=== PATIENT | male | born 1945 | race Caucasian/White ===

== ENCOUNTER 2020-07-30 18:48 | Inpatient (IN) ==
[2020-07-30] MEDS ORDERED: SODIUM CHLORIDE 0.9% 1000ML 1,000 ML IV STA (19:28)
[2020-07-30] MEDS ORDERED: ACETAMINOPHEN 500 MG TAB PO STA (19:28)
[2020-07-30] MEDS ORDERED: SODIUM CHLORIDE 0.9% 500 ML IV SCH (19:30)
[2020-07-30] MEDS ORDERED: DEXAMETHASONE SOD INJ 10 MG/ML VIAL IV ONE (19:53)
--- NOTE | 2020-07-30 20:05 | Emergency Department Note ---
Impression & Plan Fever, COVID-19 virus infection ED Provider Note INFORMANT: [Patient] ED PROVIDER(S): Karlos Ortiz MD CHIEF COMPLAINT: Flulike symptoms PLAN: Disposition: Admitted Condition: Guarded MEDICAL DECISION MAKING: Patient presented with flulike symptoms. He has a fever. He was given Tylenol. Gentle fluid hydration was initiated. His was admitted yesterday with COVID-19. I suspected COVID-19 and the patient was isolated. Covid testing was performed and was positive. Patient was given IV Decadron. His CBC and chemistry panel are unremarkable. CRP is elevated. Troponin negative. ECG did not show any ischemia. He had an O2 saturation on room air of 90%. He did well with supplemental nasal cannula oxygen. He will need admitted to the hospital for further management. Consultation was placed with Reji Banuelos of the [facility] service. Patient was evaluated in the ER for further management. Triage Nursing notes reviewed and agree them. Vital Signs: reviewed and remarkable for [no significant abnormalities] Differential diagnosis: COVID-19 infection, viral syndrome, otitis, pharyngitis, pneumonia, influenza, meningitis, urinary tract infection, sepsis, bacteremia, as well as other pathologies. Diagnostics interpreted by me: ECG: Rate: 84 Rhythm:Normal sinus [place]:Normal QRS:Normal ST segements:No elevation or depression Other:No PACs or PVCs Cardiac Monitoring: Cardiac monitoring ordered by me: The patient was placed on continuous cardiac monitoring and observed. It revealed a normal sinus rhythm at 90 beats per minute without ectopy or evidence of dysrhythmia. Imaging studies: Chest x-ray. Findings: A chest x-ray was performed and revealed no pneumothorax, effusion, infiltrate, pulmonary edema, free air under the diaphragm, or wide mediastinum. Impression: No acute disease. Consultation(s): [facility] service HPI: The patient is a 75 year old male who presents to the Emergency Room with complaints of flulike symptom. This started earlier this week and is progressing. The patient also notes the following associated symptoms, insomnia, fever, chills, headache, cough, myalgias. The patient has found no relieving factors. Current pain is rated as 3/10. Patient's was seen in the hospital last night and diagnosed with Covid and admitted secondary to hypoxia. Pt denies LOC, diaphoresis, visual changes, neck pain, chest pain, breathing difficulties, nausea, vomiting, abdominal pain, back pain, melena, hematochezia, urinary symptoms, numbness, focal weakness, lymphadenopathy, rash, or other complaints. ROS: See above HPI for pertinent positives & negatives. A total of [10] systems reviewed and were otherwise negative. PAST MEDICAL HISTORY:[See Below] , high blood pressure PAST SURGICAL HISTORY:[See Below],[] FAMILY HISTORY:[See Below] SOCIAL HISTORY:[See Below], HOME MEDICATIONS:[See Below] ALLERGIES:[See Below] VITALS:[See Below] PHYSICAL EXAMINATION: GENERAL: Awake, ill-appearing, in no distress HENT: Normocephalic, atraumatic. Oropharynx unremarkable. EYES: Normal conjunctiva. Sclera non-icteric. NECK: Inspection normal. Non-tender. Supple. No nuchal rigidity. FROM. No masses. RESPIRATORY: Clear to auscultation. No wheezes. No rales. Moderate cough, increased respiratory effort. CARDIAC: Borderline tachycardic rate. Normal rhythm. No murmurs. No rubs. Extremities warm and well perfused. Pulses equal. No JVD. GI: Soft, non-distended. No tenderness to palpation. No rebound or guarding. No masses. RECTAL: Deferred. MUSCULOSKELETAL: Atraumatic. Chest examination reveals no tenderness. The back is symmetrical on inspection without obvious abnormality. There is no CVA tenderness to palpation. No joint edema. LOWER EXTREMITIES: Calves are equal size bilaterally and non-tender. No edema. No discoloration. NEURO: Normal sensorium. No sensory or motor deficits noted. SKIN: Flushed but no no rash or jaundice noted. Karlos Ortiz MD Past Med/Surg History Social History Smoking Status: Never smoker Feels Safe at Home: Yes Results & Data (ED) Vital Signs Vital Signs - 24 hr 07/30/20 18:58 07/30/20 20:28 07/30/20 20:30 Temperature 38.2 C H 37.8 C H Temperature Source Temporal Artery Scan Oral Pulse Rate 100 H 88 Pulse Rate [Apical] 86 Pulse Rate from SpO2 Sensor 87 Pulse Rhythm Regular Pulse Strength Normal Respiratory Rate 20 19 Respiratory Effort / Characteristics Non-Labored Respiratory Depth Normal Respiratory Pattern Regular Blood Pressure 128/81 149/87 H Blood Pressure [Right Arm] 149/87 H Blood Pressure Mean 96 104 Blood Pressure Mean [Right Arm] 107 Blood Pressure Position Sitting Pulse Oximetry 94 97 97 Oxygen Delivery Method Nasal Cannula Nasal Cannula Oxygen Flow Rate 2 Sepsis Recent Fever Within 48 Hours Yes Sepsis New/Unexplained Change in Mental Status No Sepsis Action Taken by Nursing No Action Required 07/30/20 21:00 Temperature Temperature Source Pulse Rate 85 Pulse Rate [Apical] Pulse Rate from SpO2 Sensor 86 Pulse Rhythm Pulse Strength Respiratory Rate 13 Respiratory Effort / Characteristics Respiratory Depth Respiratory Pattern Blood Pressure Blood Pressure [Right Arm] Blood Pressure Mean Blood Pressure Mean [Right Arm] Blood Pressure Position Pulse Oximetry 96 Oxygen Delivery Method Oxygen Flow Rate Sepsis Recent Fever Within 48 Hours Sepsis New/Unexplained Change in Mental Status Sepsis Action Taken by Nursing Laboratory Data Result diagrams: 07/30/20 20:32 07/30/20 20:32 Lab Results 07/30/20 07/30/20 07/30/20 Range/Units 20:32 20:32 20:32 WBC 6.13 (4.8-10.8) K/uL RBC 4.61 L (4.7-6.1) M/uL Hgb 13.9 L (14.0-18.0) g/dL Hct 41.9 L (42-52) % MCV 90.9 (80-100) fL MCH 30.2 (25-34) pg MCHC 33.2 (32-36) g/dL RDW Std Deviation 44.6 (36.4-46.3) fL RDW Coeff of Macrina 13.4 (11.5-14.5) % Plt Count 204 (130-400) K/uL MPV 10.0 (7.4-10.4) fL Immature Gran % (Auto) 0.0 % Neut % (Auto) 62.8 % Lymph % (Auto) 15.0 % [place] % (Auto) 21.0 % Eos % (Auto) 0.7 % Baso % (Auto) 0.5 % Neut # (Auto) 3.85 (1.4-6.5) K/uL Lymph # (Auto) 0.92 L (1.2-3.4) K/uL [place] # (Auto) 1.29 H (0.11-0.59) K/uL Eos # (Auto) 0.04 (0-0.5) K/uL Baso # (Auto) 0.03 (0-0.2) K/uL Immature Gran # (Auto) 0.00 (0.00-0.02) K/uL PT 11.4 (9.0-12.0) Seconds INR 1.1 (0.9-1.1) APTT 32.8 H (21.0-31.0) Seconds PTT Ratio 1.2 Sodium 137 (136-145) mmol/L Potassium 4.1 (3.5-5.1) mmol/L Chloride 103 (98-107) mmol/L Carbon Dioxide 26 (21-32) mmol/L Anion Gap 7.0 (3-11) BUN 15 (7-18) mg/dl Creatinine 1.29 (0.6-1.4) mg/dl Est Cr Clr Drug Dosing 57.0 ml/min Est GFR ( Amer) 63.3 Est GFR (Non-Af Amer) 54.6 BUN/Creatinine Ratio 11.6 (10-20) Glucose 149 H (70-99) mg/dl Lactate (0.4-2.0) mmol/L Calcium 9.1 (8.5-10.1) mg/dl Total Bilirubin 0.5 (0.2-1) mg/dl AST 21 (15-37) U/L ALT 28 (12-78) U/L Alkaline Phosphatase 82 (45-117) U/L Troponin I < 0.015 (0-0.045) ng/ml C-Reactive Protein 1.99 H (0-0.29) mg/dl NT-Pro-B Natriuret Pep 149 (0-900) pg/ml Total Protein 7.5 (6.4-8.2) gm/dl Albumin 3.9 (3.4-5.0) gm/dl Globulin 3.6 (2.5-4.0) gm/dl Albumin/Globulin Ratio 1.1 (0.9-2) COVID-19 Eval Order Influ A Molecular Assay (Negative) Influ B Molecular Assay (Negative) SARS-CoV-2, RNA, NAAT (NEGATIVE) 07/30/20 07/30/20 07/30/20 Range/Units 20:32 20:32 20:32 WBC (4.8-10.8) K/uL RBC (4.7-6.1) M/uL Hgb (14.0-18.0) g/dL Hct (42-52) % MCV (80-100) fL MCH (25-34) pg MCHC (32-36) g/dL RDW Std Deviation (36.4-46.3) fL RDW Coeff of [place]rina (11.5-14.5) % Plt Count (130-400) K/uL MPV (7.4-10.4) fL Immature Gran % (Auto) % Neut % (Auto) % Lymph % (Auto) % [place] % (Auto) % Eos % (Auto) % Baso % (Auto) % Neut # (Auto) (1.4-6.5) K/uL Lymph # (Auto) (1.2-3.4) K/uL [place] # (Auto) (0.11-0.59) K/uL Eos # (Auto) (0-0.5) K/uL Baso # (Auto) (0-0.2) K/uL Immature Gran # (Auto) (0.00-0.02) K/uL PT (9.0-12.0) Seconds INR (0.9-1.1) APTT (21.0-31.0) Seconds PTT Ratio Sodium (136-145) mmol/L Potassium (3.5-5.1) mmol/L Chloride (98-107) mmol/L Carbon Dioxide (21-32) mmol/L Anion Gap (3-11) BUN (7-18) mg/dl Creatinine (0.6-1.4) mg/dl Est Cr Clr Drug Dosing ml/min Est GFR ( Amer) Est GFR (Non-Af Amer) BUN/Creatinine Ratio (10-20) Glucose (70-99) mg/dl Lactate (0.4-2.0) mmol/L Calcium (8.5-10.1) mg/dl Total Bilirubin (0.2-1) mg/dl AST (15-37) U/L ALT (12-78) U/L Alkaline Phosphatase (45-117) U/L Troponin I (0-0.045) ng/ml C-Reactive Protein (0-0.29) mg/dl NT-Pro-B Natriuret Pep (0-900) pg/ml Total Protein (6.4-8.2) gm/dl Albumin (3.4-5.0) gm/dl Globulin (2.5-4.0) gm/dl Albumin/Globulin Ratio (0.9-2) COVID-19 Eval [facility] Influ A Molecular Assay Negative (Negative) Influ B Molecular Assay Negative (Negative) SARS-CoV-2, RNA, NAAT POSITIVE A* (NEGATIVE) 07/30/20 Range/Units 21:07 WBC (4.8-10.8) K/uL RBC (4.7-6.1) M/uL Hgb (14.0-18.0) g/dL Hct (42-52) % MCV (80-100) fL MCH (25-34) pg MCHC (32-36) g/dL RDW Std Deviation (36.4-46.3) fL RDW Coeff of [place]rina (11.5-14.5) % Plt Count (130-400) K/uL MPV (7.4-10.4) fL Immature Gran % (Auto) % Neut % (Auto) % Lymph % (Auto) % [place] % (Auto) % Eos % (Auto) % Baso % (Auto) % Neut # (Auto) (1.4-6.5) K/uL Lymph # (Auto) (1.2-3.4) K/uL [place] # (Auto) (0.11-0.59) K/uL Eos # (Auto) (0-0.5) K/uL Baso # (Auto) (0-0.2) K/uL Immature Gran # (Auto) (0.00-0.02) K/uL PT (9.0-12.0) Seconds INR (0.9-1.1) APTT (21.0-31.0) Seconds PTT Ratio Sodium (136-145) mmol/L Potassium (3.5-5.1) mmol/L Chloride (98-107) mmol/L Carbon Dioxide (21-32) mmol/L Anion Gap (3-11) BUN (7-18) mg/dl Creatinine (0.6-1.4) mg/dl Est Cr Clr Drug Dosing ml/min Est GFR ( Amer) Est GFR (Non-Af Amer) BUN/Creatinine Ratio (10-20) Glucose (70-99) mg/dl Lactate 0.7 (0.4-2.0) mmol/L Calcium (8.5-10.1) mg/dl Total Bilirubin (0.2-1) mg/dl AST (15-37) U/L ALT (12-78) U/L Alkaline Phosphatase (45-117) U/L Troponin I (0-0.045) ng/ml C-Reactive Protein (0-0.29) mg/dl NT-Pro-B Natriuret Pep (0-900) pg/ml Total Protein (6.4-8.2) gm/dl Albumin (3.4-5.0) gm/dl Globulin (2.5-4.0) gm/dl Albumin/Globulin Ratio (0.9-2) COVID-19 Eval Order Influ A Molecular Assay (Negative) Influ B Molecular Assay (Negative) SARS-CoV-2, RNA, NAAT (NEGATIVE) Administered Medications Sodium Chloride (Nss 1000ml) 1,000 mls @ 125 mls/hr IV .Q8H STA Stop: 07/31/20 03:27 Last Admin: 07/30/20 20:48 Dose: 125 mls/hr Documented by: [id number] Discontinued Medications Acetaminophen (Acetaminophen 500 Mg Tab) 1,000 mg PO NOW STA Stop: 07/30/20 19:29 Last Admin: 07/30/20 20:46 Dose: 1,000 mg Documented by: [id number] Dexamethasone (Dexamethasone Sod Inj 10 Mg/Ml Vial) 6 mg IV NOW ONE Stop: 07/30/20 19:54 Last Admin: 07/30/20 20:47 Dose: 6 mg Documented by: [id number] Sodium Chloride (Nss) 500 mls @ 999 mls/hr IV .Q31M NILAM Stop: 07/30/20 20:00 Last Infusion: 07/30/20 21:32 Dose: 0 mls/hr Documented by: [id number] Admin: 07/30/20 20:48 Dose: 999 mls/hr Documented by: [id number] Discharge Plan Visit Data Chief Complaint: Flu Like Symptoms Stated Complaint: WEAKNESS, COUGH, LOSS OF BALANCE, HEADACHE ED Provider: Karlos Ortiz Discharge Problem: Fever, COVID-19 virus infection Forms Stand Alone Forms: [facility]
[2020-07-30 20:57] LABS: Basophils # (auto) 0.03 K/uL (0-0.2); Basophils % (auto) 0.5 %; Eosinophils # (auto) 0.04 K/uL (0-0.5); Eosinophils % (auto) 0.7 %; Hematocrit (blood only) 41.9 % (42-52); Hemoglobin 13.9 g/dL (14.0-18.0); Lymphocytes # (auto) 0.92 K/uL (1.2-3.4); Mean Corpuscular Hemoglobin 30.2 pg (25-34); Mean Corpuscular Hgb Conc 33.2 g/dL (32-36); Mean Corpuscular Volume 90.9 fL (80-100); Monocytes # (auto) 1.29 K/uL (0.11-0.59); Neutrophils # (auto) 3.85 K/uL (1.4-6.5); Neutrophils % (auto) 62.8 %; Platelet Count 204 K/uL (130-400); RDW Coefficient of Variation 13.4 % (11.5-14.5); RDW Standard Deviation 44.6 fL (36.4-46.3); Red Blood Count 4.61 M/uL (4.7-6.1); White Blood Count 6.13 K/uL (4.8-10.8)
[2020-07-30 21:08] LABS: INR 1.1 (0.9-1.1); Partial Thromboplastin Ratio 1.2; Partial Thromboplastin Time 32.8 Seconds (21.0-31.0); Prothrombin Time 11.4 Seconds (9.0-12.0)
[2020-07-30 21:23] LABS: Alanine Aminotransferase 28 U/L (12-78); Albumin Level 3.9 gm/dl (3.4-5.0); Aspartate Aminotransferase 21 U/L (15-37); BUN Creatinine Ratio 11.6 (10-20); Blood Urea Nitrogen 15 mg/dl (7-18); C Reactive Protein 1.99 mg/dl (0-0.29); Calcium 9.1 mg/dl (8.5-10.1); Carbon Dioxide 26 mmol/L (21-32); Chloride 103 mmol/L (98-107); Est GFR (African American) 63.3; Est GFR (Non-African American) 54.6; Glucose 149 mg/dl (70-99); Potassium 4.1 mmol/L (3.5-5.1); Sodium 137 mmol/L (136-145)
[2020-07-30 21:28] LABS: Albumin Globulin Ratio 1.1 (0.9-2); Alkaline Phosphatase 82 U/L (45-117); Bilirubin,Total 0.5 mg/dl (0.2-1); Globulin 3.6 gm/dl (2.5-4.0); Influenza A virus by PCR Negative (Negative); Influenza B virus by PCR Negative (Negative); NT Pro B Type Natriuretic Pept 149 pg/ml (0-900); Total Protein 7.5 gm/dl (6.4-8.2); Troponin I < 0.015 ng/ml (0-0.045)
--- NOTE | 2020-07-30 21:37 | XRay Report ---
SINGLE VIEW CHEST CLINICAL HISTORY: Dyspnea. FINDINGS: An AP, portable, upright chest radiograph is obtained. No prior studies are available for c omparison at the time of dictation. The examination is degraded by portable technique and patient rot ation. The heart is enlarged. The pulmonary vasculature is noncongested. There is mild bibasilar ate lectasis. No airspace consolidation or large pleural effusion is identified. No pneumothorax is seen. The skeletal structures are osteopenic. The bony thorax is grossly intact. IMPRESSION: Cardiomegaly with no acute cardiopulmonary abnormality. ACT 112: Negative or not required by law. Electronically signed by: Joseph Hdez M.D. 07/30/2020 9:36 PM
--- NOTE | 2020-07-30 22:58 | History & Physical Report ---
Date of Service July 30, 2020 Assessment & Plan (1) COVID-19 virus infection: COVID-19 virus infection/fever/hypoxia/generalized myalgias and arthralgias- Decadron 6 mg IV daily Convalescent plasma Remdesivir IV per protocol Azithromycin 500 mg IV daily Ventolin HFA 2 puffs 4 times daily, and every 2 hours as needed NSS at high 25 mils per hour Present on Admission?: Yes (2) Fever: Tylenol as needed Present on Admission?: Yes (3) Hypoxia: Nasal cannula 2 L oxygen, titrate to keep pulse ox around 95% Present on Admission?: Yes (4) Hypertension: Continue lisinopril and amlodipine with hold parameters Present on Admission?: Yes History of Present Illness Chief Complaint: The patient presented to the emergency department with complaint of mild shortness of breath, generalized muscle aches and a fever. Primary Care Provider: Robin Reid MD The patient is a 75-year-old male with a past medical history including hypertension. He and his both developed similar symptoms about 3 days ago, with her being admitted to the hospital last evening. His symptoms have progressed, and underwent COVID-19 testing in the ED and was positive tonight. Vital signs included a pulse ox of 90% on room air, which improved with 2 L to 96-97%. The patient remained febrile while in emergency department with initial temperature of 100.8 F, which improved to 100.0 F after oral Tylenol. Allergies Allergy/AdvReac Type Severity Reaction Status Date / Time No Known Allergies Allergy Unverified 07/30/20 22:19 Home Medications Medication Instructions Recorded Confirmed Type amlodipine 5 mg PO DAILY 07/30/20 07/30/20 History cholecalciferol (vitamin D3) 0 mcg PO DAILY 07/30/20 07/30/20 History losartan 50 mg PO DAILY 07/30/20 07/30/20 History multivitamin [Multiple Vitamin] 1 tab PO DAILY 07/30/20 07/30/20 History Past Med/Surg History Medical History (Updated 07/31/20 @ 00:59 by Reji Banuelos MD) Hypertension Social History Smoking Status: Never smoker Feels Safe at Home: Yes Review of Systems Review of Systems: The patient denies chest pain, palpitations, lower extremity swelling, sore throat, fevers, chills, sweats, nausea, vomiting, diarrhea , constipation, abdominal pain, pelvic pain, blood in urine or stool, dysuria, urinary frequency or urgency, lightheadedness, dizziness, headache, memory loss, loss of consciousness, rash, abnormal bruising or bleeding, imbalance, focal weakness, numbness or tingling in arms or legs, back or neck pain, or night sweats. The review of systems is otherwise negative other than for that already noted above, and at least 10 systems have been reviewed. Physical Exam Physical Exam: The patient is awake, alert and oriented 3, well developed and well nourished, normocephalic and atraumatic, lying in bed and in no acute distress. HEENT--PERRL, EOMI, mucous membranes and oropharynx dry. Neck--supple. No JVD. No bruits. Thyroid normal, trachea midline, no adenopathy. Heart--normal S1 and S2. No murmurs, rubs or gallops. Lungs--clear bilaterally, no respiratory distress, no accessory muscle use. Abdomen--normal bowel sounds and soft. Nontender. Nondistended. Extremities--no cyanosis or clubbing. No edema. Dermatologic--normal skin turgor, normal color, no abnormal lymph nodes, no rash. Neurologic--cranial nerves II through XII grossly intact. Rheumatologic--normal range of motion. Psychiatric--normal affect. Results & Data Results & Data ([facility]) Vital Signs (Past 12 Hours) Vital Signs Temp Pulse Pulse Resp BP BP Pulse Ox 07/30/20 21:00 85 13 96 07/30/20 20:30 100.0 F H 88 86 19 149/87 H 149/87 H 97 07/30/20 20:28 97 07/30/20 18:58 100.8 F H 100 H 20 128/81 94 07/30/20 18:50 90 Laboratory Results Laboratory Results WBC 6.13 K/uL (4.8-10.8) 07/30/20 20:32 RBC 4.61 M/uL (4.7-6.1) L 07/30/20 20:32 Hgb 13.9 g/dL (14.0-18.0) L 07/30/20 20:32 Hct 41.9 % (42-52) L 07/30/20 20:32 MCV 90.9 fL (80-100) 07/30/20 20: MCH 30.2 pg (25-34) 07/30/20: MCHC 33.2 g/dL (32-36) 07/30/20 20: RDW Std Deviation 44.6 fL (36.4-46.3) 07/30/20 20: RDW Coeff of Macrina 13.4 % (11.5-14.5) 07/30/20: Plt Count 204 K/uL (130-400) 07/30/20 20: MPV 10.0 fL (7.4-10.4) 07/30/20 20: Immature Gran % (Auto) 0.0 % 07/30/20: Neut % (Auto) 62.8 % 07/30/20 20: Lymph % (Auto) 15.0 % 07/30/20: [place] % (Auto) 21.0 % 07/30/20: Eos % (Auto) 0.7 % 07/30/20: Baso % (Auto) 0.5 % 07/30/20: Neut # (Auto) 3.85 K/uL (1.4-6.5) 07/30/20 20: Lymph # (Auto) 0.92 K/uL (1.2-3.4) L 07/30/20 20: [place] # (Auto) 1.29 K/uL (0.11-0.59) H 07/30/20: Eos # (Auto) 0.04 K/uL (0-0.5) 07/30/20: Baso # (Auto) 0.03 K/uL (0-0.2) 07/30/20: Immature Gran # (Auto) 0.00 K/uL (0.00-0.02) 07/30/20 20: PT 11.4 Seconds (9.0-12.0) 07/30/20 20: INR 1.1 (0.9-1.1) 07/30/20: APTT 32.8 Seconds (21.0-31.0) H 07/30/20 20: PTT Ratio 1.2 07/30/20 20:32 D-Dimer 230 ug/L FEU (0-500) 07/30/20 21:09 Sodium 137 mmol/L (136-145) 07/30/20 20:32 Potassium 4.1 mmol/L (3.5-5.1) 07/30/20 20:32 Chloride 103 mmol/L (98-107) 07/30/20 20:32 Carbon Dioxide 26 mmol/L (21-32) 07/30/20 20:32 Anion Gap 7.0 (3-11) 07/30/20 20:32 BUN 15 mg/dl (7-18) 07/30/20 20:32 Creatinine 1.29 mg/dl (0.6-1.4) 07/30/20 20:32 Est Cr Clr Drug Dosing 57.0 ml/min 07/30/20 20:32 Est GFR ( Amer) 63.3 07/30/20 20:32 Est GFR (Non-Af Amer) 54.6 07/30/20 20:32 BUN/Creatinine Ratio 11.6 (10-20) 07/30/20 20:32 Glucose 149 mg/dl (70-99) H 07/30/20 20:32 Lactate 0.7 mmol/L (0.4-2.0) 07/30/20 21:07 Calcium 9.1 mg/dl (8.5-10.1) 07/30/20 20:32 Total Bilirubin 0.5 mg/dl (0.2-1) 07/30/20 20:32 AST 21 U/L (15-37) 07/30/20 20:32 ALT 28 U/L (12-78) 07/30/20 20:32 Alkaline Phosphatase 82 U/L (45-117) 07/30/20 20:32 Troponin I < 0.015 ng/ml (0-0.045) 07/30/20 20:32 C-Reactive Protein 1.99 mg/dl (0-0.29) H 07/30/20 20:32 NT-Pro-B Natriuret Pep 149 pg/ml (0-900) 07/30/20 20:32 Total Protein 7.5 gm/dl (6.4-8.2) 07/30/20 20:32 Albumin 3.9 gm/dl (3.4-5.0) 07/30/20 20:32 Globulin 3.6 gm/dl (2.5-4.0) 07/30/20 20:32 Albumin/Globulin Ratio 1.1 (0.9-2) 07/30/20 20:32 Procalcitonin < 0.05 ng/ml (0-0.5) 07/30/20 20:32 COVID-19 Eval Order Covid19 IDNow [facility] 07/30/20 20:32 Influ A Molecular Assay Negative (Negative) 07/30/20 20:32 Influ B Molecular Assay Negative (Negative) 07/30/20 20:32 SARS-CoV-2, RNA, NAAT POSITIVE (NEGATIVE) A* 07/30/20 20:32 Blood Type O Positive 07/30/20 21:07 Antibody Screen NEGATIVE 07/30/20 21:07 Diagnostic Findings [facility], [id number] XRay Report Patient: YELENA MUNOZ DAdmit Date: 07/30/20MR#: [id number]: [address] AVAcct ID:[id number]: Date: 1945[facility] Zip: [place], [place] [address]Zhl: 75Location: EDSex: MRoom/Bed:Att Phy:Diagnosis: WEAKN ESS, COUGH, LOSS OF BALANCE, HEADACHEPri Phy: PCP,NOService Date: 07/30/20Fam Phy:Interpreting Phy: Joseph Hdez MDAdmit Phy: Ordering Phy: Karlos Ortiz MD cc: ~ SINGLE VIEW CHEST CLINICAL HISTORY: Dyspnea. FINDINGS: An AP, portable, upright chest radiograph is obtained. No prior studies are available for comparison at the time of dictation. The examination is degraded by portable technique and patient rotation. The heart is enlarged. The pulmonary vasculature is noncongested. There is mild bibasilar atelectasis. No airspace consolidation or large pleural effusion is identified. No pneumothorax is seen. The skeletal structures are osteopenic. The bony thorax is grossly intact. IMPRESSION: Cardiomegaly with no acute cardiopulmonary abnormality. ACT 112: Negative or not required by law. Electronically signed by: Joseph Hdez M.D. 07/30/2020 9:36 PM Dictated: 07/30/202134Transcribed: 07/30/202134 Code Status & VTE Plan Code Status Full code VTE Prophylaxis Plan VTE Prophylaxis will be ordered: Yes PG Care Time/CCT Total # of Minutes Spent Total Time Spent with Patient: Total time spent is greater than 50% in coordination of care (as documented) at patient's floor/unit and/or counseling patient: Coding Level of Care Code 30591 Initial Inpt Care Lvl 2 Diagnoses COVID-19 virus infection U07.1 Fever R50.9 Hypoxia R09.02 Hypertension I10
[2020-07-30 23:13] LABS: D Dimer 230 ug/L FEU (0-500)
[2020-07-31] MEDS ORDERED: ACETAMINOPHEN 325 MG TAB PO PRN (04:55)
[2020-07-31] MEDS ORDERED: ONDANSETRON INJ 2 MG/ML 2 ML VIAL IV PRN (04:55)
[2020-07-31] MEDS ORDERED: REMDESIVIR 100 MG in SODIUM CHLORIDE 0.9% 230 ML IV SCH (05:30)
[2020-07-31] MEDS ORDERED: REMDESIVIR 200 MG in SODIUM CHLORIDE 0.9% 210 ML IV ONE (05:30)
[2020-07-31] MEDS ORDERED: ALBUTEROL HFA 8 GM INHALER INH SCH (07:00)
[2020-07-31] MEDS: ENOXAPARIN INJ 40 MG/0.4 ML SYR SQ SCH (07:43)
[2020-07-31] MEDS: LOSARTAN POTASSIUM 50 MG TAB PO SCH (07:44)
[2020-07-31] MEDS: dexAMETHasone 6 MG in SYRINGE 0 ML IV SCH (07:44)
[2020-07-31] MEDS: MULTIVITAMIN TAB PO SCH (07:44)
[2020-07-31] MEDS: amLODIPine BESYLATE 5 MG TAB PO SCH (07:44)
--- NOTE | 2020-07-31 07:58 | Electrocardiogram Report ---
Test Reason : Blood Pressure : / mmHG Vent. Rate : 084 BPM Atrial Rate : 084 BPM P-R Int : 164 ms QRS Dur : 100 ms QT Int : 368 ms P-R-T Axes : 053 011 054 degrees QTc Int : 434 ms Normal sinus rhythm Incomplete right bundle branch block Normal ECG No previous ECGs available Confirmed by Hermann Cartagena ([id number]) on 07/31/2020 7:58:39 AM Referred By: REFERRED SELF Confirmed By:Hermann Cartagena
[2020-07-31] MEDS: AZITHROMYCIN 500 MG in DEXTROSE 5% 250 ML IV SCH (08:14)
[2020-07-31] MEDS: SODIUM CHLORIDE 0.9% 10ML FLUSH IV SCH (08:14)
[2020-07-31] MEDS ORDERED: ALBUTEROL HFA 8 GM INHALER INH PRN (09:45)
[2020-07-31 11:15] LABS: Appearance Urine Clear (Clear); Bilirubin Urine Negative (Negative); Blood Urine Negative (Negative); Color Urine Yellow; Glucose Urine UA 3+ (Negative); Ketones Urine Trace (Negative); Leukocyte Esterase Urine Negative (Negative); Nitrite Urine Negative (Negative); Protein Urine Negative (Negative); Specific Gravity Urine 1.032 (1.000-1.030); Urobilinogen Urine Negative (Negative)
--- NOTE | 2020-07-31 22:00 | Hospitalist Progress Note ---
Date of Service July 31, 2020 Assessment & Plan (1) COVID-19 virus infection: COVID-19 virus infection/fever/hypoxia/generalized myalgias and arthralgias- Decadron 6 mg IV daily Convalescent plasma Remdesivir IV per protocol Azithromycin 500 mg IV daily Ventolin HFA 2 puffs 4 times daily, and every 2 hours as needed Patient is now on room air. Will continue to monitor. If tolerating for 24 hours will discharge. (2) Fever: Tylenol as needed (3) Hypoxia: Nasal cannula 2 L oxygen, titrate to keep pulse ox around 95% (4) Hypertension: Continue lisinopril and amlodipine with hold parameters Admission and Anticipated Discharge Date Admission Date: July 31, 2020 Subjective 75 yo male reports feeling well. He is breathing well without oxygen. Review of Systems Review of Systems: The patient denies chest pain, palpitations, lower extremity swelling, sore throat, fevers, chills, sweats, nausea, vomiting, diarrhea , constipation, abdominal pain, pelvic pain, blood in urine or stool, dysuria, urinary frequency or urgency, lightheadedness, dizziness, headache, memory loss, loss of consciousness, rash, abnormal bruising or bleeding, imbalance, focal weakness, numbness or tingling in arms or legs, back or neck pain, or night sweats. The review of systems is otherwise negative other than for that already noted above, and at least 10 systems have been reviewed. Physical Exam Physical Exam: The patient is awake, alert and oriented 3, well developed and well nourished, normocephalic and atraumatic, lying in bed and in no acute distress. HEENT--PERRL, EOMI, mucous membranes and oropharynx dry. Neck--supple. No JVD. No bruits. Thyroid normal, trachea midline, no adenopathy. Heart--normal S1 and S2. No murmurs, rubs or gallops. Lungs--clear bilaterally, no respiratory distress, no accessory muscle use. Abdomen--normal bowel sounds and soft. Nontender. Nondistended. Extremities--no cyanosis or clubbing. No edema. Dermatologic--normal skin turgor, normal color, no abnormal lymph nodes, no rash. Neurologic--cranial nerves II through XII grossly intact. Rheumatologic--normal range of motion. Psychiatric--normal affect. Results & Data Results & Data ([facility]) Vital Signs (Past 12 Hours) Vital Signs Temp Pulse Resp BP Pulse Ox 07/31/20 19:35 36.5 C 76 17 142/81 H 96 07/31/20 15:28 36.8 C 70 20 132/70 96 07/31/20 11:20 36.6 C 64 16 134/81 95 PG Care Time/CCT Total # of Minutes Spent Total Time Spent with Patient: Total time spent is greater than 50% in coordination of care (as documented) at patient's floor/unit and/or counseling patient: Coding Level of Care Code 89423 Subseq Hosp Care Lvl 3 Diagnoses COVID-19 virus infection U07.1 Fever R50.9 Hypoxia R09.02 Hypertension I10 Time Spent (min) 35
[2020-08-01] MEDS: SODIUM CHLORIDE 0.9% 10ML FLUSH IV SCH (04:50)
[2020-08-01] MEDS ORDERED: REMDESIVIR 100 MG in SODIUM CHLORIDE 0.9% 230 ML IV SCH (05:30)
[2020-08-01] MEDS: AZITHROMYCIN 500 MG in DEXTROSE 5% 250 ML IV SCH (07:45)
[2020-08-01] MEDS: ENOXAPARIN INJ 40 MG/0.4 ML SYR SQ SCH (07:46)
[2020-08-01] MEDS: dexAMETHasone 6 MG in SYRINGE 0 ML IV SCH (07:46)
[2020-08-01] MEDS: MULTIVITAMIN TAB PO SCH (07:46)
[2020-08-01] MEDS: LOSARTAN POTASSIUM 50 MG TAB PO SCH (07:46)
[2020-08-01] MEDS: amLODIPine BESYLATE 5 MG TAB PO SCH (07:47)
--- NOTE | 2020-08-02 22:15 | Discharge Summary ---
Date of Service August 01, 2020 Admission HPI Per Admitting Provider The patient is a 75-year-old male with a past medical history including hypertension. He and his both developed similar symptoms about 3 days ago, with her being admitted to the hospital last evening. His symptoms have progressed, and underwent COVID-19 testing in the ED and was positive tonight. Vital signs included a pulse ox of 90% on room air, which improved with 2 L to 96-97%. The patient remained febrile while in emergency department with initial temperature of 100.8 F, which improved to 100.0 F after oral Tylenol. Principal Diagnosis covid 19 Discharge Exam The patient is awake, alert and oriented 3, well developed and well nourished, normocephalic and atraumatic, lying in bed and in no acute distress. HEENT--PERRL, EOMI, mucous membranes and oropharynx dry. Neck--supple. No JVD. No bruits. Thyroid normal, trachea midline, no adenopathy. Heart--normal S1 and S2. No murmurs, rubs or gallops. Lungs--clear bilaterally, no respiratory distress, no accessory muscle use. Abdomen--normal bowel sounds and soft. Nontender. Nondistended. Extremities--no cyanosis or clubbing. No edema. Dermatologic--normal skin turgor, normal color, no abnormal lymph nodes, no rash. Neurologic--cranial nerves II through XII grossly intact. Rheumatologic--normal range of motion. Psychiatric--normal affect. Discharge Data Allergies Allergy/AdvReac Type Severity Reaction Status Date / Time No Known Allergies Allergy Unverified 07/30/20 22:19 Consultations 07/30/20 21:30 ED Decision to Admit Stat 07/31/20 04:55 Consult Case Management - Discharge Planning Routine Hospital Course (1) COVID-19 virus infection: COVID-19 virus infection/fever/hypoxia/generalized myalgias and a rthralgias- Decadron 6 mg IV daily Remdesivir IV per protocol Azithromycin 500 mg IV daily Ventolin HFA 2 puffs 4 times daily, and every 2 hours as needed Patient is now on room air for over 24 hours. ok to discharge on decadron. no need for abx. (2) Fever: Tylenol as needed (3) Hypoxia: Nasal cannula 2 L oxygen, titrate to keep pulse ox around 95% (4) Hypertension: Continue lisinopril and amlodipine with hold parameters Total Time Total Time Spent Total Time Spent (In Minutes): 32 Discharge Plan Discharge Items Patient Disposition: Home - Self-Care Reason For Visit: COVID-19 INFECTION WITH HYPOXIA Discharge Diagnosis: Covid-19 with hypoxia Activity: Resume your previous activity Non-emergency contact: Primary Care Provider Call non-emergency contact if: you have any medication questions Follow-up/Referrals: Robin Reid MD [Primary Care Provider] - 08/06/20 1:40 pm (TELEPHONE APPT) Diet: Regular Addtl Attending Provider Instructions: Please quarantine for 14 days since symptom onset. Please recommend that any person you have been in contact with recently, monitor their symptoms and get tested if the PCP recommends it. Coronavirus disease 2019 (COVID-19) is a virus that causes a respiratory illness. It is caused by a coronavirus called 2019 novel coronavirus (2019- nCoV). There are many types of coronavirus. Coronaviruses are a very common cause of bronchitis. They may sometimes cause lung infection(pneumonia). Symptoms can range from mild to severe respiratory illness. These viruses are also foundin some animals. COVID-19 was first found in people in [facility], in late 2019. In 2020, several cases of COVID-19 have been confirmed in the [place] Public health officials are working to find the source. How the virus spreads is not yet fully known. It may be spread through droplets of fluid that a person coughs or sneezes into the air. It may be spread if you touch a surface with virus on it, such as a handle or object, and then touch your mouth. What are the symptoms of COVID-19? Some people have no symptoms or mild symptoms. Symptoms may appear 2 to 14 days after contact with the virus. Symptoms can include: Fever Coughing Trouble breathing What are possible complications from COVID-19? In many cases, this virus can cause infection (pneumonia) in both lungs. In some cases, this can cause . How is COVID-19 diagnosed? Your healthcare provider will ask about your symptoms. He or she will also ask about your recent travel and contact with sick people. Testing for the virus is only done through the [facility]. If yourhealthcare provider thinks you may have COVID- 19, he or she will work with your local health department and the CDC on testing. Follow all instructions from your healthcare provider. COVID-19 is diagnosed by: Nasal and throat swab. A cotton-tipped swab is wiped inside your nose or throat. This is done to check for viruses in your nasal mucus. Sputum culture. A small sample of mucus coughed from your lungs (sputum) is collected if you have a cough. It is checked for the virus. How is COVID-19 treated? There is currently no medicine to treat the virus. Treatment is done to help your body while it fights the virus. This is known as supportive care. Supportive care may include: Pain medicine. These include acetaminophen and ibuprofen. They are used to help ease pain and reduce fever. Bed rest. This helps your body fight the illness. For severe illness, you may need to stay in the hospital. Care during severe illness may include: IV (intravenous) fluids.These are given through a vein to help keep your body hydrated. Oxygen. Supplemental oxygen or ventilation with a breathing machine (ventilator) may be given. This is done to keep enough oxygen in your body. How can COVID-19 be prevented? There is no vaccine yet. The best prevention is to not have contact with the virus. The CDC advises that people should not travel to areas where there are COVID-19 outbreaks right now for any reason that is not urgent. To help prevent spreading the infection, wash your hands often, or use an alcohol-basedhand maori liaison adviser. If you are in an area with COVID-19: Wash your hands often. Or use an alcohol-based hand maori liaison adviser often. Only touch your eyes, nose, or mouth with clean hands. Dont have contact with people who are sick. Follow local instructions about being in public. For example, you may be told to not use public transport for a period of time. Stay away from markets that have live or animals. Wash your hands after touching any animals. Don't touch animals that may be sick. Dont share eating or drinking tools with sick people. Dont kiss someone who is sick. Clean surfaces often with disinfectant. If you were in an area with COVID-19 in the last 14 days: Call your healthcare provider. He or she can talk with local health staff to see what action may be needed. Follow all instructions from your provider. Take your temperature every morning and evening for at least 14 days. This is to check for fever. Keep a record of the readings. Keep watch for symptoms of the virus. Tell your provider right away if you have symptoms. If you were in an area with COVID-19 and have a fever or other symptoms: Dont panic. Keep in mind that other illnesses can cause similar symptoms. Stay away from work, school, and public places. Limit physical contact with family members. Don't kiss anyone or share eating or drinking utensils. Clean surfaces you touch with disinfectant. This is to help prevent the virus from spreading. Call your healthcare provider. Explain that you have been exposed to COVID-19 and have symptoms. Do this before going to any hospital. Wait for instructions. Keep in mind that healthcare staff may wear protective equipment such as masks, gowns, gloves, and eye protection. You may be put in a separate room. This is to prevent the possible virus from spreading. Tell the healthcare staff about recent travel. This includes local travel on public transport. Staff may need to find other people you have been in contact with. Follow all instructions the healthcare staff give you. If you have been diagnosed with COVID-19 Follow all instructions from your healthcare provider. Dont leave your home, except to get medical care. Call your healthcare providers office before going. They can prepare and give you instructions. This will help prevent the virus from spreading. Dont go to work, school, or public areas. Dont use public transport or taxis. Stay away from other people in your home. Have them wear face masks around you. Dont share household items or food. Wear a face mask if you can. This includes at home or in a medical facility. Cover your face with a tissue when you cough or sneeze. Throw the tissue away. Wash your hands. Wash your hands often. Caregivers should: Follow all instructions from healthcare staff. Wear a face mask and protective clothing as advised. Wash hands often. Keep track of the sick persons symptoms. Clean surfaces, fabrics, and laundry thoroughly. Keep other people away from the sick person. When to call your healthcare provider Call your healthcare provider: If youve recently traveled and have symptoms If you have been diagnosed with COVID-19 and your symptoms are worse To learn more To find out more about COVID-19, visit the CDC website at www.cdc.gov/coronavirus/2019-ncov/index.html. [employer]. [address] [place] [address], [place] [address]. All rights reserved. This information is not intended as a substitute for professional medical care. Always follow your healthcare professional's instructions. This information has been adapted from [employer] Pending Studies at Discharge: No Stand-Alone Forms: [facility], Smoking Cessation Medications and DC Order Prescriptions: New dexamethasone [Decadron] 6 mg tablet 6 mg PO DAILY Qty: 7 RF: 0 Continued amlodipine 5 mg tablet 5 mg PO DAILY RF: 0 losartan 50 mg tablet 50 mg PO DAILY RF: 0 multivitamin Tablet 1 tab PO DAILY RF: 0 cholecalciferol (vitamin D3) 10 mcg (400 unit) Tablet 0 mcg PO DAILY RF: 0 Discharge Orders: Discharge Order (Routine); Ordered 08/01/20 Ordered By: Vinicio Vail Admission Data Admit Date/Time: 07/30/20 22:56 Attending Provider: Vinicio Vail Admit Provider: Reji Banuelos Primary Care Provider: Robin Reid Other Providers: Reji Banuelos Other Interventions: Discharge Summary Assessment (RN) Last Done: 08/01/20 14:58 Coding Level of Care Code D/C Day Management >30 mins Diagnoses COVID-19 virus infection U07.1 Fever R50.9 Hypoxia R09.02 Hypertension I10
== END 2020-08-01 15:30 | disposition home or self-care (01) | DRG 179 ==
LOC: ED 18:48 → 2S 07-31 → SUATTDRO 07-31 → 2S 07-31 04:22

== ENCOUNTER 2020-08-08 11:44 | Inpatient (IN) ==
[2020-08-08] MEDS ORDERED: cefTRIAXone SODIUM 1,000 MG/50 ML BAG IV STA (12:18)
[2020-08-08] MEDS ORDERED: AZITHROMYCIN 250 MG TAB PO ONE (12:18)
--- NOTE | 2020-08-08 12:20 | Emergency Department Note ---
Impression & Plan COVID-19 virus infection, Hyperglycemia, Pneumonia, Hypoxia ED Provider Note NAME: YELENA MUNOZ AGE: 75 SEX: M : 1945 ARRIVES VIA: Walk-In INFORMANT: Patient ED PROVIDER(S): Dae Brandt DO CHIEF COMPLAINT: Shortness of breath and elevated blood sugars HPI: Patient is a 75-year-old male diagnosed with Covid about 2 weeks ago. He has been on steroids. He initially started with a cough, loss of taste and smell and some congestion. Recently over the past several days the cough has gotten worse as well as the shortness of breath and he started with a fever in the past 24 hours. Sugars been high above 500. He has been on dexamethasone. He denies any headache or change in vision. No chest pain. No belly pain but admits to some diarrhea. No dysuria urgency or frequency. No other exacerbating or remitting factors. He does not wear oxygen at home. ROS: See above HPI for pertinent positives & negatives. A total of 10 systems reviewed and were otherwise negative. PAST MEDICAL HISTORY:See Below PAST SURGICAL HISTORY:See Below FAMILY HISTORY:See Below SOCIAL HISTORY:See Below HOME MEDICATIONS:See Below ALLERGIES:See Below VITALS:See Below PHYSICAL EXAMINATION: GENERAL: Sitting up in bed, alert, ill-appearing, disheveled, nasal cannula in place EYE EXAM: normal conjunctiva. OROPHARYNX: Dry mucous membranes NECK: supple, no nuchal rigidity, no adenopathy, non-tender LUNGS: Diminished bilaterally. Normal chest wall mechanics HEART: no murmurs, S1 normal and S2 normal ABDOMEN: abdomen soft, non-tender, normo-active bowel sounds, no masses, no rebound or guarding. BACK: Back is symmetrical on inspection and there is no deformity, no midline tenderness, no CVA tenderness. SKIN: no rashes and no bruising UPPER EXTREMITIES: upper extremities are grossly normal. LOWER EXTREMITIES: No pitting edema. NEURO EXAM: Normal sensorium, cranial nerves II-XII grossly intact, normal speech, no gross weakness of arms, no gross weakness of legs. MEDICAL DECISION MAKING: Patient is a 75-year-old male who is Covid positive on steroids that presents the ER for worsening cough and shortness of breath. IV was established blood work was obtained. He was found to be hypoxic. Labs show no significant leukocytosis or anemia. INR was unremarkable. D-dimer was elevated. BMP with mild hyponatremia at 127 and a hyperkalemia at 5.2. Creatinine was appropriate 1.6. Glucose was elevated at 420. Patient was given 6 units IV push and came down 321. Given IV fluids. Placed on a insulin drip. LFTs are unremarkable. Procalcitonin was 0.17. UA was unremarkable. Chest x-ray with multifocal infiltrate. CT Lorelei of the chest without PEs. Patient was updated bedside. Made on nasal cannula admitted for further work-up. Triage Nursing notes reviewed. Prior medical records reviewed Vital Signs: reviewed and remarkable for hypoxic and tachycardic Differential diagnosis: Differential diagnoses includes but is not limited to pneumonia, bronchitis, COPD/Asthma exacerbation, pneumothorax, pulmonary embolism, congestive heart failure, acute coronary syndrome ER treatment provided: See below Diagnostics interpreted by me: ECG: Sinus rhythm rate 81 Normal axis No PVCs Poor baseline in the high lateral leads QTC 425 Cardiac Monitoring: An order was placed for continuous cardiac monitoring. The monitor shows a rate of 95 with sinus rhythm. Laboratory studies: As stated above and show below. Imaging studies: Chest x-ray with multifocal pneumonia CT angio of the chest without PEs Consultation(s): Discussed with hospitalist for further evaluation ED COURSE: Procedures: none Critical Care: I have personally spent 32 minutes of critical care time in the direct management of this patient. This includes bedside care, interpretation of diagnostic studies, and testing, discussion with consultants, patient, and family members, and other required patient management activities. This 32 minutes is in excess of all separately billable procedures. Past Med/Surg History Medical History Hypertension Social History Smoking Status: Never smoker Tobacco Type: Cigarettes Hx Alcohol Use: No Hx Substance Use: No Preferred Language: Luxembourgish Communication Ability: Effective Regulatory Internship Required: No Beliefs That Will Affect Care: None Current Living Situation: Spouse Feels Safe at Home: Yes Assistive Devices: None Allergies Allergies Allergy/AdvReac Type Severity Reaction Status Date / Time No Known Allergies Allergy Unverified 08/08/20 14:50 Home Meds Home Medications Medication Instructions Recorded Confirmed amlodipine 5 mg PO DAILY 07/30/20 08/08/20 cholecalciferol (vitamin D3) 0 mcg PO DAILY 07/30/20 08/08/20 losartan 50 mg PO DAILY 07/30/20 08/08/20 multivitamin 1 tab PO DAILY 07/30/20 08/08/20 Previous Rx's Medication Instructions Recorded dexamethasone [Decadron] 6 mg PO DAILY #7 tab 08/01/20 benzonatate [Tessalon Perles] 100 mg PO TID PRN #15 cap 08/05/20 doxycycline hyclate 100 mg PO BID 7 Days #14 tab 08/05/20 ondansetron HCl [Zofran] 4 mg PO TID PRN 5 Days #15 tab 08/05/20 Results & Data (ED) Vital Signs Vital Signs - 24 hr 08/08/20 11:54 08/08/20 12:30 08/08/20 13:39 Temperature 37.5 C Temperature Source Oral Pulse Rate 98 H 87 Pulse Rate from SpO2 Sensor Respiratory Rate 20 24 28 H Respiratory Effort / Characteristics Non-Labored Spontaneous Non-Labored Spontaneous Respiratory Depth Normal Respiratory Pattern Regular Blood Pressure 131/98 126/71 Blood Pressure Mean 109 89 Pulse Oximetry 85 L 95 Oxygen Delivery Method Room Air Nasal Cannula Oxygen Flow Rate 2 Sepsis Recent Fever Within 48 Hours No Sepsis New/Unexplained Change in Mental Status N/A Sepsis Action Taken by Nursing No Action Required 08/08/20 13:59 08/08/20 14:56 08/08/20 15:00 Temperature Temperature Source Pulse Rate 88 Pulse Rate from SpO2 Sensor 88 87 81 Respiratory Rate 26 H Respiratory Effort / Characteristics Respiratory Depth Respiratory Pattern Blood Pressure 121/66 155/75 H 160/82 H Blood Pressure Mean 78 109 102 Pulse Oximetry 94 91 95 Oxygen Delivery Method Nasal Cannula Nasal Cannula Oxygen Flow Rate 3 3 Sepsis Recent Fever Within 48 Hours Sepsis New/Unexplained Change in Mental Status Sepsis Action Taken by Nursing 08/08/20 15:30 08/08/20 16:00 08/08/20 16:30 Temperature Temperature Source Pulse Rate Pulse Rate from SpO2 Sensor 80 75 76 Respiratory Rate Respiratory Effort / Characteristics Respiratory Depth Respiratory Pattern Blood Pressure 139/82 154/91 H 142/72 H Blood Pressure Mean 113 112 93 Pulse Oximetry 94 94 95 Oxygen Delivery Method Nasal Cannula Nasal Cannula Oxygen Flow Rate 3 3 Sepsis Recent Fever Within 48 Hours Sepsis New/Unexplained Change in Mental Status Sepsis Action Taken by Nursing 08/08/20 17:00 08/08/20 17:30 08/08/20 18:00 Temperature Temperature Source Pulse Rate Pulse Rate from SpO2 Sensor 80 82 79 Respiratory Rate Respiratory Effort / Characteristics Respiratory Depth Respiratory Pattern Blood Pressure 136/80 124/72 135/69 Blood Pressure Mean 106 83 90 Pulse Oximetry 92 93 94 Oxygen Delivery Method Nasal Cannula Oxygen Flow Rate 2 Sepsis Recent Fever Within 48 Hours Sepsis New/Unexplained Change in Mental Status Sepsis Action Taken by Nursing Laboratory Data Result diagrams: 08/08/20 12:35 08/08/20 12:35 Lab Results 08/08/20 08/08/20 08/08/20 Range/Units 12:35 12:35 12:35 WBC 9.84 (4.8-10.8) K/uL RBC 5.67 (4.7-6.1) M/uL Hgb 17.2 (14.0-18.0) g/dL POC Hgb (14.0-18.0) g/dl Hct 49.7 (42-52) % POC Hct (42-52) % MCV 87.7 (80-100) fL MCH 30.3 (25-34) pg MCHC 34.6 (32-36) g/dL RDW Std Deviation 42.0 (36.4-46.3) fL RDW Coeff of Macrina 13.1 (11.5-14.5) % Plt Count 209 (130-400) K/uL MPV 10.9 H (7.4-10.4) fL Immature Gran % (Auto) 0.4 % Neut % (Auto) 81.4 % Lymph % (Auto) 11.1 % Evangeline % (Auto) 7.0 % Eos % (Auto) 0.0 % Baso % (Auto) 0.1 % Neut # (Auto) 8.01 H (1.4-6.5) K/uL Lymph # (Auto) 1.09 L (1.2-3.4) K/uL Evangeline # (Auto) 0.69 H (0.11-0.59) K/uL Eos # (Auto) 0.00 (0-0.5) K/uL Baso # (Auto) 0.01 (0-0.2) K/uL Immature Gran # (Auto) 0.04 H (0.00-0.02) K/uL PT 11.3 (9.0-12.0) Seconds INR 1.1 (0.9-1.1) APTT 27.8 (21.0-31.0) Seconds PTT Ratio 1.0 D-Dimer 590 H* (0-500) ug/L FEU POC Sodium (135-144) mmol/L Sodium 127 L (136-145) mmol/L POC Potassium (3.3-5.0) mmol/L Potassium 5.2 H (3.5-5.1) mmol/L POC Chloride (101-112) mmol/L Chloride 94 L (98-107) mmol/L Carbon Dioxide 24 (21-32) mmol/L POC Total CO2 (24-31) mmol/L Anion Gap 9.0 (3-11) POC Anion Gap (16-25) mmol/L POC BUN (7-18) mg/dl BUN 40 H (7-18) mg/dl Creatinine 1.36 (0.6-1.4) mg/dl POC Creatinine (0.6-1.3) mg/dl Est Cr Clr Drug Dosing 53.1 ml/min Est GFR ( Amer) 59.4 Est GFR (Non-Af Amer) 51.3 BUN/Creatinine Ratio 29.6 H (10-20) Glucose 420 H* (70-99) mg/dl POC Glucose (70-99) mg/dl POC Glucose (other) (70-99) mg/dl Lactate (0.4-2.0) mmol/L Calcium 9.4 (8.5-10.1) mg/dl POC Ioniz Calcium Yamile (1.12-1.32) mmol/l Magnesium 2.4 (1.8-2.4) mg/dl Total Bilirubin 0.7 (0.2-1) mg/dl AST 22 (15-37) U/L ALT 25 (12-78) U/L Alkaline Phosphatase 80 (45-117) U/L Troponin I < 0.015 (0-0.045) ng/ml Total Protein 8.1 (6.4-8.2) gm/dl Albumin 3.3 L (3.4-5.0) gm/dl Globulin 4.8 H (2.5-4.0) gm/dl Albumin/Globulin Ratio 0.7 L (0.9-2) Beta-Hydroxybutyric Acd (0.2-2.81) mg/dl Procalcitonin (0-0.5) ng/ml Urine Color Urine Appearance (Clear) Urine pH (4.5-7.5) Ur Specific [place] (1.000-1.030) Urine Protein (Negative) Urine Glucose (UA) (Negative) Urine Ketones (Negative) Urine Blood (Negative) Urine Nitrite (Negative) Urine Bilirubin (Negative) Urine Urobilinogen (Negative) Ur Leukocyte Esterase (Negative) Urine WBC (Auto) (0-5) /hpf Urine RBC (Auto) (0-4) /hpf U Hyaline Cast (Auto) (0-5) /lpf U Epithel Cells (Auto) (0-5) /lpf Urine Bacteria (Auto) (Negative) 08/08/20 08/08/20 08/08/20 Range/Units 12:35 12:40 12:49 WBC (4.8-10.8) K/uL RBC (4.7-6.1) M/uL Hgb (14.0-18.0) g/dL POC Hgb 18.4 H (14.0-18.0) g/dl Hct (42-52) % POC Hct 54 H (42-52) % MCV (80-100) fL MCH (25-34) pg MCHC (32-36) g/dL RDW Std Deviation (36.4-46.3) fL RDW Coeff of Macrina (11.5-14.5) % Plt Count (130-400) K/uL MPV (7.4-10.4) fL Immature Gran % (Auto) % Neut % (Auto) % Lymph % (Auto) % Evangeline % (Auto) % Eos % (Auto) % Baso % (Auto) % Neut # (Auto) (1.4-6.5) K/uL Lymph # (Auto) (1.2-3.4) K/uL Evangeline # (Auto) (0.11-0.59) K/uL Eos # (Auto) (0-0.5) K/uL Baso # (Auto) (0-0.2) K/uL Immature Gran # (Auto) (0.00-0.02) K/uL PT (9.0-12.0) Seconds INR (0.9-1.1) APTT (21.0-31.0) Seconds PTT Ratio D-Dimer (0-500) ug/L FEU POC Sodium 129 L (135-144) mmol/L Sodium (136-145) mmol/L POC Potassium 5.2 H (3.3-5.0) mmol/L Potassium (3.5-5.1) mmol/L POC Chloride 96 L (101-112) mmol/L Chloride (98-107) mmol/L Carbon Dioxide (21-32) mmol/L POC Total CO2 23 L (24-31) mmol/L Anion Gap (3-11) POC Anion Gap 16.0 (16-25) mmol/L POC BUN 41 H (7-18) mg/dl BUN (7-18) mg/dl Creatinine (0.6-1.4) mg/dl POC Creatinine 1.1 (0.6-1.3) mg/dl Est Cr Clr Drug Dosing ml/min Est GFR ( Amer) Est GFR (Non-Af Amer) BUN/Creatinine Ratio (10-20) Glucose (70-99) mg/dl POC Glucose (70-99) mg/dl POC Glucose (other) 422 H* (70-99) mg/dl Lactate 2.0 (0.4-2.0) mmol/L Calcium (8.5-10.1) mg/dl POC Ioniz Calcium Yamile 1.16 (1.12-1.32) mmol/l Magnesium (1.8-2.4) mg/dl Total Bilirubin (0.2-1) mg/dl AST (15-37) U/L ALT (12-78) U/L Alkaline Phosphatase (45-117) U/L Troponin I (0-0.045) ng/ml Total Protein (6.4-8.2) gm/dl Albumin (3.4-5.0) gm/dl Globulin (2.5-4.0) gm/dl Albumin/Globulin Ratio (0.9-2) Beta-Hydroxybutyric Acd (0.2-2.81) mg/dl Procalcitonin 0.17 (0-0.5) ng/ml Urine Color Urine Appearance (Clear) Urine pH (4.5-7.5) Ur Specific [place] (1.000-1.030) Urine Protein (Negative) Urine Glucose (UA) (Negative) Urine Ketones (Negative) Urine Blood (Negative) Urine Nitrite (Negative) Urine Bilirubin (Negative) Urine Urobilinogen (Negative) Ur Leukocyte Esterase (Negative) Urine WBC (Auto) (0-5) /hpf Urine RBC (Auto) (0-4) /hpf U Hyaline Cast (Auto) (0-5) /lpf U Epithel Cells (Auto) (0-5) /lpf Urine Bacteria (Auto) (Negative) 08/08/20 08/08/20 08/08/20 Range/Units 13:47 14:57 17:03 WBC (4.8-10.8) K/uL RBC (4.7-6.1) M/uL Hgb (14.0-18.0) g/dL POC Hgb (14.0-18.0) g/dl Hct (42-52) % POC Hct (42-52) % MCV (80-100) fL MCH (25-34) pg MCHC (32-36) g/dL RDW Std Deviation (36.4-46.3) fL RDW Coeff of Macrina (11.5-14.5) % Plt Count (130-400) K/uL MPV (7.4-10.4) fL Immature Gran % (Auto) % Neut % (Auto) % Lymph % (Auto) % Evangeline % (Auto) % Eos % (Auto) % Baso % (Auto) % Neut # (Auto) (1.4-6.5) K/uL Lymph # (Auto) (1.2-3.4) K/uL Evangeline # (Auto) (0.11-0.59) K/uL Eos # (Auto) (0-0.5) K/uL Baso # (Auto) (0-0.2) K/uL Immature Gran # (Auto) (0.00-0.02) K/uL PT (9.0-12.0) Seconds INR (0.9-1.1) APTT (21.0-31.0) Seconds PTT Ratio D-Dimer (0-500) ug/L FEU POC Sodium (135-144) mmol/L Sodium (136-145) mmol/L POC Potassium (3.3-5.0) mmol/L Potassium (3.5-5.1) mmol/L POC Chloride (101-112) mmol/L Chloride (98-107) mmol/L Carbon Dioxide (21-32) mmol/L POC Total CO2 (24-31) mmol/L Anion Gap (3-11) POC Anion Gap (16-25) mmol/L POC BUN (7-18) mg/dl BUN (7-18) mg/dl Creatinine (0.6-1.4) mg/dl POC Creatinine (0.6-1.3) mg/dl Est Cr Clr Drug Dosing ml/min Est GFR ( Amer) Est GFR (Non-Af Amer) BUN/Creatinine Ratio (10-20) Glucose (70-99) mg/dl POC Glucose 367 H* 321 H* (70-99) mg/dl POC Glucose (other) (70-99) mg/dl Lactate (0.4-2.0) mmol/L Calcium (8.5-10.1) mg/dl POC Ioniz Calcium Yamile (1.12-1.32) mmol/l Magnesium (1.8-2.4) mg/dl Total Bilirubin (0.2-1) mg/dl AST (15-37) U/L ALT (12-78) U/L Alkaline Phosphatase (45-117) U/L Troponin I (0-0.045) ng/ml Total Protein (6.4-8.2) gm/dl Albumin (3.4-5.0) gm/dl Globulin (2.5-4.0) gm/dl Albumin/Globulin Ratio (0.9-2) Beta-Hydroxybutyric Acd (0.2-2.81) mg/dl Procalcitonin (0-0.5) ng/ml Urine Color Yellow Urine Appearance Clear (Clear) Urine pH 5.0 (4.5-7.5) Ur Specific [place] 1.040 H (1.000-1.030) Urine Protein Trace H (Negative) Urine Glucose (UA) 3+ H (Negative) Urine Ketones 2+ H (Negative) Urine Blood Trace H (Negative) Urine Nitrite Negative (Negative) Urine Bilirubin Negative (Negative) Urine Urobilinogen Negative (Negative) Ur Leukocyte Esterase Negative (Negative) Urine WBC (Auto) 1-5 (0-5) /hpf Urine RBC (Auto) 0-4 (0-4) /hpf U Hyaline Cast (Auto) 0 (0-5) /lpf U Epithel Cells (Auto) 5-10 H (0-5) /lpf Urine Bacteria (Auto) Negative (Negative) Administered Medications Discontinued Medications Azithromycin (Azithromycin 250 Mg Tab) 500 mg PO NOW ONE Stop: 08/08/20 12:19 Last Admin: 08/08/20 12:43 Dose: 500 mg Documented by: [id number] Sodium Chloride (Nss 1000ml) 1,000 mls @ 999 mls/hr IV .Q1H1M NILAM Stop: 08/08/20 13:30 Last Infusion: 08/08/20 15:33 Dose: 0 mls/hr Documented by: [id number] Admin: 08/08/20 12:43 Dose: 999 mls/hr Documented by: [id number] Ceftriaxone Sodium (Rocephin) 1,000 mg in 50 mls @ 100 mls/hr IV NOW STA Stop: 08/08/20 12:47 Last Infusion: 08/08/20 15:33 Dose: 0 mls/hr Documented by: [id number] Admin: 08/08/20 12:43 Dose: 100 mls/hr Documented by: [id number] Insulin Human Regular (Novolin-R Insulin Per Unit Charge) 6 units IV NOW STA Stop: 08/08/20 13:13 Last Admin: 08/08/20 13:37 Dose: 6 units Documented by: [id number] Cosigned by: [id number] Ioversol (Optiray 320 125ml) 119 ml IV ONCE ONE Stop: 08/08/20 14:43 Last Admin: 08/08/20 14:43 Dose: 119 ml Documented by: [id number] Discharge Plan Visit Data Chief Complaint: Shortness of Breath/Dyspnea Stated Complaint: +COVID, SOB, COUGH, WEAK ED Provider: Dae Brandt Discharge Problem: COVID-19 virus infection, Hyperglycemia, Pneumonia, Hypoxia Patient Disposition: Admitted As Inpatient Forms Stand Alone Forms: My [facility] Prescriptions Prescriptions: No Action amlodipine 5 mg tablet 5 mg PO DAILY RF: 0 losartan 50 mg tablet 50 mg PO DAILY RF: 0 multivitamin Tablet 1 tab PO DAILY RF: 0 cholecalciferol (vitamin D3) 10 mcg (400 unit) Tablet 0 mcg PO DAILY RF: 0 dexamethasone [Decadron] 6 mg tablet 6 mg PO DAILY Qty: 7 RF: 0 ondansetron HCl [Zofran] 4 mg tablet 4 mg PO TID PRN (Reason: nausea and vomiting) 5 Days Qty: 15 RF: 0 benzonatate [Tessalon Perles] 100 mg capsule 100 mg PO TID PRN (Reason: cough) Qty: 15 RF: 0 doxycycline hyclate 100 mg tablet 100 mg PO BID 7 Days Qty: 14 RF: 0 Referrals Referrals: Robin Reid MD [Primary Care Provider] - Discharge Problem: Pneumonia Qualifiers: Pneumonia type: due to unspecified organism Laterality: unspecified laterality Lung location: unspecified part of lung Qualified Code(s): J18.9 - Pneumonia, unspecified organism
[2020-08-08] MEDS ORDERED: SODIUM CHLORIDE 0.9% 1000ML 1,000 ML IV SCH (12:30)
[2020-08-08 13:01] LABS: iSTAT Creatinine 1.1 mg/dl (0.6-1.3); iSTAT Hemoglobin 18.4 g/dl (14.0-18.0); iSTAT Ionized Calcium 1.16 mmol/l (1.12-1.32); iSTAT Potassium 5.2 mmol/L (3.3-5.0)
[2020-08-08 13:11] LABS: Basophils # (auto) 0.01 K/uL (0-0.2); Basophils % (auto) 0.1 %; Hematocrit (blood only) 49.7 % (42-52); Hemoglobin 17.2 g/dL (14.0-18.0); Immature Granulocytes # (auto) 0.04 K/uL (0.00-0.02); Immature Granulocytes % (auto) 0.4 %; Lymphocytes # (auto) 1.09 K/uL (1.2-3.4); Lymphocytes % (auto) 11.1 %; Mean Corpuscular Hemoglobin 30.3 pg (25-34); Mean Corpuscular Hgb Conc 34.6 g/dL (32-36); Mean Corpuscular Volume 87.7 fL (80-100); Mean Platelet Volume 10.9 fL (7.4-10.4); Monocytes # (auto) 0.69 K/uL (0.11-0.59); Neutrophils # (auto) 8.01 K/uL (1.4-6.5); Neutrophils % (auto) 81.4 %; Platelet Count 209 K/uL (130-400); RDW Coefficient of Variation 13.1 % (11.5-14.5); Red Blood Count 5.67 M/uL (4.7-6.1); White Blood Count 9.84 K/uL (4.8-10.8)
[2020-08-08] MEDS ORDERED: NovoLIN-R INSULIN PER UNIT CHARGE IV STA (13:12)
[2020-08-08 13:22] LABS: INR 1.1 (0.9-1.1); Partial Thromboplastin Time 27.8 Seconds (21.0-31.0); Prothrombin Time 11.3 Seconds (9.0-12.0)
[2020-08-08 13:27] LABS: D Dimer 590 ug/L FEU (0-500)
[2020-08-08 13:44] LABS: Alanine Aminotransferase 25 U/L (12-78); Albumin Globulin Ratio 0.7 (0.9-2); Albumin Level 3.3 gm/dl (3.4-5.0); Alkaline Phosphatase 80 U/L (45-117); Aspartate Aminotransferase 22 U/L (15-37); BUN Creatinine Ratio 29.6 (10-20); Bilirubin,Total 0.7 mg/dl (0.2-1); Blood Urea Nitrogen 40 mg/dl (7-18); Calcium 9.4 mg/dl (8.5-10.1); Carbon Dioxide 24 mmol/L (21-32); Chloride 94 mmol/L (98-107); Creatinine Clr Calc Pharmacy 53.1 ml/min; Est GFR (African American) 59.4; Est GFR (Non-African American) 51.3; Globulin 4.8 gm/dl (2.5-4.0); Glucose 420 mg/dl (70-99); Magnesium 2.4 mg/dl (1.8-2.4); Potassium 5.2 mmol/L (3.5-5.1); Sodium 127 mmol/L (136-145); Total Protein 8.1 gm/dl (6.4-8.2); Troponin I < 0.015 ng/ml (0-0.045)
--- NOTE | 2020-08-08 13:47 | XRay Report ---
XR chest 1V portable CLINICAL HISTORY: SEPSIS COMPARISON STUDY: Chest radiograph August 05, 2020. FINDINGS: Lung volumes are normal. There is no pneumothorax or pleural effusion. Mild cardiomegaly is noted. There is no evidence for pulmonary edema. Bilateral airspace opacities are noted. These are p redominantly linear in configuration. IMPRESSION: Persistent bilateral airspace opacities. These favor an infectious process although atel ectasis could appear similar. ACT 112: Negative or not required by law. Electronically signed by: Noel Gunderson M.D. 08/08/2020 1:46 PM
[2020-08-08 14:23] LABS: Appearance Urine Clear (Clear); Bacteria Urine Automated Negative (Negative); Bilirubin Urine Negative (Negative); Blood Urine Trace (Negative); Cast Urine Automated 0 /lpf (0-5); Color Urine Yellow; Glucose Urine UA 3+ (Negative); Ketones Urine 2+ (Negative); Leukocyte Esterase Urine Negative (Negative); Nitrite Urine Negative (Negative); Protein Urine Trace (Negative); RBC Urine Automated 0-4 /hpf (0-4); Urobilinogen Urine Negative (Negative)
[2020-08-08] MEDS ORDERED: OPTIRAY 320 125ml IV ONE (14:42)
[2020-08-08] MEDS ORDERED: INSULIN PROTOCOL GOAL RANGE ONE (15:02)
[2020-08-08] MEDS ORDERED: SEVERE STRESS LEVEL ONE (15:02)
[2020-08-08] MEDS ORDERED: INSULIN REGULAR 250 UNITS in SODIUM CHLORIDE 0.9% 247.5 ML IV SCH ×2 (15:15→20:45)
--- NOTE | 2020-08-08 15:27 | CT Scan Report ---
CT ANGIOGRAPHY OF THE CHEST, PULMONARY EMBOLUS PROTOCOL CLINICAL HISTORY: Shortness of breath. COMPARISON STUDY: Chest radiograph August 05, 2020 and August 08, 2020. TECHNIQUE: Following IV administration of 119 mL of Optiray-320, helical axial images of the chest we re obtained utilizing the pulmonary embolus protocol. Maximal intensity projections and sagittal and coronal reformats were viewed on an independent 3D workstation. IV contrast was administered withou t complication. Automated exposure control was utilized for the study. A dose lowering technique wa s utilized adhering to the principles of ALARA. CT DOSE: 523.45 mGycm FINDINGS: No pulmonary emboli are identified. There is no thoracic aortic dissection. Mildly enlarge d mediastinal and right hilar lymph nodes are likely reactive. There is mild cardiomegaly. There is n o pericardial effusion. No pneumothorax or pleural effusion is noted. Extensive multifocal groundglas s opacities within the lungs are noted. Central airways are patent. Bony thorax is unremarkable. Uppe r abdomen is unremarkable. IMPRESSION: 1. No pulmonary emboli identified. 2. Extensive groundglass opacities within the lungs consistent with viral pneumonia. 3. Mild cardiomegaly. 4. Mildly enlarged mediastinal and right hilar lymph nodes which are likely reactive. ACT 112: Negative or not required by law. Electronically signed by: Noel Gunderson M.D. 08/08/2020 3:25 PM
[2020-08-08] MEDS ORDERED: INSULIN ASPART 100 UNITS/ML 3 ML PEN SC SCH (16:30)
--- NOTE | 2020-08-08 16:40 | History & Physical Report ---
Date of Service August 08, 2020 Assessment & Plan (1) COVID-19 virus infection: Patient is currently 9 days out from initial positive test and 12 days out from initial onset of symptomatology. During initial admission on 07/30, the patient did extremely well and did not require supplemental oxygen. The patient has completed entire course of dexamethasone at home. Unfortunately, the patient presents today with new hypoxia as well as CT findings concerning for COVID-19 pneumonia. * Continue to provide supplemental oxygen as needed. * Encourage incentive spirometry and flutter valves as tolerated. * Will cover for possible superimposed infections. Please see pneumonia. * Patient currently not candidate for remdesivir or convalescent plasma secondary to onset of symptomatology. * Consider addition of reduced dose of Decadron taper if patient is not improving with pulmonary toilet techniques alone. * Will add CRP, ferritin, and LDH levels. * Will add Lovenox for VTE coverage. (2) Hypoxia: * Continue with supplemental oxygen as needed. * Aggressive pulmonary toilet to include incentive spirometry and flutter valve. * Please see COVID-19 virus and pneumonia sections. (3) Pneumonia: * Unfortunately, we must consider secondary infections in the setting of COVID-19 pneumonia. Initially received Rocephin and azithromycin in the emergency department. Patient previously on doxycycline in the outpatient. * Orders placed for continuation of Rocephin and azithromycin. * Consider broadening antibiotic coverage with the recently hospitalized patient. (4) Hyperglycemia: Patient with blood glucose levels in excess of 400. Symptomatic with polyuria. * Initially received IV insulin bolus as well as insulin drip. * Will order serum and urine osms. * Will add A1C * Will monitor serial labs while on insulin gtt. * Replace electrolytes as needed. * Trend VBGs * Thankfully, the patient is not with anion gap or significant electrolyte derangement at this time. Hopefully a majority of s/s 2/2 Dexamethasone use. * Pseudohyponatremia 2/2 hyperglycemia. (5) Hypertension: Continue home Rx as tolerated. History of Present Illness Primary Care Provider: Patient is a 75-year-old male with a significant past medical history of hypertension and recent diagnosis of COVID-19 on 07/30. He and his both became symptomatic on Sunday, 27 July with generalized fatigue, weakness, and fevers. He was admitted to this facility for 2 days where he received remdesivir as well as Decadron. Thankfully, the patient had improved enough that he was off supplemental oxygen for greater than 24 hours. He was discharged home on oral Decadron and today would have been day 10. He returned to this facility on 08/05 with ongoing weakness and mild cough. During his emergency department visit, he was not hypoxic and generally had an unremarkable work-up. He was placed on doxycycline for possible superimposed infection. Despite the addition of doxycycline, the patient reports that he has had increasing fatigue, weakness, and now endorses symptoms of shortness of breath at rest as well as with exertion. Patient was noted to be hypoxic with an SaO2 of 85% on room air. The patient has required 3 L nasal cannula in the emergency department. Chest x-ray with bilateral airspace opacities. CTA demonstrates extensive groundglass opacities consistent with viral pneumonia. No pulmonary emboli noted. Patient is without leukocytosis. He remains lymphopenic. Of concern, the patient was noted to have blood glucose levels in excess of 500. Additionally, the patient complains of increasing thirst and need for urination. Patient received IV insulin in the emergency department and insulin drip was initiated. Patient was covered empirically with Rocephin and azithromycin. Upon evaluation in the emergency department, the patient is awake, alert, and oriented. Patient reports that he feels generally fatigued and weak. Again, he endorses shortness of breath with any exertion as well as while at rest. He is irritated by the amount that he has had to void over the last few days. He complains of ongoing cough as well as inability to taste or smell. He has not eaten anything today secondary to his fatigue. Patient reports no past medical history of diabetes. Patient currently denies any complaints of headaches, dizziness, lightheadedness, chest pain, palpitations, hemoptysis, nausea, vomiting, abdominal pain, hematochezia, melena, hematuria, or dysuria. Allergies Allergy/AdvReac Type Severity Reaction Status Date / Time No Known Allergies Allergy Unverified 08/08/20 14:50 Home Medications Medication Instructions Recorded Confirmed Type amlodipine 5 mg PO DAILY 07/30/20 08/08/20 History cholecalciferol (vitamin D3) 0 mcg PO DAILY 07/30/20 08/08/20 History losartan 50 mg PO DAILY 07/30/20 08/08/20 History multivitamin 1 tab PO DAILY 07/30/20 08/08/20 History dexamethasone [Decadron] 6 mg PO DAILY #7 tab 08/01/20 08/08/20 Rx benzonatate [Tessalon Perles] 100 mg PO TID PRN #15 cap 08/05/20 08/08/20 Rx doxycycline hyclate 100 mg PO BID 7 Days #14 tab 08/05/20 08/08/20 Rx ondansetron HCl [Zofran] 4 mg PO TID PRN 5 Days #15 tab 08/05/20 08/08/20 Rx Past Med/Surg History Medical History Hypertension Social History Smoking Status: Never smoker Tobacco Type: Cigarettes Hx Alcohol Use: No Hx Substance Use: No Preferred Language: Lao Communication Ability: Effective Ext Js Developer Required: No Beliefs That Will Affect Care: None Current Living Situation: Spouse Feels Safe at Home: Yes Assistive Devices: None Review of Systems Review of Systems: A complete 10 point review of systems was reviewed with the patient with pertinent positives and negatives as per history of present illness. All else were negative. Physical Exam Physical Exam: VITAL SIGNS - Vital signs and nursing notes were reviewed. GENERAL - 75-year-old male appearing his stated age who is in no acute distress. Communicates well with provider and answers questions appropriately. SKIN - Without rashes. HEAD - NC/AT. EYES - PERRL with EOMI bilaterally. Sclera anicteric. Palpebral conjunctiva pink and moist with no injection noted. EARS - No deformities of external structures noted on gross examination bilaterally. NOSE - Midline and without cyanosis. No epistaxis or purulent drainage noted. MOUTH/OROPHARYNX - Without perioral cyanosis. Buccal mucosa pink and dry. Tongue midline with equal elevation of palate bilaterally. NECK - Neck with FROM. Supple to palpation. No nuchal rigidity. LUNGS - Chest wall symmetric without accessory muscle use, intercostals retractions, or central cyanosis. Normal vesicular breath sounds CTA B/L. No wheezes, rales, or rhonchi appreciated. CARDIAC - RRR with S1/S2. No murmur, rubs, or gallops appreciated. ABDOMEN - Abdominal contour flat without pulsations or visible masses. BS normoactive all four quadrants. No tenderness, palpable masses, hepatosplenomegaly, or ascites noted. EXTREMITIES - No clubbing or peripheral cyanosis. No pretibial edema present. +3/5 radial, posterior tibial, and dorsalis pedis pulses palpated throughout. +5/5 strength noted in UE/LE bilaterally. NEUROLOGIC - Cranial nerves II through XII grossly intact. Sensory intact to light touch throughout. PSYCH - A&Ox3 and cooperates fully with examiner. Pt is very pleasant and interacts well with examiner. Results & Data Results & Data ([facility]) Vital Signs (Past 12 Hours) Vital Signs Temp Pulse Resp BP Pulse Ox 08/08/20 15:30 139/82 94 08/08/20 15:00 160/82 H 95 08/08/20 14:56 155/75 H 91 08/08/20 13:59 88 26 H 121/66 94 08/08/20 13:39 87 28 H 126/71 08/08/20 12:30 24 95 08/08/20 11:54 37.5 C 98 H 20 131/98 85 L Code Status & VTE Plan VTE Prophylaxis Plan VTE Prophylaxis will be ordered: Yes Supervising Physician Co-Signing Physician Notes Patient was seen and examined independently [facility] reviewed pertinent past medical social family history and also the plan of care and agree with the plan of care. Patient presented with complaints of extreme fatigue. Patient was diagnosed with Covid approximately 2 weeks prior. He has been on outpatient steroids. He is now here with severe hyperglycemia and hyperosmolar hyperglycemic state. He started on insulin drip in the ER. He is profoundly weak. He does CT imaging chest image of his lungs showing persistent Covid pneumonia. Because of concerns for possible secondary infection he was placed on ceftriaxone and azithromycin. His sodium is low but likely correction to a more normal range his potassium is slightly high at 5.2 but this will improve with correction of his hyperglycemia. I did visit with the patient he is profoundly fatigued he is on supplemental oxygen his lungs are consistent with Covid with basilar crackles the remainder of his exam is unremarkable He is admitted to airborne precautions telemetry room for insulin infusion for HHS we are discontinuing his dexamethasone at this time continue supportive oxygen therapy for his Covid pneumonia. Secondary antibiotics could be discontinued if the patient has good clinical response. Any exceptions will be noted below PG Care Time/CCT Total # of Minutes Spent Total Time Spent with Patient: Total time spent is greater than 50% in coordination of care (as documented) at patient's floor/unit and/or counseling patient: Coding Level of Care Code 38621 Initial Inpt Care Lvl 3 Diagnoses COVID-19 virus infection U07.1 Hypoxia R09.02 Pneumonia J18.9 Laterality: bilateral Lung location: unspecified part of lung Pneumonia type: due to unspecified organism Hyperglycemia R73.9 Hypertension I10 Time Spent (min) 55 (1) Pneumonia Laterality: bilateral Lung location: unspecified part of lung Pneumonia type: due to unspecified organism Qualified Code(s): J18.9 - Pneumonia, unspecified organism
[2020-08-08] MEDS ORDERED: NovoLIN-R BOLUS FROM BAG IV ONE (18:30)
[2020-08-08] MEDS ORDERED: GLUCOSE 40% GEL 15 GM TUBE PO PRN (18:30)
[2020-08-08] MEDS ORDERED: DEXTROSE 50% 50 ML SYRINGE IV PRN (18:30)
[2020-08-08] MEDS ORDERED: GLUCAGON FOR INJ 1 MG VIAL IM PRN (18:30)
[2020-08-08] MEDS ORDERED: CARBOHYDRATES FOR HYPOGLYCEMIA PO PRN (18:30)
[2020-08-08] MEDS ORDERED: GLUCOSE 10 TABS/TUBE PO PRN (18:30)
[2020-08-08] MEDS ORDERED: HHS GOAL RANGE 250-350 mg/dl ONE (20:09)
[2020-08-08] MEDS ORDERED: PENDING D5 1/2NS+20mEq KCL IVF SCH (20:09)
[2020-08-08] MEDS ORDERED: cefTRIAXone SODIUM 1,000 MG in DEXTROSE 5% 50 ML IV SCH (20:09)
[2020-08-08] MEDS ORDERED: ACETAMINOPHEN 325 MG TAB PO PRN (20:09)
[2020-08-08] MEDS ORDERED: ONDANSETRON INJ 2 MG/ML 2 ML VIAL IV PRN (20:09)
[2020-08-08] MEDS ORDERED: BENZONATATE 100 MG CAPSULE PO PRN (20:09)
[2020-08-08] MEDS ORDERED: INSULIN ASPART 100 UNITS/ML 3 ML PEN SQ SCH (20:09)
[2020-08-08] MEDS ORDERED: NORMOSOL-R 1,000 ML IV SCH (20:09)
[2020-08-08] MEDS ORDERED: PENDING 1/2NSS+20mEq KCL IVF SCH (20:09)
[2020-08-08] MEDS ORDERED: PENDING D5 1/2NS+40mEq KCL IVF SCH (20:09)
[2020-08-08] MEDS ORDERED: PENDING 1/2NSS+40mEq KCL IVF SCH (20:09)
[2020-08-08] MEDS ORDERED: PHARMACY GLYCEMIC MGMT CONSULT STA (20:09)
[2020-08-08] MEDS ORDERED: PHARMACY GLYCEMIC MGMT CONSULT PRN (20:22)
[2020-08-08 21:06] LABS: BUN Creatinine Ratio 29.8 (10-20); Beta-Hydroxybutyrate 15.63 mg/dl (0.2-2.81); Calcium 8.9 mg/dl (8.5-10.1); Creatinine Clr Calc Pharmacy 64.5 ml/min; Est GFR (African American) 75.1; Est GFR (Non-African American) 64.8; Magnesium 2.2 mg/dl (1.8-2.4); Phosphorus 2.5 mg/dl (2.5-4.9); Potassium 4.8 mmol/L (3.5-5.1)
[2020-08-08] MEDS: ENOXAPARIN INJ 40 MG/0.4 ML SYR SQ SCH (22:58)
[2020-08-09] MEDS: SODIUM CHLOR 0.45% + 20MEQ KCL 20 MEQ/1,000 ML BAG IV SCH ×3 (00:30→21:14)
[2020-08-09 00:57] LABS: BUN Creatinine Ratio 28.8 (10-20); Calcium 8.4 mg/dl (8.5-10.1); Creatinine Clr Calc Pharmacy 64.5 ml/min; Est GFR (African American) 75.1; Est GFR (Non-African American) 64.8; Magnesium 2.4 mg/dl (1.8-2.4); Phosphorus 2.8 mg/dl (2.5-4.9); Potassium 4.4 mmol/L (3.5-5.1)
[2020-08-09] MEDS ORDERED: PNEUMOCOCCAL Polysaccharide Vaccine 25mcg/0.5mL vial/Syr IM ONE (05:45)
[2020-08-09 06:56] LABS: Estimated Average Glucose 237 mg/dl; Hemoglobin A1C 9.9 % (4.5-5.6)
[2020-08-09 07:35] LABS: BUN Creatinine Ratio 25.9 (10-20); Calcium 8.7 mg/dl (8.5-10.1); Creatinine Clr Calc Pharmacy 65.6 ml/min; Est GFR (African American) 76.8; Est GFR (Non-African American) 66.2; Magnesium 2.4 mg/dl (1.8-2.4); Potassium 4.5 mmol/L (3.5-5.1)
[2020-08-09 07:36] LABS: Phosphorus 2.3 mg/dl (2.5-4.9)
[2020-08-09 07:38] LABS: C Reactive Protein 11.9 mg/dl (0-0.29); Ferritin 2747.5 ng/ml (8-388)
[2020-08-09] MEDS ORDERED: INSULIN GLARGINE SOLOSTAR 100 UNITS/ML 3 ML PEN SC ONE (08:00)
[2020-08-09] MEDS: AZITHROMYCIN 500 MG in DEXTROSE 5% 250 ML IV SCH (08:41)
[2020-08-09] MEDS: cefTRIAXone SODIUM 2,000 MG in DEXTROSE 5% 50 ML IV SCH (08:42)
[2020-08-09] MEDS: MULTIVITAMIN TAB PO SCH (08:42)
[2020-08-09] MEDS: ENOXAPARIN INJ 40 MG/0.4 ML SYR SQ SCH ×2 (08:42→21:14)
[2020-08-09] MEDS: LOSARTAN POTASSIUM 50 MG TAB PO SCH (08:43)
[2020-08-09] MEDS: INSULIN ASPART 100 UNITS/ML 3 ML PEN SC SCH ×5 (08:55→23:49)
[2020-08-09] MEDS ORDERED: amLODIPine BESYLATE 5 MG TAB PO SCH ×2 (09:00)
--- NOTE | 2020-08-09 09:05 | Electrocardiogram Report ---
Test Reason : Blood Pressure : / mmHG Vent. Rate : 081 BPM Atrial Rate : 081 BPM P-R Int : 148 ms QRS Dur : 090 ms QT Int : 366 ms P-R-T Axes : 052 004 048 degrees QTc Int : 425 ms Normal sinus rhythm Normal ECG When compared with ECG of 05-AUG-2020 13:54, No significant change was found Confirmed by Gage Leal ([id number]) on 08/09/2020 9:04:40 AM Referred By: REFERRED SELF Confirmed By:Gage Leal
[2020-08-09 11:48] LABS: Calcium 8.9 mg/dl (8.5-10.1); Creatinine Clr Calc Pharmacy 66.2 ml/min; Est GFR (African American) 77.6; Magnesium 2.1 mg/dl (1.8-2.4); Potassium 4.6 mmol/L (3.5-5.1)
[2020-08-09 11:51] LABS: Phosphorus 1.7 mg/dl (2.5-4.9)
[2020-08-09] MEDS ORDERED: dilTIAZem HCl 5 MG/ML 5 ML VIAL IV STA (12:42)
[2020-08-09] MEDS ORDERED: dilTIAZem HCl 5 MG/ML 5 ML VIAL IV ONE (12:43)
--- NOTE | 2020-08-09 13:46 | Pharmacy Report ---
Glycemic Control Consultation - Date of Service August 09, 2020 - Scope Scope: Glycemic Pharmacist consulted for glycemic control and to write orders per [facility] inpatient glycemic control protocol. - Objective Weight: 87.2 kg Accuchecks BSG (last 24hrs): 08/08/20 08/08/20 08/08/20 12:35 14:57 17:03 Glucose 420 H* POC Glucose 367 H* 321 H* 08/08/20 08/08/20 08/08/20 20:32 20:33 22:34 Glucose 294 H POC Glucose 290 H 300 H 08/08/20 08/09/20 08/09/20 23:41 00:28 00:35 Glucose 272 H POC Glucose 268 H 254 H 08/09/20 08/09/20 08/09/20 02:37 04:23 06:29 Glucose 154 H POC Glucose 203 H 166 H 08/09/20 08/09/20 08/09/20 06:37 10:29 11:04 Glucose 237 H POC Glucose 163 H 237 H 08/09/20 08/09/20 11:33 12:28 Glucose POC Glucose 201 H 216 H Laboratory Data (last 24hrs): 08/08/20 08/08/20 08/08/20 12:35 20:33 20:33 Potassium 5.2 H 4.8 Carbon Dioxide 24 22 Anion Gap 9.0 12.0 H Creatinine 1.36 1.12 Est Cr Clr Drug Dosing 53.1 64.5 Osmolality 294 Beta-Hydroxybutyric Acd 15.63 H 08/09/20 08/09/20 08/09/20 00:28 06:29 11:04 Potassium 4.4 4.5 4.6 Carbon Dioxide 26 28 25 Anion Gap 8.0 4.0 7.0 Creatinine 1.12 1.10 1.09 Est Cr Clr Drug Dosing 64.5 65.6 66.2 Osmolality Beta-Hydroxybutyric Acd HbA1c: Hemoglobin A1c 9.9 % (4.5-5.6) H 08/08/20 20:33 - Recent Pertinent Medications Outpatient Anti-diabetic Regimen: * N/A * A1c = 9.9 % 08/08/2020 Risk Factors for Insulin Resistance: * Steroids: N/A was on dexamethasone as an outpatient but last dose was yesterday * Diet: Heart Healthy diet with poor oral intake - Assessment & Plan Assessment & Plan: ASSESSMENT: * Mr Bell is a 75 y/o M without a PMH of T2DM who presents with COVID-19 and hyperglycemia. Patient was on steroids at home but these have been stopped. * Insulin drip was started late yesterday/ early this morning at 3.3 units/hr. BSGs trended upwards through mid-morning but then started trending downwards. Insulin drip did increase in rate to 4.8 units/hr. As per policy, transition 6 hours after bolus of Lantus given. Gave full weight-based stress of 2. Plan for additional dose of Lantus tonight to complete load. * Patient has poor appetite. * Novolog weight-based stress of 2-3 for now. PLAN FOR INPATIENT GLYCEMIC CONTROL: * Lantus 30 units SQ x 1 then 0-15 units SQ tonight. * STARTING correction factor of 20 mg/dl/unit * STARTING carb ratio of 1 unit per 7 grams CHO consumed * Continuing goal range of Low 110 mg/dL - High 140 mg/dL Thank you.
[2020-08-09 15:01] LABS: BUN Creatinine Ratio 22.4 (10-20); Calcium 8.2 mg/dl (8.5-10.1); Creatinine Clr Calc Pharmacy 65.1 ml/min; Est GFR (African American) 75.9; Est GFR (Non-African American) 65.5; Magnesium 2.2 mg/dl (1.8-2.4); Potassium 4.5 mmol/L (3.5-5.1)
[2020-08-09] MEDS ORDERED: SODIUM PHOSPHATE 3 MMOL/1 ML INFUSION IV STA (15:20)
[2020-08-09] MEDS ORDERED: SODIUM PHOSPHATE 24 MMOL in SODIUM CHLORIDE 0.9% 500 ML IV STA (15:26)
--- NOTE | 2020-08-09 16:01 | Hospitalist Progress Note ---
Date of Service August 09, 2020 Assessment & Plan (1) COVID-19 virus infection: Patient is currently 9 days out from initial positive test and 12 days out from initial onset of symptomatology. During initial admission on 07/30, the patient did extremely well and did not require supplemental oxygen. The patient has completed entire course of dexamethasone at home. Unfortunately, the patient presents today with new hypoxia as well as CT findings concerning for COVID-19 pneumonia. * Continue to provide supplemental oxygen as needed, stable on 4 liters today, no distress * Encourage incentive spirometry and flutter valves as tolerated. * Will cover for possible superimposed infections. Please see pneumonia. * no role for Remdesivir or plasma at this time * plan for Dexamethasone tomorrow, 6mg IV daily * Will add Lovenox for VTE coverage. (2) Hypoxia: * Continue with supplemental oxygen as needed. * Aggressive pulmonary toilet to include incentive spirometry and flutter valve. * Please see COVID-19 virus and pneumonia sections. * stable on 4L today, no distress (3) Pneumonia: * Unfortunately, we must consider secondary infections in the setting of COVID-19 pneumonia. Initially received Rocephin and azithromycin in the emergency department. Patient previously on doxycycline in the outpatient. * Orders placed for continuation of Rocephin and azithromycin. * resume Decadron 6mg IV daily as pneumonia likely residual viral etiology (4) Hyperglycemia: Patient with blood glucose levels in excess of 400. Symptomatic with polyuria. * Initially received IV insulin bolus as well as insulin drip. * transitioned to basal bolus insulin today * will add back NPH insulin at 32 units in AM with the decadron (5) Hypertension: Continue home Rx as tolerated. Admission and Anticipated Discharge Date Admission Date: August 08, 2020 Subjective patient is very weak and fatigued, this is his main complaint not necessarily short of breath, just has no energy at all appetite is very poor, says that he fears he won't recover we discussed his , he said she was doing well back at home reviewed chart, reviewed labs he went into afib with rates in 100-120 range, gave Diltiazem 10mg IV and improv ed will start on Diltiazem 30mg TID Review of Systems Review of Systems: All systems reviewed & are unremarkable except as noted in Subjective Constitutional: + fever, + fatigue and + weakness; no chills and no sweats Respiratory: + cough, + dyspnea and + dyspnea on exertion Cardiovascular: no chest pain Gastrointestinal: + early satiety; no abdominal pain, no nausea, no vomiting, no constipation and no diarrhea/loose stools Physical Exam Constitutional: well developed, well nourished, + ill appearing, + frail appearing and cooperative; no acute distress Neck: trachea midline, no thyromegaly Respiratory: normal respiratory effort, lungs clear to auscultation Cardiovascular: Rate/Rhythm: + tachycardic and + irregularly irregular Heart Sounds: normal S1 and normal S2; no murmur Extremities: normal capillary refill; no edema Gastrointestinal (Abdomen): normal bowel sounds, soft, nontender, no hepatosplenomegaly Musculoskeletal: Head/Neck/Chest: normocephalic, head atraumatic and neck supple Extremities: extremities normal to inspection and + abnormal strength (generalized weakness) Skin: no rashes, warm and dry Neurologic: patellar DTR's 2+ bilat, sensation intact and PERRL, EOMI, accommodation nl, no face palsy, no dysarthria Psychiatric: A+Ox3, euthymic affect Lymphatic: no cervical or axillary lymphadenopathy Results & Data Results & Data ([facility]) Vital Signs (Past 12 Hours) Vital Signs Temp Pulse Pulse Resp BP Pulse Ox 08/09/20 15:37 106 H 08/09/20 13:44 102 H 117/62 90 08/09/20 08:29 36.8 C 79 23 151/81 H 90 08/09/20 08:00 70 Laboratory Results Laboratory Results - last 24 hr 08/08/20 08/08/20 08/08/20 20:33 22:34 23:41 VBG pH Sodium Potassium Chloride Carbon Dioxide Anion Gap BUN Creatinine Est Cr Clr Drug Dosing Est GFR ( Amer) Est GFR (Non-Af Amer) BUN/Creatinine Ratio Glucose POC Glucose 300 H 268 H Estimat Average Glucose 237 Hemoglobin A1c 9.9 H Calcium Phosphorus Magnesium Ferritin Lactate Dehydrogenase C-Reactive Protein Urine Osmolality 08/09/20 08/09/20 08/09/20 00:28 00:28 00:35 VBG pH 7.44 H Sodium 131 L Potassium 4.4 Chloride 97 L Carbon Dioxide 26 Anion Gap 8.0 BUN 32 H Creatinine 1.12 Est Cr Clr Drug Dosing 64.5 Est GFR ( Amer) 75.1 Est GFR (Non-Af Amer) 64.8 BUN/Creatinine Ratio 28.8 H Glucose 272 H POC Glucose 254 H Estimat Average Glucose Hemoglobin A1c Calcium 8.4 L Phosphorus 2.8 Magnesium 2.4 Ferritin Lactate Dehydrogenase C-Reactive Protein Urine Osmolality 08/09/20 08/09/20 08/09/20 02:37 04:20 04:23 VBG pH Sodium Potassium Chloride Carbon Dioxide Anion Gap BUN Creatinine Est Cr Clr Drug Dosing Est GFR ( Amer) Est GFR (Non-Af Amer) BUN/Creatinine Ratio Glucose POC Glucose 203 H 166 H Estimat Average Glucose Hemoglobin A1c Calcium Phosphorus Magnesium Ferritin Lactate Dehydrogenase C-Reactive Protein Urine Osmolality 847 H 08/09/20 08/09/20 08/09/20 06:29 06:29 06:29 VBG pH 7.44 H Sodium 130 L Potassium 4.5 Chloride 98 Carbon Dioxide 28 Anion Gap 4.0 BUN 28 H Creatinine 1.10 Est Cr Clr Drug Dosing 65.6 Est GFR ( Amer) 76.8 Est GFR (Non-Af Amer) 66.2 BUN/Creatinine Ratio 25.9 H Glucose 154 H POC Glucose Estimat Average Glucose Hemoglobin A1c Calcium 8.7 Phosphorus 2.3 L Magnesium 2.4 Ferritin 2747.5 H Lactate Dehydrogenase C-Reactive Protein 11.90 H Urine Osmolality 08/09/20 08/09/20 08/09/20 06:29 06:37 10:29 VBG pH Sodium Potassium Chloride Carbon Dioxide Anion Gap BUN Creatinine Est Cr Clr Drug Dosing Est GFR ( Amer) Est GFR (Non-Af Amer) BUN/Creatinine Ratio Glucose POC Glucose 163 H 237 H Estimat Average Glucose Hemoglobin A1c Calcium Phosphorus Magnesium Ferritin Lactate Dehydrogenase 269 H C-Reactive Protein Urine Osmolality 08/09/20 08/09/20 08/09/20 11:04 11:04 11:33 VBG pH 7.46 H Sodium 129 L Potassium 4.6 Chloride 97 L Carbon Dioxide 25 Anion Gap 7.0 BUN 26 H Creatinine 1.09 Est Cr Clr Drug Dosing 66.2 Est GFR ( Amer) 77.6 Est GFR (Non-Af Amer) 67.0 BUN/Creatinine Ratio 24.0 H Glucose 237 H POC Glucose 201 H Estimat Average Glucose Hemoglobin A1c Calcium 8.9 Phosphorus 1.7 L Magnesium 2.1 Ferritin Lactate Dehydrogenase C-Reactive Protein Urine Osmolality 1208/09/20 08/09/20 12:28 13:26 14:25 VBG pH Sodium 128 L Potassium 4.5 Chloride 97 L Carbon Dioxide 26 Anion Gap 5.0 BUN 25 H Creatinine 1.11 Est Cr Clr Drug Dosing 65.1 Est GFR ( Amer) 75.9 Est GFR (Non-Af Amer) 65.5 BUN/Creatinine Ratio 22.4 H Glucose 209 H POC Glucose 216 H 191 H Estimat Average Glucose Hemoglobin A1c Calcium 8.2 L Phosphorus 2.0 L Magnesium 2.2 Ferritin Lactate Dehydrogenase C-Reactive Protein Urine Osmolality 08/09/20 08/09/20 08/09/20 14:25 16:24 19:05 VBG pH 7.47 H Sodium 128 L Potassium 4.6 Chloride 97 L Carbon Dioxide 25 Anion Gap 6.0 BUN 24 H Creatinine 1.12 Est Cr Clr Drug Dosing 64.5 Est GFR ( Amer) 75.1 Est GFR (Non-Af Amer) 64.8 BUN/Creatinine Ratio 21.6 H Glucose 267 H POC Glucose 225 H Estimat Average Glucose Hemoglobin A1c Calcium 8.0 L Phosphorus 2.2 L Magnesium 2.1 Ferritin Lactate Dehydrogenase C-Reactive Protein Urine Osmolality 08/09/20 08/09/20 19:05 21:01 VBG pH 7.47 H Sodium Potassium Chloride Carbon Dioxide Anion Gap BUN Creatinine Est Cr Clr Drug Dosing Est GFR ( Amer) Est GFR (Non-Af Amer) BUN/Creatinine Ratio Glucose POC Glucose 212 H Estimat Average Glucose Hemoglobin A1c Calcium Phosphorus Magnesium Ferritin Lactate Dehydrogenase C-Reactive Protein Urine Osmolality Medications Administered Current Inpatient Medications Acetaminophen (Acetaminophen 325 Mg Tab) 650 mg PO Q4H PRN PRN Reason: Pain or Fever Stop: 09/07/20 20:08 Last Admin: 08/09/20 21:14 Dose: 650 mg Documented by: Benzonatate (Benzonatate 100 Mg Capsule) 100 mg PO TID PRN PRN Reason: cough Stop: 09/07/20 20:08 Dextrose (Dextrose 50% 50 Ml Syringe) 25 - 50 ml IV UD PRN; Protocol PRN Reason: Hypoglycemia Protocol Stop: 09/07/20 18:29 Diltiazem HCl (Diltiazem Hcl 30 Mg Tab) 30 mg PO TID NILAM Stop: 09/08/20 20:59 Last Admin: 08/09/20 21:15 Dose: 30 mg Documented by: Enoxaparin Sodium (Enoxaparin Inj 40 Mg/0.4 Ml Syr) 40 mg SQ Q12H NILAM Stop: 09/07/20 20:08 Last Admin: 08/09/20 21:14 Dose: 40 mg Documented by: Glucagon (Glucagon For Inj 1 Mg Vial) 1 mg IM UD PRN; Protocol PRN Reason: Hypoglycemia Protocol Stop: 09/07/20 18:29 Glucose (Glucose 40% Gel 15 Gm Tube) 15 - 30 gm PO UD PRN; Protocol PRN Reason: Hypoglycemia Protocol Stop: 09/07/20 18:29 Glucose (Glucose 10 Tabs/Tube) 4 - 8 tabs PO UD PRN; Protocol PRN Reason: Hypoglycemia Protocol Stop: 09/07/20 18:29 Azithromycin 500 mg/ Dextrose 255 mls @ 127.5 mls/hr IV Q24H [facility] Stop: 08/16/20 07:59 Last Infusion: 08/09/20 10:50 Dose: Infused Documented by: Ceftriaxone Sodium 2,000 mg/ (Dextrose) 70 mls @ 140 mls/hr IV DAILY [facility] Stop: 08/16/20 08:59 Last Infusion: 08/09/20 09:53 Dose: Infused Documented by: Potassium Chloride/Sodium Chloride (1/2 Nss + 20meq Kcl 1000ml) 20 meq in 1,000 mls @ 100 mls/hr IV .Q10H [facility] Stop: 09/08/20 00:14 Last Admin: 08/09/20 21:14 Dose: 100 mls/hr Documented by: Insulin Aspart (Insulin Aspart 100 Units/Ml 3 Ml Pen) 0 units SC ACHS [facility] Stop: 09/08/20 16:29 Last Admin: 08/09/20 21:26 Dose: 4 units Documented by: Insulin Aspart (Insulin Aspart 100 Units/Ml 3 Ml Pen) 0 units SC 0000,[id number] [facility] Stop: 08/10/20 04:01 Insulin Glargine (Insulin Glargine Solostar 100 Units/Ml 3 Ml Pen) 0 units SC HS [facility]; Protocol Stop: 09/08/20 20:59 Last Admin: 08/09/20 21:26 Dose: 15 units Documented by: Losartan Potassium (Losartan Potassium 50 Mg Tab) 50 mg PO DAILY [facility] Stop: 09/08/20 08:59 Last Admin: 08/09/20 08:43 Dose: 50 mg Documented by: Miscellaneous (Carbohydrates For Hypoglycemia ) 15 - 30 gm PO PRN PRN PRN Reason: Hypoglycemia Treatment Stop: 09/07/20 18:29 Miscellaneous Information (Pharmacy Glycemic Mgmt Consult) 1 ea N/A UD PRN PRN Reason: Consult Stop: 09/07/20 20:21 Multivitamins (Multivitamin Tab) 1 tab PO DAILY NILAM Stop: 09/08/20 08:59 Last Admin: 08/09/20 08:42 Dose: 1 tab Documented by: Ondansetron HCl (Ondansetron Inj 2 Mg/Ml 2 Ml Vial) 4 mg IV Q6H PRN PRN Reason: Nausea Stop: 09/07/20 20:08 PG Care Time/CCT Total # of Minutes Spent Total Time Spent with Patient: Total time spent is greater than 50% in coordination of care (as documented) at patient's floor/unit and/or counseling patient: Coding Level of Care Code 82192 Subseq Hosp Care Lvl 3 Diagnoses COVID-19 virus infection U07.1 Hypoxia R09.02 Pneumonia J18.9 Laterality: unspecified laterality Lung location: unspecified part of lung Pneumonia type: due to unspecified organism Hyperglycemia R73.9 Hypertension I10 (1) Pneumonia Laterality: unspecified laterality Lung location: unspecified part of lung Pneumonia type: due to unspecified organism Qualified Code(s): J18.9 - Pneumonia, unspecified organism
[2020-08-09 19:53] LABS: BUN Creatinine Ratio 21.6 (10-20); Creatinine Clr Calc Pharmacy 64.5 ml/min; Est GFR (African American) 75.1; Est GFR (Non-African American) 64.8; Magnesium 2.1 mg/dl (1.8-2.4); Potassium 4.6 mmol/L (3.5-5.1)
[2020-08-09 19:54] LABS: Phosphorus 2.2 mg/dl (2.5-4.9)
[2020-08-09] MEDS ORDERED: INSULIN GLARGINE SOLOSTAR 100 UNITS/ML 3 ML PEN SC SCH (21:00)
[2020-08-09] MEDS: dilTIAZem HCL 30 MG TAB PO SCH (21:15)
[2020-08-09] MEDS ORDERED: ENOXAPARIN INJ 60 MG/0.6 ML SYR SQ ONE (22:30)
[2020-08-10] MEDS: INSULIN ASPART 100 UNITS/ML 3 ML PEN SC SCH ×5 (03:34→20:40)
[2020-08-10] MEDS ORDERED: INSULIN HUMAN NPH SC SCH ×2 (08:00→09:00)
[2020-08-10] MEDS ORDERED: INSULIN GLARGINE SOLOSTAR 100 UNITS/ML 3 ML PEN SC SCH ×2 (08:00→20:00)
[2020-08-10] MEDS: AZITHROMYCIN 500 MG in DEXTROSE 5% 250 ML IV SCH (08:22)
[2020-08-10] MEDS: ENOXAPARIN 100 MG/1ML SYR SQ SCH ×2 (08:22→20:20)
[2020-08-10] MEDS: DEXAMETHASONE SOD PHOSPHATE 6 MG in SYRINGE 0 ML IV SCH (08:23)
[2020-08-10] MEDS: LOSARTAN POTASSIUM 50 MG TAB PO SCH (08:23)
[2020-08-10] MEDS: MULTIVITAMIN TAB PO SCH (08:23)
[2020-08-10] MEDS: cefTRIAXone SODIUM 2,000 MG in DEXTROSE 5% 50 ML IV SCH (08:23)
[2020-08-10] MEDS: dilTIAZem HCL 30 MG TAB PO SCH ×3 (08:24→20:19)
[2020-08-10] MEDS: SODIUM CHLOR 0.45% + 20MEQ KCL 20 MEQ/1,000 ML BAG IV SCH (08:26)
[2020-08-10 10:16] LABS: Hematocrit (blood only) 44.7 % (42-52); Hemoglobin 15.5 g/dL (14.0-18.0); Mean Corpuscular Hemoglobin 30.2 pg (25-34); Mean Corpuscular Hgb Conc 34.7 g/dL (32-36); Mean Corpuscular Volume 87.1 fL (80-100); Mean Platelet Volume 10.9 fL (7.4-10.4); Platelet Count 155 K/uL (130-400); RDW Coefficient of Variation 13.1 % (11.5-14.5); RDW Standard Deviation 41.9 fL (36.4-46.3); Red Blood Count 5.13 M/uL (4.7-6.1); White Blood Count 13.03 K/uL (4.8-10.8)
[2020-08-10 10:32] LABS: BUN Creatinine Ratio 23.7 (10-20); Calcium 8.2 mg/dl (8.5-10.1); Creatinine Clr Calc Pharmacy 73.7 ml/min; Est GFR (African American) 88.3; Est GFR (Non-African American) 76.2; Phosphorus 2.2 mg/dl (2.5-4.9); Potassium 4.3 mmol/L (3.5-5.1)
[2020-08-10] MEDS ORDERED: VANCOMYCIN CONSULT ACTIVE PRN (10:35)
--- NOTE | 2020-08-10 10:57 | Pharmacy Report ---
Pharmacy Abx Dose Short Note - Date of Service August 10, 2020 - Assessment & Plan Assessment 75 year old M receiving vancomycin/Rocephin/Azithromycin for treatment of superimposed bacterial pneumonia Day # 1 of antimicrobial therapy. Plan Vancomycin Patient meets criteria for vancomycin AUC dosing nomogram AUC/PAULINA is the preferred PK/PD target for vancomycin * Target AUC/PAULINA = 400-600 * AUC guided dosing is effective and associated with decreased risk of nephrotoxicity Pharmacy will continue to follow and will adjust dose/frequency as necessary. Thank you.
[2020-08-10] MEDS ORDERED: SODIUM PHOSPHATE 3 MMOL/1 ML INFUSION IV STA (11:10)
[2020-08-10] MEDS ORDERED: VANCOMYCIN HCL 2,250 MG in SODIUM CHLORIDE 0.9% 500 ML IV ONE (11:30)
[2020-08-10] MEDS ORDERED: SODIUM PHOSPHATE 15 MMOL in SODIUM CHLORIDE 0.9% 250 ML IV ONE (11:45)
--- NOTE | 2020-08-10 11:49 | Hospitalist Progress Note ---
Date of Service August 10, 2020 Assessment & Plan (1) COVID-19 virus infection: During initial admission on 07/30, the patient did extremely well and did not require supplemental oxygen. The patient has completed entire course of dexamethasone at home. Unfortunately, the patient presented back with new hypoxia as well as CT findings concerning for COVID-19 pneumonia. * continues to be stable on 4L, no distress * Encourage incentive spirometry and flutter valves as tolerated. * no role for Remdesivir or plasma at this time * resume Dexamethasone 6mg IV daily since he is hypoxic and CT shows diffuse viral pneumonia * encourage PO intake, will order nutrition supplements (2) Hypoxia: * acute hypoxic respiratory failure due to viral pneumonia, possible bacterial infection? * Continue with supplemental oxygen as needed, stable on 4L * Aggressive pulmonary toilet to include incentive spirometry and flutter valve. * Please see COVID-19 virus and pneumonia sections. (3) Pneumonia: * must consider secondary infections in the setting of COVID-19 pneumonia. Initially received Rocephin and azithromycin in the emergency department. Patient previously on doxycycline in the outpatient. * continue Rocephin and azithromycin for 5-7 day course * resume Decadron 6mg IV daily as pneumonia likely residual viral etiology * mild fever and leukocytosis today, will give Vancomycin IV and check nasal MRSA swab (4) Hyperglycemia: Patient with blood glucose levels in excess of 400. Symptomatic with polyuria. * Initially received IV insulin bolus as well as insulin drip. * transitioned to basal bolus insulin on 08/09 * NPH insulin at 32 units in AM with the decadron, seems to be working well as of noon, if sugars go higher then increase NPH tomorrow (5) Hypertension: Continue home Rx as tolerated. (6) Hypophosphatemia: low at 2.2, will replace with NaPhos IV and repeat tomorrow K is stable Admission and Anticipated Discharge Date Admission Date: August 08, 2020 Subjective patient still has fatigue and weakness and poor appetite he believes his breathing is a little better, no cough he had a fever this morning and feels diaphoretic this morning he cannot eat anything, encouraged him to try to drink energy drink on ice, force it down for some calories to help fight infection was not tested for MRSA, will give Vanco and swab for MRSA due to fever labs show WBC 13k, Na 130, K 4.3, phos 2.2, glucose 199 at noon after Decadron and NPH this morning Review of Systems Review of Systems: All systems reviewed & are unremarkable except as noted in Subjective Constitutional: + fever, + sweats, + fatigue, + weakness and + anorexia; no chills Respiratory: + cough, + dyspnea and + dyspnea on exertion Cardiovascular: no chest pain, no palpitations and no edema Gastrointestinal: no abdominal pain, no nausea, no vomiting, no constipation and no diarrhea/loose stools Physical Exam Constitutional: well developed, well nourished, + ill appearing, + frail appearing and cooperative; no acute distress Neck: trachea midline, no thyromegaly Respiratory: normal respiratory effort, lungs clear to auscultation Cardiovascular: Rate/Rhythm: regular rate and + irregularly irregular Heart Sounds: normal S1 and normal S2; no murmur Extremities: normal capillary refill; no edema Gastrointestinal (Abdomen): normal bowel sounds, soft, nontender, no hepatosplenomegaly Musculoskeletal: Head/Neck/Chest: normocephalic, head atraumatic and neck supple Extremities: extremities normal to inspection and + abnormal strength (generalized weakness) Skin: no rashes, warm and dry Neurologic: patellar DTR's 2+ bilat, sensation intact and PERRL, EOMI, accommodation nl, no face palsy, no dysarthria Psychiatric: A+Ox3, euthymic affect Lymphatic: no cervical or axillary lymphadenopathy Results & Data Results & Data ([facility]) Vital Signs (Past 12 Hours) Vital Signs Temp Pulse Pulse Resp BP BP Pulse Ox 08/10/20 11:25 36.7 C 90 18 116/76 93 08/10/20 07:23 37.7 C H 92 H 19 109/73 92 08/10/20 03:36 37.1 C 81 20 103/66 92 08/10/20 02:18 37.2 C 79 20 101/64 92 08/10/20 01:33 87 Laboratory Results Laboratory Results - last 24 hr 08/09/20 08/09/20 08/09/20 11:04 11:33 12:28 WBC RBC Hgb Hct MCV MCH MCHC RDW Std Deviation RDW Coeff of Macrina Plt Count MPV VBG pH Sodium 129 L Potassium 4.6 Chloride 97 L Carbon Dioxide 25 Anion Gap 7.0 BUN 26 H Creatinine 1.09 Est Cr Clr Drug Dosing 66.2 Est GFR ( Amer) 77.6 Est GFR (Non-Af Amer) 67.0 BUN/Creatinine Ratio 24.0 H Glucose 237 H POC Glucose 201 H 216 H Calcium 8.9 Phosphorus 1.7 L Magnesium 2.1 08/09/20 08/09/20 08/09/20 13:26 14:25 14:25 WBC RBC Hgb Hct MCV MCH MCHC RDW Std Deviation RDW Coeff of Macrina Plt Count MPV VBG pH 7.47 H Sodium 128 L Potassium 4.5 Chloride 97 L Carbon Dioxide 26 Anion Gap 5.0 BUN 25 H Creatinine 1.11 Est Cr Clr Drug Dosing 65.1 Est GFR ( Amer) 75.9 Est GFR (Non-Af Amer) 65.5 BUN/Creatinine Ratio 22.4 H Glucose 209 H POC Glucose 191 H Calcium 8.2 L Phosphorus 2.0 L Magnesium 2.2 08/09/20 08/09/20 08/09/20 16:24 19:05 19:05 WBC RBC Hgb Hct MCV MCH MCHC RDW Std Deviation RDW Coeff of Macrina Plt Count MPV VBG pH 7.47 H Sodium 128 L Potassium 4.6 Chloride 97 L Carbon Dioxide 25 Anion Gap 6.0 BUN 24 H Creatinine 1.12 Est Cr Clr Drug Dosing 64.5 Est GFR ( Amer) 75.1 Est GFR (Non-Af Amer) 64.8 BUN/Creatinine Ratio 21.6 H Glucose 267 H POC Glucose 225 H Calcium 8.0 L Phosphorus 2.2 L Magnesium 2.1 08/09/20 08/09/20 08/10/20 21:01 23:23 03:27 WBC RBC Hgb Hct MCV MCH MCHC RDW Std Deviation RDW Coeff of Macrina Plt Count MPV VBG pH Sodium Potassium Chloride Carbon Dioxide Anion Gap BUN Creatinine Est Cr Clr Drug Dosing Est GFR ( Amer) Est GFR (Non-Af Amer) BUN/Creatinine Ratio Glucose POC Glucose 212 H 264 H 130 H Calcium Phosphorus Magnesium 08/10/20 08/10/20 08/10/20 07:20 09:46 09:46 WBC 13.03 H RBC 5.13 Hgb 15.5 Hct 44.7 MCV 87.1 MCH 30.2 MCHC 34.7 RDW Std Deviation 41.9 RDW Coeff of Macrina 13.1 Plt Count 155 MPV 10.9 H VBG pH Sodium 130 L Potassium 4.3 Chloride 100 Carbon Dioxide 22 Anion Gap 8.0 BUN 23 H Creatinine 0.98 Est Cr Clr Drug Dosing 73.7 Est GFR ( Amer) 88.3 Est GFR (Non-Af Amer) 76.2 BUN/Creatinine Ratio 23.7 H Glucose 214 H POC Glucose 175 H Calcium 8.2 L Phosphorus 2.2 L Magnesium 2.0 08/10/20 11:23 WBC RBC Hgb Hct MCV MCH MCHC RDW Std Deviation RDW Coeff of Macrina Plt Count MPV VBG pH Sodium Potassium Chloride Carbon Dioxide Anion Gap BUN Creatinine Est Cr Clr Drug Dosing Est GFR ( Amer) Est GFR (Non-Af Amer) BUN/Creatinine Ratio Glucose POC Glucose 199 H Calcium Phosphorus Magnesium Medications Administered Current Inpatient Medications Acetaminophen (Acetaminophen 325 Mg Tab) 650 mg PO Q4H PRN PRN Reason: Pain or Fever Stop: 09/07/20 20:08 Last Admin: 08/09/20 21:14 Dose: 650 mg Documented by: Benzonatate (Benzonatate 100 Mg Capsule) 100 mg PO TID PRN PRN Reason: cough Stop: 09/07/20 20:08 Dextrose (Dextrose 50% 50 Ml Syringe) 25 - 50 ml IV UD PRN; Protocol PRN Reason: Hypoglycemia Protocol Stop: 09/07/20 18:29 Diltiazem HCl (Diltiazem Hcl 30 Mg Tab) 30 mg PO TID [facility] Stop: 09/08/20 20:59 Last Admin: 08/10/20 08:24 Dose: 30 mg Documented by: Enoxaparin Sodium (Enoxaparin 100 Mg/1ml Syr) 90 mg SQ Q12H [facility] Stop: 09/09/20 08:59 Last Admin: 08/10/20 08:22 Dose: 90 mg Documented by: Glucagon (Glucagon For Inj 1 Mg Vial) 1 mg IM UD PRN; Protocol PRN Reason: Hypoglycemia Protocol Stop: 09/07/20 18:29 Glucose (Glucose 40% Gel 15 Gm Tube) 15 - 30 gm PO UD PRN; Protocol PRN Reason: Hypoglycemia Protocol Stop: 09/07/20 18:29 Glucose (Glucose 10 Tabs/Tube) 4 - 8 tabs PO UD PRN; Protocol PRN Reason: Hypoglycemia Protocol Stop: 09/07/20 18:29 Azithromycin 500 mg/ Dextrose 255 mls @ 127.5 mls/hr IV Q24H [facility] Stop: 08/16/20 07:59 Last Infusion: 08/10/20 10:32 Dose: Infused Documented by: Ceftriaxone Sodium 2,000 mg/ (Dextrose) 70 mls @ 140 mls/hr IV DAILY [facility] Stop: 08/16/20 08:59 Last Infusion: 08/10/20 09:06 Dose: Infused Documented by: Potassium Chloride/Sodium Chloride (1/2 Nss + 20meq Kcl 1000ml) 20 meq in 1,000 mls @ 100 mls/hr IV .Q10H [facility] Stop: 09/08/20 00:14 Last Admin: 08/10/20 08:26 Dose: 100 mls/hr Documented by: Dexamethasone Sodium Phosphate (6 mg/ Syringe) 1.5 mls @ 1 mls/min IV QAM [facility] Stop: 09/09/20 08:59 Last Admin: 08/10/20 08:23 Dose: 1 mls/min Documented by: Vancomycin HCl 2,250 mg/ (Sodium Chloride) 545 mls @ 200 mls/hr IV NOW ONE; Protocol Stop: 08/10/20 14:13 Vancomycin HCl 1,250 mg/ (Sodium Chloride) 275 mls @ 200 mls/hr IV Q12H [facility] Stop: 08/18/20 00:00 Sodium Phosphate 15 mmol/ (Sodium Chloride) 255 mls @ 102 mls/hr IV 1145 ONE Stop: 08/10/20 14:14 Insulin Aspart (Insulin Aspart 100 Units/Ml 3 Ml Pen) 0 units SC ACHS [facility] Stop: 09/08/20 16:29 Last Admin: 08/10/20 08:56 Dose: 2 units Documented by: Insulin Glargine (Insulin Glargine Solostar 100 Units/Ml 3 Ml Pen) 0 units SC [facility]; Protocol Stop: 09/08/20 20:59 Last Admin: 08/09/20 21:26 Dose: 15 units Documented by: Insulin Glargine (Insulin Glargine Solostar 100 Units/Ml 3 Ml Pen) 20 units SC DAILY@0800 [facility] Stop: 09/09/20 07:59 Last Admin: 08/10/20 08:57 Dose: 20 units Documented by: Insulin Human NPH (Insulin Human Nph) 35 units SC DAILY@0800 [facility] Stop: 09/09/20 07:59 Last Admin: 08/10/20 08:57 Dose: 35 units Documented by: Losartan Potassium (Losartan Potassium 50 Mg Tab) 50 mg PO DAILY NILAM Stop: 09/08/20 08:59 Last Admin: 08/10/20 08:23 Dose: 50 mg Documented by: Miscellaneous (Carbohydrates For Hypoglycemia ) 15 - 30 gm PO PRN PRN PRN Reason: Hypoglycemia Treatment Stop: 09/07/20 18:29 Miscellaneous Information (Pharmacy Glycemic Mgmt Consult) 1 ea N/A UD PRN PRN Reason: Consult Stop: 09/07/20 20:21 Miscellaneous Information (Vancomycin Consult Active) 1 ea N/A UD PRN PRN Reason: Consult Stop: 09/09/20 10:34 Multivitamins (Multivitamin Tab) 1 tab PO DAILY [facility] Stop: 09/08/20 08:59 Last Admin: 08/10/20 08:23 Dose: 1 tab Documented by: Ondansetron HCl (Ondansetron Inj 2 Mg/Ml 2 Ml Vial) 4 mg IV Q6H PRN PRN Reason: Nausea Stop: 09/07/20 20:08 PG Care Time/CCT Total # of Minutes Spent Total Time Spent with Patient: Total time spent is greater than 50% in coordination of care (as documented) at patient's floor/unit and/or counseling patient: Coding Level of Care Code 21627 Subseq Hosp Care Lvl 3 Diagnoses COVID-19 virus infection U07.1 Hypoxia R09.02 Pneumonia J18.9 Laterality: unspecified laterality Lung location: unspecified part of lung Pneumonia type: due to unspecified organism Hyperglycemia R73.9 Hypertension I10 Hypophosphatemia E83.39 (1) Pneumonia Laterality: unspecified laterality Lung location: unspecified part of lung Pneumonia type: due to unspecified organism Qualified Code(s): J18.9 - Pneumonia, unspecified organism
--- NOTE | 2020-08-10 11:53 | Pharmacy Report ---
Glycemic Control Progress Note - Date of Service August 10, 2020 - Scope Glycemic Pharmacist consulted for glycemic control to write orders per [facility] inpatient glycemic control protocol. - Objective Accuchecks BSG(last 24 hours):: 08/09/20 08/09/20 08/09/20 11:04 11:33 12:28 Glucose 237 H POC Glucose 201 H 216 H 08/09/20 08/09/20 08/09/20 13:26 14:25 16:24 Glucose 209 H POC Glucose 191 H 225 H 08/09/20 08/09/20 08/09/20 19:05 21:01 23:23 Glucose 267 H POC Glucose 212 H 264 H 08/10/20 08/10/20 08/10/20 03:27 07:20 09:46 Glucose 214 H POC Glucose 130 H 175 H 08/10/20 11:23 Glucose POC Glucose 199 H HbA1c:: Hemoglobin A1c 9.9 % (4.5-5.6) H 08/08/20 20:33 - Recent Pertinent Medications The patient is currently receiving: * Basal insulin: Lantus 30 units X 1 then 0-15 units HS * Correctional Insulin: Novolog Correction per scale ACHS Goal Range: Low 110 mg/dL - High 140 mg/dL Correction Factor: 20 mg/dL/unit * Prandial insulin: Per carb ratio of 1 unit per 7 grams CHO consumed - Outpatient Anti-Diabetic Meds N/A - Assessment & Plan ASSESSMENT: * See progress note from 08/09/20 for more background info, in short: * Pt receiving SQ basal bolus insulin regimen for hyperglycemia secondary to baseline DM (outpatient regimen on hold), superimposed bacterial pneumonia on vancomycin, Rocephin, and azithromycin, and steroids (dexamethasone 6 mg IV daily starting 08/10/20) * Patient is currently receiving an average of 61 units of insulin per day (this does not include IV insulin that ran from [id number] at 3.3 units/hr to 4.8 units/hr) * 45 units of basal insulin * 21 units of prandial/correctional insulin * BSGs ranging 154 - 264 mg/dl over the past 24hrs * Changes needed to insulin regimen: * AM Fasting BSG = 175 mg/dl. This is in goal range for patient based on inpatient targets and co-morbidities. Will start Lantus 20 units BID. Start NPH 35 units (0.4 units/kg) for steroid-induced hyperglycemia. * Post-prandial BSGs were reasonably controlled yesterday. Tighten CR slightly to weight-based stress of 3 since started on IV insulin. * Total daily dose = ? units. Expect to be elevated due to use of dexamethasone. PLAN FOR INPATIENT GLYCEMIC CONTROL: * STARTING Lantus 20 units SQ BID PLUS NPH 35 units daily * Continuing correction factor of 20 mg/dl/unit * TIGHTENING carb ratio to 1 unit per 6 grams CHO consumed * Continuing goal range of Low 110 mg/dL - High 140 mg/dL * Please note that the plan above was derived based on current level of insulin resistance and hospital stress. These recommendations are appropriate for inpatient admission only. Plan of care upon discharge will need to be reassessed to avoid potential outpatient hypo/hyperglycemia. Thank you.
[2020-08-11] MEDS ORDERED: VANCOMYCIN HCL 1,250 MG in SODIUM CHLORIDE 0.9% 250 ML IV SCH
[2020-08-11 07:08] LABS: Base Excess ABG -0.9 mEq/L (-9-1.8); HCO3 ABG 22 mmol/L (19-24); Oxygen Saturation ABG 98.1 % (90-95); PCO2 ABG 33 mmHg (35-46); PO2 ABG 103 mmHg (80-95); pH ABG 7.45 (7.35-7.45)
[2020-08-11 07:09] LABS: Allen Test Pos (Pos)
[2020-08-11 07:35] LABS: BUN Creatinine Ratio 31.2 (10-20); Calcium 8.3 mg/dl (8.5-10.1); Creatinine Clr Calc Pharmacy 77.6 ml/min; Est GFR (African American) 94.1; Est GFR (Non-African American) 81.2; Magnesium 2.5 mg/dl (1.8-2.4); Phosphorus 2.5 mg/dl (2.5-4.9); Potassium 4.2 mmol/L (3.5-5.1)
[2020-08-11] MEDS: cefTRIAXone SODIUM 2,000 MG in DEXTROSE 5% 50 ML IV SCH (08:35)
[2020-08-11] MEDS: AZITHROMYCIN 500 MG in DEXTROSE 5% 250 ML IV SCH (08:35)
[2020-08-11] MEDS: DEXAMETHASONE SOD PHOSPHATE 6 MG in SYRINGE 0 ML IV SCH (08:36)
[2020-08-11] MEDS: ENOXAPARIN 100 MG/1ML SYR SQ SCH ×2 (08:37→20:29)
[2020-08-11] MEDS: LOSARTAN POTASSIUM 50 MG TAB PO SCH (08:37)
[2020-08-11] MEDS: MULTIVITAMIN TAB PO SCH (08:37)
[2020-08-11] MEDS: INSULIN ASPART 100 UNITS/ML 3 ML PEN SC SCH ×4 (08:52→21:20)
[2020-08-11] MEDS: INSULIN GLARGINE SOLOSTAR 100 UNITS/ML 3 ML PEN SC SCH ×2 (08:53→21:20)
[2020-08-11] MEDS: INSULIN HUMAN NPH SC SCH (08:53)
--- NOTE | 2020-08-11 09:03 | XRay Report ---
XR chest 1V portable CLINICAL HISTORY: worsening hypoxia COMPARISON STUDY: 08/08/2020 FINDINGS: The cardiac and mediastinal contours remain stable. There are progressive bilateral pulmona ry airspace opacities, suspicious for a multifocal pneumonia. There are no pleural effusions. There i s no failure.[ IMPRESSION: Progressive multifocal bilateral pulmonary airspace opacities consistent with a worsening pneumonitis ACT 112: Negative or not required by law. Electronically signed by: Juancarlos Sterling M.D. 08/11/2020 9:02 AM
--- NOTE | 2020-08-11 11:27 | Pharmacy Report ---
Glycemic Control Progress Note - Date of Service August 11, 2020 - Scope Glycemic Pharmacist consulted for glycemic control to write orders per [facility] inpatient glycemic control protocol. - Objective Accuchecks BSG(last 24 hours):: 08/10/20 08/10/20 08/10/20 11:23 16:01 20:15 Glucose POC Glucose 199 H 238 H 300 H 08/11/20 08/11/20 08/11/20 06:27 07:54 11:06 Glucose 259 H POC Glucose 224 H 356 H* 08/11/20 11:07 Glucose POC Glucose 383 H* HbA1c:: Hemoglobin A1c 9.9 % (4.5-5.6) H 08/08/20 20:33 - Recent Pertinent Medications The patient is currently receiving: * Basal insulin: Lantus 20 units every 12 hours + NPH 35 units daily * Correctional Insulin: Novolog Correction per scale ACHS Goal Range: Low 110 mg/dL - High 140 mg/dL Correction Factor: 20 mg/dL/unit * Prandial insulin: Per carb ratio of 1 unit per 6 grams CHO consumed - Outpatient Anti-Diabetic Meds N/A - Assessment & Plan ASSESSMENT: * See progress note from 08/09/20 for more background info, in short: * Pt receiving SQ basal bolus insulin regimen for hyperglycemia secondary to baseline DM (outpatient regimen on hold),stress/infection (COVID positive with pneumonia on Rocephin and azithromycin), and receiving dexamethasone 8 mg IV daily * Patient is currently receiving an average of 110 units of insulin per day * 75 units of basal insulin * 35 units of prandial/correctional insulin * BSGs ranging 175 - 300 mg/dl over the past 24hrs * Changes needed to insulin regimen: * AM Fasting BSG = 224 mg/dl. This is above goal range for patient based on inpatient targets and co-morbidities. Therefore Basal insulin will be increased by 20% to 25 units BID. NPH increased by 10 units to 45 units. * Post-prandial BSGs were elevated yesterday. Tightened CF/CR at breakfast. Lunch BSG significantly elevated though -- only 2 hours between breakfast Novolog and lunch BSG check. Concern for overcorrection so will not change Novolog parameters at this time. Give small IV bolus. * Total daily dose = ~130 units. Increased insulin. PLAN FOR INPATIENT GLYCEMIC CONTROL: * INCREASING Lantus to 25 units SQ BID + INCREASING NPH to 45 units daily * TIGHTENING correction factor to 18 mg/dl/unit * TIGHTENING carb ratio to 1 unit per 5 grams CHO consumed * Continuing goal range of Low 110 mg/dL - High 140 mg/dL RECOMMENDATIONS FOR DISCHARGE: * Patient's HbA1C is reported at 9.9%. Unsure how much recent steroid use has influenced this HbA1C (as most recent weeks have a more significant impact on HbA1C). * Would recommend checking with outpatient provider to see if there are any previous HbA1Cs. If that is not possible, could consider starting metformin 500 mg BIDM as patient most likely has some degree of diabetes as an outpatient. * titrate metformin to 1000 mg BIDM by 500 mg/week increases * Please note that the plan above was derived based on current level of insulin resistance and hospital stress. These recommendations are appropriate for inpatient admission only. Plan of care upon discharge will need to be reassessed to avoid potential outpatient hypo/hyperglycemia. Thank you.
[2020-08-11] MEDS ORDERED: INSULIN HUMAN REGULAR PER UNIT 5 UNITS in SYRINGE 4.95 ML IV ONE (12:00)
--- NOTE | 2020-08-11 15:20 | Hospitalist Progress Note ---
Date of Service August 11, 2020 Assessment & Plan (1) COVID-19 virus infection: During initial admission on 07/30, the patient did extremely well and did not require supplemental oxygen. The patient has completed entire course of dexamethasone at home. Unfortunately, the patient presented back with new hypoxia as well as CT findings concerning for COVID-19 pneumonia. * placed on HFNC early this morning, tolerating well, titrated down to 30L and 70% FiO2 continue to titrate tomorrow * Encourage incentive spirometry and flutter valves as tolerated. * no role for Remdesivir or plasma at this time * resume Dexamethasone 6mg IV daily since he is hypoxic and CT shows diffuse viral pneumonia * encourage PO intake, will order nutrition supplements eating a lot better the past two days which is a good sign (2) Hypoxia: * acute hypoxic respiratory failure due to viral pneumonia, possible bacterial infection? * up to HFNC today, 70% and 30L, titrate as allowed * Aggressive pulmonary toilet to include incentive spirometry and flutter valve. * Please see COVID-19 virus and pneumonia sections. (3) Pneumonia: * must consider secondary infections in the setting of COVID-19 pneumonia. Initially received Rocephin and azithromycin in the emergency department. Patient previously on doxycycline in the outpatient. * continue Rocephin and azithromycin for 5-7 day course * resume Decadron 6mg IV daily as pneumonia likely residual viral etiology * MRSA swab negative * on HFNC now, titrate as allowed (4) Hyperglycemia: Patient with blood glucose levels in excess of 400. Symptomatic with polyuria. * Initially received IV insulin bolus as well as insulin drip. * transitioned to basal bolus insulin on 08/09 * NPH insulin at 32 units in AM with the decadron, seems to be working well (5) Hypertension: Continue home Rx as tolerated. (6) Hypophosphatemia: resolved at 2.5 today K is stable Admission and Anticipated Discharge Date Admission Date: August 08, 2020 Subjective patient placed on HFNC early this morning after oxygen was removed for short period of time he responded nicely, saturations have been in the mid 90's all day he actually has more energy and more of an appetite today than he has had in a few days able to titrate him down to 30L and 70% by end of the day no fever/chills, minimal cough, some dyspnea at rest reviewed CXR personally, worsening infiltrates bilaterally Review of Systems Review of Systems: All systems reviewed & are unremarkable except as noted in Subjective Physical Exam Constitutional: well developed, well nourished, + ill appearing, + frail appearing and cooperative; no acute distress Neck: trachea midline, no thyromegaly Respiratory: normal respiratory effort, lungs clear to auscultation Cardiovascular: Rate/Rhythm: regular rate and + irregularly irregular Heart Sounds: normal S1 and normal S2; no murmur Extremities: normal capillary refill; no edema Gastrointestinal (Abdomen): normal bowel sounds, soft, nontender, no hepatosplenomegaly Musculoskeletal: Head/Neck/Chest: normocephalic, head atraumatic and neck supple Extremities: extremities normal to inspection and + abnormal strength (generalized weakness) Skin: no rashes, warm and dry Neurologic: patellar DTR's 2+ bilat, sensation intact and PERRL, EOMI, accommodation nl, no face palsy, no dysarthria Psychiatric: A+Ox3, euthymic affect Lymphatic: no cervical or axillary lymphadenopathy Results & Data Results & Data ([facility]) Vital Signs (Past 12 Hours) Vital Signs Temp Pulse Pulse Resp BP Pulse Ox 08/11/20 11:24 59 L 18 93 08/11/20 10:37 36.6 C 63 22 127/77 93 08/11/20 10:27 36.6 C 68 22 121/67 93 08/11/20 08:00 53 L 08/11/20 07:55 36.4 C L 56 L 20 168/91 H 98 08/11/20 06:13 96 08/11/20 05:57 48 L 20 90 08/11/20 05:35 20 84 L 08/11/20 04:35 36.5 C 50 L 19 125/76 95 Laboratory Results Laboratory Results - last 24 hr 08/11/20 08/11/20 08/11/20 06:27 06:40 07:54 ABG pH 7.45 ABG pCO2 33 L ABG pO2 103 H ABG HCO3 22 ABG O2 Saturation 98.1 H ABG Base Excess -0.9 Chuckie Test Pos Barometric Pressure 729.5 Oxygen Given HIFLO 40 LPM 100% Sodium 131 L Potassium 4.2 Chloride 103 Carbon Dioxide 23 Anion Gap 5.0 BUN 29 H Creatinine 0.93 Est Cr Clr Drug Dosing 77.6 Est GFR ( Amer) 94.1 Est GFR (Non-Af Amer) 81.2 BUN/Creatinine Ratio 31.2 H Glucose 259 H POC Glucose 224 H Calcium 8.3 L Phosphorus 2.5 Magnesium 2.5 H 08/11/20 08/11/20 08/11/20 11:06 11:07 16:40 ABG pH ABG pCO2 ABG pO2 ABG HCO3 ABG O2 Saturation ABG Base Excess Chuckie Test Barometric Pressure Oxygen Given Sodium Potassium Chloride Carbon Dioxide Anion Gap BUN Creatinine Est Cr Clr Drug Dosing Est GFR ( Amer) Est GFR (Non-Af Amer) BUN/Creatinine Ratio Glucose POC Glucose 356 H* 383 H* 228 H Calcium Phosphorus Magnesium 08/11/20 20:17 ABG pH ABG pCO2 ABG pO2 ABG HCO3 ABG O2 Saturation ABG Base Excess Chuckie Test Barometric Pressure Oxygen Given Sodium Potassium Chloride Carbon Dioxide Anion Gap BUN Creatinine Est Cr Clr Drug Dosing Est GFR ( Amer) Est GFR (Non-Af Amer) BUN/Creatinine Ratio Glucose POC Glucose 218 H Calcium Phosphorus Magnesium Medications Administered Current Inpatient Medications Acetaminophen (Acetaminophen 325 Mg Tab) 650 mg PO Q4H PRN PRN Reason: Pain or Fever Stop: 09/07/20 20:08 Last Admin: 08/09/20 21:14 Dose: 650 mg Documented by: Benzonatate (Benzonatate 100 Mg Capsule) 100 mg PO TID PRN PRN Reason: cough Stop: 09/07/20 20:08 Dextrose (Dextrose 50% 50 Ml Syringe) 25 - 50 ml IV UD PRN; Protocol PRN Reason: Hypoglycemia Protocol Stop: 09/07/20 18:29 Enoxaparin Sodium (Enoxaparin 100 Mg/1ml Syr) 90 mg SQ Q12H [facility] Stop: 09/09/20 08:59 Last Admin: 08/11/20 20:29 Dose: 90 mg Documented by: Glucagon (Glucagon For Inj 1 Mg Vial) 1 mg IM UD PRN; Protocol PRN Reason: Hypoglycemia Protocol Stop: 09/07/20 18:29 Glucose (Glucose 40% Gel 15 Gm Tube) 15 - 30 gm PO UD PRN; Protocol PRN Reason: Hypoglycemia Protocol Stop: 09/07/20 18:29 Glucose (Glucose 10 Tabs/Tube) 4 - 8 tabs PO UD PRN; Protocol PRN Reason: Hypoglycemia Protocol Stop: 09/07/20 18:29 Azithromycin 500 mg/ Dextrose 255 mls @ 127.5 mls/hr IV Q24H [facility] Stop: 08/16/20 07:59 Last Infusion: 08/11/20 10:39 Dose: Infused Documented by: Ceftriaxone Sodium 2,000 mg/ (Dextrose) 70 mls @ 140 mls/hr IV DAILY [facility] Stop: 08/16/20 08:59 Last Infusion: 08/11/20 09:21 Dose: Infused Documented by: Dexamethasone Sodium Phosphate (6 mg/ Syringe) 1.5 mls @ 1 mls/min IV QAM [facility] Stop: 09/09/20 08:59 Last Admin: 08/11/20 08:36 Dose: 1 mls/min Documented by: Insulin Aspart (Insulin Aspart 100 Units/Ml 3 Ml Pen) 0 units SC ACHS [facility] Stop: 09/08/20 16:29 Last Admin: 08/11/20 21:20 Dose: 5 units Documented by: Insulin Glargine (Insulin Glargine Solostar 100 Units/Ml 3 Ml Pen) 25 units SC BID@0800,2000 [facility] Stop: 09/10/20 07:59 Last Admin: 08/11/20 21:20 Dose: 25 units Documented by: Insulin Human NPH (Insulin Human Nph) 45 units SC DAILY@0800 [facility] Stop: 09/10/20 07:59 Last Admin: 08/11/20 08:53 Dose: 45 units Documented by: Losartan Potassium (Losartan Potassium 50 Mg Tab) 50 mg PO DAILY [facility] Stop: 09/08/20 08:59 Last Admin: 08/11/20 08:37 Dose: 50 mg Documented by: Miscellaneous (Carbohydrates For Hypoglycemia ) 15 - 30 gm PO PRN PRN PRN Reason: Hypoglycemia Treatment Stop: 09/07/20 18:29 Miscellaneous Information (Pharmacy Glycemic Mgmt Consult) 1 ea N/A UD PRN PRN Reason: Consult Stop: 09/07/20 20:21 Multivitamins (Multivitamin Tab) 1 tab PO DAILY [facility] Stop: 09/08/20 08:59 Last Admin: 08/11/20 08:37 Dose: 1 tab Documented by: Ondansetron HCl (Ondansetron Inj 2 Mg/Ml 2 Ml Vial) 4 mg IV Q6H PRN PRN Reason: Nausea Stop: 09/07/20 20:08 PG Care Time/CCT Total # of Minutes Spent Total Time Spent with Patient: Total time spent is greater than 50% in coordination of care (as documented) at patient's floor/unit and/or counseling patient: Coding Level of Care Code 08084 Subseq Hosp Care Lvl 3 Diagnoses COVID-19 virus infection U07.1 Hypoxia R09.02 Pneumonia J18.9 Laterality: unspecified laterality Lung location: unspecified part of lung Pneumonia type: due to unspecified organism Hyperglycemia R73.9 Hypertension I10 Hypophosphatemia E83.39 (1) Pneumonia Laterality: unspecified laterality Lung location: unspecified part of lung Pneumonia type: due to unspecified organism Qualified Code(s): J18.9 - Pneumonia, unspecified organism
[2020-08-12] MEDS: MELATONIN 3 MG TAB PO PRN ×2 (02:00→21:40)
[2020-08-12 07:16] LABS: Hematocrit (blood only) 41.1 % (42-52); Hemoglobin 14.2 g/dL (14.0-18.0); Mean Corpuscular Hgb Conc 34.5 g/dL (32-36); Mean Corpuscular Volume 86.9 fL (80-100); Mean Platelet Volume 10.7 fL (7.4-10.4); Platelet Count 192 K/uL (130-400); RDW Coefficient of Variation 13.2 % (11.5-14.5); RDW Standard Deviation 42.1 fL (36.4-46.3); Red Blood Count 4.73 M/uL (4.7-6.1); White Blood Count 12.05 K/uL (4.8-10.8)
[2020-08-12 08:02] LABS: BUN Creatinine Ratio 29.4 (10-20); Calcium 9.2 mg/dl (8.5-10.1); Est GFR (African American) 99.2; Est GFR (Non-African American) 85.6; Magnesium 2.4 mg/dl (1.8-2.4); Phosphorus 2.9 mg/dl (2.5-4.9); Potassium 4.1 mmol/L (3.5-5.1)
[2020-08-12] MEDS: AZITHROMYCIN 500 MG in DEXTROSE 5% 250 ML IV SCH (08:15)
[2020-08-12] MEDS: MULTIVITAMIN TAB PO SCH (08:15)
[2020-08-12] MEDS: LOSARTAN POTASSIUM 50 MG TAB PO SCH (08:15)
[2020-08-12] MEDS: cefTRIAXone SODIUM 2,000 MG in DEXTROSE 5% 50 ML IV SCH (08:15)
[2020-08-12] MEDS: DEXAMETHASONE SOD PHOSPHATE 6 MG in SYRINGE 0 ML IV SCH (08:16)
[2020-08-12] MEDS: ENOXAPARIN 100 MG/1ML SYR SQ SCH ×2 (08:16→21:31)
[2020-08-12] MEDS: INSULIN ASPART 100 UNITS/ML 3 ML PEN SC SCH ×4 (08:27→21:21)
[2020-08-12] MEDS: INSULIN HUMAN NPH SC SCH (08:27)
[2020-08-12] MEDS ORDERED: INSULIN GLARGINE SOLOSTAR 100 UNITS/ML 3 ML PEN SC ONE (09:00)
--- NOTE | 2020-08-12 12:13 | Hospitalist Progress Note ---
Date of Service August 12, 2020 Assessment & Plan (1) COVID-19 virus infection: During initial admission on 07/30, the patient did extremely well and did not require supplemental oxygen. The patient has completed entire course of dexamethasone at home. Unfortunately, the patient presented back with new hypoxia as well as CT findings concerning for COVID-19 pneumonia. * placed on HFNC on 08/11, tolerating well, titrated down to 30L and 50% FiO2 continue to titrate today, might be able to get down to low flow nasal canula today * Encourage incentive spirometry and flutter valves as tolerated. * no role for Remdesivir or plasma at this time * resume Dexamethasone 6mg IV daily since he is hypoxic and CT shows diffuse viral pneumonia * will slowly taper dexamethasone * encourage PO intake, will order nutrition supplements eating a lot better the past three days, drinking his Boost, much more energy (2) Hypoxia: * acute hypoxic respiratory failure due to viral pneumonia, possible bacterial infection? * titrated down to 50% and 30L, try to get to low flow nasal canula today * Aggressive pulmonary toilet to include incentive spirometry and flutter valve. * Please see COVID-19 virus and pneumonia sections. (3) Pneumonia: * must consider secondary infections in the setting of COVID-19 pneumonia. Initially received Rocephin and azithromycin in the emergency department. Patient previously on doxycycline in the outpatient. * continue Rocephin and azithromycin for 5-7 day course, today is day 5 * resume Decadron 6mg IV daily as pneumonia likely residual viral etiology, will slowly taper * MRSA swab negative * on HFNC now, try to get off today (4) Hyperglycemia: Patient with blood glucose levels in excess of 400. Symptomatic with polyuria. * Initially received IV insulin bolus as well as insulin drip. * transitioned to basal bolus insulin on 08/09 * NPH insulin at 32 units in AM with the decadron, had some hyperglycemia yesterday but not today (5) Hypertension: Continue home Rx as tolerated. (6) Hypophosphatemia: resolved at 2.5 yesterday K is stable Admission and Anticipated Discharge Date Admission Date: August 08, 2020 Subjective patient feeling so much better, down to 30L and 50% FiO2 he is eating a lot better, drinking his Boost with every meal, has a lot more energy he is hoping to get off the HFNC today reviewed labs, CBC shows WBC 12k, Hb 14 and BMP shows Cr 0.87 and electrolytes stable no fever/chills, no diaphoresis, no nausea, no diarrhea Review of Systems Review of Systems: All systems reviewed & are unremarkable except as noted in Subjective Physical Exam Constitutional: well developed, well nourished, + ill appearing, + frail appearing and cooperative; no acute distress Neck: trachea midline, no thyromegaly Respiratory: + labored breathing, + cough and + tachypneic Auscultation: lungs clear to auscultation bilaterally Cardiovascular: Rate/Rhythm: regular rate and regular rhythm Heart Sounds: normal S1 and normal S2; no murmur Extremities: normal capillary refill; no edema Gastrointestinal (Abdomen): normal bowel sounds, soft, nontender, no hepatosplenomegaly Musculoskeletal: Head/Neck/Chest: normocephalic, head atraumatic and neck supple Extremities: extremities normal to inspection and strength 5/5 throughout Skin: no rashes, warm and dry Neurologic: patellar DTR's 2+ bilat, sensation intact and PERRL, EOMI, accommodation nl, no face palsy, no dysarthria Psychiatric: A+Ox3, euthymic affect Lymphatic: no cervical or axillary lymphadenopathy Results & Data Results & Data ([place]) Vital Signs (Past 12 Hours) Vital Signs Temp Pulse Pulse Resp BP Pulse Ox 08/12/20 11:07 142/73 H 92 08/12/20 10:55 36.7 C 65 20 147/112 H 60 L 08/12/20 08:00 51 L 08/12/20 07:57 60 26 H 90 08/12/20 07:33 36.7 C 58 L 113/64 92 08/12/20 03:20 36.5 C 50 L 30 H 121/65 94 08/12/20 02:13 60 18 95 08/12/20 00:44 61 Laboratory Results Laboratory Results - last 24 hr 08/11/20 08/11/20 08/12/20 16:40 20:17 07:05 WBC RBC Hgb Hct MCV MCH MCHC RDW Std Deviation RDW Coeff of Macrina Plt Count MPV VBG pH Sodium 139 D Potassium 4.1 Chloride 107 Carbon Dioxide 26 Anion Gap 6.0 BUN 26 H Creatinine 0.87 Est Cr Clr Drug Dosing 83.0 Est GFR ( Amer) 99.2 Est GFR (Non-Af Amer) 85.6 BUN/Creatinine Ratio 29.4 H Glucose 87 POC Glucose 228 H 218 H Calcium 9.2 Phosphorus 2.9 Magnesium 2.4 08/12/20 08/12/20 08/12/20 07:05 07:05 07:30 WBC 12.05 H RBC 4.73 Hgb 14.2 Hct 41.1 L MCV 86.9 MCH 30.0 MCHC 34.5 RDW Std Deviation 42.1 RDW Coeff of Macrina 13.2 Plt Count 192 MPV 10.7 H VBG pH 7.46 H Sodium Potassium Chloride Carbon Dioxide Anion Gap BUN Creatinine Est Cr Clr Drug Dosing Est GFR ( Amer) Est GFR (Non-Af Amer) BUN/Creatinine Ratio Glucose POC Glucose 88 Calcium Phosphorus Magnesium 08/12/20 11:42 WBC RBC Hgb Hct MCV MCH MCHC RDW Std Deviation RDW Coeff of Macrina Plt Count MPV VBG pH Sodium Potassium Chloride Carbon Dioxide Anion Gap BUN Creatinine Est Cr Clr Drug Dosing Est GFR ( Amer) Est GFR (Non-Af Amer) BUN/Creatinine Ratio Glucose POC Glucose 194 H Calcium Phosphorus Magnesium Medications Administered Current Inpatient Medications Acetaminophen (Acetaminophen 325 Mg Tab) 650 mg PO Q4H PRN PRN Reason: Pain or Fever Stop: 09/07/20 20:08 Last Admin: 08/09/20 21:14 Dose: 650 mg Documented by: Benzonatate (Benzonatate 100 Mg Capsule) 100 mg PO TID PRN PRN Reason: cough Stop: 09/07/20 20:08 Dextrose (Dextrose 50% 50 Ml Syringe) 25 - 50 ml IV UD PRN; Protocol PRN Reason: Hypoglycemia Protocol Stop: 09/07/20 18:29 Enoxaparin Sodium (Enoxaparin 100 Mg/1ml Syr) 90 mg SQ Q12H [facility] Stop: 09/09/20 08:59 Last Admin: 08/12/20 08:16 Dose: 90 mg Documented by: Glucagon (Glucagon For Inj 1 Mg Vial) 1 mg IM UD PRN; Protocol PRN Reason: Hypoglycemia Protocol Stop: 09/07/20 18:29 Glucose (Glucose 40% Gel 15 Gm Tube) 15 - 30 gm PO UD PRN; Protocol PRN Reason: Hypoglycemia Protocol Stop: 09/07/20 18:29 Glucose (Glucose 10 Tabs/Tube) 4 - 8 tabs PO UD PRN; Protocol PRN Reason: Hypoglycemia Protocol Stop: 09/07/20 18:29 Azithromycin 500 mg/ Dextrose 255 mls @ 127.5 mls/hr IV Q24H [facility] Stop: 08/16/20 07:59 Last Infusion: 08/12/20 10:16 Dose: Infused Documented by: Ceftriaxone Sodium 2,000 mg/ (Dextrose) 70 mls @ 140 mls/hr IV DAILY [facility] Stop: 08/16/20 08:59 Last Infusion: 08/12/20 08:55 Dose: Infused Documented by: Dexamethasone Sodium Phosphate (6 mg/ Syringe) 1.5 mls @ 1 mls/min IV QAM [facility] Stop: 09/09/20 08:59 Last Admin: 08/12/20 08:16 Dose: 1 mls/min Documented by: Insulin Aspart (Insulin Aspart 100 Units/Ml 3 Ml Pen) 0 units SC ACHS [facility] Stop: 09/08/20 16:29 Last Admin: 08/12/20 11:52 Dose: 13 units Documented by: Insulin Glargine (Insulin Glargine Solostar 100 Units/Ml 3 Ml Pen) 0 units SC HS [facility]; Protocol Stop: 09/11/20 20:59 Insulin Human NPH (Insulin Human Nph) 45 units SC DAILY@0800 [facility] Stop: 09/10/20 07:59 Last Admin: 08/12/20 08:27 Dose: 45 units Documented by: Losartan Potassium (Losartan Potassium 50 Mg Tab) 50 mg PO DAILY [facility] Stop: 09/08/20 08:59 Last Admin: 08/12/20 08:15 Dose: 50 mg Documented by: Melatonin (Melatonin 3 Mg Tab) 3 mg PO HS PRN PRN Reason: Sleep Stop: 09/11/20 00:10 Last Admin: 08/12/20 02:00 Dose: 3 mg Documented by: Miscellaneous (Carbohydrates For Hypoglycemia ) 15 - 30 gm PO PRN PRN PRN Reason: Hypoglycemia Treatment Stop: 09/07/20 18:29 Miscellaneous Information (Pharmacy Glycemic Mgmt Consult) 1 ea N/A UD PRN PRN Reason: Consult Stop: 09/07/20 20:21 Multivitamins (Multivitamin Tab) 1 tab PO DAILY [facility] Stop: 09/08/20 08:59 Last Admin: 08/12/20 08:15 Dose: 1 tab Documented by: Ondansetron HCl (Ondansetron Inj 2 Mg/Ml 2 Ml Vial) 4 mg IV Q6H PRN PRN Reason: Nausea Stop: 09/07/20 20:08 PG Care Time/CCT Total # of Minutes Spent Total Time Spent with Patient: Total time spent is greater than 50% in coordination of care (as documented) at patient's floor/unit and/or counseling patient: Coding Level of Care Code 87035 Subseq Hosp Care Lvl 3 Diagnoses COVID-19 virus infection U07.1 Hypoxia R09.02 Pneumonia J18.9 Laterality: unspecified laterality Lung location: unspecified part of lung Pneumonia type: due to unspecified organism Hyperglycemia R73.9 Hypertension I10 Hypophosphatemia E83.39 (1) Pneumonia Laterality: unspecified laterality Lung location: unspecified part of lung Pneumonia type: due to unspecified organism Qualified Code(s): J18.9 - Pneumonia, unspecified organism
[2020-08-12] MEDS ORDERED: INSULIN GLARGINE SOLOSTAR 100 UNITS/ML 3 ML PEN SC SCH (21:00)
[2020-08-13 07:13] LABS: Hematocrit (blood only) 40.1 % (42-52); Hemoglobin 13.8 g/dL (14.0-18.0); Mean Corpuscular Hgb Conc 34.4 g/dL (32-36); Mean Corpuscular Volume 87.2 fL (80-100); Platelet Count 222 K/uL (130-400); RDW Coefficient of Variation 13.4 % (11.5-14.5); RDW Standard Deviation 42.9 fL (36.4-46.3)
[2020-08-13 07:38] LABS: BUN Creatinine Ratio 35.7 (10-20); Calcium 8.7 mg/dl (8.5-10.1); Creatinine Clr Calc Pharmacy 92.6 ml/min; Est GFR (African American) 103.8; Est GFR (Non-African American) 89.6; Potassium 4.3 mmol/L (3.5-5.1)
[2020-08-13] MEDS: AZITHROMYCIN 500 MG in DEXTROSE 5% 250 ML IV SCH (08:03)
[2020-08-13] MEDS: LOSARTAN POTASSIUM 50 MG TAB PO SCH (08:04)
[2020-08-13] MEDS: DEXAMETHASONE SOD PHOSPHATE 6 MG in SYRINGE 0 ML IV SCH (08:04)
[2020-08-13] MEDS: ENOXAPARIN 100 MG/1ML SYR SQ SCH ×2 (08:04→19:49)
[2020-08-13] MEDS: cefTRIAXone SODIUM 2,000 MG in DEXTROSE 5% 50 ML IV SCH (08:05)
[2020-08-13] MEDS: MULTIVITAMIN TAB PO SCH (08:05)
[2020-08-13] MEDS ORDERED: INSULIN HUMAN NPH SC SCH (08:15)
[2020-08-13] MEDS: INSULIN ASPART 100 UNITS/ML 3 ML PEN SC SCH ×4 (09:06→19:50)
[2020-08-13] MEDS: INSULIN GLARGINE SOLOSTAR 100 UNITS/ML 3 ML PEN SC SCH ×2 (09:12→19:50)
--- NOTE | 2020-08-13 16:19 | Hospitalist Progress Note ---
Date of Service August 13, 2020 Assessment & Plan (1) COVID-19 virus infection: During initial admission on 07/30, the patient did extremely well and did not require supplemental oxygen. The patient has completed entire course of dexamethasone at home. Unfortunately, the patient presented back with new hypoxia as well as CT findings concerning for COVID-19 pneumonia. * placed on HFNC on 08/11, tolerating well, titrated down to 30L and 50% FiO2, remains the same today * Encourage incentive spirometry and flutter valves as tolerated. * no role for Remdesivir or plasma at this time * resume Dexamethasone 6mg IV daily since he is hypoxic and CT shows diffuse viral pneumonia finish 5 more days of dexamethasone, last day 08/18 * encourage PO intake, will order nutrition supplements eating a lot better the past four days, drinking his Boost, much more energy (2) Hypoxia: * acute hypoxic respiratory failure due to viral pneumonia, possible bacterial infection? * titrated down to 50% and 30L, stable today * Aggressive pulmonary toilet to include incentive spirometry and flutter valve. * Please see COVID-19 virus and pneumonia sections. (3) Pneumonia: * must consider secondary infections in the setting of COVID-19 pneumonia. Initially received Rocephin and azithromycin in the emergency department. Patient previously on doxycycline in the outpatient. * continue Rocephin and azithromycin for 5-7 day course, today is day 6 * resume Decadron 6mg IV daily as pneumonia likely residual viral etiology, will slowly taper * MRSA swab negative * on HFNC now, try to wean (4) Hyperglycemia: Patient with blood glucose levels in excess of 400. Symptomatic with polyuria. * Initially received IV insulin bolus as well as insulin drip. * transitioned to basal bolus insulin on 08/09 * NPH insulin at 32 units in AM with the decadron, sugars very stable today (5) Hypertension: Continue home Rx as tolerated. (6) Hypophosphatemia: resolved K is stable Admission and Anticipated Discharge Date Admission Date: August 08, 2020 Subjective patient is doing about the same as yesterday he says he feels a little more short of breath today but his saturations are stable on same amount of high flow continues to eat really well no fever/chills, no chest pain, no GI symptoms updated his on the phone CBC and BMP normal Review of Systems Review of Systems: All systems reviewed & are unremarkable except as noted in Subjective Constitutional: + weakness; no fever and no fatigue Respiratory: + cough and + dyspnea Cardiovascular: no chest pain and no edema Physical Exam Constitutional: well developed, well nourished, + frail appearing and cooperative; no acute distress Neck: trachea midline, no thyromegaly Respiratory: normal respiratory effort, lungs clear to auscultation + labored breathing, + cough and + tachypneic Auscultation: lungs clear to auscultation bilaterally Cardiovascular: Rate/Rhythm: regular rate and regular rhythm Heart Sounds: normal S1 and normal S2; no murmur Extremities: normal capillary refill; no edema Gastrointestinal (Abdomen): normal bowel sounds, soft, nontender, no hepatosplenomegaly Musculoskeletal: Head/Neck/Chest: normocephalic, head atraumatic and neck supple Extremities: extremities normal to inspection and strength 5/5 throughout Skin: no rashes, warm and dry Neurologic: patellar DTR's 2+ bilat, sensation intact and PERRL, EOMI, accommodation nl, no face palsy, no dysarthria Psychiatric: A+Ox3, euthymic affect Lymphatic: no cervical or axillary lymphadenopathy Results & Data Results & Data ([facility]) Vital Signs (Past 12 Hours) Vital Signs Temp Pulse Pulse Resp BP Pulse Ox 08/13/20 15:37 37.1 C 61 20 124/58 L 97 08/13/20 12:15 66 24 92 08/13/20 11:47 36.8 C 61 24 116/68 92 08/13/20 07:58 52 L 20 08/13/20 07:32 36.5 C 55 L 23 116/68 86 L 08/13/20 07:31 58 L 08/13/20 04:30 36.8 C 60 60 H 122/60 90 Laboratory Results Laboratory Results - last 24 hr 08/12/20 08/12/20 08/12/20 16:43 20:29 20:31 WBC RBC Hgb Hct MCV MCH MCHC RDW Std Deviation RDW Coeff of Macrina Plt Count MPV Sodium Potassium Chloride Carbon Dioxide Anion Gap BUN Creatinine Est Cr Clr Drug Dosing Est GFR ( Amer) Est GFR (Non-Af Amer) BUN/Creatinine Ratio Glucose POC Glucose 215 H 304 H* 276 H Calcium 08/12/20 08/13/20 08/13/20 20:47 06:52 06:52 WBC 12.00 H RBC 4.60 L Hgb 13.8 L Hct 40.1 L MCV 87.2 MCH 30.0 MCHC 34.4 RDW Std Deviation 42.9 RDW Coeff of Macrina 13.4 Plt Count 222 MPV 11.0 H Sodium 138 Potassium 4.3 Chloride 107 Carbon Dioxide 28 Anion Gap 3.0 BUN 28 H Creatinine 0.78 Est Cr Clr Drug Dosing 92.6 Est GFR ( Amer) 103.8 Est GFR (Non-Af Amer) 89.6 BUN/Creatinine Ratio 35.7 H Glucose 288 H 150 H POC Glucose Calcium 8.7 08/13/20 08/13/20 08/13/20 07:30 11:45 16:11 WBC RBC Hgb Hct MCV MCH MCHC RDW Std Deviation RDW Coeff of Macrina Plt Count MPV Sodium Potassium Chloride Carbon Dioxide Anion Gap BUN Creatinine Est Cr Clr Drug Dosing Est GFR ( Amer) Est GFR (Non-Af Amer) BUN/Creatinine Ratio Glucose POC Glucose 136 H 122 H 120 H Calcium Medications Administered Current Inpatient Medications Acetaminophen (Acetaminophen 325 Mg Tab) 650 mg PO Q4H PRN PRN Reason: Pain or Fever Stop: 09/07/20 20:08 Last Admin: 08/09/20 21:14 Dose: 650 mg Documented by: Benzonatate (Benzonatate 100 Mg Capsule) 100 mg PO TID PRN PRN Reason: cough Stop: 09/07/20 20:08 Dextrose (Dextrose 50% 50 Ml Syringe) 25 - 50 ml IV UD PRN; Protocol PRN Reason: Hypoglycemia Protocol Stop: 09/07/20 18:29 Enoxaparin Sodium (Enoxaparin 100 Mg/1ml Syr) 90 mg SQ Q12H [facility] Stop: 09/09/20 08:59 Last Admin: 08/13/20 08:04 Dose: 90 mg Documented by: Glucagon (Glucagon For Inj 1 Mg Vial) 1 mg IM UD PRN; Protocol PRN Reason: Hypoglycemia Protocol Stop: 09/07/20 18:29 Glucose (Glucose 40% Gel 15 Gm Tube) 15 - 30 gm PO UD PRN; Protocol PRN Reason: Hypoglycemia Protocol Stop: 09/07/20 18:29 Glucose (Glucose 10 Tabs/Tube) 4 - 8 tabs PO UD PRN; Protocol PRN Reason: Hypoglycemia Protocol Stop: 09/07/20 18:29 Azithromycin 500 mg/ Dextrose 255 mls @ 127.5 mls/hr IV Q24H [facility] Stop: 08/16/20 07:59 Last Infusion: 08/13/20 10:24 Dose: Infused Documented by: Ceftriaxone Sodium 2,000 mg/ (Dextrose) 70 mls @ 140 mls/hr IV DAILY [facility] Stop: 08/16/20 08:59 Last Infusion: 08/13/20 10:25 Dose: Infused Documented by: Dexamethasone Sodium Phosphate (6 mg/ Syringe) 1.5 mls @ 1 mls/min IV QAM [facility] Stop: 09/09/20 08:59 Last Admin: 08/13/20 08:04 Dose: 1 mls/min Documented by: Insulin Aspart (Insulin Aspart 100 Units/Ml 3 Ml Pen) 0 units SC ACHS [facility] Stop: 09/08/20 16:29 Last Admin: 08/13/20 14:05 Dose: 10 units Documented by: Insulin Glargine (Insulin Glargine Solostar 100 Units/Ml 3 Ml Pen) 22 units SC BID [facility] Stop: 09/12/20 08:59 Last Admin: 08/13/20 09:12 Dose: 22 units Documented by: Insulin Human NPH (Insulin Human Nph) 50 units SC DAILY@0800 [facility] Stop: 09/13/20 07:59 Losartan Potassium (Losartan Potassium 50 Mg Tab) 50 mg PO DAILY [facility] Stop: 09/08/20 08:59 Last Admin: 08/13/20 08:04 Dose: 50 mg Documented by: Melatonin (Melatonin 3 Mg Tab) 3 mg PO HS PRN PRN Reason: Sleep Stop: 09/11/20 00:10 Last Admin: 08/12/20 21:40 Dose: 3 mg Documented by: Miscellaneous (Carbohydrates For Hypoglycemia ) 15 - 30 gm PO PRN PRN PRN Reason: Hypoglycemia Treatment Stop: 09/07/20 18:29 Miscellaneous Information (Pharmacy Glycemic Mgmt Consult) 1 ea N/A UD PRN PRN Reason: Consult Stop: 09/07/20 20:21 Multivitamins (Multivitamin Tab) 1 tab PO DAILY [facility] Stop: 09/08/20 08:59 Last Admin: 08/13/20 08:05 Dose: 1 tab Documented by: Ondansetron HCl (Ondansetron Inj 2 Mg/Ml 2 Ml Vial) 4 mg IV Q6H PRN PRN Reason: Nausea Stop: 09/07/20 20:08 PG Care Time/CCT Total # of Minutes Spent Total Time Spent with Patient: Total time spent is greater than 50% in coordination of care (as documented) at patient's floor/unit and/or counseling patient: Coding Level of Care Code 54179 Subseq Hosp Care Lvl 3 Diagnoses COVID-19 virus infection U07.1 Hypoxia R09.02 Pneumonia J18.9 Laterality: unspecified laterality Lung location: unspecified part of lung Pneumonia type: due to unspecified organism Hyperglycemia R73.9 Hypertension I10 Hypophosphatemia E83.39 (1) Pneumonia Laterality: unspecified laterality Lung location: unspecified part of lung Pneumonia type: due to unspecified organism Qualified Code(s): J18.9 - Pneumonia, unspecified organism
[2020-08-14] MEDS ORDERED: INSULIN HUMAN NPH SC SCH (08:00)
[2020-08-14] MEDS: DEXAMETHASONE SOD PHOSPHATE 6 MG in SYRINGE 0 ML IV SCH (08:15)
[2020-08-14] MEDS: ENOXAPARIN 100 MG/1ML SYR SQ SCH ×2 (08:18→20:27)
[2020-08-14] MEDS: cefTRIAXone SODIUM 2,000 MG in DEXTROSE 5% 50 ML IV SCH (08:22)
[2020-08-14] MEDS: LOSARTAN POTASSIUM 50 MG TAB PO SCH (08:25)
[2020-08-14] MEDS: MULTIVITAMIN TAB PO SCH (08:25)
[2020-08-14] MEDS: INSULIN GLARGINE SOLOSTAR 100 UNITS/ML 3 ML PEN SC SCH (08:26)
[2020-08-14] MEDS: INSULIN ASPART 100 UNITS/ML 3 ML PEN SC SCH ×4 (08:27→20:56)
[2020-08-14] MEDS ORDERED: INSULIN GLARGINE SOLOSTAR 100 UNITS/ML 3 ML PEN SC ONE (09:00)
[2020-08-14] MEDS: AZITHROMYCIN 500 MG in DEXTROSE 5% 250 ML IV SCH (09:12)
--- NOTE | 2020-08-14 15:06 | Pharmacy Report ---
Pharmacy Glycemic Short Note 2 - Date of Service August 14, 2020 - Glycemic Short BSG Results (Last 24 hours): 08/13/20 08/13/20 08/14/20 16:11 19:41 07:33 POC Glucose 120 H 225 H 68 L* 08/14/20 08/14/20 07:35 11:09 POC Glucose 75 193 H OUTPATIENT ANTIDIABETIC REGIMEN: * None ASSESSMENT: * Patient received total of 133 units of insulin yesterday; 94 units basal + 39 units bolus. * Fasting BSG today was low at 68 mg/dl. Lantus dosing decreased. * Post-prandial BSGs have been at goal with only one BSG (at HS yesterday) above 200 mg/dl. * Continued on same Novolog parameters. PLAN FOR INPATIENT GLYCEMIC CONTROL: * Basal insulin: decreased * Lantus 18 units SQ today AM * Lantus between 15-20 units scale at HS based on BSG * Bolus insulin: continued * NovoLog per scale ACHS or Q6hrs while NPO * Goal Range: Low 110 mg/dL - High 140 mg/dL * Correction Factor: 18 mg/dL/unit * Nutritional / Prandial insulin per carb ratio of 1 unit per 5 grams CHO consumed RECOMMENDATIONS FOR DISCHARGE: * Patient's HbA1C is reported at 9.9%. Unsure how much recent steroid use has influenced this HbA1C (as most recent weeks have a more significant impact on HbA1C). * Would recommend checking with outpatient provider to see if there are any previous HbA1Cs. If that is not possible, could consider starting metformin 500 mg BIDM as patient most likely has some degree of diabetes as an outpatient. * Titrate metformin to 1000 mg BIDM by 500 mg/week increases
--- NOTE | 2020-08-14 16:44 | Hospitalist Progress Note ---
Date of Service August 14, 2020 Assessment & Plan (1) COVID-19 virus infection: During initial admission on 07/30, the patient did extremely well and did not require supplemental oxygen. The patient has completed entire course of dexamethasone at home. Unfortunately, the patient presented back with new hypoxia as well as CT findings concerning for COVID-19 pneumonia. * placed on HFNC on 08/11, tolerating well, up to 35L and 80% FiO2 today * Encourage incentive spirometry and flutter valves as tolerated. * no role for Remdesivir or plasma at this time, too far along into illness when admitted * resume Dexamethasone 6mg IV daily since he is hypoxic and CT shows diffuse viral pneumonia finish 5 more days of dexamethasone, last day 08/18 * encourage PO intake, will order nutrition supplements eating a lot better the past five days, drinking his Boost, much more energy (2) Hypoxia: * acute hypoxic respiratory failure due to viral pneumonia, possible bacterial infection? * titrated up to 80% and 35L but no increased work of breathing * Aggressive pulmonary toilet to include incentive spirometry and flutter valve. * Please see COVID-19 virus and pneumonia sections. (3) Pneumonia: * must consider secondary infections in the setting of COVID-19 pneumonia. Initially received Rocephin and azithromycin in the emergency department. Patient previously on doxycycline in the outpatient. * continue Rocephin and azithromycin for 5-7 day course, today is day 5, last day 08/16 * resume Decadron 6mg IV daily as pneumonia likely residual viral etiology, will slowly taper * MRSA swab negative * on HFNC now, try to wean (4) Hyperglycemia: Patient with blood glucose levels in excess of 400. Symptomatic with polyuria. * Initially received IV insulin bolus as well as insulin drip. * transitioned to basal bolus insulin on 08/09 * NPH insulin at 50 units in AM with the decadron, sugars low this morning but then high (5) Hypertension: Continue home Rx as tolerated. (6) Hypophosphatemia: resolved K is stable Admission and Anticipated Discharge Date Admission Date: August 08, 2020 Subjective patient feeling more tired today, wanted to sleep in discussed importance of keeping strong mentally, he knows that it is going to take some time no fever, saturations in high 90's on HFNC when laying down feels like his breathing is the same continues to eat really well, no nausea, no constipation Review of Systems Review of Systems: All systems reviewed & are unremarkable except as noted in Subjective Physical Exam Constitutional: well developed, well nourished, + frail appearing and cooperative; no acute distress Neck: trachea midline, no thyromegaly Respiratory: + labored breathing, + cough and + tachypneic Auscultation: lungs clear to auscultation bilaterally Cardiovascular: Rate/Rhythm: regular rate and regular rhythm Heart Sounds: normal S1 and normal S2; no murmur Extremities: normal capillary refill; no edema Gastrointestinal (Abdomen): normal bowel sounds, soft, nontender, no hepatosplenomegaly Musculoskeletal: Head/Neck/Chest: normocephalic, head atraumatic and neck supple Extremities: extremities normal to inspection and strength 5/5 throughout Skin: no rashes, warm and dry Neurologic: patellar DTR's 2+ bilat, sensation intact and PERRL, EOMI, accommodation nl, no face palsy, no dysarthria Psychiatric: A+Ox3, euthymic affect Lymphatic: no cervical or axillary lymphadenopathy Results & Data Results & Data ([facility]) Vital Signs (Past 12 Hours) Vital Signs Temp Pulse Resp BP Pulse Ox 08/14/20 16:09 37.1 C 62 18 129/82 94 08/14/20 15:55 64 20 94 08/14/20 11:20 65 21 88 L 08/14/20 11:07 37.1 C 70 25 H 113/68 89 L 08/14/20 07:40 63 19 92 08/14/20 07:36 36.8 C 70 22 130/63 90 Laboratory Results Laboratory Results - last 24 hr 08/13/20 08/14/20 08/14/20 19:41 07:33 07:35 POC Glucose 225 H 68 L* 75 08/14/20 08/14/20 11:09 16:12 POC Glucose 193 H 230 H Medications Administered Current Inpatient Medications Acetaminophen (Acetaminophen 325 Mg Tab) 650 mg PO Q4H PRN PRN Reason: Pain or Fever Stop: 09/07/20 20:08 Last Admin: 08/09/20 21:14 Dose: 650 mg Documented by: Benzonatate (Benzonatate 100 Mg Capsule) 100 mg PO TID PRN PRN Reason: cough Stop: 09/07/20 20:08 Dextrose (Dextrose 50% 50 Ml Syringe) 25 - 50 ml IV UD PRN; Protocol PRN Reason: Hypoglycemia Protocol Stop: 09/07/20 18:29 Enoxaparin Sodium (Enoxaparin 100 Mg/1ml Syr) 90 mg SQ Q12H [facility] Stop: 09/09/20 08:59 Last Admin: 08/14/20 08:18 Dose: 90 mg Documented by: Glucagon (Glucagon For Inj 1 Mg Vial) 1 mg IM UD PRN; Protocol PRN Reason: Hypoglycemia Protocol Stop: 09/07/20 18:29 Glucose (Glucose 40% Gel 15 Gm Tube) 15 - 30 gm PO UD PRN; Protocol PRN Reason: Hypoglycemia Protocol Stop: 09/07/20 18:29 Glucose (Glucose 10 Tabs/Tube) 4 - 8 tabs PO UD PRN; Protocol PRN Reason: Hypoglycemia Protocol Stop: 09/07/20 18:29 Azithromycin 500 mg/ Dextrose 255 mls @ 127.5 mls/hr IV Q24H [facility] Stop: 08/16/20 07:59 Last Infusion: 08/14/20 11:32 Dose: Infused Documented by: Ceftriaxone Sodium 2,000 mg/ (Dextrose) 70 mls @ 140 mls/hr IV DAILY [facility] Stop: 08/16/20 08:59 Last Infusion: 08/14/20 09:13 Dose: Infused Documented by: Dexamethasone Sodium Phosphate (6 mg/ Syringe) 1.5 mls @ 1 mls/min IV QAM [facility] Stop: 09/09/20 08:59 Last Admin: 08/14/20 08:15 Dose: 1 mls/min Documented by: Insulin Aspart (Insulin Aspart 100 Units/Ml 3 Ml Pen) 0 units SC ACHS [facility] Stop: 09/08/20 16:29 Last Admin: 08/14/20 12:18 Dose: 16 units Documented by: Insulin Glargine (Insulin Glargine Solostar 100 Units/Ml 3 Ml Pen) 20 units SC DAILY@0800 [facility] Stop: 09/14/20 07:59 Insulin Glargine (Insulin Glargine Solostar 100 Units/Ml 3 Ml Pen) [address] [facility]; Protocol Stop: 09/13/20 20:59 Insulin Human NPH (Insulin Human Nph) 50 units SC DAILY@0800 [facility] Stop: 09/13/20 07:59 Last Admin: 08/14/20 08:27 Dose: 50 units Documented by: Losartan Potassium (Losartan Potassium 50 Mg Tab) 50 mg PO DAILY [facility] Stop: 09/08/20 08:59 Last Admin: 08/14/20 08:25 Dose: 50 mg Documented by: Melatonin (Melatonin 3 Mg Tab) 3 mg PO HS PRN PRN Reason: Sleep Stop: 09/11/20 00:10 Last Admin: 08/12/20 21:40 Dose: 3 mg Documented by: Miscellaneous (Carbohydrates For Hypoglycemia ) 15 - 30 gm PO PRN PRN PRN Reason: Hypoglycemia Treatment Stop: 09/07/20 18:29 Miscellaneous Information (Pharmacy Glycemic Mgmt Consult) 1 ea N/A UD PRN PRN Reason: Consult Stop: 09/07/20 20:21 Multivitamins (Multivitamin Tab) 1 tab PO DAILY [facility] Stop: 09/08/20 08:59 Last Admin: 08/14/20 08:25 Dose: 1 tab Documented by: Ondansetron HCl (Ondansetron Inj 2 Mg/Ml 2 Ml Vial) 4 mg IV Q6H PRN PRN Reason: Nausea Stop: 09/07/20 20:08 PG Care Time/CCT Total # of Minutes Spent Total Time Spent with Patient: Total time spent is greater than 50% in coordination of care (as documented) at patient's floor/unit and/or counseling patient: Coding Level of Care Code 20663 Subseq Hosp Care Lvl 2 Diagnoses COVID-19 virus infection U07.1 Hypoxia R09.02 Pneumonia J18.9 Laterality: unspecified laterality Lung location: unspecified part of lung Pneumonia type: due to unspecified organism Hyperglycemia R73.9 Hypertension I10 Hypophosphatemia E83.39 (1) Pneumonia Laterality: unspecified laterality Lung location: unspecified part of lung Pneumonia type: due to unspecified organism Qualified Code(s): J18.9 - Pneumonia, unspecified organism
[2020-08-14] MEDS ORDERED: INSULIN GLARGINE SOLOSTAR 100 UNITS/ML 3 ML PEN SC SCH (21:00)
[2020-08-15 06:55] LABS: Hematocrit (blood only) 40.6 % (42-52); Hemoglobin 13.6 g/dL (14.0-18.0); Mean Corpuscular Hemoglobin 29.6 pg (25-34); Mean Corpuscular Hgb Conc 33.5 g/dL (32-36); Mean Corpuscular Volume 88.5 fL (80-100); Mean Platelet Volume 10.7 fL (7.4-10.4); Platelet Count 236 K/uL (130-400); RDW Coefficient of Variation 13.7 % (11.5-14.5); RDW Standard Deviation 44.4 fL (36.4-46.3); Red Blood Count 4.59 M/uL (4.7-6.1); White Blood Count 14.01 K/uL (4.8-10.8)
[2020-08-15 07:33] LABS: Creatinine Clr Calc Pharmacy 104.7 ml/min; Est GFR (African American) 109.2; Est GFR (Non-African American) 94.2
[2020-08-15] MEDS ORDERED: INSULIN GLARGINE SOLOSTAR 100 UNITS/ML 3 ML PEN SC SCH ×3 (08:00→21:00)
[2020-08-15] MEDS: cefTRIAXone SODIUM 2,000 MG in DEXTROSE 5% 50 ML IV SCH (08:17)
[2020-08-15] MEDS: DEXAMETHASONE SOD PHOSPHATE 6 MG in SYRINGE 0 ML IV SCH (08:21)
[2020-08-15] MEDS: AZITHROMYCIN 500 MG in DEXTROSE 5% 250 ML IV SCH (08:21)
[2020-08-15] MEDS: LOSARTAN POTASSIUM 50 MG TAB PO SCH (08:21)
[2020-08-15] MEDS: MULTIVITAMIN TAB PO SCH (08:21)
[2020-08-15] MEDS: ENOXAPARIN 100 MG/1ML SYR SQ SCH ×2 (08:22→21:30)
[2020-08-15] MEDS: INSULIN ASPART 100 UNITS/ML 3 ML PEN SC SCH ×4 (08:37→23:15)
[2020-08-15] MEDS: INSULIN HUMAN NPH SC SCH (08:38)
--- NOTE | 2020-08-15 14:51 | Hospitalist Progress Note ---
Date of Service August 15, 2020 Assessment & Plan (1) COVID-19 virus infection: During initial admission on 07/30, the patient did extremely well and did not require supplemental oxygen. The patient has completed entire course of dexamethasone at home. Unfortunately, the patient presented back with new hypoxia as well as CT findings concerning for COVID-19 pneumonia. * placed on HFNC on 08/11, tolerating well, down to 30L and 55% today, try to wean to low flow or oxymask * Encourage incentive spirometry and flutter valves as tolerated. * no role for Remdesivir or plasma at this time, too far along into illness when admitted * resume Dexamethasone 6mg IV daily since he is hypoxic and CT shows diffuse viral pneumonia finish 5 more days of dexamethasone, last day 08/18 * encourage PO intake, will order nutrition supplements eating a lot better the past six days, drinking his Boost, much more energy (2) Hypoxia: * acute hypoxic respiratory failure due to viral pneumonia, possible bacterial infection? * titrated down to 55% and 30L, no increased work of breathing * Aggressive pulmonary toilet to include incentive spirometry and flutter valve. * Please see COVID-19 virus and pneumonia sections. (3) Pneumonia: * must consider secondary infections in the setting of COVID-19 pneumonia. Initially received Rocephin and azithromycin in the emergency department. Patient previously on doxycycline in the outpatient. * continue Rocephin and azithromycin for 7 day course, today is day 6, last day 08/16 * resumed Decadron 6mg IV daily as pneumonia likely residual viral etiology, will continue until 08/18 * MRSA swab negative * on HFNC now, try to wean every day (4) Hyperglycemia: Patient with blood glucose levels in excess of 400. Symptomatic with poly uria. * Initially received IV insulin bolus as well as insulin drip. * transitioned to basal bolus insulin on 08/09 * NPH insulin at 55 units in AM with the decadron, sugars up and down, pharmacy adjusting (5) Hypertension: Continue home Rx as tolerated. (6) Hypophosphatemia: resolved K is stable Admission and Anticipated Discharge Date Admission Date: August 08, 2020 Subjective patient more upbeat today, more energy, eating well explained to him that he is getting better slowly, even if he does not feel it at times he is eating well, making urine, moving his bowels close to coming off high flow but not quite there called his , no answer, left a message with update Review of Systems Review of Systems: All systems reviewed & are unremarkable except as noted in Subjective Physical Exam Constitutional: well developed, well nourished and cooperative; no acute distress Neck: trachea midline, no thyromegaly Respiratory: + cough and + tachypneic Auscultation: lungs clear to auscultation bilaterally Cardiovascular: Rate/Rhythm: regular rate and regular rhythm Heart Sounds: normal S1 and normal S2; no murmur Extremities: normal capillary refill; no edema Gastrointestinal (Abdomen): normal bowel sounds, soft, nontender, no hepatosplenomegaly Musculoskeletal: Head/Neck/Chest: normocephalic, head atraumatic and neck supple Extremities: extremities normal to inspection and strength 5/5 throughout Skin: no rashes, warm and dry Neurologic: patellar DTR's 2+ bilat, sensation intact and PERRL, EOMI, accommodation nl, no face palsy, no dysarthria Psychiatric: A+Ox3, euthymic affect Lymphatic: no cervical or axillary lymphadenopathy Results & Data Results & Data ([facility]) Vital Signs (Past 12 Hours) Vital Signs Temp Pulse Pulse Resp BP BP Pulse Ox 08/15/20 11:00 37.0 C 71 20 125/61 92 08/15/20 10:09 73 18 92 08/15/20 09:00 51 L 08/15/20 07:23 58 L 16 92 08/15/20 07:18 36.8 C 61 20 133/70 95 08/15/20 03:41 36.8 C 55 L 20 128/71 96 Laboratory Results Laboratory Results - last 24 hr 08/14/20 08/14/20 08/15/20 16:12 20:21 06:05 WBC RBC Hgb Hct MCV MCH MCHC RDW Std Deviation RDW Coeff of Macrina Plt Count MPV Creatinine 0.69 Est Cr Clr Drug Dosing 104.7 Est GFR ( Amer) 109.2 Est GFR (Non-Af Amer) 94.2 POC Glucose 230 H 225 H 08/15/20 08/15/20 08/15/20 06:05 07:52 10:58 WBC 14.01 H RBC 4.59 L Hgb 13.6 L Hct 40.6 L MCV 88.5 MCH 29.6 MCHC 33.5 RDW Std Deviation 44.4 RDW Coeff of Macrina 13.7 Plt Count 236 MPV 10.7 H Creatinine Est Cr Clr Drug Dosing Est GFR ( Amer) Est GFR (Non-Af Amer) POC Glucose 68 L* 252 H Medications Administered Current Inpatient Medications Acetaminophen (Acetaminophen 325 Mg Tab) 650 mg PO Q4H PRN PRN Reason: Pain or Fever Stop: 09/07/20 20:08 Last Admin: 08/09/20 21:14 Dose: 650 mg Documented by: Benzonatate (Benzonatate 100 Mg Capsule) 100 mg PO TID PRN PRN Reason: cough Stop: 09/07/20 20:08 Dextrose (Dextrose 50% 50 Ml Syringe) 25 - 50 ml IV UD PRN; Protocol PRN Reason: Hypoglycemia Protocol Stop: 09/07/20 18:29 Enoxaparin Sodium (Enoxaparin 100 Mg/1ml Syr) 90 mg SQ Q12H NILAM Stop: 09/09/20 08:59 Last Admin: 08/15/20 08:22 Dose: 90 mg Documented by: Glucagon (Glucagon For Inj 1 Mg Vial) 1 mg IM UD PRN; Protocol PRN Reason: Hypoglycemia Protocol Stop: 09/07/20 18:29 Glucose (Glucose 40% Gel 15 Gm Tube) 15 - 30 gm PO UD PRN; Protocol PRN Reason: Hypoglycemia Protocol Stop: 09/07/20 18:29 Glucose (Glucose 10 Tabs/Tube) 4 - 8 tabs PO UD PRN; Protocol PRN Reason: Hypoglycemia Protocol Stop: 09/07/20 18:29 Azithromycin 500 mg/ Dextrose 255 mls @ 127.5 mls/hr IV Q24H NILAM Stop: 08/16/20 07:59 Last Infusion: 08/15/20 10:58 Dose: Infused Documented by: Ceftriaxone Sodium 2,000 mg/ (Dextrose) 70 mls @ 140 mls/hr IV DAILY NILAM Stop: 08/16/20 08:59 Last Infusion: 08/15/20 08:50 Dose: Infused Documented by: Dexamethasone Sodium Phosphate (6 mg/ Syringe) 1.5 mls @ 1 mls/min IV QAM NILAM Stop: 09/09/20 08:59 Last Admin: 08/15/20 08:21 Dose: 1 mls/min Documented by: Insulin Aspart (Insulin Aspart 100 Units/Ml 3 Ml Pen) 0 units SC ACHS [facility] Stop: 09/08/20 16:29 Last Admin: 08/15/20 11:33 Dose: 19 units Documented by: Insulin Glargine (Insulin Glargine Solostar 100 Units/Ml 3 Ml Pen) 0 units SC HS [facility]; Protocol Stop: 09/13/20 20:59 Last Admin: 08/14/20 20:56 Dose: 20 units Documented by: Insulin Human NPH (Insulin Human Nph) 55 units SC DAILY@0800 [facility] Stop: 09/14/20 08:29 Last Admin: 08/15/20 08:38 Dose: 55 units Documented by: Losartan Potassium (Losartan Potassium 50 Mg Tab) 50 mg PO DAILY [facility] Stop: 09/08/20 08:59 Last Admin: 08/15/20 08:21 Dose: 50 mg Documented by: Melatonin (Melatonin 3 Mg Tab) 3 mg PO HS PRN PRN Reason: Sleep Stop: 09/11/20 00:10 Last Admin: 08/12/20 21:40 Dose: 3 mg Documented by: Miscellaneous (Carbohydrates For Hypoglycemia ) 15 - 30 gm PO PRN PRN PRN Reason: Hypoglycemia Treatment Stop: 09/07/20 18:29 Miscellaneous Information (Pharmacy Glycemic Mgmt Consult) 1 ea N/A UD PRN PRN Reason: Consult Stop: 09/07/20 20:21 Multivitamins (Multivitamin Tab) 1 tab PO DAILY [facility] Stop: 09/08/20 08:59 Last Admin: 08/15/20 08:21 Dose: 1 tab Documented by: Ondansetron HCl (Ondansetron Inj 2 Mg/Ml 2 Ml Vial) 4 mg IV Q6H PRN PRN Reason: Nausea Stop: 09/07/20 20:08 PG Care Time/CCT Total # of Minutes Spent Total Time Spent with Patient: Total time spent is greater than 50% in coordination of care (as documented) at patient's floor/unit and/or counseling patient: Coding Level of Care Code 51945 Subseq Hosp Care Lvl 3 Diagnoses COVID-19 virus infection U07.1 Hypoxia R09.02 Pneumonia J18.9 Laterality: unspecified laterality Lung location: unspecified part of lung Pneumonia type: due to unspecified organism Hyperglycemia R73.9 Hypertension I10 Hypophosphatemia E83.39 (1) Pneumonia Laterality: unspecified laterality Lung location: unspecified part of lung Pneumonia type: due to unspecified organism Qualified Code(s): J18.9 - Pneumonia, unspecified organism
[2020-08-16] MEDS: MULTIVITAMIN TAB PO SCH (08:01)
[2020-08-16] MEDS: LOSARTAN POTASSIUM 50 MG TAB PO SCH (08:01)
[2020-08-16] MEDS: DEXAMETHASONE SOD PHOSPHATE 6 MG in SYRINGE 0 ML IV SCH (08:03)
[2020-08-16] MEDS: ENOXAPARIN 100 MG/1ML SYR SQ SCH ×2 (08:04→21:23)
[2020-08-16] MEDS: INSULIN ASPART 100 UNITS/ML 3 ML PEN SC SCH ×4 (08:11→22:10)
[2020-08-16] MEDS: INSULIN HUMAN NPH SC SCH (08:12)
[2020-08-16] MEDS ORDERED: INSULIN GLARGINE SOLOSTAR 100 UNITS/ML 3 ML PEN SC SCH (09:00)
--- NOTE | 2020-08-16 10:49 | Hospitalist Progress Note ---
Date of Service August 16, 2020 Assessment & Plan (1) COVID-19 virus infection: During initial admission on 07/30, the patient did extremely well and did not require supplemental oxygen. The patient has completed entire course of dexamethasone at home. Unfortunately, the patient presented back with new hypoxia as well as CT findings concerning for COVID-19 pneumonia. * placed on HFNC on 08/11, tolerating well, down to 30L and 55% today, try to wean to low flow or oxymask * Encourage incentive spirometry and flutter valves as tolerated. * no role for Remdesivir or plasma at this time, too far along into illness when admitted * resume Dexamethasone 6mg IV daily since he is hypoxic and CT shows diffuse viral pneumonia finish 5 more days of dexamethasone, last day 08/18 * encourage PO intake, will order nutrition supplements eating a lot better, continueing Boost, consider PT/OT (2) Hypoxia: * acute hypoxic respiratory failure due to viral pneumonia, possible bacterial infection? * titrated down but still requiring high flow * Aggressive pulmonary toilet to include incentive spirometry and flutter valve. * Please see COVID-19 virus and pneumonia sections. (3) Pneumonia: * must consider secondary infections in the setting of COVID-19 pneumonia. Initially received Rocephin and azithromycin in the emergency department. Patient previously on doxycycline in the outpatient. * continue Rocephin and azithromycin for 7 day course, today is day 6, last day 08/16 * resumed Decadron 6mg IV daily as pneumonia likely residual viral etiology, will continue until 08/18 * MRSA swab negative * on HFNC now, try to wean every day (4) Hyperglycemia: Patient with blood glucose levels in excess of 400. Symptomatic with polyuria. * Initially received IV insulin bolus as well as insulin drip. * transitioned to basal bolus insulin on 08/09 * NPH insulin at 55 units in AM with the decadron, sugars up and down, pharmacy adjusting (5) Hypertension: Continue home Rx as tolerated. (6) Hypophosphatemia: resolved K is stable Admission and Anticipated Discharge Date Admission Date: August 08, 2020 Subjective Patient is doing well still disappointed that he is requiring significant oxygen supplementation. He has a nonproductive cough he is very fatigued and dyspneic with even minor movements about his room Review of Systems Review of Systems: Moderate distress and fatigue no headache, blurry or double vision no speech or swallowing issues no chest pain, pressure or palpitations Complains of shortness of breath, nonproductive cough no abdominal pain, nausea or vomiting, diarrhea or constipation no dysuria, hematuria or frequency no focal joint pain or swelling no back pain, CVA tenderness or radicular pain no bruising, bleeding or rashes no focal signs of weakness or numbness or altered sensation no complaints of anxiety or depression.. Physical Exam Physical Exam: The patient appeared well nourished and normally developed. Vital signs as documented. Head exam is normocephalic atraumatic no scleral icterus Neck is without JVD, thyromegaly, or carotid bruits. Lungs are bibasilar rales clear at the apex Cardiac exam, Rhythm is regular.. No murmurs, rubs or gallops. Abdominal exam reveals normal bowel sounds, soft non tender, no masses Extremities are nonedematous and both pedal pulses are present Neurologic exam is alert and oriented, no focal loss of strength or sensation Skin is without bruises or rashes Psychologically is without concerns for anxiety or depression. Results & Data Results & Data ([facility]) Vital Signs (Past 12 Hours) Vital Signs Temp Pulse Pulse Resp BP Pulse Ox 08/16/20 08:00 55 L 08/16/20 07:30 98.8 F 63 23 148/81 H 93 08/16/20 07:21 54 L 18 92 08/16/20 04:00 63 08/16/20 03:10 97.9 F 61 20 135/66 93 08/16/20 02:17 59 L 18 93 08/15/20 23:00 55 L 20 92 08/15/20 22:59 98.4 F 64 16 147/64 H 95 PG Care Time/CCT Total # of Minutes Spent Total Time Spent with Patient: Total time spent is greater than 50% in coordination of care (as documented) at patient's floor/unit and/or counseling patient: Coding Level of Care Code 89974 Subseq Hosp Care Lvl 2 Diagnoses COVID-19 virus infection U07.1 Hypoxia R09.02 Pneumonia J18.9 Laterality: unspecified laterality Lung location: unspecified part of lung Pneumonia type: due to unspecified organism Hyperglycemia R73.9 Hypertension I10 Hypophosphatemia E83.39 (1) Pneumonia Laterality: unspecified laterality Lung location: unspecified part of lung Pneumonia type: due to unspecified organism Qualified Code(s): J18.9 - Pneumonia, unspecified organism
--- NOTE | 2020-08-16 13:19 | Pharmacy Report ---
Pharmacy Glycemic Short Note 2 - Date of Service August 16, 2020 - Glycemic Short BSG Results (Last 24 hours): 08/15/20 08/15/20 08/16/20 16:08 21:24 07:29 POC Glucose 246 H 154 H 84 08/16/20 11:17 POC Glucose 141 H OUTPATIENT ANTIDIABETIC REGIMEN: * None ASSESSMENT: 08/16 * Over the last 24 hrs, 136 units SQ insulin have been administered. Patient was tolerating a diet during that time. * Fasting BSG 84 this AM w/ 30 units Lantus on board and after receiving 55 units NPH yesterday AM. I believe that the fasting BSG less than 100 this AM is more likely related to large Novolog dose given at HS. Will redistribute Lantus dose such that larger dose is administered in the AM. Will also lessen the Novolog dose administered at HS to minimize risk of overnight hypoglycemia as dexamethasone's effects dissipate. * Post-prandial hyperglycemia still problematic yesterday. Will increase prandial doses of Novolog w/ breakfast, lunch and dinner - decrease HS coverage 08/13 * Patient received total of 133 units of insulin yesterday; 94 units basal + 39 units bolus. * Fasting BSG today was low at 68 mg/dl. Lantus dosing decreased. * Post-prandial BSGs have been at goal with only one BSG (at HS yesterday) above 200 mg/dl. * Continued on same Novolog parameters. PLAN FOR INPATIENT GLYCEMIC CONTROL: * Basal insulin: * Lantus 20 units SQ Q AM + 10 units Q PM * NPH 55 units SQ Q AM w/ IV dexamethasone * Bolus insulin: * NovoLog per scale ACHS or Q6hrs while NPO * Goal Range: Low 110 mg/dL - High 140 mg/dL * Correction Factor: 18 mg/dL/unit AC; 25mg/dL/unit at HS * Nutritional / Prandial insulin per carb ratio of 1 unit per 4 grams CHO consumed AC; and 1 unit per 8gm CHO consumed at HS RECOMMENDATIONS FOR DISCHARGE: * Patient's HbA1C is reported at 9.9%. Unsure how much recent steroid use has influenced this A1C (as most recent weeks have a more significant impact on A1C). * Would recommend checking with outpatient provider to see if there are any previous A1Cs. If that is not possible, could consider starting metformin 500 mg BIDM as patient most likely has some degree of diabetes as an outpatient. * Titrate metformin to 1000 mg BIDM by 500 mg/week increases * A second oral hypoglycemic is likely to be required if A1c truly > 9 (SGLT2i: empagliflozin or canagliflozin)
[2020-08-16] MEDS: INSULIN GLARGINE SOLOSTAR 100 UNITS/ML 3 ML PEN SC SCH (22:09)
[2020-08-17] MEDS: MULTIVITAMIN TAB PO SCH (07:49)
[2020-08-17] MEDS: LOSARTAN POTASSIUM 50 MG TAB PO SCH (07:49)
[2020-08-17] MEDS: DEXAMETHASONE SOD PHOSPHATE 6 MG in SYRINGE 0 ML IV SCH (07:49)
[2020-08-17] MEDS: ENOXAPARIN 100 MG/1ML SYR SQ SCH ×2 (07:51→19:55)
[2020-08-17] MEDS: INSULIN ASPART 100 UNITS/ML 3 ML PEN SC SCH ×5 (09:02→20:51)
[2020-08-17] MEDS: INSULIN HUMAN NPH SC SCH (09:02)
[2020-08-17] MEDS: INSULIN GLARGINE SOLOSTAR 100 UNITS/ML 3 ML PEN SC SCH ×2 (09:02→20:50)
--- NOTE | 2020-08-17 09:17 | Pharmacy Report ---
Pharmacy Glycemic Short Note 2 - Date of Service August 17, 2020 - Glycemic Short BSG Results (Last 24 hours): 08/16/20 08/16/20 08/16/20 11:17 16:30 20:41 POC Glucose 141 H 198 H 328 H* 08/16/20 08/16/20 08/17/20 20:43 21:13 07:43 POC Glucose 258 H 278 H 75 OUTPATIENT ANTIDIABETIC REGIMEN: * None ASSESSMENT: 08/17 * Kofi received 124 units of SQ insulin yesterday with decent glycemic control (with the exception of HS hyperglycemia). * Fasting BSG of 75 mg/dL is slightly below goal. I will decrease AM Lantus dose by 25%. * BSGs trending upward throughout the day. Patient remains on IV dexamethasone. Continue NPH for coverage of steroids. Will tighten carb coverage with meals. Will keep looser CF/CR at HS for now. 08/16 * Over the last 24 hrs, 136 units SQ insulin have been administered. Patient was tolerating a diet during that time. * Fasting BSG 84 this AM w/ 30 units Lantus on board and after receiving 55 units NPH yesterday AM. I believe that the fasting BSG less than 100 this AM is more likely related to large Novolog dose given at HS. Will redistribute Lantus dose such that larger dose is administered in the AM. Will also lessen the Novolog dose administered at HS to minimize risk of overnight hypoglycemia as dexamethasone's effects dissipate. * Post-prandial hyperglycemia still problematic yesterday. Will increase prandial doses of Novolog w/ breakfast, lunch and dinner - decrease HS coverage 08/13 * Patient received total of 133 units of insulin yesterday; 94 units basal + 39 units bolus. * Fasting BSG today was low at 68 mg/dl. Lantus dosing decreased. * Post-prandial BSGs have been at goal with only one BSG (at HS yesterday) above 200 mg/dl. * Continued on same Novolog parameters. PLAN FOR INPATIENT GLYCEMIC CONTROL: * Basal insulin: - decrease AM dose * Lantus 15 units SQ Q AM + 10 units Q PM * NPH 55 units SQ Q AM w/ IV dexamethasone * Bolus insulin: tighten carb coverage with meals * NovoLog per scale ACHS or Q6hrs while NPO * Goal Range: Low 110 mg/dL - High 140 mg/dL * Correction Factor: 18 mg/dL/unit AC; 25mg/dL/unit at HS * Nutritional / Prandial insulin per carb ratio of 1 unit per 3.5 grams CHO consumed AC; and 1 unit per 8gm CHO consumed at HS RECOMMENDATIONS FOR DISCHARGE: * Patient's HbA1C is reported at 9.9%. Unsure how much recent steroid use has influenced this A1C (as most recent weeks have a more significant impact on A1C). * Would recommend checking with outpatient provider to see if there are any previous A1Cs. If that is not possible, could consider starting metformin 500 mg BIDM as patient most likely has some degree of diabetes as an outpatient. * Titrate metformin to 1000 mg BIDM by 500 mg/week increases * A second oral hypoglycemic is likely to be required if A1c truly > 9 (SGLT2i: empagliflozin or canagliflozin)
--- NOTE | 2020-08-17 16:42 | Hospitalist Progress Note ---
Date of Service August 17, 2020 Assessment & Plan (1) COVID-19 virus infection: During initial admission on 07/30, the patient did extremely well and did not require supplemental oxygen. The patient has completed entire course of dexamethasone at home. Unfortunately, the patient presented back with new hypoxia as well as CT findings concerning for COVID-19 pneumonia. * placed on HFNC on 08/11, tolerating well, down to 30L and 55% today, try to wean to low flow or oxymask * Encourage incentive spirometry and flutter valves as tolerated. * no role for Remdesivir or plasma at this time, too far along into illness when admitted * resume Dexamethasone 6mg IV daily since he is hypoxic and CT shows diffuse viral pneumonia finish 5 more days of dexamethasone, last day 08/18 * encourage PO intake, will order nutrition supplements eating a lot better, continuing Boost, consider PT/OT once hypoxia improves (2) Hypoxia: * acute hypoxic respiratory failure due to viral pneumonia, possible bacterial infection? * titrated down but still requiring high flow * Aggressive pulmonary toilet to include incentive spirometry and flutter valve. * Please see COVID-19 virus and pneumonia sections. (3) Pneumonia: * must consider secondary infections in the setting of COVID-19 pneumonia. Initially received Rocephin and azithromycin in the emergency department. Patient previously on doxycycline in the outpatient. * continue Rocephin and azithromycin for 7 day course, today is day 6, last day 08/16 * resumed Decadron 6mg IV daily as pneumonia likely residual viral etiology, will continue until 08/18 * MRSA swab negative * on HFNC now, try to wean every day (4) Hyperglycemia: Patient with blood glucose levels in excess of 400. Symptomatic with polyuria. * Initially received IV insulin bolus as well as insulin drip. * transitioned to basal bolus insulin on 08/09 * NPH insulin at 55 units in AM with the decadron, sugars up and down, pharmacy adjusting (5) Hypertension: Continue home Rx as tolerated. (6) Hypophosphatemia: resolved K is stable Admission and Anticipated Discharge Date Admission Date: August 08, 2020 Subjective Patient is doing well now disappointed that he is very weak. He continues with a nonproductive cough he is very fatigued and dyspneic with even minor movements about his room Review of Systems Review of Systems: Moderate distress and fatigue no headache, blurry or double vision no speech or swallowing issues no chest pain, pressure or palpitations Complains of shortness of breath, nonproductive cough no abdominal pain, nausea or vomiting, diarrhea or constipation no dysuria, hematuria or frequency no focal joint pain or swelling no back pain, CVA tenderness or radicular pain no bruising, bleeding or rashes no focal signs of weakness or numbness or altered sensation no complaints of anxiety or depression.. Physical Exam Physical Exam: The patient appeared well nourished and normally developed. Vital signs as documented. Head exam is normocephalic atraumatic no scleral icterus Neck is without JVD, thyromegaly, or carotid bruits. Lungs are bibasilar rales clear at the apex Cardiac exam, Rhythm is regular.. No murmurs, rubs or gallops. Abdominal exam reveals normal bowel sounds, soft non tender, no masses Extremities are nonedematous and both pedal pulses are present Neurologic exam is alert and oriented, no focal loss of strength or sensation Skin is without bruises or rashes Psychologically is without concerns for anxiety or depression. Results & Data Results & Data ([facility]) Vital Signs (Past 12 Hours) Vital Signs Temp Pulse Pulse Resp BP Pulse Ox 08/17/20 16:01 98.2 F 68 23 141/75 H 95 08/17/20 10:46 97.9 F 76 19 123/75 85 L 08/17/20 08:30 61 08/17/20 07:46 98.2 F 81 20 157/79 H 93 PG Care Time/CCT Total # of Minutes Spent Total Time Spent with Patient: Total time spent is greater than 50% in coordination of care (as documented) at patient's floor/unit and/or counseling patient: Coding Level of Care Code 31575 Subseq Hosp Care Lvl 3 Diagnoses COVID-19 virus infection U07.1 Hypoxia R09.02 Pneumonia J18.9 Laterality: unspecified laterality Lung location: unspecified part of lung Pneumonia type: due to unspecified organism Hyperglycemia R73.9 Hypertension I10 Hypophosphatemia E83.39 (1) Pneumonia Laterality: unspecified laterality Lung location: unspecified part of lung Pneumonia type: due to unspecified organism Qualified Code(s): J18.9 - Pneumonia, unspecified organism
[2020-08-18 06:26] LABS: Hematocrit (blood only) 40.4 % (42-52); Hemoglobin 13.6 g/dL (14.0-18.0); Mean Corpuscular Hemoglobin 29.8 pg (25-34); Mean Corpuscular Hgb Conc 33.7 g/dL (32-36); Mean Corpuscular Volume 88.6 fL (80-100); Mean Platelet Volume 10.4 fL (7.4-10.4); Platelet Count 290 K/uL (130-400); RDW Coefficient of Variation 13.6 % (11.5-14.5); RDW Standard Deviation 44.2 fL (36.4-46.3); Red Blood Count 4.56 M/uL (4.7-6.1); White Blood Count 10.01 K/uL (4.8-10.8)
[2020-08-18 06:51] LABS: Creatinine Clr Calc Pharmacy 93.8 ml/min; Est GFR (African American) 104.3
[2020-08-18] MEDS: INSULIN ASPART 100 UNITS/ML 3 ML PEN SC SCH ×4 (07:54→20:55)
[2020-08-18] MEDS: INSULIN HUMAN NPH SC SCH (08:00)
[2020-08-18] MEDS: MULTIVITAMIN TAB PO SCH (08:00)
[2020-08-18] MEDS: LOSARTAN POTASSIUM 50 MG TAB PO SCH (08:01)
[2020-08-18] MEDS: DEXAMETHASONE SOD PHOSPHATE 6 MG in SYRINGE 0 ML IV SCH (08:02)
[2020-08-18] MEDS: ENOXAPARIN 100 MG/1ML SYR SQ SCH ×2 (08:02→20:55)
[2020-08-18] MEDS: INSULIN GLARGINE SOLOSTAR 100 UNITS/ML 3 ML PEN SC SCH ×2 (08:27→20:54)
--- NOTE | 2020-08-18 19:39 | Hospitalist Progress Note ---
Date of Service August 18, 2020 Assessment & Plan (1) COVID-19 virus infection: During initial admission on 07/30, the patient did extremely well and did not require supplemental oxygen. The patient has completed entire course of dexamethasone at home. Unfortunately, the patient presented back with new hypoxia as well as CT findings concerning for COVID-19 pneumonia. * placed on HFNC on 08/11, tolerating well, is spending some time on hi luis 08/18 * Encourage incentive spirometry and flutter valves as tolerated. * no role for Remdesivir or plasma at this time, too far along into illness when admitted * resume Dexamethasone 6mg IV daily since he is hypoxic and CT shows diffuse viral pneumonia finish 5 more days of dexamethasone, last day 08/18, may extend as prednisone taper at this time to avoid adrenal supression * encourage PO intake, will order nutrition supplements eating better, continuing Boost, consider PT/OT once hypoxia improves (2) Hypoxia: * acute hypoxic respiratory failure due to viral pneumonia, possible bacterial infection? * titrated down but still requiring high flow * Aggressive pulmonary toilet to include incentive spirometry and flutter valve. * Please see COVID-19 virus and pneumonia sections. (3) Pneumonia: * must consider secondary infections in the setting of COVID-19 pneumonia. Initially received Rocephin and azithromycin in the emergency department. Patient previously on doxycycline in the outpatient. * continue Rocephin and azithromycin for 7 day course, today is day 6, last day 08/16 * resumed Decadron 6mg IV daily as pneumonia likely residual viral etiology, will continue until 08/18, start po prednisone 08/19 * MRSA swab negative * on hi luis not vapotherm at this time (4) Hyperglycemia: Patient with blood glucose levels in excess of 400. Symptomatic with polyuria. * Initially received IV insulin bolus as well as insulin drip. * transitioned to basal bolus insulin on 08/09 * NPH insulin at 55 units in AM with the decadron, sugars up and down, pharmacy adjusting (5) Hypertension: Continue home Rx as tolerated. (6) Hypophosphatemia: resolved K is stable Admission and Anticipated Discharge Date Admission Date: August 08, 2020 Subjective Patient is stateing he is starting to doubt that he is going to make it, he actually is very stable just not progressing very quickly to get off oxygen, He continues with a nonproductive cough he is very fatigued and dyspneic with even minor movements about his room Review of Systems Review of Systems: Moderate distress and fatigue no headache, blurry or double vision no speech or swallowing issues no chest pain, pressure or palpitations Complains of shortness of breath, nonproductive cough no abdominal pain, nausea or vomiting, diarrhea or constipation no dysuria, hematuria or frequency no focal joint pain or swelling no back pain, CVA tenderness or radicular pain no bruising, bleeding or rashes no focal signs of weakness or numbness or altered sensation no complaints of anxiety or depression.. Physical Exam Physical Exam: The patient appeared well nourished and normally developed. Vital signs as documented. Head exam is normocephalic atraumatic no scleral icterus Neck is without JVD, thyromegaly, or carotid bruits. Lungs are bibasilar rales clear at the apex Cardiac exam, Rhythm is regular.. No murmurs, rubs or gallops. Abdominal exam reveals normal bowel sounds, soft non tender, no masses Extremities are nonedematous and both pedal pulses are present Neurologic exam is alert and oriented, no focal loss of strength or sensation Skin is without bruises or rashes Psychologically is without concerns for anxiety or depression. Results & Data Results & Data ([facility]) Vital Signs (Past 12 Hours) Vital Signs Temp Pulse Pulse Resp BP Pulse Ox Pulse Ox 08/18/20 19:34 98.6 F 79 20 133/80 93 08/18/20 15:43 78 08/18/20 15:09 98.4 F 66 18 130/68 93 08/18/20 11:28 98.2 F 60 24 136/76 94 08/18/20 10:33 54 L 08/18/20 09:19 92 PG Care Time/CCT Total # of Minutes Spent Total Time Spent with Patient: Total time spent is greater than 50% in coordination of care (as documented) at patient's floor/unit and/or counseling patient: Coding Level of Care Code 54168 Subseq Hosp Care Lvl 3 Diagnoses COVID-19 virus infection U07.1 Hypoxia R09.02 Pneumonia J18.9 Laterality: unspecified laterality Lung location: unspecified part of lung Pneumonia type: due to unspecified organism Hyperglycemia R73.9 Hypertension I10 Hypophosphatemia E83.39 (1) Pneumonia Laterality: unspecified laterality Lung location: unspecified part of lung Pneumonia type: due to unspecified organism Qualified Code(s): J18.9 - Pneumonia, unspecified organism
[2020-08-19] MEDS: INSULIN ASPART 100 UNITS/ML 3 ML PEN SC SCH ×4 (08:00→21:06)
[2020-08-19] MEDS ORDERED: INSULIN HUMAN NPH SC SCH (08:00)
--- NOTE | 2020-08-19 08:15 | Pharmacy Report ---
Glycemic Control Progress Note - Date of Service August 19, 2020 - Scope Glycemic Pharmacist consulted for glycemic control to write orders per [facility] inpatient glycemic control protocol. - Objective Accuchecks BSG(last 24 hours):: 08/18/20 08/18/20 08/18/20 11:26 17:02 20:10 POC Glucose 119 H 238 H 184 H 08/19/20 07:52 POC Glucose 115 H HbA1c:: Hemoglobin A1c 9.9 % (4.5-5.6) H 08/08/20 20:33 - Recent Pertinent Medications The patient is currently receiving: * Basal insulin: Lantus 15 units in the morning and 10 units in the evening * Correctional Insulin: Novolog Correction per scale ACHS Goal Range: Low 110 mg/dL - High 140 mg/dL Correction Factor: 18 mg/dL/unit * Prandial insulin: Per carb ratio of 1 unit per 3.5 grams CHO consumed - Outpatient Anti-Diabetic Meds N/A - Assessment & Plan ASSESSMENT: * See progress note from 08/09/20 for more background info, in short: * Pt receiving SQ basal bolus insulin regimen for hyperglycemia secondary to baseline DM (outpatient regimen on hold). Patient received his last dose of dexamethasone 6 mg IV daily yesterday. Now starting prednisone 40 mg daily. * Patient is currently receiving an average of 156 units of insulin per day * 80 units of basal insulin * 76 units of prandial/correctional insulin * BSGs ranging 114 - 238 mg/dl over the past 24hrs * Changes needed to insulin regimen: * AM Fasting BSG = 115 mg/dl. This is in goal range for patient based on inpatient targets and co-morbidities. Therefore Basal insulin will be continued. For NPH, will reduce back to 0.4 units/kg for prednisone 40 mg. Even though dexamethasone 6 mg IV daily is an equivalent to prednisone 40 mg daily there can be differences in glycemic effect. Start cautiously. * Post-prandial BSGs were elevated yesterday. Adjusted slightly. * Total daily dose = ? units. Expect to decrease with start of prednisone. PLAN FOR INPATIENT GLYCEMIC CONTROL: * Continuing Lantus 15 units SQ daily + Lantus 10 units SQ HS * DECREASING NPH to 35 units daily * TIGHTENING correction factor to 15 mg/dl/unit * LOOSENING carb ratio to 1 unit per 4 grams CHO consumed * Continuing goal range of Low 110 mg/dL - High 140 mg/dL RECOMMENDATIONS FOR DISCHARGE: * Patient's HbA1C is reported at 9.9%. Unsure how much recent steroid use has influenced this HbA1C (as most recent weeks have a more significant impact on HbA1C). * Would recommend checking with outpatient provider to see if there are any previous HbA1Cs. If that is not possible, could consider starting metformin 500 mg BIDM as patient most likely has some degree of diabetes as an outpatient. * titrate metformin to 1000 mg BIDM by 500 mg/week increases * If patient discharged on PO prednisone, could consider utilizing once daily NPH with dose TBD. Thank you.
[2020-08-19] MEDS: INSULIN GLARGINE SOLOSTAR 100 UNITS/ML 3 ML PEN SC SCH ×2 (08:17→21:06)
[2020-08-19] MEDS: ENOXAPARIN 100 MG/1ML SYR SQ SCH ×2 (08:19→20:53)
[2020-08-19] MEDS: LOSARTAN POTASSIUM 50 MG TAB PO SCH (08:20)
[2020-08-19] MEDS: MULTIVITAMIN TAB PO SCH (08:20)
[2020-08-19] MEDS: predniSONE 20 MG TAB PO SCH (08:34)
--- NOTE | 2020-08-19 09:42 | XRay Report ---
XR chest 1V portable CLINICAL HISTORY: persistent hypoxia with covid COMPARISON STUDY: 08/11/2020 FINDINGS: The cardiac and mediastinal contours remain stable. There are progressive bilateral pulmona ry airspace opacities consistent with a multifocal pneumonia. No pneumothorax is visualized.[ IMPRESSION: 1. Further worsening in the bilateral pulmonary airspace opacities. ACT 112: Negative or not required by law. Electronically signed by: Juancarlos Sterling M.D. 08/19/2020 9:40 AM
[2020-08-19] MEDS ORDERED: FUROSEMIDE 40 MG in SYRINGE 0 ML IV ONE (10:45)
[2020-08-19] MEDS ORDERED: MONTELUKAST SODIUM 10 MG TABLET PO ONE (12:00)
--- NOTE | 2020-08-19 18:27 | Hospitalist Progress Note ---
Date of Service August 19, 2020 Assessment & Plan (1) COVID-19 virus infection: During initial admission on 07/30, the patient did extremely well and did not require supplemental oxygen. The patient has completed entire course of dexamethasone at home. Unfortunately, the patient presented back with new hypoxia as well as CT findings concerning for COVID-19 pneumonia. * placed on HFNC on 08/11, tolerating well, is spending some time on hi luis 08/18 * cxr 08/19 with some increased interstitial markings, will give one dose of lasix * Encourage incentive spirometry and flutter valves as tolerated. * no role for Remdesivir or plasma at this time, too far along into illness when admitted * resume Dexamethasone 6mg IV daily since he is hypoxic and CT shows diffuse viral pneumonia finish 5 more days of dexamethasone, last day 08/18, may extend as prednisone taper at this time to avoid adrenal supression * encourage PO intake, will order nutrition supplements eating better, continuing Boost, consider PT/OT once hypoxia improves (2) Hypoxia: * acute hypoxic respiratory failure due to viral pneumonia, possible bacterial infection? * titrated down but still requiring high flow * Aggressive pulmonary toilet to include incentive spirometry and flutter valve. * Please see COVID-19 virus and pneumonia sections. (3) Pneumonia: * must consider secondary infections in the setting of COVID-19 pneumonia. Initially received Rocephin and azithromycin in the emergency department. Patient previously on doxycycline in the outpatient. * continue Rocephin and azithromycin for 7 day course, today is day 6, last day 08/16 * resumed Decadron 6mg IV daily as pneumonia likely residual viral etiology, will continue until 08/18, start po prednisone 08/19 * MRSA swab negative * return to vapotherm at this time, will try to diurese (4) Hyperglycemia: Patient with blood glucose levels in excess of 400. Symptomatic with polyuria. * Initially received IV insulin bolus as well as insulin drip. * transitioned to basal bolus insulin on 08/09 * NPH insulin at 55 units in AM with the decadron, sugars up and down, pharmacy adjusting (5) Hypertension: Continue home Rx as tolerated. (6) Hypophosphatemia: resolved K is stable Admission and Anticipated Discharge Date Admission Date: August 08, 2020 Subjective Patient is stateing he is starting to doubt that he is going to make it, he actually had a set back requiring more supplemenatiaon of oxygen, He continues with a nonproductive cough he is very fatigued and dyspneic with even minor movements about his room Review of Systems Review of Systems: Moderate distress and fatigue no headache, blurry or double vision no speech or swallowing issues no chest pain, pressure or palpitations Complains of shortness of breath, nonproductive cough no abdominal pain, nausea or vomiting, diarrhea or constipation no dysuria, hematuria or frequency no focal joint pain or swelling no back pain, CVA tenderness or radicular pain no bruising, bleeding or rashes no focal signs of weakness or numbness or altered sensation no complaints of anxiety or depression.. Physical Exam Physical Exam: The patient appeared well nourished and normally developed. Vital signs as documented. Head exam is normocephalic atraumatic no scleral icterus Neck is without JVD, thyromegaly, or carotid bruits. Lungs are bibasilar rales clear at the apex Cardiac exam, Rhythm is regular.. No murmurs, rubs or gallops. Abdominal exam reveals normal bowel sounds, soft non tender, no masses Extremities are nonedematous and both pedal pulses are present Neurologic exam is alert and oriented, no focal loss of strength or sensation Skin is without bruises or rashes Psychologically is without concerns for anxiety or depression. Results & Data Results & Data ([facility]) Vital Signs (Past 12 Hours) Vital Signs Temp Pulse Pulse Resp BP Pulse Ox Pulse Ox 08/19/20 15:43 97.7 F 85 20 112/67 94 08/19/20 15:25 83 26 H 95 08/19/20 15:02 83 08/19/20 10:45 28 H 88 L 08/19/20 10:35 79 34 H 89 L 08/19/20 10:20 36 H 85 L 08/19/20 10:15 34 H 70 L 08/19/20 09:15 62 08/19/20 09:00 90 08/19/20 07:57 97.9 F 77 18 124/64 90 PG Care Time/CCT Total # of Minutes Spent Total Time Spent with Patient: Total time spent is greater than 50% in snack bar cook rdination of care (as documented) at patient's floor/unit and/or counseling patient: Coding Level of Care Code 13905 Subseq Hosp Care Lvl 3 Diagnoses COVID-19 virus infection U07.1 Hypoxia R09.02 Pneumonia J18.9 Laterality: unspecified laterality Lung location: unspecified part of lung Pneumonia type: due to unspecified organism Hyperglycemia R73.9 Hypertension I10 Hypophosphatemia E83.39 (1) Pneumonia Laterality: unspecified laterality Lung location: unspecified part of lung Pneumonia type: due to unspecified organism Qualified Code(s): J18.9 - Pneumonia, unspecified organism
[2020-08-20] MEDS: predniSONE 20 MG TAB PO SCH (08:08)
[2020-08-20] MEDS: ENOXAPARIN 100 MG/1ML SYR SQ SCH ×2 (08:08→20:06)
[2020-08-20] MEDS: MULTIVITAMIN TAB PO SCH (08:08)
[2020-08-20] MEDS: LOSARTAN POTASSIUM 50 MG TAB PO SCH (08:08)
[2020-08-20] MEDS: INSULIN ASPART 100 UNITS/ML 3 ML PEN SC SCH ×4 (09:07→21:07)
[2020-08-20] MEDS: INSULIN GLARGINE SOLOSTAR 100 UNITS/ML 3 ML PEN SC SCH ×2 (09:09→21:06)
[2020-08-20] MEDS: INSULIN HUMAN NPH SC SCH (09:09)
--- NOTE | 2020-08-20 12:01 | Pharmacy Report ---
Glycemic Control Progress Note - Date of Service August 20, 2020 - Scope Glycemic Pharmacist consulted for glycemic control to write orders per [facility] inpatient glycemic control protocol. - Objective Accuchecks BSG(last 24 hours):: 08/19/20 08/19/20 08/19/20 15:41 20:22 20:28 POC Glucose 163 H 303 H* 300 H 08/20/20 08/20/20 07:22 11:19 POC Glucose 144 H 79 HbA1c:: Hemoglobin A1c 9.9 % (4.5-5.6) H 08/08/20 20:33 - Recent Pertinent Medications The patient is currently receiving: * Basal insulin: Lantus 15 units in the morning and 10 units in the evening * Correctional Insulin: Novolog Correction per scale ACHS Goal Range: Low 110 mg/dL - High 140 mg/dL Correction Factor: 15 mg/dL/unit * Prandial insulin: Per carb ratio of 1 unit per 5 grams CHO consumed - Outpatient Anti-Diabetic Meds N/A - Assessment & Plan ASSESSMENT: * See progress note from 08/09/20 for more background info, in short: * Pt receiving SQ basal bolus insulin regimen for hyperglycemia secondary to baseline DM (outpatient regimen on hold). Patient also receiving prednisone 40 mg daily. * Patient is currently receiving an average of 131 units of insulin per day * 60 units of basal insulin * 71 units of prandial/correctional insulin * BSGs ranging 97 - 300 mg/dl over the past 24hrs * Changes needed to insulin regimen: * AM Fasting BSG = 144 mg/dl. This is in goal range for patient based on inpatient targets and co-morbidities. Therefore Lantus will be continued. Will increase NPH by 5 units (the correctional that the patient received yesterday). * Post-prandial BSGs were relatively controlled. Will tighten CR to 3 again as CR of 5 did not appear effective. * Total daily dose = ~140 units. Increased insulin appropriately. PLAN FOR INPATIENT GLYCEMIC CONTROL: * Continuing Lantus 15 units SQ daily + 10 units HS AND INCREASING NPH to 40 units daily * Continuing correction factor of 15 mg/dl/unit * TIGHTENING carb ratio to 1 unit per 4 grams CHO consumed * Continuing goal range of Low 110 mg/dL - High 140 mg/dL RECOMMENDATIONS FOR DISCHARGE: * Patient's HbA1C is reported at 9.9%. Unsure how much recent steroid use has influenced this HbA1C (as most recent weeks have a more significant impact on HbA1C). * Would recommend checking with outpatient provider to see if there are any previous HbA1Cs. If that is not possible, could consider starting metformin 500 mg BIDM as patient most likely has some degree of diabetes as an outpatient. * titrate metformin to 1000 mg BIDM by 500 mg/week increases * If patient discharged on PO prednisone 40 mg, could consider utilizing once daily NPH dose TBD. Thank you.
--- NOTE | 2020-08-20 17:48 | Hospitalist Progress Note ---
Date of Service August 20, 2020 Assessment & Plan (1) COVID-19 virus infection: During initial admission on 07/30, the patient did extremely well and did not require supplemental oxygen. The patient has completed entire course of dexamethasone at home. Unfortunately, the patient presented back with new hypoxia as well as CT findings concerning for COVID-19 pneumonia. * placed on HFNC on 08/11, transiently on wall supplied high flow, return to Vapotherm on 08/19 Marked hypoxia with exertion * cxr 08/19 with some increased interstitial markings, will give one dose of lasix no real clinical improvement in his hypoxia tried Singulair additionally without improvement * Encourage incentive spirometry and flutter valves as tolerated. * no role for Remdesivir or plasma at this time, too far along into illness when admitted * resume Dexamethasone 6mg IV daily since he is hypoxic and CT shows diffuse viral pneumonia finish 5 more days of dexamethasone, last day 08/18, may extend as prednisone taper at this time to avoid adrenal supression * encourage PO intake, will order nutrition supplements eating better, continuing Boost, consider PT/OT once hypoxia improves (2) Hypoxia: * acute hypoxic respiratory failure due to viral pneumonia, possible bacterial infection? * titrated down but still requiring high flow * Aggressive pulmonary toilet to include incentive spirometry and flutter valve. * Please see COVID-19 virus and pneumonia sections. * * Cando is guarded with escalation of the patient's hypoxia continue to offer emotional support, wants patient be on antidepressant patient self does not wish to start that she will continue to consider this as we move forward (3) Pneumonia: * must consider secondary infections in the setting of COVID-19 pneumonia. Initially received Rocephin and azithromycin in the emergency department. Patient previously on doxycycline in the outpatient. * completed 7-day course of Rocephin 08/16 * resumed Decadron 6mg IV daily as pneumonia likely residual viral etiology, did continue until 08/18, started po prednisone 40 mg 08/19 * MRSA swab negative * return to vapotherm at this time, will try to diurese (4) Hyperglycemia: Patient with blood glucose levels in excess of 400. Symptomatic with polyuria. * Initially received IV insulin bolus as well as insulin drip. * transitioned to basal bolus insulin on 08/09 * NPH insulin at 55 units in AM with the decadron, sugars up and down, pharmacy adjusting (5) Hypertension: Continue home Rx as tolerated. (6) Hypophosphatemia: resolved K is stable Admission and Anticipated Discharge Date Admission Date: August 08, 2020 Subjective We did discussion this morning about the patient's mood he does not want to be on antidepressant at this time he still is markedly dyspneic now returning to Vapotherm flow oxygen continue on steroids no real improvement with diuretics at this time Review of Systems Review of Systems: Moderate distress and fatigue no headache, blurry or double vision no speech or swallowing issues no chest pain, pressure or palpitations Complains of shortness of breath, nonproductive cough dyspnea on exertion no abdominal pain, nausea or vomiting, diarrhea or constipation no dysuria, hematuria or frequency no focal joint pain or swelling no back pain, CVA tenderness or radicular pain no bruising, bleeding or rashes no focal signs of weakness or numbness or altered sensation no complaints of anxiety or depression.. Physical Exam Physical Exam: The patient appeared well nourished and normally developed. Vital signs as documented. Head exam is normocephalic atraumatic no scleral icterus Neck is without JVD, thyromegaly, or carotid bruits. Lungs are bibasilar rales clear at the apex Cardiac exam, Rhythm is regular.. No murmurs, rubs or gallops. Abdominal exam reveals normal bowel sounds, soft non tender, no masses Extremities are nonedematous and both pedal pulses are present Neurologic exam is alert and oriented, no focal loss of strength or sensation Skin is without bruises or rashes Psychologically is with concerns for depression. Results & Data Results & Data ([facility]) Vital Signs (Past 12 Hours) Vital Signs Temp Pulse Pulse Resp BP Pulse Ox 08/20/20 16:43 99.1 F 94 H 18 115/68 94 08/20/20 16:00 98 H 08/20/20 15:45 95 H 20 87 L 08/20/20 12:22 83 20 90 08/20/20 11:20 98.4 F 78 20 112/74 90 08/20/20 09:39 74 08/20/20 07:50 83 20 94 08/20/20 07:24 98.1 F 79 20 113/73 91 PG Care Time/CCT Total # of Minutes Spent Total Time Spent with Patient: Total time spent is greater than 50% in coordination of care (as documented) at patient's floor/unit and/or counseling patient: Coding Level of Care Code 72945 Subseq Hosp Care Lvl 3 Diagnoses COVID-19 virus infection U07.1 Hypoxia R09.02 Pneumonia J18.9 Laterality: unspecified laterality Lung location: unspecified part of lung Pneumonia type: due to unspecified organism Hyperglycemia R73.9 Hypertension I10 Hypophosphatemia E83.39 (1) Pneumonia Laterality: unspecified laterality Lung location: unspecified part of lung Pneumonia type: due to unspecified organism Qualified Code(s): J18.9 - Pneumonia, unspecified organism
[2020-08-20] MEDS: MONTELUKAST SODIUM 10 MG TABLET PO SCH (20:02)
[2020-08-21 06:17] LABS: Hematocrit (blood only) 41.6 % (42-52); Hemoglobin 13.6 g/dL (14.0-18.0); Mean Corpuscular Hemoglobin 29.6 pg (25-34); Mean Corpuscular Hgb Conc 32.7 g/dL (32-36); Mean Corpuscular Volume 90.6 fL (80-100); Platelet Count 317 K/uL (130-400); RDW Coefficient of Variation 13.4 % (11.5-14.5); RDW Standard Deviation 43.9 fL (36.4-46.3); Red Blood Count 4.59 M/uL (4.7-6.1); White Blood Count 13.08 K/uL (4.8-10.8)
[2020-08-21 06:46] LABS: Calcium 9.5 mg/dl (8.5-10.1); Creatinine Clr Calc Pharmacy 77.6 ml/min; Est GFR (African American) 94.1; Est GFR (Non-African American) 81.2; Potassium 5.3 mmol/L (3.5-5.1)
[2020-08-21] MEDS: predniSONE 20 MG TAB PO SCH (08:26)
[2020-08-21] MEDS: ENOXAPARIN 100 MG/1ML SYR SQ SCH (08:26)
[2020-08-21] MEDS: MULTIVITAMIN TAB PO SCH (08:27)
[2020-08-21] MEDS: INSULIN HUMAN NPH SC SCH (08:45)
[2020-08-21] MEDS: INSULIN ASPART 100 UNITS/ML 3 ML PEN SC SCH ×4 (08:45→21:15)
[2020-08-21] MEDS: INSULIN GLARGINE SOLOSTAR 100 UNITS/ML 3 ML PEN SC SCH (09:15)
--- NOTE | 2020-08-21 12:55 | Hospitalist Progress Note ---
Date of Service August 21, 2020 Assessment & Plan (1) COVID-19 virus infection: During initial admission on 07/30, the patient did extremely well and did not require supplemental oxygen. The patient has completed entire course of dexamethasone at home. Unfortunately, the patient presented back with new hypoxia as well as CT findings concerning for COVID-19 pneumonia. * placed on HFNC on 08/11, transiently on wall supplied high flow, return to Vapotherm on 08/19 but now back on wall high flow, 7L * cxr 08/19 with some increased interstitial markings, no response to Lasix * Encourage incentive spirometry and flutter valves as tolerated. * no role for Remdesivir or plasma at this time, too far along into illness when admitted * resume Dexamethasone 6mg IV daily since he is hypoxic and CT shows diffuse viral pneumonia finish 5 more days of dexamethasone, last day 08/18, may extend as prednisone taper at this time to avoid adrenal suppression * encourage PO intake, will order nutrition supplements eating better, continuing Boost, consider PT/OT once hypoxia improves, try to move to third floor as long as he is stable on wall high flow (2) Hypoxia: * acute hypoxic respiratory failure due to viral pneumonia, possible bacterial infection? * titrated down but still requiring high flow, but less than last week * Aggressive pulmonary toilet to include incentive spirometry and flutter valve. * Please see COVID-19 virus and pneumonia sections. * * [place] is guarded with escalation of the patient's hypoxia continue to offer emotional support, wants patient be on antidepressant patient self does not wish to start that she will continue to consider this as we move forward (3) Pneumonia: * must consider secondary infections in the setting of COVID-19 pneumonia. Initially received Rocephin and azithromycin in the emergency department. Patient previously on doxycycline in the outpatient. * completed 7-day course of Rocephin 08/16 * resumed Decadron 6mg IV daily as pneumonia likely residual viral etiology, did continue until 08/18, started po prednisone 40 mg 08/19 * MRSA swab negative * back on wall high flow, 7L (4) Hyperglycemia: Patient with blood glucose levels in excess of 400. Symptomatic with polyuria. * Initially received IV insulin bolus as well as insulin drip. * transitioned to basal bolus insulin on 08/09 * NPH insulin at 55 units in AM with the Prednisone, sugars up and down, pharmacy adjusting (5) Hypertension: Continue home Rx as tolerated. (6) Hypophosphatemia: resolved K is stable (7) Hyperkalemia: minimal at 5.3 not on K supplementation will hold ARB repeat tomorrow Admission and Anticipated Discharge Date Admission Date: August 08, 2020 Subjective patient discouraged that he is still in the hospital, he feels that he will never get better offered words of encouragement and support, told him he is so much better than he was two weeks ago on far less oxygen, no distress he says he is eating okay, appetite not as good as last week no fever/chills, no nausea, no diarrhea he says he feels weak, he wants to see therapy, ordered labs today show K of 5.3, held his ARB this morning other electrolytes stable Review of Systems Review of Systems: All systems reviewed & are unremarkable except as noted in Subjective Constitutional: + weakness; no fever and no fatigue Respiratory: + dyspnea and + dyspnea on exertion; no cough Cardiovascular: no chest pain and no edema Psychiatric: + depression Physical Exam Constitutional: well developed, well nourished and cooperative; no acute distress Neck: trachea midline, no thyromegaly Respiratory: normal respiratory effort, lungs clear to auscultation + tachypneic Auscultation: lungs clear to auscultation bilaterally Cardiovascular: Rate/Rhythm: regular rate and regular rhythm Heart Sounds: normal S1 and normal S2; no murmur Extremities: normal capillary refill; no edema Gastrointestinal (Abdomen): normal bowel sounds, soft, nontender, no hepatosplenomegaly Musculoskeletal: Head/Neck/Chest: normocephalic, head atraumatic and neck supple Extremities: extremities normal to inspection and strength 5/5 throughout Skin: no rashes, warm and dry Neurologic: patellar DTR's 2+ bilat, sensation intact and PERRL, EOMI, accommodation nl, no face palsy, no dysarthria Psychiatric: A+Ox3, euthymic affect Lymphatic: no cervical or axillary lymphadenopathy Results & Data Results & Data ([facility]) Vital Signs (Past 12 Hours) Vital Signs Temp Pulse Pulse Resp BP Pulse Ox 08/21/20 11:08 37.0 C 94 H 20 126/75 90 08/21/20 08:20 36.6 C 74 18 130/64 99 08/21/20 07:14 77 18 95 08/21/20 07:00 79 08/21/20 04:19 36.6 C 74 18 121/77 96 08/21/20 03:48 74 22 94 Laboratory Results Laboratory Results - last 24 hr 08/21/20 08/21/20 08/21/20 05:59 05:59 07:45 WBC 13.08 H RBC 4.59 L Hgb 13.6 L Hct 41.6 L MCV 90.6 MCH 29.6 MCHC 32.7 RDW Std Deviation 43.9 RDW Coeff of Macrina 13.4 Plt Count 317 MPV 10.0 Sodium 136 Potassium 5.3 H Chloride 100 Carbon Dioxide 36 H Anion Gap 0 L BUN 45 H Creatinine 0.93 Est Cr Clr Drug Dosing 77.6 Est GFR ( Amer) 94.1 Est GFR (Non-Af Amer) 81.2 BUN/Creatinine Ratio 49.0 H Glucose 101 H POC Glucose 80 Calcium 9.5 08/21/20 08/21/20 08/21/20 11:13 16:07 20:52 WBC RBC Hgb Hct MCV MCH MCHC RDW Std Deviation RDW Coeff of Macrina Plt Count MPV Sodium Potassium Chloride Carbon Dioxide Anion Gap BUN Creatinine Est Cr Clr Drug Dosing Est GFR ( Amer) Est GFR (Non-Af Amer) BUN/Creatinine Ratio Glucose POC Glucose 115 H 148 H 294 H Calcium Medications Administered Current Inpatient Medications Acetaminophen (Acetaminophen 325 Mg Tab) 650 mg PO Q4H PRN PRN Reason: Pain or Fever Stop: 09/07/20 20:08 Last Admin: 08/09/20 21:14 Dose: 650 mg Documented by: Benzonatate (Benzonatate 100 Mg Capsule) 100 mg PO TID PRN PRN Reason: cough Stop: 09/07/20 20:08 Dextrose (Dextrose 50% 50 Ml Syringe) 25 - 50 ml IV UD PRN; Protocol PRN Reason: Hypoglycemia Protocol Stop: 09/07/20 18:29 Enoxaparin Sodium (Enoxaparin Inj 40 Mg/0.4 Ml Syr) 40 mg SQ Q12H [facility] Stop: 09/20/20 20:59 Last Admin: 08/21/20 20:57 Dose: 40 mg Documented by: Glucagon (Glucagon For Inj 1 Mg Vial) 1 mg IM UD PRN; Protocol PRN Reason: Hypoglycemia Protocol Stop: 09/07/20 18:29 Glucose (Glucose 40% Gel 15 Gm Tube) 15 - 30 gm PO UD PRN; Protocol PRN Reason: Hypoglycemia Protocol Stop: 09/07/20 18:29 Glucose (Glucose 10 Tabs/Tube) 4 - 8 tabs PO UD PRN; Protocol PRN Reason: Hypoglycemia Protocol Stop: 09/07/20 18:29 Insulin Aspart (Insulin Aspart 100 Units/Ml 3 Ml Pen) 0 units SC [facility] Stop: 09/15/20 11:29 Last Admin: 08/21/20 17:39 Dose: 32 units Documented by: Insulin Aspart (Insulin Aspart 100 Units/Ml 3 Ml Pen) 0 units SC [facility] Stop: 09/15/20 20:59 Last Admin: 08/21/20 21:15 Dose: 4 units Documented by: Insulin Glargine (Insulin Glargine Solostar 100 Units/Ml 3 Ml Pen) 15 units SC [facility] Stop: 09/16/20 08:59 Last Admin: 08/21/20 09:15 Dose: 15 units Documented by: Insulin Glargine (Insulin Glargine Solostar 100 Units/Ml 3 Ml Pen) 0 units SC [facility]; Protocol Stop: 09/20/20 20:59 Last Admin: 08/21/20 21:12 Dose: 8 units Documented by: Insulin Human NPH (Insulin Human Nph) 45 units SC DAILY@0800 [facility] Stop: 09/21/20 07:59 Melatonin (Melatonin 3 Mg Tab) 3 mg PO HS PRN PRN Reason: Sleep Stop: 09/11/20 00:10 Last Admin: 08/12/20 21:40 Dose: 3 mg Documented by: Miscellaneous (Carbohydrates For Hypoglycemia ) 15 - 30 gm PO PRN PRN PRN Reason: Hypoglycemia Treatment Stop: 09/07/20 18:29 Miscellaneous Information (Pharmacy Glycemic Mgmt Consult) 1 ea N/A UD PRN PRN Reason: Consult Stop: 09/07/20 20:21 Montelukast Sodium (Montelukast Sodium 10 Mg Tablet) 10 mg PO [facility] Stop: 09/19/20 20:59 Last Admin: 08/21/20 21:03 Dose: 10 mg Documented by: Multivitamins (Multivitamin Tab) 1 tab PO DAILY [facility] Stop: 09/08/20 08:59 Last Admin: 08/21/20 08:27 Dose: 1 tab Documented by: Ondansetron HCl (Ondansetron Inj 2 Mg/Ml 2 Ml Vial) 4 mg IV Q6H PRN PRN Reason: Nausea Stop: 09/07/20 20:08 Prednisone (Prednisone 20 Mg Tab) 40 mg PO DAILY [facility] Stop: 09/18/20 08:59 Last Admin: 08/21/20 08:26 Dose: 40 mg Documented by: PG Care Time/CCT Total # of Minutes Spent Total Time Spent with Patient: Total time spent is greater than 50% in coordination of care (as documented) at patient's floor/unit and/or counseling patient: Coding Level of Care Code 11445 Subseq Hosp Care Lvl 3 Diagnoses COVID-19 virus infection U07.1 Hypoxia R09.02 Pneumonia J18.9 Laterality: unspecified laterality Lung location: unspecified part of lung Pneumonia type: due to unspecified organism Hyperglycemia R73.9 Hypertension I10 Hypophosphatemia E83.39 Hyperkalemia E87.5 (1) Pneumonia Laterality: unspecified laterality Lung location: unspecified part of lung Pneumonia type: due to unspecified organism Qualified Code(s): J18.9 - Pneumonia, unspecified organism
[2020-08-21] MEDS ORDERED: ENOXAPARIN INJ 40 MG/0.4 ML SYR SQ SCH (21:00)
[2020-08-21] MEDS ORDERED: INSULIN GLARGINE SOLOSTAR 100 UNITS/ML 3 ML PEN SC SCH (21:00)
[2020-08-21] MEDS: MONTELUKAST SODIUM 10 MG TABLET PO SCH (21:03)
[2020-08-22 06:58] LABS: BUN Creatinine Ratio 71.4 (10-20); Calcium 8.9 mg/dl (8.5-10.1); Creatinine Clr Calc Pharmacy 70.8 ml/min; Est GFR (African American) 84.1; Est GFR (Non-African American) 72.6; Potassium 5.5 mmol/L (3.5-5.1)
[2020-08-22 07:11] LABS: Beta-Hydroxybutyrate 3.74 mg/dl (0.2-2.81)
[2020-08-22] MEDS ORDERED: SODIUM CHLORIDE 0.9% 1000ML 500 ML IV ONE (07:17)
[2020-08-22] MEDS ORDERED: INSULIN HUMAN REGULAR PER UNIT 5 UNITS in SYRINGE 4.95 ML IV ONE (07:30)
[2020-08-22 07:58] LABS: D Dimer < 190 ug/L FEU (0-500)
[2020-08-22] MEDS ORDERED: INSULIN HUMAN NPH SC SCH (08:00)
[2020-08-22] MEDS: INSULIN GLARGINE SOLOSTAR 100 UNITS/ML 3 ML PEN SC SCH (08:26)
[2020-08-22 08:28] LABS: Magnesium 2.1 mg/dl (1.8-2.4); Phosphorus 3.4 mg/dl (2.5-4.9); Troponin I 0.025 ng/ml (0-0.045)
[2020-08-22] MEDS: MULTIVITAMIN TAB PO SCH (08:29)
[2020-08-22] MEDS: predniSONE 20 MG TAB PO SCH (08:29)
[2020-08-22 08:32] LABS: Basophils # (auto) 0.02 K/uL (0-0.2); Basophils % (auto) 0.1 %; Eosinophils # (auto) 0.01 K/uL (0-0.5); Hematocrit (blood only) 32.7 % (42-52); Immature Granulocytes # (auto) 0.15 K/uL (0.00-0.02); Immature Granulocytes % (auto) 0.7 %; Lymphocytes % (auto) 7.1 %; Mean Corpuscular Hemoglobin 30.2 pg (25-34); Mean Corpuscular Hgb Conc 33.6 g/dL (32-36); Mean Corpuscular Volume 89.8 fL (80-100); Mean Platelet Volume 10.3 fL (7.4-10.4); Monocytes # (auto) 1.47 K/uL (0.11-0.59); Neutrophils # (auto) 17.94 K/uL (1.4-6.5); Neutrophils % (auto) 85.1 %; Platelet Count 454 K/uL (130-400); RDW Coefficient of Variation 13.3 % (11.5-14.5); RDW Standard Deviation 43.7 fL (36.4-46.3); Red Blood Count 3.64 M/uL (4.7-6.1); White Blood Count 21.09 K/uL (4.8-10.8)
[2020-08-22] MEDS: INSULIN ASPART 100 UNITS/ML 3 ML PEN SC SCH ×4 (08:32→21:55)
[2020-08-22] MEDS ORDERED: dilTIAZem HCl 5 MG/ML 5 ML VIAL IV STA ×2 (08:40→10:22)
[2020-08-22] MEDS ORDERED: ENOXAPARIN 80 MG/0.8 ML SYR SQ SCH (09:00)
--- NOTE | 2020-08-22 09:26 | XRay Report ---
XR chest 1V portable HISTORY: 75 years-old Male hypoxia acute hypoxia COMPARISON: Chest radiograph 08/19/2020, CTA chest 08/08/2020 TECHNIQUE: Portable AP view of the chest FINDINGS: Cardiomediastinal and hilar silhouettes are unchanged. Right greater than left bilateral airspace opa cities redemonstrated with mildly improved aeration of the left lung base. No pneumothorax, large ple ural effusion or overt pulmonary edema. Degenerative changes of the shoulders and spine. IMPRESSION: Mild improvement of the bilateral airspace opacities suggestive of ongoing pneumonia. ACT 112: Negative or not required by law. The above report was generated using voice recognition software. It may contain grammatical, syntax o r spelling errors. Electronically signed by: Ventura Krishnamurthy M.D. 08/22/2020 9:25 AM
[2020-08-22] MEDS: METOPROLOL TARTRATE 25 MG TAB PO SCH ×2 (09:50→21:41)
[2020-08-22] MEDS ORDERED: STAT IV Infusion **Titration per Protocol STA ×2 (10:22→11:03)
--- NOTE | 2020-08-22 10:24 | Pharmacy Report ---
Pharmacy Glycemic Short Note 2 - Date of Service August 22, 2020 - Glycemic Short BSG Results (Last 24 hours): 08/21/20 08/21/20 08/21/20 11:13 16:07 20:52 Glucose POC Glucose 115 H 148 H 294 H 08/22/20 08/22/20 08/22/20 05:39 07:19 07:20 Glucose 335 H* POC Glucose 399 H* 363 H* OUTPATIENT ANTIDIABETIC REGIMEN: * None ASSESSMENT: 08/22 * Patient received total of 123 units of insulin yesterday, of which 63 were basal * BSGs well controlled, except trending up at HS time and overnight. Fasting elevated at 335 mg/dL - given IV bolus. Spoke with provider and patient also tachycardic. Will trial IV insulin before starting insulin drip * Unclear hyperglycemia as patient has been relatively stable, continues on prednisone 40 PLAN FOR INPATIENT GLYCEMIC CONTROL: * Basal insulin: * Lantus 15 units SQ Q AM + 10 units Q PM * NPH 45 units SQ Q AM w/ IV dexamethasone * Bolus insulin: * NovoLog per scale ACHS or Q6hrs while NPO * Goal Range: Low 110 mg/dL - High 140 mg/dL * Correction Factor: 15 mg/dL/unit AC; 25 mg/dL/unit at HS * Nutritional / Prandial insulin per carb ratio of 1 unit per 4 grams CHO consumed AC; and 1 unit per 8 gm CHO consumed at HS
[2020-08-22] MEDS ORDERED: dilTIAZem HCL 125 MG in DEXTROSE 5% 100 ML IV SCH (10:30)
[2020-08-22] MEDS ORDERED: SODIUM CHLORIDE 0.9% 1000ML 1,000 ML IV ONE (10:52)
[2020-08-22] MEDS ORDERED: SODIUM CHLORIDE 0.9% 250 ML IV PRN (10:52)
[2020-08-22] MEDS ORDERED: 0.2 MICRON FILTER SET 1 EA IV ONE (11:03)
[2020-08-22] MEDS ORDERED: AMIODARONE IV BOLUS & DRIP IV STA (11:03)
[2020-08-22] MEDS ORDERED: AMIODARONE / D5W 150 MG/100 ML BAG IV STA (11:03)
[2020-08-22] MEDS ORDERED: AMIODARONE / D5W 360 MG/200 ML BAG IV ONE (11:03)
--- NOTE | 2020-08-22 11:14 | Hospitalist Progress Note ---
Date of Service August 22, 2020 Assessment & Plan (1) GI bleed: new finding today, BUN up dramatically to 73 from 40 had a dark, melanotic stool, this is the first time he has pallor, weakness today Hb is 11, down from 13, will repeat at noon and then this evening type and cross and plan to give one unit, he agrees give one liter NSS bolus for soft BP as we wait for unit of PRBC (2) Atrial fibrillation with rapid ventricular response: had brief runs of afib three weeks ago that resolved with Diltiazem now with afib RVR, suspect it is being driven by acute blood loss, low normal blood pressure, hypovolemia gave Diltiazem 10mg IV bolus and Lopressor 25mg PO with little response give 1L NSS to boost volume and give 1 unit PRBC will start on Amiodarone bolus and drip to try to convert him to make him easier to manage (3) COVID-19 virus infection: During initial admission on 07/30, the patient did extremely well and did not require supplemental oxygen. The patient has completed entire course of dexamethasone at home. Unfortunately, the patient presented back with new hypoxia as well as CT findings concerning for COVID-19 pneumonia. * placed on HFNC on 08/11, transiently on wall supplied high flow, on 10L mask today * CXR 08/22 with improved aeration, actually recovering from COVID, likely that the blood loss and afib RVR making him feel worse today * Encourage incentive spirometry and flutter valves as tolerated. * no role for Remdesivir or plasma at this time, too far along into illness when admitted * completed prolonged course of Decadron, now on Prednisone 40mg, will decrease to 20mg daily tomorrow * encourage PO intake, will order nutrition supplements liquid diet now (4) Hypoxia: * acute hypoxic respiratory failure due to viral pneumonia, possible bacterial infection? * titrated down but still requiring high flow, but less than last week * Aggressive pulmonary toilet to include incentive spirometry and flutter valve. * Please see COVID-19 virus and pneumonia sections. * CXR is a lot better today (5) Pneumonia: * must consider secondary infections in the setting of COVID-19 pneumonia. Initially received Rocephin and azithromycin in the emergency department. Patient previously on doxycycline in the outpatient. * completed 7-day course of Rocephin 08/16 * resumed Decadron 6mg IV daily as pneumonia likely residual viral etiology, did continue until 08/18, started po prednisone 40 mg 08/19 * MRSA swab negative * back on wall high flow, 10L mask but no distress * CXR improved on 08/22 (6) Hyperglycemia: Patient with blood glucose levels in excess of 400 today I discussed with pharmacy, will give normal insulin bolus this morning may need to place on infusion as he is critically ill (7) Hypertension: hold BP medications as his BP is soft from bleeding (8) Hypophosphatemia: resolved K is stable (9) Hyperkalemia: up to 5.5, holding ARM insulin will help lower, repeat at noon and this evening Admission and Anticipated Discharge Date Admission Date: August 08, 2020 Subjective patient feeling worse this morning, very weak, could not even get out of bed, looks pale he is tolerating liquids, likes apple juice and water and ice feeling more short of breath, CXR viewed by me, appears that infiltrates are improving, more aeration in lungs checked labs, WBC 21k, Hb 11, plts 454, d dimer < 190, Na 135, K 5.5, BUN 73 and Cr 1.0 glucose markedly elevated in the 300s discussed with pharmacy, will try bolus on insulin first but will likely need a drip patient went into afib with rates 130-150's gave Diltiazem 10mg IV bolus with little effect on heart rate, gave him Lopressor 25mg PO shortly after the Diltiazem planned to give additional 10mg bolus of Diltiazem and drip but his BP was 90- 100 systolic, appeared pale and he had a dark stool no epigastric pain, no nausea, no known history of PUD certainly with a lot of risk factors with steroid use, illness now for 3 weeks discussed with him the need for blood transfusion as his HR is unstable and blood pressure soft he agreed to transfusion, RN witnessed our discussion Review of Systems Review of Systems: All systems reviewed & are unremarkable except as noted in Subjective Constitutional: + fatigue and + weakness; no fever Respiratory: + dyspnea and + dyspnea on exertion; no cough Cardiovascular: no chest pain, no palpitations, no syncope and no edema Gastrointestinal: + early satiety, + diarrhea/loose stools and + melena; no abdominal pain, no nausea, no vomiting and no constipation Integumentary: + change in skin color (pallor) Physical Exam Constitutional: well developed, well nourished, + ill appearing, cooperative and + diaphoretic; no acute distress Neck: trachea midline, no thyromegaly Respiratory: + labored breathing, + cough and + tachypneic Auscultation: l ungs clear to auscultation bilaterally Cardiovascular: Rate/Rhythm: + tachycardic and + irregularly irregular Heart Sounds: normal S1 and normal S2; no murmur Extremities: normal capillary refill; no edema Gastrointestinal (Abdomen): normal bowel sounds, soft, nontender, no hepatosplenomegaly Musculoskeletal: Head/Neck/Chest: normocephalic, head atraumatic and neck supple Extremities: extremities normal to inspection and strength 5/5 throughout Skin: + pallor; no rashes Neurologic: patellar DTR's 2+ bilat, sensation intact and PERRL, EOMI, accommodation nl, no face palsy, no dysarthria Psychiatric: A+Ox3, euthymic affect Lymphatic: no cervical or axillary lymphadenopathy Results & Data Results & Data ([facility]) Vital Signs (Past 12 Hours) Vital Signs Temp Pulse Pulse Resp BP Pulse Ox 08/22/20 10:52 130 H 28 H 100/76 97 08/22/20 09:19 121 H 08/22/20 08:50 131 H 24 122/75 93 08/22/20 08:40 170 H 08/22/20 08:30 138 H 08/22/20 08:29 150 H 08/22/20 07:20 37 C 133 H 22 104/63 96 08/22/20 02:37 36.6 C 123 H 26 H 102/69 96 08/22/20 00:00 108 H 08/21/20 23:38 36.9 C 113 H 22 113/80 98 Laboratory Results Laboratory Results - last 24 hr 08/21/20 08/21/20 08/21/20 11:13 16:07 20:52 WBC RBC Hgb Hct MCV MCH MCHC RDW Std Deviation RDW Coeff of Macrina Plt Count MPV Immature Gran % (Auto) Neut % (Auto) Lymph % (Auto) Emmet % (Auto) Eos % (Auto) Baso % (Auto) Neut # (Auto) Lymph # (Auto) Emmet # (Auto) Eos # (Auto) Baso # (Auto) Immature Gran # (Auto) D-Dimer Sodium Potassium Chloride Carbon Dioxide Anion Gap BUN Creatinine Est Cr Clr Drug Dosing Est GFR ( Amer) Est GFR (Non-Af Amer) BUN/Creatinine Ratio Glucose POC Glucose 115 H 148 H 294 H Lactate Calcium Phosphorus Magnesium Troponin I Beta-Hydroxybutyric Acd 08/22/20 08/22/20 08/22/20 05:39 07:19 07:20 WBC RBC Hgb Hct MCV MCH MCHC RDW Std Deviation RDW Coeff of Macrina Plt Count MPV Immature Gran % (Auto) Neut % (Auto) Lymph % (Auto) Emmet % (Auto) Eos % (Auto) Baso % (Auto) Neut # (Auto) Lymph # (Auto) Emmet # (Auto) Eos # (Auto) Baso # (Auto) Immature Gran # (Auto) D-Dimer Sodium 135 L Potassium 5.5 H Chloride 100 Carbon Dioxide 28 Anion Gap 7.0 BUN 73 H D Creatinine 1.02 Est Cr Clr Drug Dosing 70.8 Est GFR ( Amer) 84.1 Est GFR (Non-Af Amer) 72.6 BUN/Creatinine Ratio 71.4 H Glucose 335 H* POC Glucose 399 H* 363 H* Lactate Calcium 8.9 Phosphorus Magnesium Troponin I Beta-Hydroxybutyric Acd 3.74 H 08/22/20 08/22/20 08/22/20 07:33 07:33 07:33 WBC 21.09 H RBC 3.64 L Hgb 11.0 L Hct 32.7 L MCV 89.8 MCH 30.2 MCHC 33.6 RDW Std Deviation 43.7 RDW Coeff of Macrina 13.3 Plt Count 454 H MPV 10.3 Immature Gran % (Auto) 0.7 Neut % (Auto) 85.1 Lymph % (Auto) 7.1 Emmet % (Auto) 7.0 Eos % (Auto) 0.0 Baso % (Auto) 0.1 Neut # (Auto) 17.94 H Lymph # (Auto) 1.50 Emmet # (Auto) 1.47 H Eos # (Auto) 0.01 Baso # (Auto) 0.02 Immature Gran # (Auto) 0.15 H D-Dimer < 190 Sodium Potassium Chloride Carbon Dioxide Anion Gap BUN Creatinine Est Cr Clr Drug Dosing Est GFR ( Amer) Est GFR (Non-Af Amer) BUN/Creatinine Ratio Glucose POC Glucose Lactate Calcium Phosphorus 3.4 Magnesium 2.1 Troponin I 0.025 Beta-Hydroxybutyric Acd 08/22/20 07:33 WBC RBC Hgb Hct MCV MCH MCHC RDW Std Deviation RDW Coeff of Macrina Plt Count MPV Immature Gran % (Auto) Neut % (Auto) Lymph % (Auto) Emmet % (Auto) Eos % (Auto) Baso % (Auto) Neut # (Auto) Lymph # (Auto) Emmet # (Auto) Eos # (Auto) Baso # (Auto) Immature Gran # (Auto) D-Dimer Sodium Potassium Chloride Carbon Dioxide Anion Gap BUN Creatinine Est Cr Clr Drug Dosing Est GFR ( Amer) Est GFR (Non-Af Amer) BUN/Creatinine Ratio Glucose POC Glucose Lactate 2.6 H* Calcium Phosphorus Magnesium Troponin I Beta-Hydroxybutyric Acd Diagnostic Findings XR chest 1V portable HISTORY: 75 years-old Male hypoxia acute hypoxia COMPARISON: Chest radiograph 08/19/2020, CTA chest 08/08/2020 TECHNIQUE: Portable AP view of the chest FINDINGS: Cardiomediastinal and hilar silhouettes are unchanged. Right greater than left bilateral airspace opacities redemonstrated with mildly improved aeration of the left lung base. No pneumothorax, large pleural effusion or overt pulmonary edema. Degenerative changes of the shoulders and spine. IMPRESSION: Mild improvement of the bilateral airspace opacities suggestive of ongoing pneumonia. Medications Administered Current Inpatient Medications Acetaminophen (Acetaminophen 325 Mg Tab) 650 mg PO Q4H PRN PRN Reason: Pain or Fever Stop: 09/07/20 20:08 Last Admin: 08/09/20 21:14 Dose: 650 mg Documented by: Benzonatate (Benzonatate 100 Mg Capsule) 100 mg PO TID PRN PRN Reason: cough Stop: 09/07/20 20:08 Dextrose (Dextrose 50% 50 Ml Syringe) 25 - 50 ml IV UD PRN; Protocol PRN Reason: Hypoglycemia Protocol Stop: 09/07/20 18:29 Glucagon (Glucagon For Inj 1 Mg Vial) 1 mg IM UD PRN; Protocol PRN Reason: Hypoglycemia Protocol Stop: 09/07/20 18:29 Glucose (Glucose 40% Gel 15 Gm Tube) 15 - 30 gm PO UD PRN; Protocol PRN Reason: Hypoglycemia Protocol Stop: 09/07/20 18:29 Glucose (Glucose 10 Tabs/Tube) 4 - 8 tabs PO UD PRN; Protocol PRN Reason: Hypoglycemia Protocol Stop: 09/07/20 18:29 Diltiazem HCl 125 mg/ Dextrose 125 mls @ 5 mls/hr IV .Q24H NILAM; Protocol Stop: 09/21/20 10:29 Sodium Chloride (Nss 1000ml) 1,000 mls @ 999 mls/hr IV .Q1H1M ONE Stop: 08/22/20 11:52 Last Admin: 08/22/20 11:02 Dose: 999 mls/hr Documented by: Sodium Chloride (Nss) 250 mls @ 15 mls/hr IV .[id number] PRN PRN Reason: For Transfusion Stop: 08/22/20 20:52 Pantoprazole Sodium 40 mg/ (Syringe) 10 mls @ 5 mls/min IV BID [facility] Stop: 09/21/20 10:59 Amiodarone HCl/Dextrose (Nexterone / D5w) 360 mg in 200 mls @ 33.333 mls/hr IV ONE ONE Stop: 08/22/20 17:02 Amiodarone HCl/Dextrose (Nexterone / D5w) 360 mg in 200 mls @ 16.667 mls/hr IV .Q12H [facility] Stop: 09/21/20 17:02 Insulin Aspart (Insulin Aspart 100 Units/Ml 3 Ml Pen) 0 units SC AC [facility] Stop: 09/15/20 11:29 Last Admin: 08/22/20 08:32 Dose: 19 units Documented by: Insulin Aspart (Insulin Aspart 100 Units/Ml 3 Ml Pen) 0 [address] [facility] Stop: 09/15/20 20:59 Last Admin: 08/21/20 21:15 Dose: 4 units Documented by: Insulin Glargine (Insulin Glargine Solostar 100 Units/Ml 3 Ml Pen) [facility] Stop: 09/16/20 08:59 Last Admin: 08/22/20 08:26 Dose: 15 units Documented by: Insulin Glargine (Insulin Glargine Solostar 100 Units/Ml 3 Ml Pen) [address] [facility]; Protocol Stop: 09/20/20 20:59 Last Admin: 08/21/20 21:12 Dose: 8 units Documented by: Insulin Human NPH (Insulin Human Nph) 45 units SC DAILY@0800 [facility] Stop: 09/21/20 07:59 Last Admin: 08/22/20 08:33 Dose: 45 units Documented by: Melatonin (Melatonin 3 Mg Tab) 3 mg PO HS PRN PRN Reason: Sleep Stop: 09/11/20 00:10 Last Admin: 08/12/20 21:40 Dose: 3 mg Documented by: Metoprolol Tartrate (Metoprolol Tartrate 25 Mg Tab) 25 mg PO BID NILAM Stop: 09/21/20 08:59 Last Admin: 08/22/20 09:50 Dose: 25 mg Documented by: Miscellaneous (Carbohydrates For Hypoglycemia ) 15 - 30 gm PO PRN PRN PRN Reason: Hypoglycemia Treatment Stop: 09/07/20 18:29 Miscellaneous Information (Pharmacy Glycemic Mgmt Consult) 1 ea N/A UD PRN PRN Reason: Consult Stop: 09/07/20 20:21 Montelukast Sodium (Montelukast Sodium 10 Mg Tablet) 10 mg PO HS NILAM Stop: 09/19/20 20:59 Last Admin: 08/21/20 21:03 Dose: 10 mg Documented by: Multivitamins (Multivitamin Tab) 1 tab PO DAILY NILAM Stop: 09/08/20 08:59 Last Admin: 08/22/20 08:29 Dose: 1 tab Documented by: Ondansetron HCl (Ondansetron Inj 2 Mg/Ml 2 Ml Vial) 4 mg IV Q6H PRN PRN Reason: Nausea Stop: 09/07/20 20:08 Prednisone (Prednisone 20 Mg Tab) 40 mg PO DAILY [facility] Stop: 09/18/20 08:59 Last Admin: 08/22/20 08:29 Dose: 40 mg Documented by: PG Care Time/CCT Total # of Minutes Spent Total Time Spent: 40 Total Time Spent with Patient: Total time spent is greater than 50% in coordination of care (as documented) at patient's floor/unit and/or counseling patient: Critical Care Time: Yes Total Critical Care Time: 40 The high probability of a clinically significant, sudden or life threatening deterioration of the cardiovascular and GI system(s) required my full and direct attention, intervention and personal management. The aggregate critical care time was 40 minutes. This time is in addition to time spent performing reported procedures but includes the following: [] Data Review and interpretation [] Patient assessment and monitoring of vital signs [] Documentation [] Medication orders and management Coding Level of Care Code 07525 Subseq Hosp Care Lvl 3 Diagnoses GI bleed K92.2 Atrial fibrillation with rapid ventricular response I48.91 COVID-19 virus infection U07.1 Hypoxia R09.02 Pneumonia J18.9 Laterality: unspecified laterality Lung location: unspecified part of lung Pneumonia type: due to unspecified organism Hyperglycemia R73.9 Hypertension I10 Hypophosphatemia E83.39 Hyperkalemia E87.5 Additional Codes Critical Care Time - Critical Care Time: Yes ([id number]) (1) Pneumonia Laterality: unspecified laterality Lung location: unspecified part of lung Pneumonia type: due to unspecified organism Qualified Code(s): J18.9 - Pneumonia, unspecified organism
[2020-08-22 11:25] LABS: Hemoglobin 10.5 g/dL (14.0-18.0)
[2020-08-22] MEDS: PANTOprazole 40 MG in SYRINGE 0 ML IV SCH ×2 (11:35→21:41)
[2020-08-22] MEDS ORDERED: INSULIN HUMAN REGULAR IV BOLUS 3 UNITS in SYRINGE 0 ML IV ONE (11:45)
[2020-08-22] MEDS: INSULIN REGULAR 250 UNITS in SODIUM CHLORIDE 0.9% 247.5 ML IV SCH ×5 (12:30→22:28)
[2020-08-22 13:05] LABS: BUN Creatinine Ratio 66.1 (10-20); Calcium 8.8 mg/dl (8.5-10.1); Creatinine Clr Calc Pharmacy 65.1 ml/min; Est GFR (African American) 75.9; Est GFR (Non-African American) 65.5; Potassium 5.5 mmol/L (3.5-5.1)
[2020-08-22 13:20] LABS: Beta-Hydroxybutyrate 1.72 mg/dl (0.2-2.81)
[2020-08-22] MEDS: AMIODARONE / D5W 360 MG/200 ML BAG IV SCH (17:21)
[2020-08-22 17:49] LABS: Hematocrit (blood only) 30.5 % (42-52); Hemoglobin 10.2 g/dL (14.0-18.0)
[2020-08-22 18:09] LABS: BUN Creatinine Ratio 80.5 (10-20); Calcium 8.3 mg/dl (8.5-10.1); Est GFR (African American) 99.7; Potassium 5.5 mmol/L (3.5-5.1)
[2020-08-22] MEDS ORDERED: INSULIN GLARGINE SOLOSTAR 100 UNITS/ML 3 ML PEN SC SCH (21:00)
[2020-08-22] MEDS: MONTELUKAST SODIUM 10 MG TABLET PO SCH (21:41)
--- NOTE | 2020-08-23 02:31 | Hospitalist Progress Note ---
Date of Service August 23, 2020 Assessment & Plan Admission and Anticipated Discharge Date Admission Date: August 08, 2020 Subjective Called by nurse. Patient with episode of unresponsiveness following a large, black BM. HR and BP decreased. He is starting to feel better now. BP 92/67, HR 99 Patient had GI bleed yesterday and was transfused 1u PRBCs Last Hbg=10.2, Hct=30.5 On exam patient is ill in appearance, awake, alert and appropriate but somewhat slow to respond. States he is feeling better Skin - +Pallor of skin and conjunctiva HEENT - NC/AT, Neck supple, +crepitus with palpation of lateral neck Abd - flat, soft, NT/ND Ext - No edema -Will send AM labs now to assess H/H -Check CXR stat. Consider CT chest if unrevealing when patient's condition stabilizes Results & Data Results & Data ([facility]) Vital Signs (Past 12 Hours) Vital Signs Temp Pulse Pulse Resp BP BP Pulse Ox 08/22/20 23:32 36.9 C 99 H 20 92/67 L 99 08/22/20 19:54 36.7 C 96 H 22 114/75 93 08/22/20 17:20 87 08/22/20 16:34 95 08/22/20 16:31 36.9 C 95 H 16 112/75 99 08/22/20 15:44 36.9 C 100 H 18 118/70 98 08/22/20 14:44 36.9 C 118 H 20 100/67 98
[2020-08-23] MEDS: INSULIN ASPART 100 UNITS/ML 3 ML PEN SC SCH ×5 (04:03→20:56)
[2020-08-23] MEDS: AMIODARONE / D5W 360 MG/200 ML BAG IV SCH ×2 (04:22→15:48)
[2020-08-23 06:31] LABS: Mean Corpuscular Hemoglobin 29.5 pg (25-34); Mean Corpuscular Hgb Conc 33.3 g/dL (32-36); Mean Corpuscular Volume 88.6 fL (80-100); Mean Platelet Volume 10.5 fL (7.4-10.4); Nucleated RBC # (auto) 0.06 K/uL (0-0); Nucleated RBC % (auto) 0.2 %; Platelet Count 388 K/uL (130-400); RDW Coefficient of Variation 14.5 % (11.5-14.5); RDW Standard Deviation 45.8 fL (36.4-46.3); Red Blood Count 2.71 M/uL (4.7-6.1); White Blood Count 26.67 K/uL (4.8-10.8)
[2020-08-23 06:57] LABS: BUN Creatinine Ratio 75.9 (10-20); Calcium 7.9 mg/dl (8.5-10.1); Creatinine Clr Calc Pharmacy 70.1 ml/min; Est GFR (African American) 83.1; Est GFR (Non-African American) 71.7; Potassium 5.3 mmol/L (3.5-5.1)
--- NOTE | 2020-08-23 07:06 | XRay Report ---
XR chest 1V portable CLINICAL HISTORY: crepitus COMPARISON STUDY: Chest CT August 08, 2020. Chest radiograph August 22, 2020. FINDINGS: Linear lucencies projecting over the mediastinum consistent with pneumomediastinum. This ex tends into the lower neck. No pneumothorax or pleural effusion is identified. Bilateral airspace opac ities, greater on the right, are again noted. Cardiomediastinal silhouette is stable. There is no holley dence for pulmonary edema. IMPRESSION: 1. Moderate pneumomediastinum and small amount of associated subcutaneous gas within the lower neck. 2. No pneumothorax. 2. Persistent bilateral airspace opacities, greater on the right, suggestive of an infectious process . ACT 112: Negative or not required by law. Electronically signed by: Noel Gunderson M.D. 08/23/2020 7:04 AM
[2020-08-23] MEDS: METOPROLOL TARTRATE 25 MG TAB PO SCH ×2 (07:57→21:08)
[2020-08-23] MEDS: MULTIVITAMIN TAB PO SCH (07:57)
[2020-08-23] MEDS: predniSONE 20 MG TAB PO SCH (07:57)
[2020-08-23] MEDS: PANTOprazole 40 MG in SYRINGE 0 ML IV SCH ×2 (08:00→21:08)
[2020-08-23] MEDS ORDERED: SODIUM CHLORIDE 0.9% 250 ML IV PRN (08:28)
[2020-08-23] MEDS ORDERED: INSULIN HUMAN NPH SC SCH (08:30)
--- NOTE | 2020-08-23 09:00 | Hospitalist Progress Note ---
Date of Service August 23, 2020 Assessment & Plan (1) GI bleed: presented itself on 08/22, BUN up dramatically into the 70's, had a dark, melanotic stool, overnight last night had a large bloody BM and vasovagal episode he has pallor, weakness Hb is down to 8.0 from 13 three days ago, and this is with one unit PRBC given yesterday continue Protonix IV, NPO give 2 more units PRBC this morning and monitor response consult GI for possible endoscopy respiratory status is much improved, breathing comfortably on 5L, lungs clear (2) Acute blood loss anemia: Hb down to 8.0 this morning, this is after one unit of PRBC yesterday Hb was normal at 13 two days ago, suggests rapid blood loss BP is 105 systolic, mentating normally give 2 more units PRBC this morning and follow response (3) Atrial fibrillation with rapid ventricular response: had brief runs of afib three weeks ago that resolved with Diltiazem with afib RVR morning of 08/22, suspect it is being driven by acute blood loss, low normal blood pressure, hypovolemia treated with Amiodarone bolus and drip due to low BP he converted to NSR, will continue the Amiodarone for now, want to maintain NSR, easier to manage with his blood loss (4) COVID-19 virus infection: During initial admission on 07/30, the patient did extremely well and did not require supplemental oxygen. The patient has completed entire course of dexamethasone at home. Unfortunately, the patient presented back with new hypoxia as well as CT findings concerning for COVID-19 pneumonia. * placed on HFNC on 08/11, transiently on wall supplied high flow, down to 5L NC today * CXR 08/22 with improved aeration, actually recovering from COVID, likely that the blood loss and afib RVR making him feel worse past two days * Encourage incentive spirometry and flutter valves as tolerated. * no role for Remdesivir or plasma at this time, too far along into illness when admitted * completed prolonged course of Decadron, now on Prednisone 20mg daily for taper * NPO now with GI bleeding (5) Hypoxia: * acute hypoxic respiratory failure due to viral pneumonia, possible ba cterial infection? * titrated down to 5L NC today, this is his lowest oxygen requirement in weeks * Aggressive pulmonary toilet to include incentive spirometry and flutter valve. * Please see COVID-19 virus and pneumonia sections. * CXR 08/22 showed improved aeration (6) Pneumonia: * must consider secondary infections in the setting of COVID-19 pneumonia. Initially received Rocephin and azithromycin in the emergency department. Patient previously on doxycycline in the outpatient. * completed 7-day course of Rocephin 08/16 * resumed Decadron 6mg IV daily as pneumonia likely residual viral etiology, did continue until 08/18, started po prednisone 40 mg 08/19 * MRSA swab negative * back on wall high flow, 10L mask but no distress * CXR improved on 08/22 (7) Hyperglycemia: Patient with blood glucose levels in excess of 400 on 08/22 treated with insulin drip, sugars better defer to pharmacy, he is still critically ill so drip might be necessary he will not be eating today (8) Hypertension: hold BP medications as his BP is soft from bleeding (9) Hypophosphatemia: resolved K is stable (10) Hyperkalemia: down to 5.3 today insulin will continue to help lower Admission and Anticipated Discharge Date Admission Date: August 08, 2020 Subjective patient had a large bloody BM overnight, had an unresponsive episode, suspect this was due to vasovagal effect with large BM and blood loss Hb down to 8.0 this morning, BP is low normal 105 systolic patient agrees to two more units of blood this morning on monitor he is in NSR on the amiodarone discussed that he needs to remain NPO, will get GI evaluation for ulcer d/w RN, IV sites are old, poor condition, will get US guided IV WBC is up to 26k, K is 5.3, BUN 78, Cr is 1.0 Review of Systems Review of Systems: All systems reviewed & are unremarkable except as noted in Subjective Constitutional: + fatigue and + weakness; no fever Respiratory: + dyspnea on exertion; no dyspnea Cardiovascular: + syncope (last night); no chest pain, no palpitations and no edema Gastrointestinal: + blood in stools and + melena; no abdominal pain, no nausea, no vomiting, no constipation and no diarrhea/loose stools Physical Exam Constitutional: well developed, well nourished, + ill appearing and cooperative; no acute distress Neck: trachea midline, no thyromegaly Respiratory: + tachypneic Auscultation: lungs clear to auscultation bilaterally Cardiovascular: Rate/Rhythm: regular rate and regular rhythm Heart Sounds: normal S1 and normal S2; no murmur Extremities: normal capillary refill; no edema Gastrointestinal (Abdomen): normal bowel sounds, soft, nontender, no hepatosplenomegaly Musculoskeletal: Head/Neck/Chest: normocephalic, head atraumatic and neck supple Extremities: extremities normal to inspection and strength 5/5 throughout Skin: no rashes, warm and dry + pallor; no rashes Neurologic: patellar DTR's 2+ bilat, sensation intact and PERRL, EOMI, accommodation nl, no face palsy, no dysarthria Psychiatric: A+Ox3, euthymic affect Lymphatic: no cervical or axillary lymphadenopathy Results & Data Results & Data ([facility]) Vital Signs (Past 12 Hours) Vital Signs Temp Pulse Resp BP Pulse Ox 08/23/20 07:15 36.6 C 98 H 22 105/72 100 08/23/20 03:54 36.7 C 86 16 114/78 95 08/22/20 23:32 36.9 C 99 H 20 92/67 L 99 Laboratory Results Laboratory Results - last 24 hr 08/22/20 08/22/20 08/22/20 10:57 11:06 11:06 WBC RBC Hgb Hct MCV MCH MCHC RDW Std Deviation RDW Coeff of Macrina Plt Count MPV Absolute Nucleated RBC Nucleated RBC % (auto) Sodium 136 Potassium 5.5 H Chloride 102 Carbon Dioxide 27 Anion Gap 6.0 BUN 73 H Creatinine 1.11 Est Cr Clr Drug Dosing 65.1 Est GFR ( Amer) 75.9 Est GFR (Non-Af Amer) 65.5 BUN/Creatinine Ratio 66.1 H Glucose 310 H* POC Glucose 406 H* Calcium 8.8 Beta-Hydroxybutyric Acd 1.72 Stool Occult Bld Scrn Blood Type O Positive Antibody Screen NEGATIVE Crossmatch See Detail 08/22/20 08/22/20 08/22/20 11:06 11:35 12:57 WBC RBC Hgb 10.5 L Hct 32.0 L MCV MCH MCHC RDW Std Deviation RDW Coeff of Macrina Plt Count MPV Absolute Nucleated RBC Nucleated RBC % (auto) Sodium Potassium Chloride Carbon Dioxide Anion Gap BUN Creatinine Est Cr Clr Drug Dosing Est GFR ( Amer) Est GFR (Non-Af Amer) BUN/Creatinine Ratio Glucose POC Glucose 287 H Calcium Beta-Hydroxybutyric Acd Stool Occult Bld Scrn Positive A Blood Type Antibody Screen Crossmatch 08/22/20 08/22/20 08/22/20 13:46 14:42 15:50 WBC RBC Hgb Hct MCV MCH MCHC RDW Std Deviation RDW Coeff of Macrina Plt Count MPV Absolute Nucleated RBC Nucleated RBC % (auto) Sodium Potassium Chloride Carbon Dioxide Anion Gap BUN Creatinine Est Cr Clr Drug Dosing Est GFR ( Amer) Est GFR (Non-Af Amer) BUN/Creatinine Ratio Glucose POC Glucose 271 H 259 H 204 H Calcium Beta-Hydroxybutyric Acd Stool Occult Bld Scrn Blood Type Antibody Screen Crossmatch 08/22/20 08/22/20 08/22/20 16:45 17:40 17:40 WBC RBC Hgb 10.2 L Hct 30.5 L MCV MCH MCHC RDW Std Deviation RDW Coeff of Macrina Plt Count MPV Absolute Nucleated RBC Nucleated RBC % (auto) Sodium 136 Potassium 5.5 H Chloride 104 Carbon Dioxide 28 Anion Gap 4.0 BUN 69 H Creatinine 0.86 Est Cr Clr Drug Dosing 84.0 Est GFR ( Amer) 99.7 Est GFR (Non-Af Amer) 86.0 BUN/Creatinine Ratio 80.5 H Glucose 206 H POC Glucose 209 H Calcium 8.3 L Beta-Hydroxybutyric Acd Stool Occult Bld Scrn Blood Type Antibody Screen Crossmatch 08/22/20 08/22/20 08/22/20 18:09 19:20 20:14 WBC RBC Hgb Hct MCV MCH MCHC RDW Std Deviation RDW Coeff of Macrina Plt Count MPV Absolute Nucleated RBC Nucleated RBC % (auto) Sodium Potassium Chloride Carbon Dioxide Anion Gap BUN Creatinine Est Cr Clr Drug Dosing Est GFR ( Amer) Est GFR (Non-Af Amer) BUN/Creatinine Ratio Glucose POC Glucose 232 H 215 H 207 H Calcium Beta-Hydroxybutyric Acd Stool Occult Bld Scrn Blood Type Antibody Screen Crossmatch 08/22/20 08/22/20 08/22/20 21:11 22:24 23:15 WBC RBC Hgb Hct MCV MCH MCHC RDW Std Deviation RDW Coeff of Macrina Plt Count MPV Absolute Nucleated RBC Nucleated RBC % (auto) Sodium Potassium Chloride Carbon Dioxide Anion Gap BUN Creatinine Est Cr Clr Drug Dosing Est GFR ( Amer) Est GFR (Non-Af Amer) BUN/Creatinine Ratio Glucose POC Glucose 181 H 175 H 197 H Calcium Beta-Hydroxybutyric Acd Stool Occult Bld Scrn Blood Type Antibody Screen Crossmatch 08/23/20 08/23/20 08/23/20 00:14 01:50 03:48 WBC RBC Hgb Hct MCV MCH MCHC RDW Std Deviation RDW Coeff of Macrina Plt Count MPV Absolute Nucleated RBC Nucleated RBC % (auto) Sodium Potassium Chloride Carbon Dioxide Anion Gap BUN Creatinine Est Cr Clr Drug Dosing Est GFR ( Amer) Est GFR (Non-Af Amer) BUN/Creatinine Ratio Glucose POC Glucose 154 H 160 H 211 H Calcium Beta-Hydroxybutyric Acd Stool Occult Bld Scrn Blood Type Antibody Screen Crossmatch 08/23/20 08/23/20 08/23/20 04:18 05:16 05:37 WBC 26.67 H RBC 2.71 L Hgb 8.0 L Hct 24.0 L MCV 88.6 MCH 29.5 MCHC 33.3 RDW Std Deviation 45.8 RDW Coeff of Macrina 14.5 Plt Count 388 MPV 10.5 H Absolute Nucleated RBC 0.06 H Nucleated RBC % (auto) 0.2 Sodium Potassium Chloride Carbon Dioxide Anion Gap BUN Creatinine Est Cr Clr Drug Dosing Est GFR ( Amer) Est GFR (Non-Af Amer) BUN/Creatinine Ratio Glucose POC Glucose 204 H 235 H Calcium Beta-Hydroxybutyric Acd Stool Occult Bld Scrn Blood Type Antibody Screen Crossmatch 08/23/20 08/23/20 08/23/20 05:37 06:09 07:12 WBC RBC Hgb Hct MCV MCH MCHC RDW Std Deviation RDW Coeff of Macrina Plt Count MPV Absolute Nucleated RBC Nucleated RBC % (auto) Sodium 132 L Potassium 5.3 H Chloride 100 Carbon Dioxide 26 Anion Gap 6.0 BUN 78 H Creatinine 1.03 Est Cr Clr Drug Dosing 70.1 Est GFR ( Amer) 83.1 Est GFR (Non-Af Amer) 71.7 BUN/Creatinine Ratio 75.9 H Glucose 250 H POC Glucose 272 H 249 H Calcium 7.9 L Beta-Hydroxybutyric Acd Stool Occult Bld Scrn Blood Type Antibody Screen Crossmatch 08/23/20 08:06 WBC RBC Hgb Hct MCV MCH MCHC RDW Std Deviation RDW Coeff of Macrina Plt Count MPV Absolute Nucleated RBC Nucleated RBC % (auto) Sodium Potassium Chloride Carbon Dioxide Anion Gap BUN Creatinine Est Cr Clr Drug Dosing Est GFR ( Amer) Est GFR (Non-Af Amer) BUN/Creatinine Ratio Glucose POC Glucose 228 H Calcium Beta-Hydroxybutyric Acd Stool Occult Bld Scrn Blood Type Antibody Screen Crossmatch Medications Administered Current Inpatient Medications Acetaminophen (Acetaminophen 325 Mg Tab) 650 mg PO Q4H PRN PRN Reason: Pain or Fever Stop: 09/07/20 20:08 Last Admin: 08/09/20 21:14 Dose: 650 mg Documented by: Benzonatate (Benzonatate 100 Mg Capsule) 100 mg PO TID PRN PRN Reason: cough Stop: 09/07/20 20:08 Dextrose (Dextrose 50% 50 Ml Syringe) 25 - 50 ml IV UD PRN; Protocol PRN Reason: Hypoglycemia Protocol Stop: 09/07/20 18:29 Glucagon (Glucagon For Inj 1 Mg Vial) 1 mg IM UD PRN; Protocol PRN Reason: Hypoglycemia Protocol Stop: 09/07/20 18:29 Glucose (Glucose 40% Gel 15 Gm Tube) 15 - 30 gm PO UD PRN; Protocol PRN Reason: Hypoglycemia Protocol Stop: 09/07/20 18:29 Glucose (Glucose 10 Tabs/Tube) 4 - 8 tabs PO UD PRN; Protocol PRN Reason: Hypoglycemia Protocol Stop: 09/07/20 18:29 Pantoprazole Sodium 40 mg/ (Syringe) 10 mls @ 5 mls/min IV BID NILAM Stop: 09/21/20 10:59 Last Admin: 08/22/20 21:41 Dose: 5 mls/min Documented by: Amiodarone HCl/Dextrose (Nexterone / D5w) 360 mg in 200 mls @ 16.667 mls/hr IV .Q12H NILAM Stop: 09/21/20 17:02 Last Admin: 08/23/20 04:22 Dose: 0.5 mg/min, 16.7 mls/hr Documented by: Insulin Human Regular 250 (units/ Sodium Chloride) 250 mls @ 6.9 mls/hr IV .Q24H NILAM; Protocol Stop: 09/21/20 11:29 Last Titration: 08/23/20 06:13 Dose: 6.9 units/hr, 6.9 mls/hr Documented by: Sodium Chloride (Nss) 250 mls @ 15 mls/hr IV .[id number] PRN PRN Reason: For Transfusion Stop: 08/23/20 18:28 Insulin Aspart (Insulin Aspart 100 Units/Ml 3 Ml Pen) 0 units SC ACHS [facility] Stop: 09/21/20 11:59 Last Admin: 08/22/20 21:55 Dose: Not Given Documented by: Insulin Glargine (Insulin Glargine Solostar 100 Units/Ml 3 Ml Pen) 10 units SC HS NILAM Stop: 09/21/20 20:59 Last Admin: 08/22/20 21:53 Dose: 10 units Documented by: Insulin Human NPH (Insulin Human Nph) 45 units SC DAILY@0800 [facility] Stop: 09/22/20 08:29 Melatonin (Melatonin 3 Mg Tab) 3 mg PO HS PRN PRN Reason: Sleep Stop: 09/11/20 00:10 Last Admin: 08/12/20 21:40 Dose: 3 mg Documented by: Metoprolol Tartrate (Metoprolol Tartrate 25 Mg Tab) 25 mg PO BID [facility] Stop: 09/21/20 08:59 Last Admin: 08/23/20 07:57 Dose: 25 mg Documented by: Miscellaneous (Carbohydrates For Hypoglycemia ) 15 - 30 gm PO PRN PRN PRN Reason: Hypoglycemia Treatment Stop: 09/07/20 18:29 Miscellaneous Information (Pharmacy Glycemic Mgmt Consult) 1 ea N/A UD PRN PRN Reason: Consult Stop: 09/07/20 20:21 Montelukast Sodium (Montelukast Sodium 10 Mg Tablet) 10 mg PO HS [facility] Stop: 09/19/20 20:59 Last Admin: 08/22/20 21:41 Dose: 10 mg Documented by: Multivitamins (Multivitamin Tab) 1 tab PO DAILY [facility] Stop: 09/08/20 08:59 Last Admin: 08/23/20 07:57 Dose: 1 tab Documented by: Ondansetron HCl (Ondansetron Inj 2 Mg/Ml 2 Ml Vial) 4 mg IV Q6H PRN PRN Reason: Nausea Stop: 09/07/20 20:08 Prednisone (Prednisone 20 Mg Tab) 20 mg PO DAILY [facility] Stop: 09/22/20 08:59 Last Admin: 08/23/20 07:57 Dose: 20 mg Documented by: PG Care Time/CCT Total # of Minutes Spent Total Time Spent with Patient: Total time spent is greater than 50% in coordination of care (as documented) at patient's floor/unit and/or counseling patient: Coding Level of Care Code 37262 Subseq Hosp Care Lvl 3 Diagnoses GI bleed K92.2 Acute blood loss anemia D62 Atrial fibrillation with rapid ventricular response I48.91 COVID-19 virus infection U07.1 Hypoxia R09.02 Pneumonia J18.9 Laterality: unspecified laterality Lung location: unspecified part of lung Pneumonia type: due to unspecified organism Hyperglycemia R73.9 Hypertension I10 Hypophosphatemia E83.39 Hyperkalemia E87.5 (1) Pneumonia Laterality: unspecified laterality Lung location: unspecified part of lung Pneumonia type: due to unspecified organism Qualified Code(s): J18.9 - Pneumonia, unspecified organism
--- NOTE | 2020-08-23 10:02 | Pharmacy Report ---
Pharmacy Glycemic Short Note 2 - Date of Service August 23, 2020 - Glycemic Short BSG Results (Last 24 hours): 08/22/20 08/22/20 08/22/20 10:57 11:06 12:57 Glucose 310 H* POC Glucose 406 H* 287 H 08/22/20 08/22/20 08/22/20 13:46 14:42 15:50 Glucose POC Glucose 271 H 259 H 204 H 08/22/20 08/22/20 08/22/20 16:45 17:40 18:09 Glucose 206 H POC Glucose 209 H 232 H 08/22/20 08/22/20 08/22/20 19:20 20:14 21:11 Glucose POC Glucose 215 H 207 H 181 H 08/22/20 08/22/20 08/23/20 22:24 23:15 00:14 Glucose POC Glucose 175 H 197 H 154 H 08/23/20 08/23/20 08/23/20 01:50 03:48 04:18 Glucose POC Glucose 160 H 211 H 204 H 08/23/20 08/23/20 08/23/20 05:16 05:37 06:09 Glucose 250 H POC Glucose 235 H 272 H 08/23/20 08/23/20 08/23/20 07:12 08:06 09:18 Glucose POC Glucose 249 H 228 H 205 H OUTPATIENT ANTIDIABETIC REGIMEN: * None ASSESSMENT: 08/23 * BSG's still elevated while on insulin drip, and insulin drip rate is up to 6.9 units/hr this AM. However, anticipate increased insulin sensitivity with tapering prednisone this AM * NPH dose not admin in AM, but over the AM, insulin drip has decreased - will decrease NPH to 0.4 units/kg * Still unclear as to why insulin requirements abruptly increased, but possibly increased physiologic stress from GIB. * May or may not be able to transition off insulin drip today, but given trend down in BSG's persisting despite insulin drip on hold, will likely be able to transition off later today * Will loosen CHO ratio 2nd steroid taper 08/22 * Patient received total of 123 units of insulin yesterday, of which 63 were basal * BSGs well controlled, except trending up at HS time and overnight. Fasting elevated at 335 mg/dL - given IV bolus. Spoke with provider and patient also tachycardic. Will trial IV insulin before starting insulin drip * Unclear hyperglycemia as patient has been relatively stable, continues on prednisone 40 PLAN FOR INPATIENT GLYCEMIC CONTROL: * Continue insulin drip * Basal insulin: * NPH 35 units SQ x1 this AM * Lantus 0-20 units SQ HS, depending on insulin drip rate * Bolus insulin: * NovoLog per scale ACHS * Nutritional / Prandial insulin per carb ratio of 1 unit per 7 grams CHO consumed AC
--- NOTE | 2020-08-23 10:19 | Gastrointestinal Consultation ---
Date of Consultation August 23, 2020 Assessment & Plan (1) Acute blood loss anemia: Melena and anemia in the setting of recent steroid & NSAID use due to COVID19 infection. -Protonix 40 mg IV BID. -Carafate 1 gm four times daily before meals and at bedtime. -Monitor H/H & monitor for further active bleeding throughout the day. -Will hold off on endoscopic evaluation due to O2 requirements & pneumonia due to recent COVID19 infection at present, though if patient continues to bleed wou ld reassess that plan. Please keep NPO after midnight in case of further bleeding. Thank you for allowing us to participate in the care of this patient. If you have further questions or concerns, do not hesitate to contact us at [phone] or [phone]. Supervising Physician Co-Signing Physician Notes I personally evaluated the patient and agree with the findings as documented by Yaneth Bryson, PAC Exam: abd: soft, nt, nd PPI BID, continue to monitor for now, likely developed an ulcer from recent course of steroids. History of Present Illness Reason for Consultation: GI bleed Attending Physician: Korey Reid DO History of Present Illness Patient is a 75 yo male with recent diangosis on 07/30 of COVID19. The patient is hospitalized due to COVID19 infection with pneumonia and worsening hypoxia, however GI has been consulted for anemia. The patient had a large, bloody bowel movement on 08/22/20. Per nursing documentation and nursing reports, he appears to have tarry stool. His H/H is present 8.0/24.0. Previously Hemoglobin was 13. During his recent treatment for COVID19 he was treated with steroids. No current uncontrolled GI bleeding. He is to be transfused 2 units PRBCs. He is on 5L of O2 at present. I do not have records of any previous endoscopies but he notes that these occurred by Dr. Cruz in [place]. No history of GI bleeding in the past. Allergies Allergy/AdvReac Type Severity Reaction Status Date / Time No Known Allergies Allergy Unverified 08/08/20 14:50 Home Medications Medication Instructions Recorded Confirmed Type amlodipine 5 mg PO DAILY 07/30/20 08/08/20 History cholecalciferol (vitamin D3) 0 mcg PO DAILY 07/30/20 08/08/20 History losartan 50 mg PO DAILY 07/30/20 08/08/20 History multivitamin 1 tab PO DAILY 07/30/20 08/08/20 History dexamethasone [Decadron] 6 mg PO DAILY #7 tab 08/01/20 08/08/20 Rx benzonatate [Tessalon Perles] 100 mg PO TID PRN #15 cap 08/05/20 08/08/20 Rx doxycycline hyclate 100 mg PO BID 7 Days #14 tab 08/05/20 08/08/20 Rx ondansetron HCl [Zofran] 4 mg PO TID PRN 5 Days #15 tab 08/05/20 08/08/20 Rx Patient History Medical History Hypertension Social History Smoking Status: Never smoker Tobacco Type: Cigarettes Second Hand Exposure: No; Hx Alcohol Use: No Hx Substance Use: No Preferred Language: Pashto Communication Ability: Effective 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 Beliefs That Will Affect Care: None Current Living Situation: Spouse Feels Safe at Home: Yes Assistive Devices: Oxygen - Continuous Review of Systems Constitutional: no fever and no chills Respiratory: + cough, + dyspnea and + dyspnea on exertion Cardiovascular: no chest pain Gastrointestinal: + melena; no abdominal pain Integumentary: no rash Psychiatric: no problem reported Hematologic / Lymphatic: no easy bleeding Physical Exam Constitutional: well developed Eyes: PERRL, conjunctivae normal, anicteric sclerae Neck: normal visual inspection Respiratory: normal respiratory effort Cardiovascular: Extremities: no edema Gastrointestinal (Abdomen): Inspection/Auscultation: abdomen normal to inspection Musculoskeletal: Head/Neck/Chest: normocephalic Skin: no rashes, warm and dry Psychiatric: A+Ox3, euthymic affect Results & Data ([facility]) Vital Signs (Past 12 Hours) Vital Signs Temp Pulse Pulse Resp BP Pulse Ox 08/23/20 08:00 91 H 08/23/20 07:15 36.6 C 98 H 22 105/72 100 08/23/20 03:54 36.7 C 86 16 114/78 95 08/22/20 23:32 36.9 C 99 H 20 92/67 L 99 PG Care Time/CCT Total # of Minutes Spent Total Time Spent with Patient: Total time spent is greater than 50% in coordination of care (as documented) at patient's floor/unit and/or counseling patient: Coding Level of Care Code 45412 Initial Inpt Care Lvl 3 Diagnoses Acute blood loss anemia D62
[2020-08-23] MEDS ORDERED: INSULIN HUMAN NPH SC STA (11:21)
[2020-08-23] MEDS: SUCRALFATE 1 GM/10 ML UDC PO SCH ×3 (12:05→21:08)
[2020-08-23 18:37] LABS: Hematocrit (blood only) 29.3 % (42-52); Hemoglobin 10.3 g/dL (14.0-18.0); Mean Corpuscular Hemoglobin 30.1 pg (25-34); Mean Corpuscular Hgb Conc 35.2 g/dL (32-36); Mean Corpuscular Volume 85.7 fL (80-100); Nucleated RBC # (auto) 0.37 K/uL (0-0); Nucleated RBC % (auto) 1.4 %; Platelet Count 309 K/uL (130-400); RDW Standard Deviation 42.7 fL (36.4-46.3); Red Blood Count 3.42 M/uL (4.7-6.1); White Blood Count 26.58 K/uL (4.8-10.8)
[2020-08-23 18:47] LABS: BUN Creatinine Ratio 73.1 (10-20); Creatinine Clr Calc Pharmacy 68.1 ml/min; Est GFR (African American) 80.3; Est GFR (Non-African American) 69.3; Potassium 4.7 mmol/L (3.5-5.1)
[2020-08-23] MEDS: INSULIN REGULAR 250 UNITS in SODIUM CHLORIDE 0.9% 247.5 ML IV SCH (19:40)
[2020-08-23 20:19] LABS: Basophils # (auto) 0.03 K/uL (0-0.2); Basophils % (auto) 0.1 %; Eosinophils # (auto) 0.01 K/uL (0-0.5); Immature Granulocytes # (auto) 0.55 K/uL (0.00-0.02); Immature Granulocytes % (auto) 2.1 %; Lymphocytes # (auto) 2.79 K/uL (1.2-3.4); Lymphocytes % (auto) 10.5 %; Monocytes # (auto) 1.91 K/uL (0.11-0.59); Monocytes % (auto) 7.2 %; Neutrophils # (auto) 21.29 K/uL (1.4-6.5); Neutrophils % (auto) 80.1 %; Polychromasia 1+
[2020-08-23] MEDS: MONTELUKAST SODIUM 10 MG TABLET PO SCH (21:08)
[2020-08-23] MEDS: INSULIN GLARGINE SOLOSTAR 100 UNITS/ML 3 ML PEN SC SCH (21:23)
[2020-08-24] MEDS: AMIODARONE / D5W 360 MG/200 ML BAG IV SCH (03:04)
[2020-08-24] MEDS ORDERED: INSULIN ASPART 100 UNITS/ML 3 ML PEN SC SCH ×2 (06:00)
[2020-08-24] MEDS: MULTIVITAMIN TAB PO SCH (07:51)
[2020-08-24] MEDS: predniSONE 20 MG TAB PO SCH (07:51)
[2020-08-24] MEDS: METOPROLOL TARTRATE 25 MG TAB PO SCH ×2 (07:51→21:11)
[2020-08-24] MEDS: PANTOprazole 40 MG in SYRINGE 0 ML IV SCH ×2 (07:51→21:11)
[2020-08-24] MEDS: SUCRALFATE 1 GM/10 ML UDC PO SCH ×4 (07:52→21:11)
[2020-08-24 08:20] LABS: Hematocrit (blood only) 27.5 % (42-52); Hemoglobin 9.6 g/dL (14.0-18.0); Mean Corpuscular Hemoglobin 30.2 pg (25-34); Mean Corpuscular Hgb Conc 34.9 g/dL (32-36); Mean Corpuscular Volume 86.5 fL (80-100); Nucleated RBC # (auto) 0.91 K/uL (0-0); Nucleated RBC % (auto) 3.7 %; Platelet Count 342 K/uL (130-400); RDW Coefficient of Variation 14.5 % (11.5-14.5); RDW Standard Deviation 44.6 fL (36.4-46.3); Red Blood Count 3.18 M/uL (4.7-6.1); White Blood Count 24.52 K/uL (4.8-10.8)
[2020-08-24 08:50] LABS: Albumin Level 2.1 gm/dl (3.4-5.0); BUN Creatinine Ratio 61.3 (10-20); Calcium 8.2 mg/dl (8.5-10.1); Creatinine Clr Calc Pharmacy 69.4 ml/min; Est GFR (African American) 82.2; Est GFR (Non-African American) 70.9; Potassium 4.4 mmol/L (3.5-5.1)
[2020-08-24 08:53] LABS: Albumin Globulin Ratio 0.7 (0.9-2); Bilirubin,Total 0.4 mg/dl (0.2-1); Total Protein 5.1 gm/dl (6.4-8.2)
[2020-08-24] MEDS: INSULIN ASPART 100 UNITS/ML 3 ML PEN SC SCH ×2 (13:15→17:42)
[2020-08-24] MEDS ORDERED: OPTIRAY 320 125ml IV ONE (13:46)
--- NOTE | 2020-08-24 14:01 | Pharmacy Report ---
Pharmacy Glycemic Short Note 2 - Date of Service August 24, 2020 - Glycemic Short BSG Results (Last 24 hours): 08/23/20 08/23/20 08/23/20 14:48 15:37 16:34 Glucose POC Glucose 139 H 139 H 144 H 08/23/20 08/23/20 08/23/20 17:26 18:18 18:37 Glucose 127 H POC Glucose 132 H 131 H 08/23/20 08/23/20 08/23/20 19:30 20:21 20:50 Glucose POC Glucose 132 H 102 H 115 H 08/23/20 08/23/20 08/23/20 21:05 21:16 21:34 Glucose POC Glucose 111 H 104 H 107 H 08/24/20 08/24/20 08/24/20 00:24 06:13 07:53 Glucose 86 POC Glucose 86 92 08/24/20 13:31 Glucose POC Glucose 150 H OUTPATIENT ANTIDIABETIC REGIMEN: * None ASSESSMENT: 08/24 * Patient transitioned off insulin drip last evening - received 10 units of basal last night * Fasting 92 mg/dL - patient NPO this AM for possible EGD * Held AM basal. Lunch BSG 150 mg/dL - will add scale for basal at HS as patient continues NPO today * Insulin requirements significantly reducing over last couple of days, unclear for reasoning of hyperglycemia a few days ago. Continues on prednisone 20 mg daily * A1c of ~10% - likely patient needing basal insulin even if NPO / added for HS time 08/23 * BSG's still elevated while on insulin drip, and insulin drip rate is up to 6.9 units/hr this AM. However, anticipate increased insulin sensitivity with tapering prednisone this AM * NPH dose not admin in AM, but over the AM, insulin drip has decreased - will decrease NPH to 0.4 units/kg * Still unclear as to why insulin requirements abruptly increased, but possibly increased physiologic stress from GIB. * May or may not be able to transition off insulin drip today, but given trend down in BSG's persisting despite insulin drip on hold, will likely be able to transition off later today * Will loosen CHO ratio 2nd steroid taper 08/22 * Patient received total of 123 units of insulin yesterday, of which 63 were basal * BSGs well controlled, except trending up at HS time and overnight. Fasting elevated at 335 mg/dL - given IV bolus. Spoke with provider and patient also tachycardic. Will trial IV insulin before starting insulin drip * Unclear hyperglycemia as patient has been relatively stable, continues on prednisone 40 PLAN FOR INPATIENT GLYCEMIC CONTROL: * Basal insulin: * Lantus 10-20 units HS depending on BSG value * Bolus insulin: * NovoLog per scale ACHS * 110-140 goal range * CF - 25 / CR of 7
--- NOTE | 2020-08-24 14:09 | CT Scan Report ---
CT ANGIOGRAM OF THE CHEST CLINICAL HISTORY: Atypical chest pain. COMPARISON STUDY: Chest CT dated 08/08/2020. Chest x-ray dated 08/23/2020. TECHNIQUE: Following the IV administration of 120 cc of Optiray 320, CT angiogram of the chest was pe rformed from the upper abdomen to the thoracic inlet utilizing the pulmonary embolus protocol. Images are reviewed in the axial, sagittal, and coronal planes. 3-D MIPS images are created and assessed. I V contrast was administered without complication. A dose lowering technique was utilized adhering to the principles of ALARA. CT DOSE: 510.57 mGycm FINDINGS: Thyroid: Imaged portions of the thyroid gland are normal in size and attenuation. Thoracic aorta: The thoracic aorta is normal in caliber and demonstrates standard 3-vessel arch anato my. No dissection is seen. Pulmonary vasculature: The pulmonary trunk is normal in caliber. There are no filling defects identif ied in main, lobar, or segmental pulmonary branches to suggest pulmonary embolus. Evaluation of the p eripheral branches is degraded by motion artifact. Heart: The heart is mildly enlarged and without pericardial effusion. Lungs and pleural spaces: Evaluation of the lung parenchyma is degraded by motion artifact. Patchy co nsolidative changes seen throughout both lungs, most confluent at the lung bases. No pleural effusion is identified. Trace pneumothorax is seen at the right apex. No pneumothorax is seen on the left. Th e trachea and central airways are clear. There are scattered calcified granulomas. Mediastinum: There is extensive pneumomediastinum which extends into the lower neck. Mildly enlarged mediastinal lymph nodes measure up to 12 mm in short axis. Anastasiia: Mildly enlarged hilar nodes measure up to 13 mm in short axis. Axillae: There is no axillary lymphadenopathy. Upper abdomen: There is a small hiatal hernia. Partially visualized upper abdominal viscera is otherw ise grossly unremarkable. Skeletal structures: The skeletal structures are osteopenic. Degenerative change and hyperkyphosis ar e noted in the thoracic spine. No lytic or blastic bony lesions are seen. Soft tissues: Subcutaneous emphysema is seen in the lower neck. IMPRESSION: 1. There is no evidence of pulmonary embolus in the main, lobar, or segmental pulmonary arteries. 2. There is diffuse/multifocal airspace consolidation seen throughout both lungs typical for an infec tious pneumonitis. Radiographic follow-up to resolution is recommended. 3. There is extensive pneumomediastinum, as well as subcutaneous emphysema present in the lower neck. 4. Trace right apical pneumothorax. 5. Mildly enlarged mediastinal and hilar lymph nodes are likely on a reactive basis. 6. Additional findings as above. ACT 112: Negative or not required by law. Electronically signed by: Joseph Hdez M.D. 08/24/2020 2:08 PM
--- NOTE | 2020-08-24 16:33 | Hospitalist Progress Note ---
Date of Service August 24, 2020 Assessment & Plan (1) GI bleed: presented itself on 08/22, BUN up dramatically into the 70's, had a dark, melanotic stool 08/22 then had a large bloody BM and vasovagal episode on 08/23 Hb is up to 9.6 from a low of 8.0 s/p three units of PRBC, no indication for transfusion today continue Protonix IV BID clear liquid diet, ask GI about advancing tomorrow consult GI, no plans for EGD at this time respiratory status is much improved, breathing comfortably on 5L, lungs clear (2) Acute blood loss anemia: Hb down to 8.0 08/23, this is after one unit of PRBC on 08/22 now Hb is up to 9.6 after two additional units on 08/23 no signs of bleeding, repeat H/H in the morning (3) Pneumomediastinum: new finding on CXR on 08/[address] chest today, large pneumomediastinum with air into the neck small apical right PTX will give high FiO2 AVOID high flow and/or BIPAP no intervention needed (4) Atrial fibrillation with rapid ventricular response: had brief runs of afib three weeks ago that resolved with Diltiazem with afib RVR morning of 08/22, suspect it is being driven by acute blood loss, low normal blood pressure, hypovolemia treated with Amiodarone bolus and drip due to low BP he converted to NSR, will discontinue the Amiodarone at noon today, monitor on tele (5) COVID-19 virus infection: During initial admission on 07/30, the patient did extremely well and did not require supplemental oxygen. The patient has completed entire course of de xamethasone at home. Unfortunately, the patient presented back with new hypoxia as well as CT findings concerning for COVID-19 pneumonia. * placed on HFNC on 08/11, transiently on wall supplied high flow, down to 5L NC today * CXR 08/22 with improved aeration, actually recovering from COVID, likely that the blood loss and afib RVR making him feel worse past two days * Encourage incentive spirometry and flutter valves as tolerated. * no role for Remdesivir or plasma at this time, too far along into illness when admitted * completed prolonged course of Decadron, now on Prednisone 20mg daily for taper * NPO now with GI bleeding (6) Hypoxia: * acute hypoxic respiratory failure due to viral pneumonia, possible bacterial infection? * titrated up slightly to 6L oxymask * Aggressive pulmonary toilet to include incentive spirometry and flutter valve. * Please see COVID-19 virus and pneumonia sections. * CXR 08/22 showed improved aeration (7) Pneumonia: * must consider secondary infections in the setting of COVID-19 pneumonia. Initially received Rocephin and azithromycin in the emergency department. Patient previously on doxycycline in the outpatient. * completed 7-day course of Rocephin 08/16 * resumed Decadron 6mg IV daily as pneumonia likely residual viral etiology, did continue until 08/18, started po prednisone 40 mg 08/19 * MRSA swab negative * back on wall high flow, 10L mask but no distress * CXR improved on 08/22 (8) Hyperglycemia: Patient with blood glucose levels in excess of 400 on 08/22 treated with insulin drip, sugars better defer to pharmacy, using basal bolus insulin, sugars stable (9) Hypertension: hold BP medications as his BP is soft from bleeding (10) Hypophosphatemia: resolved K is stable (11) Hyperkalemia: down to 5.3 today insulin will continue to help lower Admission and Anticipated Discharge Date Admission Date: August 08, 2020 Subjective patient was feeling good this morning, then he felt really short of breath and desaturated to the 80's while OOB in a chair got him back to bed, felt a little better reviewed the CXR from last night, he has evidence of pneumomediastium CT chest ordered, this shows the pneumomediastinum, small right apical PTX, no PE, still with pneumonia changes discussed with Dr. Todd, treat with oxygen, avoid High Flow and/or BIPAP as pressure would make this worse Hb is up to 9.6, no evidence of further bleeding, no melena, no bowel movements all day BP and HR are stable, converted to sinus rhythm he is drinking liquids he wants to know if his family can bring him in [employer] tomorrow, I told him I would have to check with GI on diet Cr and electrolytes are stable WBC continues to be high at 26, unclear etiology, no fever, does not have diarrhea which makes C diff unlikely Review of Systems Review of Systems: All systems reviewed & are unremarkable except as noted in Subjective Constitutional: + fatigue and + weakness; no fever Respiratory: + dyspnea and + dyspnea on exertion; no cough and no wheezing Cardiovascular: no chest pain, no palpitations and no edema Gastrointestinal: no abdominal pain, no nausea, no vomiting, no constipation, no diarrhea/loose stools, no blood in stools and no melena Physical Exam Constitutional: well developed, well nourished, + ill appearing and cooperative; no acute distress Neck: trachea midline, no thyromegaly Respiratory: + tachypneic Auscultation: lungs clear to auscultation bi laterally Cardiovascular: Rate/Rhythm: regular rate and regular rhythm Heart Sounds: normal S1 and normal S2; no murmur Extremities: normal capillary refill; no edema Gastrointestinal (Abdomen): normal bowel sounds, soft, nontender, no hepatosplenomegaly Musculoskeletal: Head/Neck/Chest: normocephalic, head atraumatic and neck supple Extremities: extremities normal to inspection and strength 5/5 throughout Skin: no rashes, warm and dry Neurologic: patellar DTR's 2+ bilat, sensation intact and PERRL, EOMI, accommodation nl, no face palsy, no dysarthria Psychiatric: A+Ox3, euthymic affect Lymphatic: no cervical or axillary lymphadenopathy Results & Data Results & Data ([facility]) Vital Signs (Past 12 Hours) Vital Signs Temp Pulse Resp BP Pulse Ox 08/24/20 11:51 36.6 C 75 20 135/73 95 08/24/20 07:21 36.7 C 88 18 142/79 H 94 Laboratory Results Laboratory Results - last 24 hr 08/22/20 08/23/20 08/23/20 11:06 16:34 17:26 WBC RBC Hgb Hct MCV MCH MCHC RDW Std Deviation RDW Coeff of Macrina Plt Count MPV Immature Gran % (Auto) Neut % (Auto) Lymph % (Auto) [place] % (Auto) Eos % (Auto) Baso % (Auto) Neut # (Auto) Lymph # (Auto) [place] # (Auto) Eos # (Auto) Baso # (Auto) Immature Gran # (Auto) Absolute Nucleated RBC Nucleated RBC % (auto) Polychromasia Sodium Potassium Chloride Carbon Dioxide Anion Gap BUN Creatinine Est Cr Clr Drug Dosing Est GFR ( Amer) Est GFR (Non-Af Amer) BUN/Creatinine Ratio Glucose POC Glucose 144 H 132 H Calcium Total Bilirubin AST ALT Alkaline Phosphatase Total Protein Albumin Globulin Albumin/Globulin Ratio Crossmatch See Detail 08/23/20 08/23/20 08/23/20 18:18 18:18 18:37 WBC 26.58 H RBC 3.42 L Hgb 10.3 L Hct 29.3 L MCV 85.7 MCH 30.1 MCHC 35.2 RDW Std Deviation 42.7 RDW Coeff of Macrina 14.0 Plt Count 309 MPV 10.0 Immature Gran % (Auto) 2.1 Neut % (Auto) 80.1 Lymph % (Auto) 10.5 [place] % (Auto) 7.2 Eos % (Auto) 0.0 Baso % (Auto) 0.1 Neut # (Auto) 21.29 H Lymph # (Auto) 2.79 [place] # (Auto) 1.91 H Eos # (Auto) 0.01 Baso # (Auto) 0.03 Immature Gran # (Auto) 0.55 H Absolute Nucleated RBC 0.37 H Nucleated RBC % (auto) 1.4 Polychromasia 1+ Sodium 134 L Potassium 4.7 Chloride 101 Carbon Dioxide 27 Anion Gap 6.0 BUN 78 H Creatinine 1.06 Est Cr Clr Drug Dosing 68.1 Est GFR ( Amer) 80.3 Est GFR (Non-Af Amer) 69.3 BUN/Creatinine Ratio 73.1 H Glucose 127 H POC Glucose 131 H Calcium 8.0 L Total Bilirubin AST ALT Alkaline Phosphatase Total Protein Albumin Globulin Albumin/Globulin Ratio Crossmatch 08/23/20 08/23/20 08/23/20 19:30 20:21 20:50 WBC RBC Hgb Hct MCV MCH MCHC RDW Std Deviation RDW Coeff of Macrina Plt Count MPV Immature Gran % (Auto) Neut % (Auto) Lymph % (Auto) [place] % (Auto) Eos % (Auto) Baso % (Auto) Neut # (Auto) Lymph # (Auto) [place] # (Auto) Eos # (Auto) Baso # (Auto) Immature Gran # (Auto) Absolute Nucleated RBC Nucleated RBC % (auto) Polychromasia Sodium Potassium Chloride Carbon Dioxide Anion Gap BUN Creatinine Est Cr Clr Drug Dosing Est GFR ( Amer) Est GFR (Non-Af Amer) BUN/Creatinine Ratio Glucose POC Glucose 132 H 102 H 115 H Calcium Total Bilirubin AST ALT Alkaline Phosphatase Total Protein Albumin Globulin Albumin/Globulin Ratio Crossmatch 08/23/20 08/23/20 08/23/20 21:05 21:16 21:34 WBC RBC Hgb Hct MCV MCH MCHC RDW Std Deviation RDW Coeff of Macrina Plt Count MPV Immature Gran % (Auto) Neut % (Auto) Lymph % (Auto) [place] % (Auto) Eos % (Auto) Baso % (Auto) Neut # (Auto) Lymph # (Auto) [place] # (Auto) Eos # (Auto) Baso # (Auto) Immature Gran # (Auto) Absolute Nucleated RBC Nucleated RBC % (auto) Polychromasia Sodium Potassium Chloride Carbon Dioxide Anion Gap BUN Creatinine Est Cr Clr Drug Dosing Est GFR ( Amer) Est GFR (Non-Af Amer) BUN/Creatinine Ratio Glucose POC Glucose 111 H 104 H 107 H Calcium Total Bilirubin AST ALT Alkaline Phosphatase Total Protein Albumin Globulin Albumin/Globulin Ratio Crossmatch 08/24/20 08/24/20 08/24/20 00:24 06:13 07:53 WBC 24.52 H RBC 3.18 L Hgb 9.6 L Hct 27.5 L MCV 86.5 MCH 30.2 MCHC 34.9 RDW Std Deviation 44.6 RDW Coeff of Macrina 14.5 Plt Count 342 MPV 10.0 Immature Gran % (Auto) Neut % (Auto) Lymph % (Auto) [place] % (Auto) Eos % (Auto) Baso % (Auto) Neut # (Auto) Lymph # (Auto) [place] # (Auto) Eos # (Auto) Baso # (Auto) Immature Gran # (Auto) Absolute Nucleated RBC 0.91 H Nucleated RBC % (auto) 3.7 Polychromasia Sodium Potassium Chloride Carbon Dioxide Anion Gap BUN Creatinine Est Cr Clr Drug Dosing Est GFR ( Amer) Est GFR (Non-Af Amer) BUN/Creatinine Ratio Glucose POC Glucose 86 92 Calcium Total Bilirubin AST ALT Alkaline Phosphatase Total Protein Albumin Globulin Albumin/Globulin Ratio Crossmatch 08/24/20 08/24/20 07:53 13:31 WBC RBC Hgb Hct MCV MCH MCHC RDW Std Deviation RDW Coeff of Macrina Plt Count MPV Immature Gran % (Auto) Neut % (Auto) Lymph % (Auto) [place] % (Auto) Eos % (Auto) Baso % (Auto) Neut # (Auto) Lymph # (Auto) [place] # (Auto) Eos # (Auto) Baso # (Auto) Immature Gran # (Auto) Absolute Nucleated RBC Nucleated RBC % (auto) Polychromasia Sodium 134 L Potassium 4.4 Chloride 101 Carbon Dioxide 27 Anion Gap 6.0 BUN 64 H Creatinine 1.04 Est Cr Clr Drug Dosing 69.4 Est GFR ( Amer) 82.2 Est GFR (Non-Af Amer) 70.9 BUN/Creatinine Ratio 61.3 H Glucose 86 POC Glucose 150 H Calcium 8.2 L Total Bilirubin 0.4 AST 15 ALT 36 Alkaline Phosphatase 48 Total Protein 5.1 L Albumin 2.1 L Globulin 3.0 Albumin/Globulin Ratio 0.7 L Crossmatch Diagnostic Findings CTA chest IMPRESSION: 1. There is no evidence of pulmonary embolus in the main, lobar, or segmental pulmonary arteries. 2. There is diffuse/multifocal airspace consolidation seen throughout both lungs typical for an infectious pneumonitis. Radiographic follow-up to resolution is recommended. 3. There is extensive pneumomediastinum, as well as subcutaneous emphysema present in the lower neck. 4. Trace right apical pneumothorax. 5. Mildly enlarged mediastinal and hilar lymph nodes are likely on a reactive basis. Medications Administered Current Inpatient Medications Acetaminophen (Acetaminophen 325 Mg Tab) 650 mg PO Q4H PRN PRN Reason: Pain or Fever Stop: 09/07/20 20:08 Last Admin: 08/09/20 21:14 Dose: 650 mg Documented by: Benzonatate (Benzonatate 100 Mg Capsule) 100 mg PO TID PRN PRN Reason: cough Stop: 09/07/20 20:08 Dextrose (Dextrose 50% 50 Ml Syringe) 25 - 50 ml IV UD PRN; Protocol PRN Reason: Hypoglycemia Protocol Stop: 09/07/20 18:29 Glucagon (Glucagon For Inj 1 Mg Vial) 1 mg IM UD PRN; Protocol PRN Reason: Hypoglycemia Protocol Stop: 09/07/20 18:29 Glucose (Glucose 40% Gel 15 Gm Tube) 15 - 30 gm PO UD PRN; Protocol PRN Reason: Hypoglycemia Protocol Stop: 09/07/20 18:29 Glucose (Glucose 10 Tabs/Tube) 4 - 8 tabs PO UD PRN; Protocol PRN Reason: Hypoglycemia Protocol Stop: 09/07/20 18:29 Pantoprazole Sodium 40 mg/ (Syringe) 10 mls @ 5 mls/min IV BID NILAM Stop: 09/21/20 10:59 Last Admin: 08/24/20 07:51 Dose: 5 mls/min Documented by: Insulin Aspart (Insulin Aspart 100 Units/Ml 3 Ml Pen) 0 units SC Q6 [facility] Stop: 09/23/20 11:59 Last Admin: 08/24/20 13:15 Dose: 1 units Documented by: Insulin Glargine (Insulin Glargine Solostar 100 Units/Ml 3 Ml Pen) 0 units SC HS [facility]; Protocol Stop: 09/22/20 20:59 Last Admin: 08/23/20 21:23 Dose: 10 units Documented by: Melatonin (Melatonin 3 Mg Tab) 3 mg PO HS PRN PRN Reason: Sleep Stop: 09/11/20 00:10 Last Admin: 08/12/20 21:40 Dose: 3 mg Documented by: Metoprolol Tartrate (Metoprolol Tartrate 25 Mg Tab) 25 mg PO BID [facility] Stop: 09/21/20 08:59 Last Admin: 08/24/20 07:51 Dose: 25 mg Documented by: Miscellaneous (Carbohydrates For Hypoglycemia ) 15 - 30 gm PO PRN PRN PRN Reason: Hypoglycemia Treatment Stop: 09/07/20 18:29 Miscellaneous Information (Pharmacy Glycemic Mgmt Consult) 1 ea N/A UD PRN PRN Reason: Consult Stop: 09/07/20 20:21 Montelukast Sodium (Montelukast Sodium 10 Mg Tablet) 10 mg PO HS [facility] Stop: 09/19/20 20:59 Last Admin: 08/23/20 21:08 Dose: 10 mg Documented by: Multivitamins (Multivitamin Tab) 1 tab PO DAILY [facility] Stop: 09/08/20 08:59 Last Admin: 08/24/20 07:51 Dose: 1 tab Documented by: Ondansetron HCl (Ondansetron Inj 2 Mg/Ml 2 Ml Vial) 4 mg IV Q6H PRN PRN Reason: Nausea Stop: 09/07/20 20:08 Prednisone (Prednisone 10 Mg Tablet) 10 mg PO DAILY [facility] Stop: 09/24/20 08:59 Sucralfate (Sucralfate 1 Gm/10 Ml Udc) 1 gm PO ACHS [facility] Stop: 09/22/20 11:29 Last Admin: 08/24/20 12:00 Dose: 1 gm Documented by: PG Care Time/CCT Total # of Minutes Spent Total Time Spent with Patient: Total time spent is greater than 50% in coordination of care (as documented) at patient's floor/unit and/or counseling patient: Coding Level of Care Code 90312 Subseq Hosp Care Lvl 3 Diagnoses GI bleed K92.2 Acute blood loss anemia D62 Pneumomediastinum J98.2 Atrial fibrillation with rapid ventricular response I48.91 COVID-19 virus infection U07.1 Hypoxia R09.02 Pneumonia J18.9 Laterality: unspecified laterality Lung location: unspecified part of lung Pneumonia type: due to unspecified organism Hyperglycemia R73.9 Hypertension I10 Hypophosphatemia E83.39 Hyperkalemia E87.5 (1) Pneumonia Laterality: unspecified laterality Lung location: unspecified part of lung Pneumonia type: due to unspecified organism Qualified Code(s): J18.9 - Pneumonia, unspecified organism
[2020-08-24 17:18] LABS: Appearance Urine Clear (Clear); Bilirubin Urine Negative (Negative); Blood Urine Negative (Negative); Color Urine Yellow; Glucose Urine UA Negative (Negative); Ketones Urine Negative (Negative); Leukocyte Esterase Urine Negative (Negative); Nitrite Urine Negative (Negative); Protein Urine Negative (Negative); Specific Gravity Urine 1.045 (1.000-1.030); Urobilinogen Urine Negative (Negative)
[2020-08-24] MEDS: MONTELUKAST SODIUM 10 MG TABLET PO SCH (21:11)
[2020-08-24] MEDS: INSULIN GLARGINE SOLOSTAR 100 UNITS/ML 3 ML PEN SC SCH (21:21)
[2020-08-25] MEDS: INSULIN ASPART 100 UNITS/ML 3 ML PEN SC SCH ×5 (06:16→20:45)
[2020-08-25 07:51] LABS: Basophils # (auto) 0.02 K/uL (0-0.2); Basophils % (auto) 0.1 %; Eosinophils # (auto) 0.19 K/uL (0-0.5); Eosinophils % (auto) 1.1 %; Hematocrit (blood only) 25.7 % (42-52); Hemoglobin 8.7 g/dL (14.0-18.0); Immature Granulocytes # (auto) 0.34 K/uL (0.00-0.02); Lymphocytes # (auto) 1.79 K/uL (1.2-3.4); Lymphocytes % (auto) 10.7 %; Mean Corpuscular Hemoglobin 30.4 pg (25-34); Mean Corpuscular Hgb Conc 33.9 g/dL (32-36); Mean Corpuscular Volume 89.9 fL (80-100); Mean Platelet Volume 9.2 fL (7.4-10.4); Monocytes # (auto) 1.69 K/uL (0.11-0.59); Monocytes % (auto) 10.1 %; Neutrophils # (auto) 12.73 K/uL (1.4-6.5); Nucleated RBC # (auto) 0.43 K/uL (0-0); Nucleated RBC % (auto) 2.6 %; Platelet Count 310 K/uL (130-400); RDW Coefficient of Variation 14.8 % (11.5-14.5); RDW Standard Deviation 45.6 fL (36.4-46.3); Red Blood Count 2.86 M/uL (4.7-6.1); White Blood Count 16.76 K/uL (4.8-10.8)
[2020-08-25 08:18] LABS: Polychromasia 1+
[2020-08-25] MEDS: PANTOprazole 40 MG in SYRINGE 0 ML IV SCH (08:43)
[2020-08-25] MEDS: MULTIVITAMIN TAB PO SCH (08:46)
[2020-08-25] MEDS: SUCRALFATE 1 GM/10 ML UDC PO SCH ×4 (08:46→20:50)
[2020-08-25 08:47] LABS: BUN Creatinine Ratio 43.2 (10-20); Bilirubin,Total 0.5 mg/dl (0.2-1); Calcium 8.1 mg/dl (8.5-10.1); Creatinine Clr Calc Pharmacy 81.1 ml/min; Est GFR (African American) 98.3; Est GFR (Non-African American) 84.8; Potassium 4.3 mmol/L (3.5-5.1)
[2020-08-25] MEDS: METOPROLOL TARTRATE 25 MG TAB PO SCH ×2 (08:47→20:50)
[2020-08-25] MEDS: predniSONE 10 MG TABLET PO SCH (08:47)
[2020-08-25 09:27] LABS: Albumin Globulin Ratio 0.7 (0.9-2); Albumin Level 2.1 gm/dl (3.4-5.0); Globulin 3.1 gm/dl (2.5-4.0); Total Protein 5.2 gm/dl (6.4-8.2)
--- NOTE | 2020-08-25 09:47 | XRay Report ---
SINGLE VIEW CHEST CLINICAL HISTORY: Hypoxia. FINDINGS: An AP, portable, upright chest radiograph is compared to study dated 08/23/2020 and correla js with chest CT dated 08/24/2020. The heart is mildly enlarged. There is pneumomediastinum, with moss bcutaneous emphysema seen in the right lower neck. Patchy airspace consolidation is seen throughout b oth lungs. There is volume loss in the right lung with elevation of the right hemidiaphragm. No large pleural effusion is identified. There is trace right apical pneumothorax. The skeletal structures ar e osteopenic. The bony thorax is grossly intact. IMPRESSION: 1. Trace right apical pneumothorax. 2. Extensive consolidative change is again seen throughout both lungs. 3. There is pneumomediastinum, with subcutaneous emphysema in the right lower neck. These findings ar e similar to previous. ACT 112: Negative or not required by law. Electronically signed by: Joseph Hdez M.D. 08/25/2020 9:45 AM
--- NOTE | 2020-08-25 11:20 | Hospitalist Progress Note ---
Date of Service August 25, 2020 Assessment & Plan (1) GI bleed: presented itself on 08/22, BUN up dramatically into the 70's, had a dark, melanotic stool 08/22 then had a large bloody BM and vasovagal episode on 08/23 Hb is down a little at 8.7 from 9.6, but no signs of bleeding since 08/22 s/p three units of PRBC, no indication for transfusion today, BP stable continue Protonix IV BID diabetic, low fiber diet today consult GI, no plans for EGD at this time respiratory status is much improved, breathing comfortably on 3L, lungs clear (2) Acute blood loss anemia: Hb down to 8.0 08/23, this is after one unit of PRBC on 08/22 now Hb is up to 8.7 after two additional units on 08/23 no signs of bleeding for three days, no BM at all will allow to eat today (3) Pneumomediastinum: new finding on CXR on 08/[address] chest today, large pneumomediastinum with air into the neck small apical right PTX will give high FiO2 AVOID high flow and/or BIPAP no intervention needed CXR stable on 08/25, breathing well on 3L, saturations 94-95% (4) Atrial fibrillation with rapid ventricular response: had brief runs of afib three weeks ago that resolved with Diltiazem with afib RVR morning of 08/22, suspect it is being driven by acute blood loss, low normal blood pressure, hypovolemia treated with Amiodarone bolus and drip due to low BP he converted to NSR, will discontinue the Amiodarone on 08/24, monitor on tele, still in sinus rhythm (5) COVID-19 virus infection: During initial admission on 07/30, the patient did extremely well and did not require supplemental oxygen. The patient has completed entire course of dexamethasone at home. Unfortunately, the patient presented back with new hypoxia as well as CT findings concerning for COVID-19 pneumonia. * placed on HFNC on 08/11, transiently on wall supplied high flow, down to 5L NC today * CXR 08/22 with improved aeration, actually recovering from COVID, likely that the blood loss and afib RVR making him feel worse past two days * Encourage incentive spirometry and flutter valves as tolerated. * no role for Remdesivir or plasma at this time, too far along into illness when admitted * completed prolonged course of Decadron, now on Prednisone 20mg daily for taper * NPO now with GI bleeding (6) Hypoxia: * acute hypoxic respiratory failure due to viral pneumonia, possible bacterial infection? * titrated down to 3L today, no distress * Aggressive pulmonary toilet to include incentive spirometry and flutter valve. * Please see COVID-19 virus and pneumonia sections. * CXR 08/22 showed improved aeration (7) Pneumonia: * must consider secondary infections in the setting of COVID-19 pneumonia. Initially received Rocephin and azithromycin in the emergency department. Patient previously on doxycycline in the outpatient. * completed 7-day course of Rocephin 08/16 * resumed Decadron 6mg IV daily as pneumonia likely residual viral etiology, did continue until 08/18, started po prednisone 40 mg 08/19 * tapered quickly, down to Prednisone 10mg today and tomorrow then stop * MRSA swab negative * back on wall high flow, 10L mask but no distress * CXR improved on 08/22 (8) Hyperglycemia: Patient with blood glucose levels in excess of 400 on 08/22 treated with insulin drip, sugars better defer to pharmacy, using basal bolus insulin, sugars stable should be easier to manage on lower dose of Prednisone diabetic diet ordered (9) Hypertension: hold BP medications as his BP is soft from bleeding (10) Hypophosphatemia: resolved K is stable (11) Hyperkalemia: down to 4.3 today insulin will continue to help lower Admission and Anticipated Discharge Date Admission Date: August 08, 2020 Subjective patient doing well, says he does not feel "sick" today this is the first time he has felt like this, he is really optimistic about his recovery now no bowel movement for three days, definitely no melena Hb down a little at 8.7, BP stable, WBC coming down to 16k CXR this morning shows stable pneumomediastinum Cr and electrolytes stable spoke with Dr. Oliveira, will give him a diet this morning I called patient's and updated her on his progress Review of Systems Review of Systems: All systems reviewed & are unremarkable except as noted in Subjective Respiratory: + dyspnea on exertion; no cough and no dyspnea Cardiovascular: no chest pain and no edema Gastrointestinal: no abdominal pain, no nausea, no vomiting, no constipation, no diarrhea/loose stools, no blood in stools and no melena Musculoskeletal: + muscle weakness Physical Exam Constitutional: well developed, well nourished, + ill appearing and cooperative; no acute distress Neck: trachea midline, no thyromegaly Respiratory: normal respiratory effort, lungs clear to auscultation Auscultation: lungs clear to auscultation bilaterally Cardiovascular: Rate/Rhythm: regular rate and regular rhythm Heart Sounds: normal S1 and normal S2; no murmur Extremities: normal capillary refill; no edema Gastrointestinal (Abdomen): normal bowel sounds, soft, nontender, no hepatosplenomegaly Musculoskeletal: Head/Neck/Chest: normocephalic, head atraumatic and neck supple Extremities: extremities normal to inspection and strength 5/5 throughout Skin: no rashes, warm and dry Neurologic: patellar DTR's 2+ bilat, sensation intact and PERRL, EOMI, accommodation nl, no face palsy, no dysarthria Psychiatric: A+Ox3, euthymic affect Lymphatic: no cervical or axillary lymphadenopathy Results & Data Results & Data ([facility]) Vital Signs (Past 12 Hours) Vital Signs Temp Pulse Pulse Resp BP Pulse Ox 08/25/20 08:11 36.8 C 81 20 133/68 98 08/25/20 04:00 36.4 C L 84 18 143/71 H 97 08/25/20 00:00 37.0 C 86 21 125/67 94 08/24/20 23:54 82 Laboratory Results Laboratory Results - last 24 hr 08/24/20 08/24/20 08/24/20 13:31 15:30 17:23 WBC RBC Hgb Hct MCV MCH MCHC RDW Std Deviation RDW Coeff of Macrina Plt Count MPV Immature Gran % (Auto) Neut % (Auto) Lymph % (Auto) Mclennan % (Auto) Eos % (Auto) Baso % (Auto) Neut # (Auto) Lymph # (Auto) Mclennan # (Auto) Eos # (Auto) Baso # (Auto) Immature Gran # (Auto) Absolute Nucleated RBC Nucleated RBC % (auto) Polychromasia Sodium Potassium Chloride Carbon Dioxide Anion Gap BUN Creatinine Est Cr Clr Drug Dosing Est GFR ( Amer) Est GFR (Non-Af Amer) BUN/Creatinine Ratio Glucose POC Glucose 150 H 186 H Calcium Total Bilirubin AST ALT Alkaline Phosphatase Total Protein Albumin Globulin Albumin/Globulin Ratio Urine Color Yellow Urine Appearance Clear Urine pH 5.0 Ur Specific Clarence 1.045 H Urine Protein Negative Urine Glucose (UA) Negative Urine Ketones Negative Urine Blood Negative Urine Nitrite Negative Urine Bilirubin Negative Urine Urobilinogen Negative Ur Leukocyte Esterase Negative 08/24/20 08/25/20 08/25/20 20:57 00:08 06:13 WBC RBC Hgb Hct MCV MCH MCHC RDW Std Deviation RDW Coeff of Macrina Plt Count MPV Immature Gran % (Auto) Neut % (Auto) Lymph % (Auto) Mclennan % (Auto) Eos % (Auto) Baso % (Auto) Neut # (Auto) Lymph # (Auto) Mclennan # (Auto) Eos # (Auto) Baso # (Auto) Immature Gran # (Auto) Absolute Nucleated RBC Nucleated RBC % (auto) Polychromasia Sodium Potassium Chloride Carbon Dioxide Anion Gap BUN Creatinine Est Cr Clr Drug Dosing Est GFR ( Amer) Est GFR (Non-Af Amer) BUN/Creatinine Ratio Glucose POC Glucose 138 H 111 H 93 Calcium Total Bilirubin AST ALT Alkaline Phosphatase Total Protein Albumin Globulin Albumin/Globulin Ratio Urine Color Urine Appearance Urine pH Ur Specific Clarence Urine Protein Urine Glucose (UA) Urine Ketones Urine Blood Urine Nitrite Urine Bilirubin Urine Urobilinogen Ur Leukocyte Esterase 08/25/20 08/25/20 07:30 07:30 WBC 16.76 H RBC 2.86 L Hgb 8.7 L Hct 25.7 L MCV 89.9 MCH 30.4 MCHC 33.9 RDW Std Deviation 45.6 RDW Coeff of Macrina 14.8 H Plt Count 310 MPV 9.2 Immature Gran % (Auto) 2.0 Neut % (Auto) 76.0 Lymph % (Auto) 10.7 Mclennan % (Auto) 10.1 Eos % (Auto) 1.1 Baso % (Auto) 0.1 Neut # (Auto) 12.73 H Lymph # (Auto) 1.79 Mclennan # (Auto) 1.69 H Eos # (Auto) 0.19 Baso # (Auto) 0.02 Immature Gran # (Auto) 0.34 H Absolute Nucleated RBC 0.43 H Nucleated RBC % (auto) 2.6 Polychromasia 1+ Sodium 136 Potassium 4.3 Chloride 104 Carbon Dioxide 29 Anion Gap 3.0 BUN 38 H Creatinine 0.89 Est Cr Clr Drug Dosing 81.1 Est GFR ( Amer) 98.3 Est GFR (Non-Af Amer) 84.8 BUN/Creatinine Ratio 43.2 H Glucose 75 POC Glucose Calcium 8.1 L Total Bilirubin 0.5 AST 12 L ALT 30 Alkaline Phosphatase 49 Total Protein 5.2 L Albumin 2.1 L Globulin 3.1 Albumin/Globulin Ratio 0.7 L Urine Color Urine Appearance Urine pH Ur Specific Clarence Urine Protein Urine Glucose (UA) Urine Ketones Urine Blood Urine Nitrite Urine Bilirubin Urine Urobilinogen Ur Leukocyte Esterase Diagnostic Findings SINGLE VIEW CHEST CLINICAL HISTORY: Hypoxia. FINDINGS: An AP, portable, upright chest radiograph is compared to study dated 08/23/2020 and correlated with chest CT dated 08/24/2020. The heart is mildly enlarged. There is pneumomediastinum, with subcutaneous emphysema seen in the right lower neck. Patchy airspace consolidation is seen throughout both lungs. There is volume loss in the right lung with elevation of the right hemidiaphragm. No large pleural effusion is identified. There is trace right apical pneumothorax. The skeletal structures are osteopenic. The bony thorax is grossly intact. IMPRESSION: 1. Trace right apical pneumothorax. 2. Extensive consolidative change is again seen throughout both lungs. 3. There is pneumomediastinum, with subcutaneous emphysema in the right lower neck. These findings are similar to previous. Medications Administered Current Inpatient Medications Acetaminophen (Acetaminophen 325 Mg Tab) 650 mg PO Q4H PRN PRN Reason: Pain or Fever Stop: 09/07/20 20:08 Last Admin: 08/09/20 21:14 Dose: 650 mg Documented by: Benzonatate (Benzonatate 100 Mg Capsule) 100 mg PO TID PRN PRN Reason: cough Stop: 09/07/20 20:08 Dextrose (Dextrose 50% 50 Ml Syringe) 25 - 50 ml IV UD PRN; Protocol PRN Reason: Hypoglycemia Protocol Stop: 09/07/20 18:29 Glucagon (Glucagon For Inj 1 Mg Vial) 1 mg IM UD PRN; Protocol PRN Reason: Hypoglycemia Protocol Stop: 09/07/20 18:29 Glucose (Glucose 40% Gel 15 Gm Tube) 15 - 30 gm PO UD PRN; Protocol PRN Reason: Hypoglycemia Protocol Stop: 09/07/20 18:29 Glucose (Glucose 10 Tabs/Tube) 4 - 8 tabs PO UD PRN; Protocol PRN Reason: Hypoglycemia Protocol Stop: 09/07/20 18:29 Heparin Sodium (Porcine) (Heparin Sod 5,000 Unit/0.5 Ml Vial) 5,000 units SQ Q8 [facility] Stop: 09/24/20 13:59 Pantoprazole Sodium 40 mg/ (Syringe) 10 mls @ 5 mls/min IV BID [facility] Stop: 09/21/20 10:59 Last Admin: 08/25/20 08:43 Dose: 5 mls/min Documented by: Insulin Aspart (Insulin Aspart 100 Units/Ml 3 Ml Pen) 0 units SC Q6 [facility] Stop: 09/23/20 11:59 Last Admin: 08/25/20 06:16 Dose: Not Given Documented by: Insulin Glargine (Insulin Glargine Solostar 100 Units/Ml 3 Ml Pen) 0 units SC HS [facility]; Protocol Stop: 09/22/20 20:59 Last Admin: 08/24/20 21:21 Dose: 10 units Documented by: Melatonin (Melatonin 3 Mg Tab) 3 mg PO HS PRN PRN Reason: Sleep Stop: 09/11/20 00:10 Last Admin: 08/12/20 21:40 Dose: 3 mg Documented by: Metoprolol Tartrate (Metoprolol Tartrate 25 Mg Tab) 25 mg PO BID [facility] Stop: 09/21/20 08:59 Last Admin: 08/25/20 08:47 Dose: 25 mg Documented by: Miscellaneous (Carbohydrates For Hypoglycemia ) 15 - 30 gm PO PRN PRN PRN Reason: Hypoglycemia Treatment Stop: 09/07/20 18:29 Miscellaneous Information (Pharmacy Glycemic Mgmt Consult) 1 ea N/A UD PRN PRN Reason: Consult Stop: 09/07/20 20:21 Montelukast Sodium (Montelukast Sodium 10 Mg Tablet) 10 mg PO HS [facility] Stop: 09/19/20 20:59 Last Admin: 08/24/20 21:11 Dose: 10 mg Documented by: Multivitamins (Multivitamin Tab) 1 tab PO DAILY [facility] Stop: 09/08/20 08:59 Last Admin: 08/25/20 08:46 Dose: 1 tab Documented by: Ondansetron HCl (Ondansetron Inj 2 Mg/Ml 2 Ml Vial) 4 mg IV Q6H PRN PRN Reason: Nausea Stop: 09/07/20 20:08 Prednisone (Prednisone 10 Mg Tablet) 10 mg PO DAILY [facility] Stop: 09/24/20 08:59 Last Admin: 08/25/20 08:47 Dose: 10 mg Documented by: Sucralfate (Sucralfate 1 Gm/10 Ml Udc) 1 gm PO ACHS [facility] Stop: 09/22/20 11:29 Last Admin: 08/25/20 08:46 Dose: 1 gm Documented by: PG Care Time/CCT Total # of Minutes Spent Total Time Spent with Patient: Total time spent is greater than 50% in coordination of care (as documented) at patient's floor/unit and/or counseling patient: Coding Level of Care Code 68735 Subseq Hosp Care Lvl 3 Diagnoses GI bleed K92.2 Acute blood loss anemia D62 Pneumomediastinum J98.2 Atrial fibrillation with rapid ventricular response I48.91 COVID-19 virus infection U07.1 Hypoxia R09.02 Pneumonia J18.9 Laterality: unspecified laterality Lung location: unspecified part of lung Pneumonia type: due to unspecified organism Hyperglycemia R73.9 Hypertension I10 Hypophosphatemia E83.39 Hyperkalemia E87.5 (1) Pneumonia Laterality: unspecified laterality Lung location: unspecified part of lung Pneumonia type: due to unspecified organism Qualified Code(s): J18.9 - Pneumonia, unspecified organism
--- NOTE | 2020-08-25 13:53 | Pharmacy Report ---
Pharmacy Glycemic Short Note 2 - Date of Service August 25, 2020 - Glycemic Short BSG Results (Last 24 hours): 08/24/20 08/24/20 08/25/20 17:23 20:57 00:08 Glucose POC Glucose 186 H 138 H 111 H 08/25/20 08/25/20 08/25/20 06:13 07:30 11:30 Glucose 75 POC Glucose 93 105 H OUTPATIENT ANTIDIABETIC REGIMEN: * None ASSESSMENT: 08/25 * Patient received only 13 units of insulin yesterday, of which 10 were basal * Fasting BSG 93 mg/dL - changed to diet at lunch time / added loosened parameters * Continue scale for basal at HS 08/24 * Patient transitioned off insulin drip last evening - received 10 units of basal last night * Fasting 92 mg/dL - patient NPO this AM for possible EGD * Held AM basal. Lunch BSG 150 mg/dL - will add scale for basal at HS as patient continues NPO today * Insulin requirements significantly reducing over last couple of days, unclear for reasoning of hyperglycemia a few days ago. Continues on prednisone 20 mg daily * A1c of ~10% - likely patient needing basal insulin even if NPO / added for HS time PLAN FOR INPATIENT GLYCEMIC CONTROL: * Basal insulin: * Lantus 8-12 units HS * Bolus insulin: * NovoLog per scale ACHS * 110-140 goal range * CF - 30 / CR of 10
[2020-08-25] MEDS: HEPARIN SOD 5,000 UNIT/0.5 ML VIAL SQ SCH ×2 (14:52→20:51)
[2020-08-25] MEDS: INSULIN GLARGINE SOLOSTAR 100 UNITS/ML 3 ML PEN SC SCH (20:45)
[2020-08-25] MEDS: MONTELUKAST SODIUM 10 MG TABLET PO SCH (20:50)
[2020-08-25] MEDS: PANTOprazole 40 MG TAB PO SCH (20:50)
[2020-08-26] MEDS: HEPARIN SOD 5,000 UNIT/0.5 ML VIAL SQ SCH ×3 (06:15→19:49)
[2020-08-26 08:11] LABS: Hematocrit (blood only) 24.6 % (42-52); Hemoglobin 8.1 g/dL (14.0-18.0); Mean Corpuscular Hemoglobin 30.1 pg (25-34); Mean Corpuscular Hgb Conc 32.9 g/dL (32-36); Mean Corpuscular Volume 91.4 fL (80-100); Mean Platelet Volume 9.3 fL (7.4-10.4); Nucleated RBC # (auto) 0.19 K/uL (0-0); Nucleated RBC % (auto) 1.6 %; Platelet Count 305 K/uL (130-400); RDW Coefficient of Variation 16.1 % (11.5-14.5); RDW Standard Deviation 46.4 fL (36.4-46.3); Red Blood Count 2.69 M/uL (4.7-6.1); White Blood Count 11.73 K/uL (4.8-10.8)
[2020-08-26] MEDS: PANTOprazole 40 MG TAB PO SCH ×2 (08:33→19:50)
[2020-08-26] MEDS: MULTIVITAMIN TAB PO SCH (08:33)
[2020-08-26] MEDS: predniSONE 10 MG TABLET PO SCH (08:33)
[2020-08-26] MEDS: METOPROLOL TARTRATE 25 MG TAB PO SCH ×2 (08:34→19:46)
[2020-08-26] MEDS: INSULIN ASPART 100 UNITS/ML 3 ML PEN SC SCH ×6 (08:35→21:34)
[2020-08-26 08:45] LABS: BUN Creatinine Ratio 32.3 (10-20); Calcium 8.2 mg/dl (8.5-10.1); Creatinine Clr Calc Pharmacy 82.1 ml/min; Est GFR (African American) 98.8; Est GFR (Non-African American) 85.2; Potassium 4.1 mmol/L (3.5-5.1)
[2020-08-26] MEDS ORDERED: SODIUM CHLORIDE 0.9% 250 ML IV PRN (08:47)
--- NOTE | 2020-08-26 09:17 | Hospitalist Progress Note ---
Date of Service August 26, 2020 Assessment & Plan (1) GI bleed: presented itself on 08/22, BUN up dramatically into the 70's, had a dark, melanotic stool 08/22 then had a large bloody BM and vasovagal episode on 08/23 Hb is down a little at 8.1 from 8.7, but no signs of bleeding since 08/22 BUN is down to 28 suggesting no blood in GI tract s/p three units of PRBC, BP stable continue Protonix 40mg PO BID Carafate QID x 10 days total feeling dyspnea on exertion, will give one more unit PRBC today with Lasix 20mg IV after diabetic diet, tolerating well consult GI, no plans for EGD at this time respiratory status is much improved, breathing comfortably on 2L, lungs clear (2) Acute blood loss anemia: Hb down a little at 8.1 from 8.7 no signs of bleeding for four days, no BM at all BUN down to 28 received 3 units PRBC thus far will give one more unit PRBC today with Lasix 20mg IV afterwards check Hb tomorrow AM (3) Pneumomediastinum: new finding on CXR on 08/[address] chest 08/24, large pneumomediastinum with air into the neck small apical right PTX AVOID high flow and/or BIPAP no intervention needed CXR stable on 08/25, breathing well on 2L, saturations 94-95% try to titrate off oxygen repeat CXR tomorrow (4) Atrial fibrillation with rapid ventricular response: had brief runs of afib three weeks ago that resolved with Diltiazem with afib RVR morning of 08/22, suspect it is being driven by acute blood loss, low normal blood pressure, hypovolemia treated with Amiodarone bolus and drip due to low BP he converted to NSR, will discontinue the Amiodarone on 08/24, monitor on tele, still in sinus rhythm, rates in 70's (5) COVID-19 virus infection: During initial admission on 07/30, the patient did extremely well and did not require supplemental oxygen. The patient has completed entire course of dexamethasone at home. Unfortunately, the patient presented back with new hypoxia as well as CT findings concerning for COVID-19 pneumonia. * placed on HFNC on 08/11, transiently on wall supplied high flow, down to 2L NC today * CXR 08/22 with improved aeration, actually recovering from COVID, likely that the blood loss and afib RVR making him feel worse past two days * Encourage incentive spirometry and flutter valves as tolerated. * no role for Remdesivir or plasma at this time, too far along into illness when admitted * completed prolonged course of Decadron, now on Prednisone 10mg daily for taper, last day of Prednisone * NPO now with GI bleeding (6) Hypoxia: * acute hypoxic respiratory failure due to viral pneumonia, possible bacterial infection? * titrated down to 2L today, no distress * Aggressive pulmonary toilet to include incentive spirometry and flutter valve. * Please see COVID-19 virus and pneumonia sections. * CXR 08/22 showed improved aeration (7) Pneumonia: * must consider secondary infections in the setting of COVID-19 pneumonia. Initially received Rocephin and azithromycin in the emergency department. Patient previously on doxycycline in the outpatient. * completed 7-day course of Rocephin 08/16 * resumed Decadron 6mg IV daily as pneumonia likely residual viral etiology, did continue until 08/18, started po prednisone 40 mg 08/19 * tapered quickly, down to Prednisone 10mg today then stop * MRSA swab negative * on 2L NC * CXR improved on 08/22 and 08/25 (8) Hyperglycemia: Patient with blood glucose levels in excess of 400 on 08/22 treated with insulin drip, sugars better defer to pharmacy, using basal bolus insulin, sugars stable should be easier to manage on lower dose of Prednisone 10mg and then no Prednisone tomorrow diabetic diet ordered (9) Hypertension: hold BP medications as his BP is soft from bleeding (10) Hypophosphatemia: resolved K is stable (11) Hyperkalemia: down to 4.1 today insulin will continue to help lower Admission and Anticipated Discharge Date Admission Date: August 08, 2020 Subjective patient looks good laying in bed, no distress, no pain, no dyspnea he says he continues to feel better, no BM, no melena, no nausea, no epigastric pain tolerating food, wants to eat more fruit labs reviewed, Hb down slightly at 8.1, likely still drifting down from significant blood loss the other night will give one more unit of PRBC, he agrees to transfusion Cr and electrolytes stable asked RN to try to wean off oxygen if possible, today is last day of steroids he says his goal is to make it to rehab next on Sunday/Sunday Review of Systems 2 Review of Systems: All systems reviewed & are unremarkable except as noted in Subjective Physical Exam Constitutional: well developed, well nourished and cooperative; no acute distress Neck: trachea midline, no thyromegaly Respiratory: normal respiratory effort, lungs clear to auscultation no respiratory distress and no labored breathing Cardiovascular: RRR, no murmur, no edema Gastrointestinal (Abdomen): normal bowel sounds, soft, nontender, no hepatosplenomegaly Musculoskeletal: Head/Neck/Chest: normocephalic, head atraumatic and neck supple Extremities: extremities normal to inspection and strength 5/5 throughout Skin: no rashes, warm and dry Neurologic: patellar DTR's 2+ bilat, sensation intact and PERRL, EOMI, accommodation nl, no face palsy, no dysarthria Psychiatric: A+Ox3, euthymic affect Lymphatic: no cervical or axillary lymphadenopathy Results & Data Results & Data ([facility]) Vital Signs (Past 12 Hours) Vital Signs Temp Pulse Resp BP BP Pulse Ox 08/26/20 04:30 36.9 C 74 17 118/64 96 08/26/20 00:15 37.1 C 19 102/58 L 97 Laboratory Results Laboratory Results - last 24 hr 08/25/20 08/25/20 08/25/20 07:30 11:30 16:30 WBC RBC Hgb Hct MCV MCH MCHC RDW Std Deviation RDW Coeff of Macrina Plt Count MPV Absolute Nucleated RBC Nucleated RBC % (auto) Sodium Potassium Chloride Carbon Dioxide Anion Gap BUN Creatinine Est Cr Clr Drug Dosing Est GFR ( Amer) Est GFR (Non-Af Amer) BUN/Creatinine Ratio Glucose POC Glucose 105 H 314 H* Calcium ALT 30 Alkaline Phosphatase 49 Total Protein 5.2 L Albumin 2.1 L Globulin 3.1 Albumin/Globulin Ratio 0.7 L 08/25/20 08/26/20 08/26/20 20:20 07:39 07:40 WBC 11.73 H RBC 2.69 L Hgb 8.1 L Hct 24.6 L MCV 91.4 MCH 30.1 MCHC 32.9 RDW Std Deviation 46.4 H RDW Coeff of Macrina 16.1 H Plt Count 305 MPV 9.3 Absolute Nucleated RBC 0.19 H Nucleated RBC % (auto) 1.6 Sodium Potassium Chloride Carbon Dioxide Anion Gap BUN Creatinine Est Cr Clr Drug Dosing Est GFR ( Amer) Est GFR (Non-Af Amer) BUN/Creatinine Ratio Glucose POC Glucose 260 H 148 H Calcium ALT Alkaline Phosphatase Total Protein Albumin Globulin Albumin/Globulin Ratio 08/26/20 07:40 WBC RBC Hgb Hct MCV MCH MCHC RDW Std Deviation RDW Coeff of Macrina Plt Count MPV Absolute Nucleated RBC Nucleated RBC % (auto) Sodium 138 Potassium 4.1 Chloride 105 Carbon Dioxide 29 Anion Gap 4.0 BUN 28 H Creatinine 0.88 Est Cr Clr Drug Dosing 82.1 Est GFR ( Amer) 98.8 Est GFR (Non-Af Amer) 85.2 BUN/Creatinine Ratio 32.3 H Glucose 118 H POC Glucose Calcium 8.2 L ALT Alkaline Phosphatase Total Protein Albumin Globulin Albumin/Globulin Ratio Medications Administered Current Inpatient Medications Acetaminophen (Acetaminophen 325 Mg Tab) 650 mg PO Q4H PRN PRN Reason: Pain or Fever Stop: 09/07/20 20:08 Last Admin: 08/09/20 21:14 Dose: 650 mg Documented by: Benzonatate (Benzonatate 100 Mg Capsule) 100 mg PO TID PRN PRN Reason: cough Stop: 09/07/20 20:08 Dextrose (Dextrose 50% 50 Ml Syringe) 25 - 50 ml IV UD PRN; Protocol PRN Reason: Hypoglycemia Protocol Stop: 09/07/20 18:29 Glucagon (Glucagon For Inj 1 Mg Vial) 1 mg IM UD PRN; Protocol PRN Reason: Hypoglycemia Protocol Stop: 09/07/20 18:29 Glucose (Glucose 40% Gel 15 Gm Tube) 15 - 30 gm PO UD PRN; Protocol PRN Reason: Hypoglycemia Protocol Stop: 09/07/20 18:29 Glucose (Glucose 10 Tabs/Tube) 4 - 8 tabs PO UD PRN; Protocol PRN Reason: Hypoglycemia Protocol Stop: 09/07/20 18:29 Heparin Sodium (Porcine) (Heparin Sod 5,000 Unit/0.5 Ml Vial) 5,000 units SQ Q8 NILAM Stop: 09/24/20 13:59 Last Admin: 08/26/20 06:15 Dose: 5,000 units Documented by: Sodium Chloride (Nss) 250 mls @ 15 mls/hr IV .[id number] PRN PRN Reason: For Transfusion Stop: 08/26/20 18:47 Furosemide 20 mg/ Syringe 2 mls @ 4 mls/min IV ONE ONE Stop: 08/26/20 09:06 Insulin Aspart (Insulin Aspart 100 Units/Ml 3 Ml Pen) 0 units SC ACHS REPLACED BY [facility] Stop: 09/24/20 16:29 Last Admin: 08/26/20 08:35 Dose: 4 units Documented by: Insulin Glargine (Insulin Glargine Solostar 100 Units/Ml 3 Ml Pen) 0 units SC HS REPLACED BY [facility]; Protocol Stop: 09/22/20 20:59 Last Admin: 08/25/20 20:45 Dose: 12 units Documented by: Melatonin (Melatonin 3 Mg Tab) 3 mg PO HS PRN PRN Reason: Sleep Stop: 09/11/20 00:10 Last Admin: 08/12/20 21:40 Dose: 3 mg Documented by: Metoprolol Tartrate (Metoprolol Tartrate 25 Mg Tab) 25 mg PO BID REPLACED BY [facility] Stop: 09/21/20 08:59 Last Admin: 08/26/20 08:34 Dose: 25 mg Documented by: Miscellaneous (Carbohydrates For Hypoglycemia ) 15 - 30 gm PO PRN PRN PRN Reason: Hypoglycemia Treatment Stop: 09/07/20 18:29 Miscellaneous Information (Pharmacy Glycemic Mgmt Consult) 1 ea N/A UD PRN PRN Reason: Consult Stop: 09/07/20 20:21 Montelukast Sodium (Montelukast Sodium 10 Mg Tablet) 10 mg PO HS REPLACED BY [facility] Stop: 09/19/20 20:59 Last Admin: 08/25/20 20:50 Dose: 10 mg Documented by: Multivitamins (Multivitamin Tab) 1 tab PO DAILY REPLACED BY [facility] Stop: 09/08/20 08:59 Last Admin: 08/26/20 08:33 Dose: 1 tab Documented by: Ondansetron HCl (Ondansetron Inj 2 Mg/Ml 2 Ml Vial) 4 mg IV Q6H PRN PRN Reason: Nausea Stop: 09/07/20 20:08 Pantoprazole Sodium (Pantoprazole 40 Mg Tab) 40 mg PO BID REPLACED BY [facility] Stop: 09/24/20 20:59 Last Admin: 08/26/20 08:33 Dose: 40 mg Documented by: Prednisone (Prednisone 10 Mg Tablet) 10 mg PO DAILY REPLACED BY [facility] Stop: 08/26/20 10:00 Last Admin: 08/26/20 08:33 Dose: 10 mg Documented by: Sucralfate (Sucralfate 1 Gm/10 Ml Udc) 1 gm PO ACHS NILAM Stop: 09/22/20 11:29 Last Admin: 08/25/20 20:50 Dose: 1 gm Documented by: PG Care Time/CCT Total # of Minutes Spent Total Time Spent with Patient: Total time spent is greater than 50% in coordination of care (as documented) at patient's floor/unit and/or counseling patient: Coding Level of Care Code 65802 Subseq Hosp Care Lvl 3 Diagnoses GI bleed K92.2 Acute blood loss anemia D62 Pneumomediastinum J98.2 Atrial fibrillation with rapid ventricular response I48.91 COVID-19 virus infection U07.1 Hypoxia R09.02 Pneumonia J18.9 Laterality: unspecified laterality Lung location: unspecified part of lung Pneumonia type: due to unspecified organism Hyperglycemia R73.9 Hypertension I10 Hypophosphatemia E83.39 Hyperkalemia E87.5 (1) Pneumonia Laterality: unspecified laterality Lung location: unspecified part of lung Pneumonia type: due to unspecified organism Qualified Code(s): J18.9 - Pneumonia, unspecified organism
[2020-08-26] MEDS ORDERED: FUROSEMIDE 20 MG in SYRINGE 0 ML IV SCH (09:30)
[2020-08-26] MEDS: SUCRALFATE 1 GM/10 ML UDC PO SCH ×4 (09:50→19:42)
[2020-08-26] MEDS ORDERED: INSULIN GLARGINE SOLOSTAR 100 UNITS/ML 3 ML PEN SC ONE (11:45)
--- NOTE | 2020-08-26 15:26 | Pharmacy Report ---
Pharmacy Glycemic Short Note 2 - Date of Service August 26, 2020 - Glycemic Short BSG Results (Last 24 hours): 08/25/20 08/25/20 08/26/20 16:30 20:20 07:39 Glucose POC Glucose 314 H* 260 H 148 H 08/26/20 08/26/20 08/26/20 07:40 11:22 11:22 Glucose 118 H POC Glucose 327 H* 334 H* OUTPATIENT ANTIDIABETIC REGIMEN: * None ASSESSMENT: 08/26 * Patient received total of 31 units of insulin yesterday, of which 12 were basal * Fasting BSG 148 mg/dL - continue scale for basal * Lunch BSG elevated, spoke with RN and patient had requested multiple lunch trays and was not given insulin coverage. Will start basal for now instead and add scale for HS 08/25 * Patient received only 13 units of insulin yesterday, of which 10 were basal * Fasting BSG 93 mg/dL - changed to diet at lunch time / added loosened parameters * Continue scale for basal at HS 08/24 * Patient transitioned off insulin drip last evening - received 10 units of basal last night * Fasting 92 mg/dL - patient NPO this AM for possible EGD * Held AM basal. Lunch BSG 150 mg/dL - will add scale for basal at HS as patient continues NPO today * Insulin requirements significantly reducing over last couple of days, unclear for reasoning of hyperglycemia a few days ago. Continues on prednisone 20 mg daily * A1c of ~10% - likely patient needing basal insulin even if NPO / added for HS time PLAN FOR INPATIENT GLYCEMIC CONTROL: * Basal insulin: * Lantus 10 x 1, then scale for HS * Bolus insulin: * NovoLog per scale ACHS * 110-140 goal range * CF - 30 / CR of 10
[2020-08-26] MEDS ORDERED: INSULIN HUMAN REGULAR PER UNIT 8 UNITS in SYRINGE 7.92 ML IV ONE (16:15)
[2020-08-26] MEDS: MONTELUKAST SODIUM 10 MG TABLET PO SCH (19:47)
[2020-08-26] MEDS ORDERED: INSULIN GLARGINE SOLOSTAR 100 UNITS/ML 3 ML PEN SC SCH (21:00)
[2020-08-26] MEDS ORDERED: INSULIN HUMAN REGULAR PER UNIT 5 UNITS in SYRINGE 4.95 ML IV ONE (21:30)
[2020-08-27] MEDS: INSULIN ASPART 100 UNITS/ML 3 ML PEN SC SCH ×6 (00:19→20:09)
[2020-08-27 05:58] LABS: Basophils # (auto) 0.01 K/uL (0-0.2); Basophils % (auto) 0.1 %; Eosinophils # (auto) 0.49 K/uL (0-0.5); Eosinophils % (auto) 4.2 %; Hematocrit (blood only) 27.8 % (42-52); Hemoglobin 9.2 g/dL (14.0-18.0); Immature Granulocytes # (auto) 0.45 K/uL (0.00-0.02); Immature Granulocytes % (auto) 3.8 %; Lymphocytes # (auto) 1.77 K/uL (1.2-3.4); Mean Corpuscular Hemoglobin 30.3 pg (25-34); Mean Corpuscular Hgb Conc 33.1 g/dL (32-36); Mean Corpuscular Volume 91.4 fL (80-100); Mean Platelet Volume 9.2 fL (7.4-10.4); Monocytes # (auto) 0.95 K/uL (0.11-0.59); Monocytes % (auto) 8.1 %; Neutrophils # (auto) 8.11 K/uL (1.4-6.5); Neutrophils % (auto) 68.8 %; Nucleated RBC # (auto) 0.16 K/uL (0-0); Nucleated RBC % (auto) 1.3 %; Platelet Count 305 K/uL (130-400); RDW Coefficient of Variation 15.6 % (11.5-14.5); Red Blood Count 3.04 M/uL (4.7-6.1); White Blood Count 11.78 K/uL (4.8-10.8)
[2020-08-27] MEDS: HEPARIN SOD 5,000 UNIT/0.5 ML VIAL SQ SCH ×3 (06:28→21:02)
[2020-08-27] MEDS: SUCRALFATE 1 GM/10 ML UDC PO SCH ×4 (08:25→20:08)
[2020-08-27] MEDS: PANTOprazole 40 MG TAB PO SCH ×2 (08:26→20:08)
[2020-08-27] MEDS: MULTIVITAMIN TAB PO SCH (08:26)
[2020-08-27] MEDS: METOPROLOL TARTRATE 25 MG TAB PO SCH ×2 (08:26→20:08)
[2020-08-27] MEDS ORDERED: INSULIN GLARGINE SOLOSTAR 100 UNITS/ML 3 ML PEN SC SCH ×2 (09:00→21:00)
[2020-08-27] MEDS ORDERED: FUROSEMIDE 20 MG in SYRINGE 0 ML IV ONE (10:00)
--- NOTE | 2020-08-27 11:12 | Hospitalist Progress Note ---
Date of Service August 27, 2020 Assessment & Plan (1) GI bleed: presented itself on 08/22, BUN up dramatically into the 70's, had a dark, melanotic stool 08/22 then had a large bloody BM and vasovagal episode on 08/23 Hb is up to 9.2 today from 8.1, got one unit PRBC on 08/26 no signs of bleeding since 08/22, he had a brown, formed BM on 08/27 BUN is down to 28 suggesting no blood in GI tract s/p four units of PRBC, BP stable continue Protonix 40mg PO BID for 1-2 months then daily Carafate QID x 10 days total, today is day 5 diabetic diet, tolerating well consult GI, no plans for EGD at this time given COVID and that he is improving, no signs of bleeding (2) Acute blood loss anemia: Hb up to 9.2 today from 8.1, got one unit PRBC on 08/26 no signs of bleeding for five days, first BM since 08/22 was 08/27, brown and formed BUN down to 28 on 08/26 received 4 units PRBC total repeat CBC tomorrow but clinically appears bleeding stopped (3) Volume overload: patient responded really well to Lasix 20mg IV on 08/26, 3L urine out will give 20mg IV again today, if he responds well again then I would give one more additional dose tomorrow he feels a lot better today, likely had some volume overload from fluid and blood products given earlier in the stay (4) Pneumomediastinum: new finding on CXR on 08/[address] chest 08/24, large pneumomediastinum with air into the neck small apical right PTX AVOID high flow and/or BIPAP no intervention needed CXR stable on 08/25, breathing well on 2L, saturations 94-95% try to titrate off oxygen discussed with Dr. Todd, no need for intervention, will resolve slowly (5) Atrial fibrillation with rapid ventricular response: had brief runs of afib three weeks ago that resolved with Diltiazem with afib RVR morning of 08/22, suspect it was driven by acute blood loss, low normal blood pressure, hypovolemia treated with Amiodarone bolus and drip due to low BP he converted to NSR, will discontinue the Amiodarone on 08/24, monitor on tele, still in sinus rhythm, rates 80-90 continue metoprolol 25mg BID given his large GI bleed and that he remains sinus rhythm, I would hold on full anticoagulation on discharge would recommend 30 day monitor, see if he has afib and if he does then provide full anticoagulation (6) COVID-19 virus infection: During initial admission on 07/30, the patient did extremely well and did not require supplemental oxygen. The patient has completed entire course of dexamethasone at home. Unfortunately, the patient presented back with new hypoxia as well as CT findings concerning for COVID-19 pneumonia. * placed on HFNC on 08/11, transiently on wall supplied high flow, down to low flow nasal canula the past week, 2L today * CXR 08/22 with improved aeration, actually recovering from COVID, likely that the blood loss and afib RVR making him feel worse past four days * Encourage incentive spirometry and flutter valves as tolerated. * no role for Remdesivir or plasma, too far along into illness when admitted * completed prolonged course of Decadron, completed Prednisone taper, last dose was 10mg on 08/26 essentially recovered from COVID, he is now in non-negative pressure room (7) Hypoxia: * acute hypoxic respiratory failure due to viral pneumonia, possible bacterial infection? 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 A1c 9.9/new diagnosis (steroid induced ??)- addition of Metformin at time of discharge for rehab facility. 2. Continue basal/bolus insulin at rehab facility. 3. Begin to SMBG 2x/day upon return home. Vary time checking from day to day. 4. A1c > 9%- pt will need close follow-up at time of discharge. PRESCRIPTIONS NEEDED: 1. OneTouch Verio test strips to check 1x/day. 2. OneTouch Delica lancets to check 1x/day. (9) Hypertension: BP stable on metoprolol 25mg BID Losartan has been held Admission and Anticipated Discharge Date Admission Date: August 08, 2020 Subjective patient says he feels great today, legitimately the best he has felt his entire stay he is walking easier, not as much dyspnea he had a solid bowel movement this morning he responded really well to lasix 20mg IV yesterday, 3 liters out, will give another dose today discussed that he is likely a little volume overloaded and getting volume off will help his breathing Hb is up to 9.2 from 8.1 after one unit PRBC yesterday reviewed blood cultures, both with coag negative staph, likely contaminant as he has no fever, feels great without antibiotics repeat cultures tomorrow he is hopeful to get out Sunday/Sunday for rehab, I believe he will be ready he is asking to have barbeque delivered this weekend, told him I am okay with it I called his with an update Review of Systems Review of Systems: All systems reviewed & are unremarkable except as noted in Subjective Physical Exam Constitutional: well developed, well nourished and cooperative; no acute distress Neck: trachea midline, no thyromegaly Respiratory: normal respiratory effort, lungs clear to auscultation no respiratory distress and no labored breathing Cardiovascular: RRR, no murmur, no edema Extremities: normal capillary refill Gastrointestinal (Abdomen): normal bowel sounds, soft, nontender, no hepatosplenomegaly Musculoskeletal: Head/Neck/Chest: normocephalic, head atraumatic and neck supple Extremities: extremities normal to inspection and strength 5/5 throughout Skin: no rashes, warm and dry Neurologic: patellar DTR's 2+ bilat, sensation intact and PERRL, EOMI, accommodation nl, no face palsy, no dysarthria Psychiatric: A+Ox3, euthymic affect Lymphatic: no cervical or axillary lymphadenopathy Results & Data Results & Data ([facility]) Vital Signs (Past 12 Hours) Vital Signs Temp Pulse Resp BP BP Pulse Ox 08/27/20 08:31 36.6 C 98 H 17 138/70 91 08/27/20 04:06 36.7 C 78 24 125/74 94 08/26/20 23:35 36.8 C 78 20 131/79 97 Laboratory Results Laboratory Results - last 24 hr 08/22/20 08/26/20 08/26/20 11:06 09:16 11:22 WBC RBC Hgb Hct MCV MCH MCHC RDW Std Deviation RDW Coeff of Macrina Plt Count MPV Immature Gran % (Auto) Neut % (Auto) Lymph % (Auto) Karnes % (Auto) Eos % (Auto) Baso % (Auto) Neut # (Auto) Lymph # (Auto) Karnes # (Auto) Eos # (Auto) Baso # (Auto) Immature Gran # (Auto) Absolute Nucleated RBC Nucleated RBC % (auto) POC Glucose 327 H* Blood Type O Positive Antibody Screen NEGATIVE Crossmatch See Detail See Detail 08/26/20 08/26/20 08/26/20 11:22 15:49 15:50 WBC RBC Hgb Hct MCV MCH MCHC RDW Std Deviation RDW Coeff of Macrina Plt Count MPV Immature Gran % (Auto) Neut % (Auto) Lymph % (Auto) Karnes % (Auto) Eos % (Auto) Baso % (Auto) Neut # (Auto) Lymph # (Auto) Karnes # (Auto) Eos # (Auto) Baso # (Auto) Immature Gran # (Auto) Absolute Nucleated RBC Nucleated RBC % (auto) POC Glucose 334 H* 410 H* 401 H* Blood Type Antibody Screen Crossmatch 08/26/20 08/26/20 08/26/20 19:33 21:03 21:05 WBC RBC Hgb Hct MCV MCH MCHC RDW Std Deviation RDW Coeff of Macrina Plt Count MPV Immature Gran % (Auto) Neut % (Auto) Lymph % (Auto) Karnes % (Auto) Eos % (Auto) Baso % (Auto) Neut # (Auto) Lymph # (Auto) Karnes # (Auto) Eos # (Auto) Baso # (Auto) Immature Gran # (Auto) Absolute Nucleated RBC Nucleated RBC % (auto) POC Glucose 370 H* 393 H* 327 H* Blood Type Antibody Screen Crossmatch 08/26/20 08/27/20 08/27/20 23:54 04:04 05:15 WBC 11.78 H RBC 3.04 L Hgb 9.2 L Hct 27.8 L MCV 91.4 MCH 30.3 MCHC 33.1 RDW Std Deviation 46.0 RDW Coeff of Macrina 15.6 H Plt Count 305 MPV 9.2 Immature Gran % (Auto) 3.8 Neut % (Auto) 68.8 Lymph % (Auto) 15.0 Karnes % (Auto) 8.1 Eos % (Auto) 4.2 Baso % (Auto) 0.1 Neut # (Auto) 8.11 H Lymph # (Auto) 1.77 Karnes # (Auto) 0.95 H Eos # (Auto) 0.49 Baso # (Auto) 0.01 Immature Gran # (Auto) 0.45 H Absolute Nucleated RBC 0.16 H Nucleated RBC % (auto) 1.3 POC Glucose 175 H 158 H Blood Type Antibody Screen Crossmatch 08/27/20 07:54 WBC RBC Hgb Hct MCV MCH MCHC RDW Std Deviation RDW Coeff of Macrina Plt Count MPV Immature Gran % (Auto) Neut % (Auto) Lymph % (Auto) Karnes % (Auto) Eos % (Auto) Baso % (Auto) Neut # (Auto) Lymph # (Auto) Karnes # (Auto) Eos # (Auto) Baso # (Auto) Immature Gran # (Auto) Absolute Nucleated RBC Nucleated RBC % (auto) POC Glucose 153 H Blood Type Antibody Screen Crossmatch Medications Administered Current Inpatient Medications Acetaminophen (Acetaminophen 325 Mg Tab) 650 mg PO Q4H PRN PRN Reason: Pain or Fever Stop: 09/07/20 20:08 Last Admin: 08/09/20 21:14 Dose: 650 mg Documented by: Benzonatate (Benzonatate 100 Mg Capsule) 100 mg PO TID PRN PRN Reason: cough Stop: 09/07/20 20:08 Dextrose (Dextrose 50% 50 Ml Syringe) 25 - 50 ml IV UD PRN; Protocol PRN Reason: Hypoglycemia Protocol Stop: 09/07/20 18:29 Glucagon (Glucagon For Inj 1 Mg Vial) 1 mg IM UD PRN; Protocol PRN Reason: Hypoglycemia Protocol Stop: 09/07/20 18:29 Glucose (Glucose 40% Gel 15 Gm Tube) 15 - 30 gm PO UD PRN; Protocol PRN Reason: Hypoglycemia Protocol Stop: 09/07/20 18:29 Glucose (Glucose 10 Tabs/Tube) 4 - 8 tabs PO UD PRN; Protocol PRN Reason: Hypoglycemia Protocol Stop: 09/07/20 18:29 Heparin Sodium (Porcine) (Heparin Sod 5,000 Unit/0.5 Ml Vial) 5,000 units SQ Q8 [facility] Stop: 09/24/20 13:59 Last Admin: 08/27/20 06:28 Dose: 5,000 units Documented by: Insulin Aspart (Insulin Aspart 100 Units/Ml 3 Ml Pen) 0 units SC ACHS [facility] Stop: 09/24/20 16:29 Last Admin: 08/27/20 08:29 Dose: 15 units Documented by: Insulin Glargine (Insulin Glargine Solostar 100 Units/Ml 3 Ml Pen) 15 units SC QAM [facility]; Protocol Stop: 09/26/20 08:59 Last Admin: 08/27/20 08:27 Dose: 15 units Documented by: Melatonin (Melatonin 3 Mg Tab) 3 mg PO HS PRN PRN Reason: Sleep Stop: 09/11/20 00:10 Last Admin: 08/12/20 21:40 Dose: 3 mg Documented by: Metoprolol Tartrate (Metoprolol Tartrate 25 Mg Tab) 25 mg PO BID [facility] Stop: 09/21/20 08:59 Last Admin: 08/27/20 08:26 Dose: 25 mg Documented by: Miscellaneous (Carbohydrates For Hypoglycemia ) 15 - 30 gm PO PRN PRN PRN Reason: Hypoglycemia Treatment Stop: 09/07/20 18:29 Miscellaneous Information (Pharmacy Glycemic Mgmt Consult) 1 ea N/A UD PRN PRN Reason: Consult Stop: 09/07/20 20:21 Montelukast Sodium (Montelukast Sodium 10 Mg Tablet) 10 mg PO HS [facility] Stop: 09/19/20 20:59 Last Admin: 08/26/20 19:47 Dose: 10 mg Documented by: Multivitamins (Multivitamin Tab) 1 tab PO DAILY [facility] Stop: 09/08/20 08:59 Last Admin: 08/27/20 08:26 Dose: 1 tab Documented by: Ondansetron HCl (Ondansetron Inj 2 Mg/Ml 2 Ml Vial) 4 mg IV Q6H PRN PRN Reason: Nausea Stop: 09/07/20 20:08 Pantoprazole Sodium (Pantoprazole 40 Mg Tab) 40 mg PO BID [facility] Stop: 09/24/20 20:59 Last Admin: 08/27/20 08:26 Dose: 40 mg Documented by: Sucralfate (Sucralfate 1 Gm/10 Ml Udc) 1 gm PO ACHS [facility] Stop: 09/22/20 11:29 Last Admin: 08/27/20 08:25 Dose: 1 gm Documented by: PG Care Time/CCT Total # of Minutes Spent Total Time Spent with Patient: Total time spent is greater than 50% in coordination of care (as documented) at patient's floor/unit and/or counseling patient: Coding Level of Care Code 31837 Subseq Hosp Care Lvl 3 Diagnoses GI bleed K92.2 Acute blood loss anemia D62 Volume overload E87.70 Pneumomediastinum J98.2 Atrial fibrillation with rapid ventricular response I48.91 COVID-19 virus infection U07.1 Hypoxia R09.02 Diabetes type 2, uncontrolled E11.65 Hypertension I10
--- NOTE | 2020-08-27 15:08 | Pharmacy Report ---
Pharmacy Glycemic Short Note 2 - Date of Service August 27, 2020 - Glycemic Short BSG Results (Last 24 hours): 08/26/20 08/26/20 08/26/20 15:49 15:50 19:33 POC Glucose 410 H* 401 H* 370 H* 08/26/20 08/26/20 08/26/20 21:03 21:05 23:54 POC Glucose 393 H* 327 H* 175 H 08/27/20 08/27/20 08/27/20 04:04 07:54 11:42 POC Glucose 158 H 153 H 285 H OUTPATIENT ANTIDIABETIC REGIMEN: * None ASSESSMENT: 08/27: * Patient received a total of 58 units of insulin yesterday (25 units basal, 33 units bolus) * Fasting BSG remains above goal. Will order Lantus 15 units for this morning and 7 units for this evening. Can transition to once daily AM dosing on 08/28. * Post prandial BSGs remain significantly above goal despite multiple changes made to CF/CR. Patient continues to snack between meals. Per discussion with patient's nurse today; pt eats all day long and was previously requesting additional meals from the kitchen. He was instructed to notify nursing when he will be snacking so that carbs can be covered. Will change from ACHS to q4h checks to help with snacking. * Prednisone has been discontinued * Metformin added to regimen - to start with dinner 08/26 * Patient received total of 31 units of insulin yesterday, of which 12 were basal * Fasting BSG 148 mg/dL - continue scale for basal * Lunch BSG elevated, spoke with RN and patient had requested multiple lunch trays and was not given insulin coverage. Will start basal for now instead and add scale for HS 08/25 * Patient received only 13 units of insulin yesterday, of which 10 were basal * Fasting BSG 93 mg/dL - changed to diet at lunch time / added loosened parameters * Continue scale for basal at HS 08/24 * Patient transitioned off insulin drip last evening - received 10 units of basal last night * Fasting 92 mg/dL - patient NPO this AM for possible EGD * Held AM basal. Lunch BSG 150 mg/dL - will add scale for basal at HS as patient continues NPO today * Insulin requirements significantly reducing over last couple of days, unclear for reasoning of hyperglycemia a few days ago. Continues on prednisone 20 mg daily * A1c of ~10% - likely patient needing basal insulin even if NPO / added for HS time PLAN FOR INPATIENT GLYCEMIC CONTROL: * Metformin 500 mg BID with meals * Basal insulin: * 08/27: Lantus 15 units SQ qAM, 7 units SQ qPM * 08/28: Lantus 22 units SQ qAM * Bolus insulin: * NovoLog per scale q4h * 110-140 goal range * CF - 15 / CR of 5 RECOMMENDATIONS AT DISCHARGE: A1c 9.9% (08/08/20) * new diagnosis - patient not on anti-DM medication at home (potentially steroid induced) Continue metformin on discharge * may be increased by 500 mg per week as tolerated to max of 2000 mg per day Insulin needs to be determined (doses have fluctuated from day to day)
[2020-08-27] MEDS: metFORMIN HCL 500 MG TAB PO SCH (16:45)
[2020-08-27] MEDS: MONTELUKAST SODIUM 10 MG TABLET PO SCH (20:08)
[2020-08-28] MEDS: INSULIN ASPART 100 UNITS/ML 3 ML PEN SC SCH ×7 (00:19→23:53)
[2020-08-28] MEDS: HEPARIN SOD 5,000 UNIT/0.5 ML VIAL SQ SCH ×3 (04:27→22:19)
[2020-08-28] MEDS ORDERED: INSULIN GLARGINE SOLOSTAR 100 UNITS/ML 3 ML PEN SC SCH (09:00)
[2020-08-28] MEDS: SUCRALFATE 1 GM/10 ML UDC PO SCH ×4 (09:14→22:18)
[2020-08-28] MEDS: METOPROLOL TARTRATE 25 MG TAB PO SCH ×2 (09:14→22:18)
[2020-08-28] MEDS: PANTOprazole 40 MG TAB PO SCH ×2 (09:14→22:19)
[2020-08-28] MEDS: metFORMIN HCL 500 MG TAB PO SCH ×2 (09:14→17:34)
[2020-08-28] MEDS: MULTIVITAMIN TAB PO SCH (09:14)
[2020-08-28] MEDS: FUROSEMIDE 20 MG in SYRINGE 0 ML IV SCH (09:14)
[2020-08-28 09:37] LABS: Hematocrit (blood only) 32.1 % (42-52); Hemoglobin 10.7 g/dL (14.0-18.0); Mean Corpuscular Hemoglobin 30.6 pg (25-34); Mean Corpuscular Hgb Conc 33.3 g/dL (32-36); Mean Corpuscular Volume 91.7 fL (80-100); Mean Platelet Volume 9.4 fL (7.4-10.4); Platelet Count 327 K/uL (130-400); RDW Coefficient of Variation 16.1 % (11.5-14.5); RDW Standard Deviation 49.7 fL (36.4-46.3); White Blood Count 9.98 K/uL (4.8-10.8)
[2020-08-28 09:55] LABS: BUN Creatinine Ratio 25.9 (10-20); Calcium 8.4 mg/dl (8.5-10.1); Creatinine Clr Calc Pharmacy 75.2 ml/min; Est GFR (African American) 90.5; Est GFR (Non-African American) 78.1; Potassium 4.1 mmol/L (3.5-5.1)
[2020-08-28] MEDS ORDERED: FUROSEMIDE 20 MG in SYRINGE 0 ML IV ONE (12:30)
--- NOTE | 2020-08-28 12:44 | Hospitalist Progress Note ---
Date of Service August 28, 2020 Assessment & Plan (1) GI bleed: presented itself on 08/22, BUN up dramatically into the 70's, had a dark, melanotic stool 08/22 then had a large bloody BM and vasovagal episode on 08/23 Hb is up to 10.7 today from 8.1, got one unit PRBC on 08/26 no signs of bleeding since 08/22, he had a brown, formed BM on 08/27 and 08/28 BUN is down suggesting no blood in GI tract s/p four units of PRBC, BP stable continue Protonix 40mg PO BID for 1-2 months then daily Carafate QID x 10 days total, today is day 6 diabetic diet, tolerating well consult GI, no plans for EGD at this time given COVID and that he is improving, no signs of bleeding (2) Acute blood loss anemia: Hb up to 10/7 as above from 8.1, got one unit PRBC on 08/26 no signs of bleeding for five days, first BM since 08/22 was 08/27, brown and formed received 4 units PRBC total repeat CBC tomorrow but clinically appears bleeding stopped (3) Volume overload: patient responded really well to Lasix 20mg IV on 08/26, 08/27 Giving another dose today and then reassess daily had some acute diastolic CHF from fluid and blood products given earlier in the stay as well as rapid atrial fibrillation (4) Pneumomediastinum: new finding on CXR on 08/[address] chest 08/24, large pneumomediastinum with air into the neck small apical right PTX AVOID high flow and/or BIPAP no intervention needed CXR stable on 08/25, breathing well on 2L, saturations 94-95% A little more SOB with exertion on 08/28 but sats stable on 2L--> repeat CXR today try to titrate off oxygen discussed with Dr. Todd, no need for intervention, will resolve slowly (5) Atrial fibrillation with rapid ventricular response: had brief runs of afib three weeks ago that resolved with Diltiazem with afib RVR morning of 08/22, suspect it was driven by acute blood loss, low normal blood pressure, hypovolemia treated with Amiodarone bolus and drip due to low BP he converted to NSR, and discontinued the Amiodarone on 08/24, monitor on tele, still in sinus rhythm, rates 80-90 with burst atrial tach continue metoprolol 25mg BID given his large GI bleed and that he remains sinus rhythm, I would hold on full anticoagulation on discharge would recommend 30 day monitor, see if he has afib and if he does then provide full anticoagulation (6) COVID-19 virus infection: During initial admission on 07/30, the patient did extremely well and did not require supplemental oxygen. The patient has completed entire course of dexamethasone at home. Unfortunately, the patient presented back with new hypoxia as well as CT findings concerning for COVID-19 pneumonia. * placed on HFNC on 08/11, transiently on wall supplied high flow, down to low flow nasal canula the past week, 2L today * CXR 08/22 with improved aeration, actually recovering from COVID * Encourage incentive spirometry and flutter valves as tolerated. * no role for Remdesivir or plasma, too far along into illness when admitted * completed prolonged course of Decadron, completed Prednisone taper, last dose was 10mg on 08/26 essentially recovered from COVID, he is now in non-negative pressure room (7) Hypoxia: * acute hypoxic respiratory failure due to viral pneumonia, possible bacterial infection? * titrated down to 2L for a few days * some remaining hypoxia could be from volume overload, responding well to Lasix 20mg IV daily * (8) Diabetes type 2, uncontrolled: NEW DIAGNOSIS, HbA1c 9.9%, could be steroid induced sugars are a little better now that Prednisone is stopped, last day was 08/26 continue Metformin 500mg BID today, can titrate up 1000mg BID as outpatient if he tolerates well glucose 200s today as below, will recommend basal bolus insulin to continue at [facility] but would likely not need it once he goes home check sugars two times a day at home, follow up with PCP for further instruction follow low carb diet diabetic educator 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 A1c 9.9/new diagnosis (steroid induced ??)- addition of Metformin at time of discharge for rehab facility. 2. Continue basal/bolus insulin at rehab facility. 3. Begin to SMBG 2x/day upon return home. Vary time checking from day to day. 4. A1c > 9%- pt will need close follow-up at time of discharge. PRESCRIPTIONS NEEDED: 1. OneTouch Verio test strips to check 1x/day. 2. OneTouch Delica lancets to check 1x/day. (9) Hypertension: BP stable on metoprolol 25mg BID Losartan has been held (10) DVT prophylaxis: No chemical due to GIB SCDs added Dispo-continued stay on PCU, slowly improving, plan for [facility] likely Sun-Sunday Admission and Anticipated Discharge Date Admission Date: August 08, 2020 Subjective Feeling a little more SOB today, a little less energy.Only feels SOB with walking to the bathroom. Had a nonbloody BM this AM. Is making urine. Did not get much rest last night Tele with NSR rates 80-90s, one brief run atrial tachycardia Review of Systems Review of Systems: All systems reviewed & are unremarkable except as noted in HPI & below Physical Exam Constitutional: WD/WN, vitals as above Eyes: + anicteric sclerae Neck: trachea midline, no thyromegaly Respiratory: normal respiratory effort Auscultation: + crackles (bibasilar) and + rhonchi (right mid lung) Cardiovascular: RRR, no murmur, no edema Chest (Breasts): Chest: normal inspection of chest Gastrointestinal (Abdomen): normal bowel sounds, soft, nontender, no hepatosplenomegaly Musculoskeletal: Extremities: extremities normal to inspection; no cyanosis and no clubbing Skin: no rashes, warm and dry Neurologic: moves all extremities and awake; no focal motor deficits Psychiatric: A+Ox3, euthymic affect Lymphatic: no lymphedema Results & Data Results & Data ([facility]) Vital Signs (Past 12 Hours) Vital Signs Temp Pulse Resp BP BP Pulse Ox 08/28/20 08:14 36.8 C 89 18 129/73 96 08/28/20 04:13 36.8 C 78 18 144/89 H 97 Laboratory Results 08/28/20 08/28/20 08/28/20 Range/Units 12:10 09:10 09:10 WBC 9.98 (4.8-10.8) K/uL RBC 3.50 L (4.7-6.1) M/uL Hgb 10.7 L (14.0-18.0) g/dL Hct 32.1 L (42-52) % MCV 91.7 (80-100) fL MCH 30.6 (25-34) pg MCHC 33.3 (32-36) g/dL RDW Std Deviation 49.7 H (36.4-46.3) fL RDW Coeff of Macrina 16.1 H (11.5-14.5) % Plt Count 327 (130-400) K/uL MPV 9.4 (7.4-10.4) fL Sodium 139 (136-145) mmol/L Potassium 4.1 (3.5-5.1) mmol/L Chloride 105 (98-107) mmol/L Carbon Dioxide 28 (21-32) mmol/L Anion Gap 5.0 (3-11) BUN 25 H (7-18) mg/dl Creatinine 0.96 (0.6-1.4) mg/dl Est Cr Clr Drug Dosing 75.2 ml/min Est GFR ( Amer) 90.5 Est GFR (Non-Af Amer) 78.1 BUN/Creatinine Ratio 25.9 H (10-20) Glucose 209 H (70-99) mg/dl POC Glucose 208 H (70-99) mg/dl Calcium 8.4 L (8.5-10.1) mg/dl 08/28/20 08/28/20 08/28/20 Range/Units 07:33 04:10 00:05 WBC (4.8-10.8) K/uL RBC (4.7-6.1) M/uL Hgb (14.0-18.0) g/dL Hct (42-52) % MCV (80-100) fL MCH (25-34) pg MCHC (32-36) g/dL RDW Std Deviation (36.4-46.3) fL RDW Coeff of Macrina (11.5-14.5) % Plt Count (130-400) K/uL MPV (7.4-10.4) fL Sodium (136-145) mmol/L Potassium (3.5-5.1) mmol/L Chloride (98-107) mmol/L Carbon Dioxide (21-32) mmol/L Anion Gap (3-11) BUN (7-18) mg/dl Creatinine (0.6-1.4) mg/dl Est Cr Clr Drug Dosing ml/min Est GFR ( Amer) Est GFR (Non-Af Amer) BUN/Creatinine Ratio (10-20) Glucose (70-99) mg/dl POC Glucose 134 H 174 H 171 H (70-99) mg/dl Calcium (8.5-10.1) mg/dl 08/27/20 08/27/20 Range/Units 19:59 15:52 WBC (4.8-10.8) K/uL RBC (4.7-6.1) M/uL Hgb (14.0-18.0) g/dL Hct (42-52) % MCV (80-100) fL MCH (25-34) pg MCHC (32-36) g/dL RDW Std Deviation (36.4-46.3) fL RDW Coeff of Macrina (11.5-14.5) % Plt Count (130-400) K/uL MPV (7.4-10.4) fL Sodium (136-145) mmol/L Potassium (3.5-5.1) mmol/L Chloride (98-107) mmol/L Carbon Dioxide (21-32) mmol/L Anion Gap (3-11) BUN (7-18) mg/dl Creatinine (0.6-1.4) mg/dl Est Cr Clr Drug Dosing ml/min Est GFR ( Amer) Est GFR (Non-Af Amer) BUN/Creatinine Ratio (10-20) Glucose (70-99) mg/dl POC Glucose 162 H 229 H (70-99) mg/dl Calcium (8.5-10.1) mg/dl PG Care Time/CCT Total # of Minutes Spent Total Time Spent with Patient: Total time spent is greater than 50% in coordination of care (as documented) at patient's floor/unit and/or counseling patient: Coding Level of Care Code 31777 Subseq Hosp Care Lvl 3 Diagnoses GI bleed K92.2 Acute blood loss anemia D62 Volume overload E87.70 Pneumomediastinum J98.2 Atrial fibrillation with rapid ventricular response I48.91 COVID-19 virus infection U07.1 Hypoxia R09.02 Diabetes type 2, uncontrolled E11.65 Hypertension I10 DVT prophylaxis Z29.9
--- NOTE | 2020-08-28 12:52 | XRay Report ---
XR chest 1V portable CLINICAL HISTORY: SOB,hypoxia,PTX,Pneumomediastinum COMPARISON STUDY: Chest CT August 24, 2020. Chest radiograph August 25, 2020. FINDINGS: Subcutaneous gas within the lower neck is again noted. Pneumomediastinum has decreased sinc e exam of August 23, 2020. Bilateral airspace opacities persist. Cardiomediastinal silhouette is st able. A possible trace right apical pneumothorax is similar to prior exam. IMPRESSION: 1. Pneumomediastinum, decreased from prior exam. Subcutaneous gas within the lower neck again noted. 2. Possible trace right apical pneumothorax, similar to prior exam. 3. Persistent bilateral airspace opacities which favor an infectious process. ACT 112: Negative or not required by law. Electronically signed by: Noel Gunderson M.D. 08/28/2020 12:50 PM
[2020-08-28] MEDS: MELATONIN 3 MG TAB PO SCH (22:18)
[2020-08-28] MEDS: MONTELUKAST SODIUM 10 MG TABLET PO SCH (22:19)
[2020-08-29] MEDS: INSULIN ASPART 100 UNITS/ML 3 ML PEN SC SCH ×5 (04:58→19:38)
[2020-08-29] MEDS: HEPARIN SOD 5,000 UNIT/0.5 ML VIAL SQ SCH ×2 (05:00→15:02)
[2020-08-29] MEDS: SUCRALFATE 1 GM/10 ML UDC PO SCH ×4 (07:46→19:38)
[2020-08-29] MEDS: MULTIVITAMIN TAB PO SCH (07:47)
[2020-08-29] MEDS: metFORMIN HCL 500 MG TAB PO SCH ×2 (07:47→17:20)
[2020-08-29] MEDS: PANTOprazole 40 MG TAB PO SCH ×2 (07:47→19:38)
[2020-08-29] MEDS: METOPROLOL TARTRATE 25 MG TAB PO SCH ×2 (07:47→19:38)
[2020-08-29 08:32] LABS: Eosinophils # (auto) 0.59 K/uL (0-0.5); Eosinophils % (auto) 5.4 %; Hematocrit (blood only) 32.7 % (42-52); Hemoglobin 10.7 g/dL (14.0-18.0); Immature Granulocytes % (auto) 0.9 %; Lymphocytes # (auto) 1.58 K/uL (1.2-3.4); Lymphocytes % (auto) 14.4 %; Mean Corpuscular Hemoglobin 30.3 pg (25-34); Mean Corpuscular Hgb Conc 32.7 g/dL (32-36); Mean Corpuscular Volume 92.6 fL (80-100); Mean Platelet Volume 8.9 fL (7.4-10.4); Monocytes # (auto) 0.69 K/uL (0.11-0.59); Monocytes % (auto) 6.3 %; Neutrophils # (auto) 8.02 K/uL (1.4-6.5); Platelet Count 351 K/uL (130-400); RDW Standard Deviation 51.1 fL (36.4-46.3); Red Blood Count 3.53 M/uL (4.7-6.1); White Blood Count 10.98 K/uL (4.8-10.8)
[2020-08-29] MEDS: INSULIN GLARGINE SOLOSTAR 100 UNITS/ML 3 ML PEN SC SCH (08:46)
[2020-08-29] MEDS: FUROSEMIDE 20 MG in SYRINGE 0 ML IV SCH (08:57)
[2020-08-29 09:01] LABS: BUN Creatinine Ratio 26.7 (10-20); Calcium 8.7 mg/dl (8.5-10.1); Creatinine Clr Calc Pharmacy 80.2 ml/min; Est GFR (African American) 97.9; Est GFR (Non-African American) 84.4; Potassium 4.4 mmol/L (3.5-5.1)
[2020-08-29] MEDS: DAPTOmycin 500 MG in SYRINGE 0 ML IV SCH (11:49)
--- NOTE | 2020-08-29 14:39 | Pharmacy Report ---
Pharmacy Glycemic Short Note 2 - Date of Service August 29, 2020 - Glycemic Short BSG Results (Last 24 hours): 08/28/20 08/28/20 08/28/20 16:32 20:36 23:50 Glucose POC Glucose 142 H 124 H 148 H 08/29/20 08/29/20 08/29/20 04:48 07:44 08:18 Glucose 149 H POC Glucose 189 H 143 H 08/29/20 11:25 Glucose POC Glucose 202 H OUTPATIENT ANTIDIABETIC REGIMEN: * None ASSESSMENT: 08/29: * BSGs okay yesterday sans lunchtime BSG of 208 mg/dL * Fasting BSG this morning of 143 mg/dL * Will increase basal by ~10% * Could consider tightening carb coverage with breakfast tomorrow 08/27: * Patient received a total of 58 units of insulin yesterday (25 units basal, 33 units bolus) * Fasting BSG remains above goal. Will order Lantus 15 units for this morning and 7 units for this evening. Can transition to once daily AM dosing on 08/28. * Post prandial BSGs remain significantly above goal despite multiple changes made to CF/CR. Patient continues to snack between meals. Per discussion with patient's nurse today; pt eats all day long and was previously requesting additional meals from the kitchen. He was instructed to notify nursing when he will be snacking so that carbs can be covered. Will change from ACHS to q4h checks to help with snacking. * Prednisone has been discontinued * Metformin added to regimen - to start with dinner 08/26 * Patient received total of 31 units of insulin yesterday, of which 12 were basal * Fasting BSG 148 mg/dL - continue scale for basal * Lunch BSG elevated, spoke with RN and patient had requested multiple lunch trays and was not given insulin coverage. Will start basal for now instead and add scale for HS 08/25 * Patient received only 13 units of insulin yesterday, of which 10 were basal * Fasting BSG 93 mg/dL - changed to diet at lunch time / added loosened parameters * Continue scale for basal at HS 08/24 * Patient transitioned off insulin drip last evening - received 10 units of basal last night * Fasting 92 mg/dL - patient NPO this AM for possible EGD * Held AM basal. Lunch BSG 150 mg/dL - will add scale for basal at HS as patient continues NPO today * Insulin requirements significantly reducing over last couple of days, unclear for reasoning of hyperglycemia a few days ago. Continues on prednisone 20 mg daily * A1c of ~10% - likely patient needing basal insulin even if NPO / added for HS time PLAN FOR INPATIENT GLYCEMIC CONTROL: * Metformin 500 mg BID with meals * Basal insulin: increase * Lantus 25 units SC daily * Bolus insulin: * NovoLog per scale q4h * 110-140 goal range * CF - 15 / CR of 5 RECOMMENDATIONS AT DISCHARGE: A1c 9.9% (08/08/20) * new diagnosis - patient not on anti-DM medication at home (potentially steroid induced) Continue metformin on discharge * may be increased by 500 mg per week as tolerated to max of 2000 mg per day Insulin needs to be determined (doses have fluctuated from day to day)
--- NOTE | 2020-08-29 17:32 | Hospitalist Progress Note ---
Date of Service August 29, 2020 Assessment & Plan (1) Hypoxia: acute hypoxic respiratory failure due to viral pneumonia, Covid-19, pneumothorax, and acute on chronic diastolic CHF from rapid atrial fibrillation -Continue supplemental O2 to keep pulse ox greater than 92% Follow chest x-ray again in the morning follow pneumothorax -Completed prolonged course of Decadron and prednisone taper on 08/26 -Has received daily IV Lasix-we will hold for now Will likely take time for his dyspnea to improve given severe infection (2) GI bleed: presented itself on 08/22, BUN up dramatically into the 70's, had a dark, melanotic stool 08/22 then had a large bloody BM and vasovagal episode on 08/23 Hb is up to 10.7 today from 8.1, status post 4 units PRBCs total no signs of bleeding since 08/22-having formed brown stools since then continue Protonix 40mg PO BID for 1-2 months then daily Carafate QID x 10 days total, today is day 7 diabetic diet, tolerating well consult GI, no plans for EGD at this time given COVID and that he is improving, no signs of bleeding (3) Acute blood loss anemia: Hb up to 10/7 as above from 8.1, got one unit PRBC on 08/26 As above Follow CBC (4) Volume overload: Acute on chronic diastolic CHF secondary to rapid atrial fibrillation and 4 units of blood products given Patient responded really well to Lasix 20mg IV daily x4 days (5) Pneumomediastinum: new finding on CXR on 08/[address] chest 08/24, large pneumomediastinum with air into the neck small apical right PTX Improving on chest x-ray on 08/28 AVOID high flow and/or BIPAP no intervention needed -Follow chest x-ray on 08/22 8 in the morning Continue supplemental O2 (6) Atrial fibrillation with rapid ventricular response: had brief runs of afib three weeks ago that resolved with Diltiazem with afib RVR morning of 08/22, suspect it was driven by acute blood loss, low normal blood pressure, hypovolemia treated with Amiodarone bolus and drip due to low BP he converted to NSR, and discontinued the Amiodarone on 08/24, monitor on tele, still in sinus rhythm, rates 80-90 with burst atrial tach continue metoprolol 25mg BID given his large GI bleed and that he remains sinus rhythm, I would hold on full anticoagulation on discharge would recommend 30 day monitor, see if he has afib and if he does then provide full anticoagulation (7) COVID-19 virus infection: During initial admission on 07/30, the patient did extremely well and did not require supplemental oxygen. The patient has completed entire course of dexamethasone at home. Unfortunately, the patient presented back with new hyp oxia as well as CT findings concerning for COVID-19 pneumonia. placed on HFNC on 08/11, transiently on wall supplied high flow, down to low flow nasal canula the past week, 2-3 L today CXR 08/22 with improved aeration, actually recovering from COVID Encourage incentive spirometry and flutter valves as tolerated. There was no role for Remdesivir or plasma, too far along into illness when admitted completed prolonged course of Decadron, completed Prednisone taper, last dose was 10mg on 08/26 essentially recovered from COVID, he is now in non-negative pressure room (8) Bacteremia: Noted to have 2 out of 2 sets of blood cultures positive for 2 different strains of coagulase-negative staph not lugdunensis on 08/24 Remains afebrile, unclear if contamination but seems less likely as is in both sets Start daptomycin on 08/29 Repeat blood cultures and if sterile, can discontinue antibiotics (9) Diabetes type 2, uncontrolled: NEW DIAGNOSIS, HbA1c 9.9%, could be steroid induced sugars are a little better now that Prednisone is stopped, last day was 08/26 continue Metformin 500mg BID today, can titrate up 1000mg BID as outpatient if he tolerates well glucose improved today as below, will recommend basal bolus insulin to continue at [facility] but would likely not need it once he goes home check sugars two times a day at home, follow up with 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 A1c 9.9/new diagnosis (steroid induced ??)- addition of Metformin at time of discharge for rehab facility. 2. Continue basal/bolus insulin at rehab facility. 3. Begin to SMBG 2x/day upon return home. Vary time checking from day to day. 4. A1c > 9%- pt will need close follow-up at time of discharge. PRESCRIPTIONS NEEDED: 1. OneTouch Verio test strips to check 1x/day. 2. OneTouch Delica lancets to check 1x/day. (10) Hypertension: BP stable on metoprolol 25mg BID Losartan has been held (11) Pneumothorax: Small apical right pneumothorax as above Continue supplemental O2 Follow chest x-ray (12) DVT prophylaxis: No chemical due to GIB SCDs Dispo-continued stay on PCU, slowly improving, plan for [facility] likely Sunday-Sunday Discussed his care with his on the phone on 08/29 Admission and Anticipated Discharge Date Admission Date: August 08, 2020 Subjective Continues to complain of dyspnea on exertion and feels like he cannot take a deep breath. No worse than yesterday. Denies chest pain or nausea. Had a bowel movement x2 today that was nonbloody as per nursing. He is making urine. He is anxious and asks me "tell me the truth, am I going to ?" He remains afebrile. Feels a little bit more energy today. Note was made of positive blood cultures 2/2 for coagulase-negative Staphylococcus on 08/24. Started on daptomycin IV and repeated blood cultures to ensure stability Review of Systems Review of Systems: All systems reviewed & are unremarkable except as noted in HPI & below Physical Exam Constitutional: WD/WN, vitals as above Eyes: + anicteric sclerae Neck: trachea midline, no thyromegaly Respiratory: normal respiratory effort Auscultation: + crackles (bibasilar) Cardiovascular: RRR, no murmur, no edema Chest (Breasts): Chest: normal inspection of chest Gastrointestinal (Abdomen): normal bowel sounds, soft, nontender, no hepatosplenomegaly Musculoskeletal: Extremities: extremities normal to inspection; no cyanosis and no clubbing Skin: no rashes, warm and dry Neurologic: moves all extremities and awake; no focal motor deficits Psychiatric: Orientation: alert and oriented x 3 Affect: + anxious affect Mood: + anxious mood Lymphatic: no lymphedema Results & Data Results & Data ([facility]) Vital Signs (Past 12 Hours) Vital Signs Temp Pulse Pulse Resp BP Pulse Ox 08/29/20 15:02 36.7 C 100 H 22 120/81 96 08/29/20 12:08 36.6 C 86 109/72 99 08/29/20 08:57 110/72 08/29/20 07:59 37.1 C 79 22 99/63 L 97 Laboratory Results 08/29/20 08/29/20 08/29/20 Range/Units 20:33 19:33 16:38 WBC (4.8-10.8) K/uL RBC (4.7-6.1) M/uL Hgb (14.0-18.0) g/dL Hct (42-52) % MCV (80-100) fL MCH (25-34) pg MCHC (32-36) g/dL RDW Std Deviation (36.4-46.3) fL RDW Coeff of Macrina (11.5-14.5) % Plt Count (130-400) K/uL MPV (7.4-10.4) fL Immature Gran % (Auto) % Neut % (Auto) % Lymph % (Auto) % [place] % (Auto) % Eos % (Auto) % Baso % (Auto) % Neut # (Auto) (1.4-6.5) K/uL Lymph # (Auto) (1.2-3.4) K/uL [place] # (Auto) (0.11-0.59) K/uL Eos # (Auto) (0-0.5) K/uL Baso # (Auto) (0-0.2) K/uL Immature Gran # (Auto) (0.00-0.02) K/uL Sodium (136-145) mmol/L Potassium (3.5-5.1) mmol/L Chloride (98-107) mmol/L Carbon Dioxide (21-32) mmol/L Anion Gap (3-11) BUN (7-18) mg/dl Creatinine (0.6-1.4) mg/dl Est Cr Clr Drug Dosing ml/min Est GFR ( Amer) Est GFR (Non-Af Amer) BUN/Creatinine Ratio (10-20) Glucose (70-99) mg/dl POC Glucose 165 H 165 H 116 H (70-99) mg/dl Calcium (8.5-10.1) mg/dl Magnesium (1.8-2.4) mg/dl 08/29/20 08/29/20 08/29/20 Range/Units 11:25 08:18 08:18 WBC 10.98 H (4.8-10.8) K/uL RBC 3.53 L (4.7-6.1) M/uL Hgb 10.7 L (14.0-18.0) g/dL Hct 32.7 L (42-52) % MCV 92.6 (80-100) fL MCH 30.3 (25-34) pg MCHC 32.7 (32-36) g/dL RDW Std Deviation 51.1 H (36.4-46.3) fL RDW Coeff of Macrina 16.0 H (11.5-14.5) % Plt Count 351 (130-400) K/uL MPV 8.9 (7.4-10.4) fL Immature Gran % (Auto) 0.9 % Neut % (Auto) 73.0 % Lymph % (Auto) 14.4 % [place] % (Auto) 6.3 % Eos % (Auto) 5.4 % Baso % (Auto) 0.0 % Neut # (Auto) 8.02 H (1.4-6.5) K/uL Lymph # (Auto) 1.58 (1.2-3.4) K/uL [place] # (Auto) 0.69 H (0.11-0.59) K/uL Eos # (Auto) 0.59 H (0-0.5) K/uL Baso # (Auto) 0.00 (0-0.2) K/uL Immature Gran # (Auto) 0.10 H (0.00-0.02) K/uL Sodium 139 (136-145) mmol/L Potassium 4.4 (3.5-5.1) mmol/L Chloride 104 (98-107) mmol/L Carbon Dioxide 29 (21-32) mmol/L Anion Gap 6.0 (3-11) BUN 24 H (7-18) mg/dl Creatinine 0.90 (0.6-1.4) mg/dl Est Cr Clr Drug Dosing 80.2 ml/min Est GFR ( Amer) 97.9 Est GFR (Non-Af Amer) 84.4 BUN/Creatinine Ratio 26.7 H (10-20) Glucose 149 H (70-99) mg/dl POC Glucose 202 H (70-99) mg/dl Calcium 8.7 (8.5-10.1) mg/dl Magnesium 2.0 (1.8-2.4) mg/dl 08/29/20 08/29/20 08/28/20 Range/Units 07:44 04:48 23:50 WBC (4.8-10.8) K/uL RBC (4.7-6.1) M/uL Hgb (14.0-18.0) g/dL Hct (42-52) % MCV (80-100) fL MCH (25-34) pg MCHC (32-36) g/dL RDW Std Deviation (36.4-46.3) fL RDW Coeff of Macrina (11.5-14.5) % Plt Count (130-400) K/uL MPV (7.4-10.4) fL Immature Gran % (Auto) % Neut % (Auto) % Lymph % (Auto) % [place] % (Auto) % Eos % (Auto) % Baso % (Auto) % Neut # (Auto) (1.4-6.5) K/uL Lymph # (Auto) (1.2-3.4) K/uL [place] # (Auto) (0.11-0.59) K/uL Eos # (Auto) (0-0.5) K/uL Baso # (Auto) (0-0.2) K/uL Immature Gran # (Auto) (0.00-0.02) K/uL Sodium (136-145) mmol/L Potassium (3.5-5.1) mmol/L Chloride (98-107) mmol/L Carbon Dioxide (21-32) mmol/L Anion Gap (3-11) BUN (7-18) mg/dl Creatinine (0.6-1.4) mg/dl Est Cr Clr Drug Dosing ml/min Est GFR ( Amer) Est GFR (Non-Af Amer) BUN/Creatinine Ratio (10-20) Glucose (70-99) mg/dl POC Glucose 143 H 189 H 148 H (70-99) mg/dl Calcium (8.5-10.1) mg/dl Magnesium (1.8-2.4) mg/dl PG Care Time/CCT Total # of Minutes Spent Total Time Spent with Patient: Total time spent is greater than 50% in coordination of care (as documented) at patient's floor/unit and/or counseling patient: Coding Level of Care Code 92967 Subseq Hosp Care Lvl 3 Diagnoses Hypoxia R09.02 GI bleed K92.2 Acute blood loss anemia D62 Volume overload E87.70 Pneumomediastinum J98.2 Atrial fibrillation with rapid ventricular response I48.91 COVID-19 virus infection U07.1 Bacteremia R78.81 Diabetes type 2, uncontrolled E11.65 Hypertension I10 Pneumothorax J93.9 DVT prophylaxis Z29.9
[2020-08-29] MEDS: MONTELUKAST SODIUM 10 MG TABLET PO SCH (19:38)
[2020-08-29] MEDS: MELATONIN 3 MG TAB PO SCH (19:38)
[2020-08-30] MEDS: INSULIN ASPART 100 UNITS/ML 3 ML PEN SC SCH ×6 (00:49→21:26)
[2020-08-30] MEDS: HEPARIN SOD 5,000 UNIT/0.5 ML VIAL SQ SCH ×4 (00:50→22:33)
[2020-08-30 06:11] LABS: Basophils # (auto) 0.01 K/uL (0-0.2); Basophils % (auto) 0.1 %; Eosinophils # (auto) 0.47 K/uL (0-0.5); Eosinophils % (auto) 4.7 %; Hematocrit (blood only) 32.5 % (42-52); Hemoglobin 10.5 g/dL (14.0-18.0); Immature Granulocytes # (auto) 0.06 K/uL (0.00-0.02); Immature Granulocytes % (auto) 0.6 %; Lymphocytes # (auto) 1.14 K/uL (1.2-3.4); Lymphocytes % (auto) 11.4 %; Mean Corpuscular Hemoglobin 29.9 pg (25-34); Mean Corpuscular Hgb Conc 32.3 g/dL (32-36); Mean Corpuscular Volume 92.6 fL (80-100); Mean Platelet Volume 9.3 fL (7.4-10.4); Monocytes # (auto) 0.71 K/uL (0.11-0.59); Monocytes % (auto) 7.1 %; Neutrophils # (auto) 7.63 K/uL (1.4-6.5); Neutrophils % (auto) 76.1 %; Platelet Count 375 K/uL (130-400); RDW Coefficient of Variation 15.6 % (11.5-14.5); RDW Standard Deviation 50.4 fL (36.4-46.3); Red Blood Count 3.51 M/uL (4.7-6.1); White Blood Count 10.02 K/uL (4.8-10.8)
[2020-08-30 06:36] LABS: Albumin Level 2.2 gm/dl (3.4-5.0); BUN Creatinine Ratio 25.5 (10-20); C Reactive Protein 2.94 mg/dl (0-0.29); Calcium 9.1 mg/dl (8.5-10.1); Creatinine Clr Calc Pharmacy 72.2 ml/min; Est GFR (African American) 86.2; Est GFR (Non-African American) 74.3; Potassium 4.1 mmol/L (3.5-5.1)
[2020-08-30 06:38] LABS: Albumin Globulin Ratio 0.5 (0.9-2); Bilirubin,Total 0.4 mg/dl (0.2-1); Total Protein 6.2 gm/dl (6.4-8.2)
--- NOTE | 2020-08-30 07:49 | XRay Report ---
XR chest 1V portable HISTORY: hypoxia. f/u Covid PNA COMPARISON: Chest 08/28/2020. FINDINGS: Pneumomediastinum and the neck subcutaneous emphysema has essentially resolved. No pneumothorax. No p leural effusions. Patchy peripheral airspace opacities, right greater than left are again noted. This is similar to the prior study. No evidence for pulmonary edema. The heart remains mildly enlarged. IMPRESSION: 1. Pneumomediastinum and right neck base subcutaneous emphysema has essentially resolved in the inter [place]kant. 2. Patchy bilateral airspace opacities persist consistent with a viral pneumonia. ACT 112: Negative or not required by law. Electronically signed by: Skyler Valdes M.D. 08/30/2020 7:48 AM
[2020-08-30] MEDS: METOPROLOL TARTRATE 25 MG TAB PO SCH ×2 (09:01→20:07)
[2020-08-30] MEDS: metFORMIN HCL 500 MG TAB PO SCH ×2 (09:01→17:22)
[2020-08-30] MEDS: PANTOprazole 40 MG TAB PO SCH ×2 (09:01→20:07)
[2020-08-30] MEDS: MULTIVITAMIN TAB PO SCH (09:01)
[2020-08-30] MEDS: INSULIN GLARGINE SOLOSTAR 100 UNITS/ML 3 ML PEN SC SCH (09:02)
[2020-08-30] MEDS: SUCRALFATE 1 GM/10 ML UDC PO SCH ×4 (09:02→20:07)
[2020-08-30] MEDS: DAPTOmycin 500 MG in SYRINGE 0 ML IV SCH (13:09)
--- NOTE | 2020-08-30 15:15 | Hospitalist Progress Note ---
Date of Service August 30, 2020 Assessment & Plan (1) Hypoxia: acute hypoxic respiratory failure due to viral pneumonia, Covid-19, pneumothorax, and acute on chronic diastolic CHF from rapid atrial fibrillation Improving, but has likely residual inflammation and may be some developing fibro sis? Has continued bibasilar crackles -Continue supplemental O2 to keep pulse ox greater than 92% Chest x-ray now shows resolved pneumothorax and resolved pneumomediastinum, still with bilateral opacities -Completed prolonged course of Decadron and prednisone taper on 08/26 -Has received daily IV Lasix-we will hold for now Will likely take time for his dyspnea to improve given severe infection (2) GI bleed: presented itself on 08/22, BUN up dramatically into the 70's, had a dark, melanotic stool 08/22 then had a large bloody BM and vasovagal episo de on 08/23 Hb is up to and stable at 10.7 from 8.1, status post 4 units PRBCs total no signs of bleeding since 08/22-having formed brown stools since then continue Protonix 40mg PO BID for 1-2 months then daily Carafate QID x 10 days total, today is day 8 diabetic diet, tolerating well consult GI, no plans for EGD at this time given COVID and that he is improving, no signs of bleeding (3) Acute blood loss anemia: Hb up to 10.7 as above from 8.1, got one unit PRBC on 08/26 As above Follow CBC (4) Volume overload: Acute on chronic diastolic CHF secondary to rapid atrial fibrillation and 4 units of blood products given Patient responded really well to Lasix 20mg IV daily x4 days (5) Pneumomediastinum: new finding on CXR on 08/[address] chest 08/24, large pneumomediastinum with air into the neck small apical right PTX also as above Chest x-ray 08/30 now with resolved pneumothorax and resolved pneumomediastinum AVOID high flow and/or BIPAP no intervention needed Continue supplemental O2 (6) Atrial fibrillation with rapid ventricular response: had brief runs of afib three weeks ago that resolved with Diltiazem with afib RVR morning of 08/22, suspect it was driven by acute blood loss, low normal blood pressure, hypovolemia treated with Amiodarone bolus and drip due to low BP he converted to NSR, and discontinued the Amiodarone on 08/24, monitor on tele, still in sinus rhythm, rates 80-90 continue metoprolol 25mg BID given his large GI bleed and that he remains sinus rhythm, I would hold on full anticoagulation on discharge would recommend 30 day monitor, see if he has afib and if he does then provide full anticoagulation (7) COVID-19 virus infection: During initial admission on 07/30, the patient did extremely well and did not require supplemental oxygen. The patient has completed entire course of dexamethasone at home. Unfortunately, the patient presented back with new hypoxia as well as CT findings concerning for COVID-19 pneumonia. placed on HFNC on 08/11, transiently on wall supplied high flow, down to low flow nasal canula the past week, 2-3 L today CXR 08/22 with improved aeration, actually recovering from COVID Encourage incentive spirometry and flutter valves as tolerated. There was no role for Remdesivir or plasma, too far along into illness when admitted completed prolonged course of Decadron, completed Prednisone taper, last dose was 10mg on 08/26 essentially recovered from COVID, he is now in non-negative pressure room (8) Bacteremia: Noted to have 2 out of 2 sets of blood cultures positive for 2 different strains of coagulase-negative staph not lugdunensis on 08/24 Remains afebrile, unclear if contamination but seems less likely as is in both sets Started daptomycin on 08/29 Leukocytosis is improving, feels better Repeat blood cultures and if sterile x40-72 hours, can discontinue antibiotics- NGTD (9) Diabetes type 2, uncontrolled: NEW DIAGNOSIS, HbA1c 9.9%, could be steroid induced sugars are a little better now that Prednisone is stopped, last day was 08/26 continue Metformin 500mg BID today, can titrate up 1000mg BID as outpatient if he tolerates well glucose improved today as below, will recommend basal bolus insulin to continue at [facility] but would likely not need it once he goes home check sugars two times a day at home, follow up with PCP for further instruction 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 A1c 9.9/new diagnosis (steroid induced ??)- addition of Metformin at time of discharge for rehab facility. 2. Continue basal/bolus insulin at rehab facility. 3. Begin to SMBG 2x/day upon return home. Vary time checking from day to day. 4. A1c > 9%- pt will need close follow-up at time of discharge. PRESCRIPTIONS NEEDED: 1. OneTouch Verio test strips to check 1x/day. 2. OneTouch Delica lancets to check 1x/day. (10) Hypertension: BP stable on metoprolol 25mg BID Losartan has been held-continue holding (11) Pneumothorax: Small apical right pneumothorax as above has now resolved on chest x-ray on 08/30 Continue supplemental O2 (12) DVT prophylaxis: No chemical due to GIB SCDs Dispo-continued stay on PCU, slowly improving, plan for [facility] likely Sunday- Discussed his care with his on the phone on 08/29 and 08/30 Admission and Anticipated Discharge Date Admission Date: August 08, 2020 Subjective Patient reports feeling much better today. He can get a deeper breath. Is less short of breath. Not as anxious. Eating and drinking, no abdominal pain. Had 2 bowel movements today that were brown and nonbloody. Is feeling more optimistic about his prognosis. Telemetry with normal sinus rhythm, sinus tachycardia, rates in the 80s to 90s Review of Systems Review of Systems: All systems reviewed & are unremarkable except as noted in HPI & below Physical Exam Constitutional: WD/WN, vitals as above Eyes: + anicteric sclerae Neck: trachea midline, no thyromegaly Respiratory: normal respiratory effort Auscultation: + crackles (bibasilar) Cardiovascular: RRR, no murmur, no edema Chest (Breasts): Chest: normal inspection of chest Gastrointestinal (Abdomen): normal bowel sounds, soft, nontender, no hepatosplenomegaly Musculoskeletal: Extremities: extremities normal to inspection; no cyanosis and no clubbing Skin: no rashes, warm and dry Neurologic: moves all extremities and awake; no focal motor deficits Psychiatric: A+Ox3, euthymic affect Lymphatic: no lymphedema Results & Data Results & Data ([facility]) Vital Signs (Past 12 Hours) Vital Signs Temp Pulse Resp BP BP Pulse Ox 08/30/20 11:46 37.1 C 83 18 114/78 98 08/30/20 08:16 36.8 C 117 H 18 131/83 90 08/30/20 04:00 36.7 C 86 18 114/79 96 Laboratory Results 08/30/20 08/30/20 08/30/20 Range/Units 11:46 07:52 05:37 WBC (4.8-10.8) K/uL RBC (4.7-6.1) M/uL Hgb (14.0-18.0) g/dL Hct (42-52) % MCV (80-100) fL MCH (25-34) pg MCHC (32-36) g/dL RDW Std Deviation (36.4-46.3) fL RDW Coeff of Macrina (11.5-14.5) % Plt Count (130-400) K/uL MPV (7.4-10.4) fL Immature Gran % (Auto) % Neut % (Auto) % Lymph % (Auto) % [place] % (Auto) % Eos % (Auto) % Baso % (Auto) % Neut # (Auto) (1.4-6.5) K/uL Lymph # (Auto) (1.2-3.4) K/uL [place] # (Auto) (0.11-0.59) K/uL Eos # (Auto) (0-0.5) K/uL Baso # (Auto) (0-0.2) K/uL Immature Gran # (Auto) (0.00-0.02) K/uL ESR (0-14) mm/hr Sodium 140 (136-145) mmol/L Potassium 4.1 (3.5-5.1) mmol/L Chloride 105 (98-107) mmol/L Carbon Dioxide 31 (21-32) mmol/L Anion Gap 4.0 (3-11) BUN 25 H (7-18) mg/dl Creatinine 1.00 (0.6-1.4) mg/dl Est Cr Clr Drug Dosing 72.2 ml/min Est GFR ( Amer) 86.2 Est GFR (Non-Af Amer) 74.3 BUN/Creatinine Ratio 25.5 H (10-20) Glucose 123 H (70-99) mg/dl POC Glucose 227 H 139 H (70-99) mg/dl Calcium 9.1 (8.5-10.1) mg/dl Total Bilirubin 0.4 (0.2-1) mg/dl AST 13 L (15-37) U/L ALT 30 (12-78) U/L Alkaline Phosphatase 72 (45-117) U/L C-Reactive Protein 2.94 H (0-0.29) mg/dl Total Protein 6.2 L (6.4-8.2) gm/dl Albumin 2.2 L (3.4-5.0) gm/dl Globulin 4.0 (2.5-4.0) gm/dl Albumin/Globulin Ratio 0.5 L (0.9-2) 08/30/20 08/30/20 08/30/20 Range/Units 05:37 05:37 04:14 WBC 10.02 (4.8-10.8) K/uL RBC 3.51 L (4.7-6.1) M/uL Hgb 10.5 L (14.0-18.0) g/dL Hct 32.5 L (42-52) % MCV 92.6 (80-100) fL MCH 29.9 (25-34) pg MCHC 32.3 (32-36) g/dL RDW Std Deviation 50.4 H (36.4-46.3) fL RDW Coeff of Macrina 15.6 H (11.5-14.5) % Plt Count 375 (130-400) K/uL MPV 9.3 (7.4-10.4) fL Immature Gran % (Auto) 0.6 % Neut % (Auto) 76.1 % Lymph % (Auto) 11.4 % [place] % (Auto) 7.1 % Eos % (Auto) 4.7 % Baso % (Auto) 0.1 % Neut # (Auto) 7.63 H (1.4-6.5) K/uL Lymph # (Auto) 1.14 L (1.2-3.4) K/uL [place] # (Auto) 0.71 H (0.11-0.59) K/uL Eos # (Auto) 0.47 (0-0.5) K/uL Baso # (Auto) 0.01 (0-0.2) K/uL Immature Gran # (Auto) 0.06 H (0.00-0.02) K/uL ESR 76 H (0-14) mm/hr Sodium (136-145) mmol/L Potassium (3.5-5.1) mmol/L Chloride (98-107) mmol/L Carbon Dioxide (21-32) mmol/L Anion Gap (3-11) BUN (7-18) mg/dl Creatinine (0.6-1.4) mg/dl Est Cr Clr Drug Dosing ml/min Est GFR ( Amer) Est GFR (Non-Af Amer) BUN/Creatinine Ratio (10-20) Glucose (70-99) mg/dl POC Glucose 147 H (70-99) mg/dl Calcium (8.5-10.1) mg/dl Total Bilirubin (0.2-1) mg/dl AST (15-37) U/L ALT (12-78) U/L Alkaline Phosphatase (45-117) U/L C-Reactive Protein (0-0.29) mg/dl Total Protein (6.4-8.2) gm/dl Albumin (3.4-5.0) gm/dl Globulin (2.5-4.0) gm/dl Albumin/Globulin Ratio (0.9-2) 08/30/20 08/29/20 08/29/20 Range/Units 00:43 20:33 19:33 WBC (4.8-10.8) K/uL RBC (4.7-6.1) M/uL Hgb (14.0-18.0) g/dL Hct (42-52) % MCV (80-100) fL MCH (25-34) pg MCHC (32-36) g/dL RDW Std Deviation (36.4-46.3) fL RDW Coeff of Macrina (11.5-14.5) % Plt Count (130-400) K/uL MPV (7.4-10.4) fL Immature Gran % (Auto) % Neut % (Auto) % Lymph % (Auto) % [place] % (Auto) % Eos % (Auto) % Baso % (Auto) % Neut # (Auto) (1.4-6.5) K/uL Lymph # (Auto) (1.2-3.4) K/uL [place] # (Auto) (0.11-0.59) K/uL Eos # (Auto) (0-0.5) K/uL Baso # (Auto) (0-0.2) K/uL Immature Gran # (Auto) (0.00-0.02) K/uL ESR (0-14) mm/hr Sodium (136-145) mmol/L Potassium (3.5-5.1) mmol/L Chloride (98-107) mmol/L Carbon Dioxide (21-32) mmol/L Anion Gap (3-11) BUN (7-18) mg/dl Creatinine (0.6-1.4) mg/dl Est Cr Clr Drug Dosing ml/min Est GFR ( Amer) Est GFR (Non-Af Amer) BUN/Creatinine Ratio (10-20) Glucose (70-99) mg/dl POC Glucose 212 H 165 H 165 H (70-99) mg/dl Calcium (8.5-10.1) mg/dl Total Bilirubin (0.2-1) mg/dl AST (15-37) U/L ALT (12-78) U/L Alkaline Phosphatase (45-117) U/L C-Reactive Protein (0-0.29) mg/dl Total Protein (6.4-8.2) gm/dl Albumin (3.4-5.0) gm/dl Globulin (2.5-4.0) gm/dl Albumin/Globulin Ratio (0.9-2) 08/29/20 Range/Units 16:38 WBC (4.8-10.8) K/uL RBC (4.7-6.1) M/uL Hgb (14.0-18.0) g/dL Hct (42-52) % MCV (80-100) fL MCH (25-34) pg MCHC (32-36) g/dL RDW Std Deviation (36.4-46.3) fL RDW Coeff of Macrina (11.5-14.5) % Plt Count (130-400) K/uL MPV (7.4-10.4) fL Immature Gran % (Auto) % Neut % (Auto) % Lymph % (Auto) % [place] % (Auto) % Eos % (Auto) % Baso % (Auto) % Neut # (Auto) (1.4-6.5) K/uL Lymph # (Auto) (1.2-3.4) K/uL [place] # (Auto) (0.11-0.59) K/uL Eos # (Auto) (0-0.5) K/uL Baso # (Auto) (0-0.2) K/uL Immature Gran # (Auto) (0.00-0.02) K/uL ESR (0-14) mm/hr Sodium (136-145) mmol/L Potassium (3.5-5.1) mmol/L Chloride (98-107) mmol/L Carbon Dioxide (21-32) mmol/L Anion Gap (3-11) BUN (7-18) mg/dl Creatinine (0.6-1.4) mg/dl Est Cr Clr Drug Dosing ml/min Est GFR ( Amer) Est GFR (Non-Af Amer) BUN/Creatinine Ratio (10-20) Glucose (70-99) mg/dl POC Glucose 116 H (70-99) mg/dl Calcium (8.5-10.1) mg/dl Total Bilirubin (0.2-1) mg/dl AST (15-37) U/L ALT (12-78) U/L Alkaline Phosphatase (45-117) U/L C-Reactive Protein (0-0.29) mg/dl Total Protein (6.4-8.2) gm/dl Albumin (3.4-5.0) gm/dl Globulin (2.5-4.0) gm/dl Albumin/Globulin Ratio (0.9-2) PG Care Time/CCT Total # of Minutes Spent Total Time Spent with Patient: Total time spent is greater than 50% in coordination of care (as documented) at patient's floor/unit and/or counseling patient: Coding Level of Care Code 68564 Subseq Hosp Care Lvl 3 Diagnoses Hypoxia R09.02 GI bleed K92.2 Acute blood loss anemia D62 Volume overload E87.70 Pneumomediastinum J98.2 Atrial fibrillation with rapid ventricular response I48.91 COVID-19 virus infection U07.1 Bacteremia R78.81 Diabetes type 2, uncontrolled E11.65 Hypertension I10 Pneumothorax J93.9 DVT prophylaxis Z29.9
[2020-08-30] MEDS: MONTELUKAST SODIUM 10 MG TABLET PO SCH (20:06)
[2020-08-30] MEDS: MELATONIN 3 MG TAB PO SCH (20:07)
[2020-08-31] MEDS: HEPARIN SOD 5,000 UNIT/0.5 ML VIAL SQ SCH ×3 (05:50→22:45)
[2020-08-31 09:13] LABS: Basophils # (auto) 0.01 K/uL (0-0.2); Basophils % (auto) 0.1 %; Eosinophils # (auto) 0.52 K/uL (0-0.5); Eosinophils % (auto) 5.3 %; Hematocrit (blood only) 33.2 % (42-52); Hemoglobin 10.5 g/dL (14.0-18.0); Immature Granulocytes # (auto) 0.04 K/uL (0.00-0.02); Immature Granulocytes % (auto) 0.4 %; Lymphocytes # (auto) 1.59 K/uL (1.2-3.4); Lymphocytes % (auto) 16.3 %; Mean Corpuscular Hemoglobin 29.7 pg (25-34); Mean Corpuscular Hgb Conc 31.6 g/dL (32-36); Mean Corpuscular Volume 93.8 fL (80-100); Mean Platelet Volume 9.7 fL (7.4-10.4); Monocytes % (auto) 8.2 %; Neutrophils # (auto) 6.78 K/uL (1.4-6.5); Neutrophils % (auto) 69.7 %; Platelet Count 344 K/uL (130-400); RDW Coefficient of Variation 15.3 % (11.5-14.5); RDW Standard Deviation 50.7 fL (36.4-46.3); Red Blood Count 3.54 M/uL (4.7-6.1); White Blood Count 9.74 K/uL (4.8-10.8)
[2020-08-31 09:48] LABS: BUN Creatinine Ratio 27.1 (10-20); Calcium 8.7 mg/dl (8.5-10.1); Creatinine Clr Calc Pharmacy 91.4 ml/min; Est GFR (African American) 103.2; Est GFR (Non-African American) 89.1
[2020-08-31] MEDS: PANTOprazole 40 MG TAB PO SCH ×2 (10:04→22:45)
[2020-08-31] MEDS: INSULIN GLARGINE SOLOSTAR 100 UNITS/ML 3 ML PEN SC SCH (10:05)
[2020-08-31] MEDS: MULTIVITAMIN TAB PO SCH ×2 (10:05→22:45)
[2020-08-31] MEDS: metFORMIN HCL 500 MG TAB PO SCH ×2 (10:05→17:23)
[2020-08-31] MEDS: METOPROLOL TARTRATE 25 MG TAB PO SCH ×2 (10:06→22:45)
[2020-08-31] MEDS: INSULIN ASPART 100 UNITS/ML 3 ML PEN SC SCH ×4 (10:06→22:46)
[2020-08-31] MEDS: SUCRALFATE 1 GM/10 ML UDC PO SCH ×4 (10:07→22:45)
[2020-08-31] MEDS: DAPTOmycin 500 MG in SYRINGE 0 ML IV SCH (12:35)
--- NOTE | 2020-08-31 16:32 | Hospitalist Progress Note ---
Date of Service August 31, 2020 Assessment & Plan (1) Hypoxia: acute hypoxic respiratory failure due to viral pneumonia, Covid-19, pneumothorax, and acute on chronic diastolic CHF from rapid atrial fibrillation Improving, but has likely residual inflammation and may be some developing fibro sis? Has continued bibasilar crackles Remains on 3 L but pulse ox is 99%-can wean down -Continue supplemental O2 to keep pulse ox greater than 92% Chest x-ray now shows resolved pneumothorax and resolved pneumomediastinum, still with bilateral opacities -Completed prolonged course of Decadron and prednisone taper on 08/26 -He received daily IV Lasix for many days-now discontinued Will likely take time for his dyspnea to improve given severe infection (2) GI bleed: presented itself on 08/22, BUN up dramatically into the 70s, had a dark, melanotic stool 08/22 then had a large bloody BM and vasovagal episode on 08/23 Hb stable for many days at 10.5 up from 8.1, status post 4 units PRBCs total no signs of bleeding since 08/22-having formed brown stools since then continue Protonix 40mg PO BID for 1-2 months then daily Carafate QID x 10 days total-last day will be 09/01 diabetic diet, tolerating well consult GI, no plans for EGD at this time given COVID and that he is improving, no signs of bleeding (3) Acute blood loss anemia: Hb up to 10.7 as above from 8.1, got one unit PRBC on 08/26 As above Follow CBC (4) Volume overload: Acute on chronic diastolic CHF secondary to rapid atrial fibrillation and 4 units of blood products given Patient responded really well to Lasix 20mg IV daily x4 days (5) Pneumomediastinum: new finding on CXR on 08/[address] chest 08/24, large pneumomediastinum with air into the neck small apical right PTX also as above Chest x-ray 08/30 now with resolved pneumothorax and resolved pneumomediastinum AVOID high flow and/or BIPAP no intervention needed Continue supplemental O2 (6) Atrial fibrillation with rapid ventricular response: had brief runs of afib three weeks ago that resolved with Diltiazem with afib RVR morning of 08/22, suspect it was driven by acute blood loss, low normal blood pressure, hypovolemia treated with Amiodarone bolus and drip due to low BP he converted to NSR, and discontinued the Amiodarone on 08/24, monitor on tele, still in sinus rhythm, rates 80-90 continue metoprolol 25mg BID given his large GI bleed and that he remains sinus rhythm, I would hold on full anticoagulation on discharge would recommend 30 day monitor, see if he has afib and if he does then provide full anticoagulation (7) COVID-19 virus infection: During initial admission on 07/30, the patient did extremely well and did not require supplemental oxygen. The patient has completed entire course of dexamethasone at home. Unfortunately, the patient presented back with new hypoxia as well as CT findings concerning for COVID-19 pneumonia. placed on HFNC on 08/11, transiently on wall supplied high flow, down to low flow nasal canula the past week, 2-3 L today CXR 08/22 with improved aeration, actually recovering from COVID Encourage incentive spirometry and flutter valves as tolerated. There was no role for Remdesivir or plasma, too far along into illness when admitted completed prolonged course of Decadron, completed Prednisone taper, last dose was 10mg on 08/26 essentially recovered from COVID, he is now in non-negative pressure room (8) Bacteremia: Noted to have 2 out of 2 sets of blood cultures positive for 2 different strains of coagulase-negative staph not lugdunensis on 08/24 Remains afebrile, unclear if contamination but seems less likely as is in both sets Started daptomycin on 08/29 Leukocytosis is improving, feels better Repeat blood cultures remain sterile x48 hours-if continue to have no growth, can discontinue antibiotics tomorrow (9) Diabetes type 2, uncontrolled: NEW DIAGNOSIS, HbA1c 9.9%, could be steroid induced sugars are a little better now that Prednisone is stopped, last day was 08/26 continue Metformin 500mg BID today, can titrate up 1000mg BID as outpatient if he tolerates well glucose improved today as below, will recommend basal bolus insulin to continue at [facility] but would likely not need it once he goes home check sugars two times a day at home, follow up with 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 A1c 9.9/new diagnosis (steroid induced ??)- addition of Metformin at time of discharge for rehab facility. 2. Continue basal/bolus insulin at rehab facility. 3. Begin to SMBG 2x/day upon return home. Vary time checking from day to day. 4. A1c > 9%- pt will need close follow-up at time of discharge. PRESCRIPTIONS NEEDED: 1. OneTouch Verio test strips to check 1x/day. 2. OneTouch Delica lancets to check 1x/day. (10) Hypertension: BP stable on metoprolol 25mg BID Losartan has been held-continue holding (11) Pneumothorax: Small apical right pneumothorax as above has now resolved on chest x-ray on 08/30 Continue supplemental O2 (12) DVT prophylaxis: Heparin SQ SCDs Dispo-continued stay on PCU, continues to be improving, plan for [facility] on - Discussed his care with his on the phone on 08/29 and 08/30 Admission and Anticipated Discharge Date Admission Date: August 08, 2020 Subjective Patient reports feeling very well today. He walked for the first time with physical therapy and felt like he did okay with it. He still has some dyspnea on exertion. Denies chest pain or abdominal pain. He had a bowel movement today that was nonbloody. He is eating well. Remains afebrile and was out of bed to chair when I saw him. Telemetry with normal sinus rhythm with rates in the 80s to 90s. Review of Systems Review of Systems: All systems reviewed & are unremarkable except as noted in HPI & below Physical Exam Constitutional: WD/WN, vitals as above Eyes: + anicteric sclerae Neck: trachea midline, no thyromegaly Respiratory: normal respiratory effort Auscultation: + crackles (bibasilar) Cardiovascular: RRR, no murmur, no edema Chest (Breasts): Chest: normal inspection of chest Gastrointestinal (Abdomen): normal bowel sounds, soft, nontender, no hepatosplenomegaly Musculoskeletal: Extremities: extremities normal to inspection; no cyanosis and no clubbing Skin: no rashes, warm and dry Neurologic: moves all extremities and awake; no focal motor deficits Psychiatric: A+Ox3, euthymic affect Lymphatic: no lymphedema Results & Data Results & Data ([facility]) Vital Signs (Past 12 Hours) Vital Signs Temp Pulse Resp BP BP Pulse Ox 08/31/20 15:24 36.7 C 82 18 126/81 99 08/31/20 12:10 36.4 C L 94 H 18 138/90 99 08/31/20 08:22 36.9 C 93 H 18 151/80 H 96 Laboratory Results 08/31/20 08/31/20 08/31/20 Range/Units 16:12 11:50 08:06 WBC (4.8-10.8) K/uL RBC (4.7-6.1) M/uL Hgb (14.0-18.0) g/dL Hct (42-52) % MCV (80-100) fL MCH (25-34) pg MCHC (32-36) g/dL RDW Std Deviation (36.4-46.3) fL RDW Coeff of Macrina (11.5-14.5) % Plt Count (130-400) K/uL MPV (7.4-10.4) fL Immature Gran % (Auto) % Neut % (Auto) % Lymph % (Auto) % [place] % (Auto) % Eos % (Auto) % Baso % (Auto) % Neut # (Auto) (1.4-6.5) K/uL Lymph # (Auto) (1.2-3.4) K/uL [place] # (Auto) (0.11-0.59) K/uL Eos # (Auto) (0-0.5) K/uL Baso # (Auto) (0-0.2) K/uL Immature Gran # (Auto) (0.00-0.02) K/uL Sodium 139 (136-145) mmol/L Potassium 4.0 (3.5-5.1) mmol/L Chloride 105 (98-107) mmol/L Carbon Dioxide 30 (21-32) mmol/L Anion Gap 4.0 (3-11) BUN 21 H (7-18) mg/dl Creatinine 0.79 (0.6-1.4) mg/dl Est Cr Clr Drug Dosing 91.4 ml/min Est GFR ( Amer) 103.2 Est GFR (Non-Af Amer) 89.1 BUN/Creatinine Ratio 27.1 H (10-20) Glucose 122 H (70-99) mg/dl POC Glucose 114 H 157 H (70-99) mg/dl Calcium 8.7 (8.5-10.1) mg/dl 08/31/20 08/31/20 Range/Units 08:06 07:34 WBC 9.74 (4.8-10.8) K/uL RBC 3.54 L (4.7-6.1) M/uL Hgb 10.5 L (14.0-18.0) g/dL Hct 33.2 L (42-52) % MCV 93.8 (80-100) fL MCH 29.7 (25-34) pg MCHC 31.6 L (32-36) g/dL RDW Std Deviation 50.7 H (36.4-46.3) fL RDW Coeff of Macrina 15.3 H (11.5-14.5) % Plt Count 344 (130-400) K/uL MPV 9.7 (7.4-10.4) fL Immature Gran % (Auto) 0.4 % Neut % (Auto) 69.7 % Lymph % (Auto) 16.3 % [place] % (Auto) 8.2 % Eos % (Auto) 5.3 % Baso % (Auto) 0.1 % Neut # (Auto) 6.78 H (1.4-6.5) K/uL Lymph # (Auto) 1.59 (1.2-3.4) K/uL [place] # (Auto) 0.80 H (0.11-0.59) K/uL Eos # (Auto) 0.52 H (0-0.5) K/uL Baso # (Auto) 0.01 (0-0.2) K/uL Immature Gran # (Auto) 0.04 H (0.00-0.02) K/uL Sodium (136-145) mmol/L Potassium (3.5-5.1) mmol/L Chloride (98-107) mmol/L Carbon Dioxide (21-32) mmol/L Anion Gap (3-11) BUN (7-18) mg/dl Creatinine (0.6-1.4) mg/dl Est Cr Clr Drug Dosing ml/min Est GFR ( Amer) Est GFR (Non-Af Amer) BUN/Creatinine Ratio (10-20) Glucose (70-99) mg/dl POC Glucose 118 H (70-99) mg/dl Calcium (8.5-10.1) mg/dl PG Care Time/CCT Total # of Minutes Spent Total Time Spent with Patient: Total time spent is greater than 50% in coordination of care (as documented) at patient's floor/unit and/or counseling patient: Coding Level of Care Code 53458 Subseq Hosp Care Lvl 3 Diagnoses Hypoxia R09.02 GI bleed K92.2 Acute blood loss anemia D62 Volume overload E87.70 Pneumomediastinum J98.2 Atrial fibrillation with rapid ventricular response I48.91 COVID-19 virus infection U07.1 Bacteremia R78.81 Diabetes type 2, uncontrolled E11.65 Hypertension I10 Pneumothorax J93.9 DVT prophylaxis Z29.9
[2020-08-31] MEDS: MELATONIN 3 MG TAB PO SCH (22:45)
[2020-08-31] MEDS: MONTELUKAST SODIUM 10 MG TABLET PO SCH (22:46)
[2020-09-01] MEDS: HEPARIN SOD 5,000 UNIT/0.5 ML VIAL SQ SCH ×3 (06:26→21:31)
[2020-09-01 06:45] LABS: Basophils # (auto) 0.01 K/uL (0-0.2); Basophils % (auto) 0.1 %; Eosinophils # (auto) 0.39 K/uL (0-0.5); Eosinophils % (auto) 5.8 %; Hematocrit (blood only) 31.3 % (42-52); Hemoglobin 9.9 g/dL (14.0-18.0); Immature Granulocytes # (auto) 0.03 K/uL (0.00-0.02); Immature Granulocytes % (auto) 0.4 %; Lymphocytes # (auto) 1.19 K/uL (1.2-3.4); Lymphocytes % (auto) 17.6 %; Mean Corpuscular Hemoglobin 29.7 pg (25-34); Mean Corpuscular Hgb Conc 31.6 g/dL (32-36); Mean Platelet Volume 9.3 fL (7.4-10.4); Monocytes # (auto) 0.59 K/uL (0.11-0.59); Monocytes % (auto) 8.7 %; Neutrophils # (auto) 4.57 K/uL (1.4-6.5); Neutrophils % (auto) 67.4 %; Platelet Count 314 K/uL (130-400); RDW Coefficient of Variation 15.3 % (11.5-14.5); RDW Standard Deviation 50.5 fL (36.4-46.3); Red Blood Count 3.33 M/uL (4.7-6.1); White Blood Count 6.78 K/uL (4.8-10.8)
[2020-09-01 07:16] LABS: BUN Creatinine Ratio 20.8 (10-20); Calcium 8.8 mg/dl (8.5-10.1); Creatinine Clr Calc Pharmacy 77.6 ml/min; Est GFR (African American) 94.1; Est GFR (Non-African American) 81.2; Potassium 4.3 mmol/L (3.5-5.1)
[2020-09-01] MEDS: SUCRALFATE 1 GM/10 ML UDC PO SCH ×3 (08:08→16:52)
[2020-09-01] MEDS: metFORMIN HCL 500 MG TAB PO SCH ×2 (08:09→16:52)
[2020-09-01] MEDS: METOPROLOL TARTRATE 25 MG TAB PO SCH ×2 (08:09→21:31)
[2020-09-01] MEDS: PANTOprazole 40 MG TAB PO SCH ×2 (08:10→21:31)
[2020-09-01] MEDS: INSULIN GLARGINE SOLOSTAR 100 UNITS/ML 3 ML PEN SC SCH (08:13)
[2020-09-01] MEDS: INSULIN ASPART 100 UNITS/ML 3 ML PEN SC SCH ×4 (08:14→20:39)
[2020-09-01] MEDS: DAPTOmycin 500 MG in SYRINGE 0 ML IV SCH (12:43)
--- NOTE | 2020-09-01 13:31 | Pharmacy Report ---
Pharmacy Glycemic Short Note 2 - Date of Service September 01, 2020 - Glycemic Short BSG Results (Last 24 hours): 08/31/20 08/31/20 09/01/20 16:12 21:58 06:21 Glucose 147 H POC Glucose 114 H 178 H 09/01/20 09/01/20 07:50 11:34 Glucose POC Glucose 164 H 107 H OUTPATIENT ANTIDIABETIC REGIMEN: * None ASSESSMENT: 09/01: * Kofi received 41 units of SQ insulin yesterday in addition to metformin: * 25 units of basal * 16 units of bolus * BSGs: 118, 157, 114, 178 mg/dL * Fasting BSG of 164 mg/dL is slightly above goal. Patient has been on the same dose of basal insulin x 4 days with majority of fasting BSGs at goal, therefore I will hold off on increasing dose today. * BSG trending downward with lunch. Will loosen Novolog CF and CR. 08/29: * BSGs okay yesterday sans lunchtime BSG of 208 mg/dL * Fasting BSG this morning of 143 mg/dL * Will increase basal by ~10% * Could consider tightening carb coverage with breakfast tomorrow 08/27: * Patient received a total of 58 units of insulin yesterday (25 units basal, 33 units bolus) * Fasting BSG remains above goal. Will order Lantus 15 units for this morning and 7 units for this evening. Can transition to once daily AM dosing on 08/28. * Post prandial BSGs remain significantly above goal despite multiple changes made to CF/CR. Patient continues to snack between meals. Per discussion with patient's nurse today; pt eats all day long and was previously requesting additional meals from the kitchen. He was instructed to notify nursing when he will be snacking so that carbs can be covered. Will change from ACHS to q4h checks to help with snacking. * Prednisone has been discontinued * Metformin added to regimen - to start with dinner 08/26 * Patient received total of 31 units of insulin yesterday, of which 12 were basal * Fasting BSG 148 mg/dL - continue scale for basal * Lunch BSG elevated, spoke with RN and patient had requested multiple lunch trays and was not given insulin coverage. Will start basal for now instead and add scale for HS 08/25 * Patient received only 13 units of insulin yesterday, of which 10 were basal * Fasting BSG 93 mg/dL - changed to diet at lunch time / added loosened parameters * Continue scale for basal at HS 08/24 * Patient transitioned off insulin drip last evening - received 10 units of basal last night * Fasting 92 mg/dL - patient NPO this AM for possible EGD * Held AM basal. Lunch BSG 150 mg/dL - will add scale for basal at HS as patient continues NPO today * Insulin requirements significantly reducing over last couple of days, unclear for reasoning of hyperglycemia a few days ago. Continues on prednisone 20 mg daily * A1c of ~10% - likely patient needing basal insulin even if NPO / added for HS time PLAN FOR INPATIENT GLYCEMIC CONTROL: * Metformin 500 mg BID with meals * Basal insulin: * Lantus 25 units SC daily * Bolus insulin: - loosen * NovoLog per scale q4h * 110-140 goal range * Correction factor: 20 mg/dL/unit * Carb Ratio: 1 unit for every 5 grams CHO RECOMMENDATIONS AT DISCHARGE: A1c 9.9% (08/08/20) * new diagnosis - patient not on anti-DM medication at home (potentially steroid induced) Continue metformin on discharge * may be increased by 500 mg per week as tolerated to max of 2000 mg per day If insulin is continued on discharge, recommend: * Lantus/Levemir 25 units SQ once daily * Novolog 7 units TID with meals; consider partial dose if low carb meal
--- NOTE | 2020-09-01 18:32 | Hospitalist Progress Note ---
Date of Service September 01, 2020 Assessment & Plan (1) Hypoxia: Acute hypoxic respiratory failure due to viral pneumonia, Covid-19, pneumothorax, and acute on chronic diastolic CHF from rapid atrial fibrillation Improving, but has likely residual inflammation and may be some developing fibro sis? Has continued bibasilar and right middle lung field crackles which may actually be some fibrosis Now weaned off oxygen on 09/01 -Continue supplemental O2 as needed to keep pulse ox greater than 92% Serial chest x-ray shows resolved pneumothorax and resolved pneumomediastinum, still with bilateral opacities -Completed prolonged course of Decadron and prednisone taper on 08/26 -He received daily IV Lasix for many days-now discontinued Will likely take time for his dyspnea to improve given severe infection- improving today (2) GI bleed: presented itself on 08/22, BUN up dramatically into the 70s, had a dark, melanotic stool 08/22 then had a large bloody BM and vasovagal episode on 08/23 Hb stable for many days at 10.5 up from 8.1, status post 4 units PRBCs total no signs of bleeding since 08/22-having formed brown stools since then continue Protonix 40mg PO BID for 1-2 months then daily Carafate QID x 10 days total-last day will be 09/01 diabetic diet, tolerating well consulted GI, no plans for EGD at this time given COVID and that he is improving, no signs of bleeding (3) Acute blood loss anemia: Hb was up to 10.7 as above from 8.1, got one unit PRBC on 08/26 Hemoglobin slight drop today to 9.9 but no evidence of bleeding As above Follow CBC (4) Volume overload: Acute on chronic diastolic CHF secondary to rapid atrial fibrillation and 4 units of blood products given Patient responded really well to Lasix 20mg IV daily x4 days (5) Pneumomediastinum: new finding on CXR on 08/[address] chest 08/24, large pneumomediastinum with air into the neck small apical right PTX also as above Chest x-ray 08/30 now with resolved pneumothorax and resolved pneumomediastinum AVOID high flow and/or BIPAP no intervention needed Continue supplemental O2 (6) Atrial fibrillation with rapid ventricular response: had brief runs of afib three weeks ago that resolved with Diltiazem with afib RVR morning of 08/22, suspect it was driven by acute blood loss, low normal blood pressure, hypovolemia treated with Amiodarone bolus and drip due to low BP he converted to NSR, and discontinued the Amiodarone on 08/24, monitor on tele, still in sinus rhythm, rates 80-90 continue metoprolol 25mg BID given his large GI bleed and that he remains sinus rhythm, I would hold on full anticoagulation on discharge would recommend 30 day monitor, see if he has afib and if he does then provide full anticoagulation (7) COVID-19 virus infection: During initial admission on 07/30, the patient did extremely well and did not require supplemental oxygen. The patient has completed entire course of dexamethasone at home. Unfortunately, the patient presented back with new hypoxia as well as CT findings concerning for COVID-19 pneumonia. placed on HFNC on 08/11, transiently on wall supplied high flow, now weaned off oxygen completely CXR 08/22 with improved aeration, actually recovering from COVID Encourage incentive spirometry and flutter valves as tolerated. There was no role for Remdesivir or plasma, too far along into illness when admitted completed prolonged course of Decadron, completed Prednisone taper, last dose was 10mg on 08/26 essentially recovered from COVID, he is now in non-negative pressure room (8) Bacteremia: Noted to have 2 out of 2 sets of blood cultures positive for 2 different strains of coagulase-negative staph not lugdunensis on 08/24 Remains afebrile, unclear if contamination but seems less likely as is in both sets Started daptomycin on 08/29 Leukocytosis is improving, feels better Repeat blood cultures remain sterile x72 hours-if continue to have no growth, can discontinue antibiotics tomorrow (9) Diabetes type 2, uncontrolled: NEW DIAGNOSIS, HbA1c 9.9%, could be steroid induced sugars are a little better now that Prednisone is stopped, last day was 08/26 continue Metformin 500mg BID today, can titrate up 1000mg BID as outpatient if he tolerates well glucose controlled as below, will recommend basal bolus insulin to continue at [facility] but would likely not need it once he goes home check sugars two times a day at home, follow up with PCP for further instruction follow low carb diet primary special educator 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 A1c 9.9/new diagnosis (steroid induced ??) 2. Continue basal/bolus insulin at rehab facility. 3. Begin to SMBG 2x/day upon return home. Vary time checking from day to day. 4. A1c > 9%- pt will need close follow-up at time of discharge. PRESCRIPTIONS NEEDED: 1. OneTouch Verio test strips to check 1x/day. 2. OneTouch Delica lancets to check 1x/day. (10) Hypertension: BP stable on metoprolol 25mg BID Losartan has been held-continue holding (11) Pneumothorax: Small apical right pneumothorax as above has now resolved on chest x-ray o n 08/30 Now off oxygen (12) DVT prophylaxis: Heparin SQ SCDs Dispo-continued stay on PCU, improving daily, plan for [facility] likely tomorrow Discussed his care with his on the phone on 08/29 and 08/30 Admission and Anticipated Discharge Date Admission Date: August 08, 2020 Subjective Patient reports feeling the best that he has in a week and a half. He denies chest pain. He is weaned off oxygen and feels much less short of breath. He is eating and drinking, moving his bowels and making urine. He feels like he is just about ready to leave the hospital go to rehab. Telemetry with normal sinus rhythm with rates in the 70s to 90s. Review of Systems Review of Systems: All systems reviewed & are unremarkable except as noted in HPI & below Physical Exam Constitutional: WD/WN, vitals as above Eyes: + anicteric sclerae Neck: trachea midline, no thyromegaly Respiratory: normal respiratory effort Auscultation: + crackles (bibasilar as well as right middle lung field); no rhonchi and no wheezes Cardiovascular: RRR, no murmur, no edema Chest (Breasts): Chest: normal inspection of chest Gastrointestinal (Abdomen): normal bowel sounds, soft, nontender, no hepatosplenomegaly Musculoskeletal: Extremities: extremities normal to inspection; no cyanosis and no clubbing Skin: no rashes, warm and dry Neurologic: moves all extremities and awake; no focal motor deficits Psychiatric: A+Ox3, euthymic affect Lymphatic: no lymphedema Results & Data Results & Data ([facility]) Vital Signs (Past 12 Hours) Vital Signs Temp Pulse Resp BP BP Pulse Ox 09/01/20 15:34 36.7 C 91 H 20 111/71 92 09/01/20 11:16 36.6 C 91 H 19 146/66 H 91 09/01/20 09:09 36.7 C 73 20 129/75 94 09/01/20 08:12 73 136/80 Laboratory Results 09/01/20 06:21 09/01/20 06:21 Blood cultures-no growth to date PG Care Time/CCT Total # of Minutes Spent Total Time Spent with Patient: Total time spent is greater than 50% in coordination of care (as documented) at patient's floor/unit and/or counseling patient: Coding Level of Care Code 90331 Subseq Hosp Care Lvl 3 Diagnoses Hypoxia R09.02 GI bleed K92.2 Acute blood loss anemia D62 Volume overload E87.70 Pneumomediastinum J98.2 Atrial fibrillation with rapid ventricular response I48.91 COVID-19 virus infection U07.1 Bacteremia R78.81 Diabetes type 2, uncontrolled E11.65 Hypertension I10 Pneumothorax J93.9 DVT prophylaxis Z29.9
[2020-09-01] MEDS: MELATONIN 3 MG TAB PO SCH (21:31)
[2020-09-01] MEDS: MONTELUKAST SODIUM 10 MG TABLET PO SCH (21:31)
[2020-09-02] MEDS: HEPARIN SOD 5,000 UNIT/0.5 ML VIAL SQ SCH ×2 (06:20→14:12)
[2020-09-02] MEDS: INSULIN ASPART 100 UNITS/ML 3 ML PEN SC SCH ×2 (07:47→11:45)
[2020-09-02] MEDS: PANTOprazole 40 MG TAB PO SCH (08:04)
[2020-09-02] MEDS: metFORMIN HCL 500 MG TAB PO SCH (08:04)
[2020-09-02] MEDS: MULTIVITAMIN TAB PO SCH (08:04)
[2020-09-02] MEDS: METOPROLOL TARTRATE 25 MG TAB PO SCH (08:12)
[2020-09-02 08:25] LABS: Basophils # (auto) 0.01 K/uL (0-0.2); Basophils % (auto) 0.2 %; Eosinophils # (auto) 0.27 K/uL (0-0.5); Eosinophils % (auto) 4.6 %; Hematocrit (blood only) 31.9 % (42-52); Immature Granulocytes # (auto) 0.01 K/uL (0.00-0.02); Immature Granulocytes % (auto) 0.2 %; Lymphocytes # (auto) 1.38 K/uL (1.2-3.4); Lymphocytes % (auto) 23.7 %; Mean Corpuscular Hemoglobin 29.4 pg (25-34); Mean Corpuscular Hgb Conc 31.3 g/dL (32-36); Mean Corpuscular Volume 93.8 fL (80-100); Mean Platelet Volume 9.3 fL (7.4-10.4); Monocytes # (auto) 0.54 K/uL (0.11-0.59); Monocytes % (auto) 9.3 %; Neutrophils # (auto) 3.62 K/uL (1.4-6.5); Platelet Count 358 K/uL (130-400); RDW Coefficient of Variation 15.4 % (11.5-14.5); RDW Standard Deviation 50.8 fL (36.4-46.3); White Blood Count 5.83 K/uL (4.8-10.8)
[2020-09-02 08:51] LABS: BUN Creatinine Ratio 21.6 (10-20); Calcium 9.1 mg/dl (8.5-10.1); Est GFR (African American) 100.7; Est GFR (Non-African American) 86.9; Potassium 4.3 mmol/L (3.5-5.1)
[2020-09-02] MEDS ORDERED: INSULIN GLARGINE SOLOSTAR 100 UNITS/ML 3 ML PEN SC SCH (09:00)
--- NOTE | 2020-09-02 10:24 | Discharge Summary ---
Date of Service September 02, 2020 Admission HPI Per Admitting Provider Patient is a 75-year-old male with a significant past medical history of hypertension and recent diagnosis of COVID-19 on 07/30. He and his both became symptomatic on Sunday, 27 July with generalized fatigue, weakness, and fevers. He was admitted to this facility for 2 days where he received remdesivir as well as Decadron. Thankfully, the patient had improved enough that he was off supplemental oxygen for greater than 24 hours. He was discharged home on oral Decadron and today would have been day 10. He returned to this facility on 08/05 with ongoing weakness and mild cough. During his emergency department visit, he was not hypoxic and generally had an unremarkable work-up. He was placed on doxycycline for possible superimposed infection. Despite the addition of doxycycline, the patient reports that he has had increasing fatigue, weakness, and now endorses symptoms of shortness of breath at rest as well as with exertion. Patient was noted to be hypoxic with an SaO2 of 85% on room air. The patient has required 3 L nasal cannula in the emergency department. Chest x-ray with bilateral airspace opacities. CTA demonstrates extensive groundglass opacities consistent with viral pneumonia. No pulmonary emboli noted. Patient is without leukocytosis. He remains lymphopenic. Of concern, the patient was noted to have blood glucose levels in excess of 500. Additionally, the patient complains of increasing thirst and need for urination. Patient received IV insulin in the emergency department and insulin drip was initiated. Patient was covered empirically with Rocephin and azithromycin. Upon evaluation in the emergency department, the patient is awake, alert, and oriented. Patient reports that he feels generally fatigued and weak. Again, he endorses shortness of breath with any exertion as well as while at rest. He is irritated by the amount that he has had to void over the last few days. He complains of ongoing cough as well as inability to taste or smell. He has not eaten anything today secondary to his fatigue. Patient reports no past medical history of diabetes. Patient currently denies any complaints of headaches, dizziness, lightheadedness, chest pain, palpitations, hemoptysis, nausea, vomiting, abdominal pain, hematochezia, melena, hematuria, or dysuria. Principal Diagnosis COVID-19 Pneumonia, Acute respiratory failure with hypoxia, GI Bleed, Rapid atrial fibrillation Discharge Exam Constitutional WD/WN, vitals as above Eyes + anicteric sclerae Neck trachea midline, no thyromegaly Respiratory normal respiratory effort Auscultation: + crackles (bibasilar but improved now in mid lung); no rhonchi and no wheezes Cardiovascular RRR, no murmur, no edema Chest (Breasts) Chest: normal inspection of chest Gastrointestinal (Abdomen) normal bowel sounds, soft, nontender, no hepatosplenomegaly Musculoskeletal Extremities: extremities normal to inspection; no cyanosis and no clubbing Skin no rashes, warm and dry Neurologic moves all extremities and awake; no focal motor deficits Psychiatric A+Ox3, euthymic affect Lymphatic no lymphedema Discharge Data Allergies Allergy/AdvReac Type Severity Reaction Status Date / Time No Known Allergies Allergy Unverified 08/08/20 14:50 Consultations 08/08/20 15:05 ED Decision to Admit Stat 08/08/20 20:09 Consult Case Management - Discharge Planning Routine 08/23/20 08:29 Consult Gastroenterology Routine Ordered Studies 08/08/20 13:34 CT angio chest PE protocol Stat 08/24/20 12:38 CT angio chest PE protocol Stat CXR x 8 Diabetes Follow up Diabetes Follow-up Needed for HgbA1c >9%,Newly Diagnosed Diabetes Hospital Course (1) Hypoxia: Acute hypoxic respiratory failure due to viral pneumonia, Covid-19, pneumothorax, and acute on chronic diastolic CHF from rapid atrial fibrillation Improving, but has likely residual inflammation and may be some developing fibrosis? Has continued bibasilar and now improved right middle lung field crackles which may actually be some fibrosis Now weaned off oxygen on 09/01 and doing well -Continue supplemental O2 as needed to keep pulse ox greater than 92%-may need this with exertion at rehab Serial chest x-ray shows resolved pneumothorax and resolved pneumomediastinum, still with bilateral opacities -Completed prolonged course of Decadron and prednisone taper on 08/26 -He received daily IV Lasix for many days-now discontinued Will likely take time for his dyspnea to improve given severe infection- improving today (2) GI bleed: presented itself on 08/22, BUN up dramatically into the 70's, had a dark, melanotic stool 08/22 then had a large bloody BM and vasovagal episode on 08/23 Hb stable for many days at 10.5 up from 8.1, status post 4 units PRBCs total no signs of bleeding since 08/22-having formed brown stools since then continue Protonix 40mg PO BID for 1-2 months then daily Completed 10 days of Carafate QID diabetic diet, tolerating well consulted GI, no plans for EGD at this time given COVID and that he is improving, no signs of bleeding (3) Acute blood loss anemia: Hb was up to 10.7 as above from 8.1, got one unit PRBC on 08/26 Hemoglobin stable at 10.0 but no evidence of bleeding As above Follow CBC as an outpt (4) Volume overload: Acute on chronic diastolic CHF secondary to rapid atrial fibrillation and 4 units of blood products given Patient responded really well to Lasix 20mg IV daily x4 days (5) Pneumomediastinum: new finding on CXR on 08/[address] chest 08/24, large pneumomediastinum with air into the neck small apical right PTX also as above Chest x-ray 08/30 now with resolved pneumothorax and resolved pneumomediastinum AVOID high flow and/or BIPAP no intervention needed (6) Atrial fibrillation with rapid ventricular response: had brief runs of afib three weeks ago that resolved with Diltiazem with afib RVR morning of 08/22, suspect it was driven by acute blood loss, low normal blood pressure, hypovolemia treated with Amiodarone bolus and drip due to low BP he converted to NSR, and discontinued the Amiodarone on 08/24, monitor on tele, still in sinus rhythm, rates 80-90 continue metoprolol 25mg BID given his large GI bleed and that he remains sinus rhythm, I would hold on full anticoagulation on discharge would recommend 30 day monitor, see if he has afib and if he does then provide full anticoagulation (7) COVID-19 virus infection: During initial admission on 07/30, the patient did extremely well and did not require supplemental oxygen. The patient has completed entire course of dexamethasone at home. Unfortunately, the patient presented back with new hypoxia as well as CT findings concerning for COVID-19 pneumonia. placed on HFNC on 08/11, transiently on wall supplied high flow, now weaned off oxygen completely CXR 08/22 with improved aeration, actually recovering from COVID Encourage incentive spirometry and flutter valves as tolerated. There was no role for Remdesivir or plasma, too far along into illness when admitted completed prolonged course of Decadron, completed Prednisone taper, last dose was 10mg on 08/26 essentially recovered from COVID, he is now in non-negative pressure room (8) Bacteremia: Noted to have 2 out of 2 sets of blood cultures positive for 2 different strains of coagulase-negative staph not lugdunensis on 08/24 Remains afebrile, unclear if contamination but seems less likely as is in both sets Started daptomycin on 08/29 Leukocytosis is improving, feels better Repeat blood cultures remain sterile x 4 days--can discontinue antibiotics tomorrow (9) Diabetes type 2, uncontrolled: NEW DIAGNOSIS, HbA1c 9.9%, could be steroid induced sugars are a little better now that Prednisone is stopped, last day was 08/26 continue Metformin 500mg BID today, can titrate up 1000mg BID as outpatient if he tolerates well continue Lantus glucose controlled as below, will recommend basal bolus insulin to continue at [facility] but would likely not need it once he goes home check sugars two times a day at home, follow up with PCP for further instruction follow low carb diet religious educator 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 A1c 9.9/new diagnosis (steroid induced ??) 2. Continue basal/bolus insulin at rehab facility. 3. Begin to SMBG 2x/day upon return home. Vary time checking from day to day. 4. A1c > 9%- pt will need close follow-up at time of discharge. PRESCRIPTIONS NEEDED: 1. OneTouch Verio test strips to check 1x/day. 2. OneTouch Delica lancets to check 1x/day. (10) Hypertension: BP stable on metoprolol 25mg BID Losartan has been held-ok to restart on discharge dc home amlodipine (11) Pneumothorax: Small apical right pneumothorax as above has now resolved on chest x-ray on 08/30 Now off oxygen (12) DVT prophylaxis: Heparin SQ SCDs Dispo-stable for dc to [facility] today Discussed his care with his on the phone on 08/29 and 08/30and 09/02 Total Time Total Time Spent Total Time Spent (In Minutes): 35 min Total Time Includes: Examination of the Patient, Discharge Planning and Medication Reconciliation Discharge Plan Discharge Items Patient Disposition: Transfer Inpatient Rehab Fac Reason For Visit: HYPOXIA, HHS, COVID-19, PNA Discharge Diagnosis: COVID-19 Pneumonia, Acute respiratory failure with hypoxia, Pneumothorax and pneumomediastinum, GI Bleed, HHS Condition on Discharge: Good Activity: As commented below Lifting: Gradually increase as tolerated Bathing: No limitations Exercise/Sports: Gradually increase as tolerated Weightbearing: Full weightbearing Non-emergency contact: Primary Care Provider Call non-emergency contact if: you have any medication questions and your symptoms worsen Follow-up/Referrals: Robin Reid MD [Primary Care Provider] - (FOllow up in 1-2 weeks after discharge from rehab) Diet: Carb Consistent or DM2 and Heart Healthy Addtl Attending Provider Instructions: You were admitted with COVID pneumonia, low oxygen levels and had a prolonged hospitalization. You also had a GI bleed and will need to take protonix twice daily for this. You had some brief atrial fibrillation which is an irregular heart rhythm, but because of your GI bleed, you will not be placed on blood thinners right now. Please follow up with your PCP regarding this after discharge. Pending Studies at Discharge: No Stand-Alone Forms: My [facility] Skilled Items Patient informed of condition?: Yes DNR: No Discharge Level of Care: Acute rehab Communicable Disease: No Discharge Prognosis: Improving Lines: None Urinary Catheter: No Medications and DC Order Prescriptions: New metformin 500 mg Tablet 500 mg PO BIDM Qty: 60 RF: 0 melatonin 3 mg Tablet 3 mg PO HS Qty: 30 RF: 0 pantoprazole 40 mg Tablet,Delayed Release (Dr/Ec) 40 mg PO BID Qty: 60 RF: 0 montelukast [Singulair] 10 mg Tablet 10 mg PO HS Qty: 30 RF: 0 metoprolol tartrate 25 mg Tablet 25 mg PO BID Qty: 60 RF: 0 Lantus Solostar U-100 Insulin 100 unit/mL (3 mL) Insulin Pen 20 unit SC QAM Qty: 3 RF: 0 Continued losartan 50 mg tablet 50 mg PO DAILY RF: 0 multivitamin Tablet 1 tab PO DAILY RF: 0 cholecalciferol (vitamin D3) 10 mcg (400 unit) Tablet 0 mcg PO DAILY RF: 0 Discontinued amlodipine 5 mg tablet 5 mg PO DAILY RF: 0 dexamethasone [Decadron] 6 mg tablet 6 mg PO DAILY Qty: 7 RF: 0 ondansetron HCl [Zofran] 4 mg tablet 4 mg PO TID PRN (Reason: nausea and vomiting) 5 Days Qty: 15 RF: 0 benzonatate [Tessalon Perles] 100 mg capsule 100 mg PO TID PRN (Reason: cough) Qty: 15 RF: 0 doxycycline hyclate 100 mg tablet 100 mg PO BID 7 Days Qty: 14 RF: 0 Discharge Orders: Discharge Order (Routine); Ordered 09/02/20 Ordered By: Miriam Gonzalez Admission Data Admit Date/Time: 08/08/20 16:36 Attending Provider: Miriam Gonzalez Admit Provider: [place] Primary Care Provider: Robin Reid Other Providers: Vinicio Vail ; [facility] ; [facility], ; Christie Oliveirasim Coding Level of Care Code D/C Day Management >30 mins Diagnoses Hypoxia R09.02 GI bleed K92.2 Acute blood loss anemia D62 Volume overload E87.70 Pneumomediastinum J98.2 Atrial fibrillation with rapid ventricular response I48.91 COVID-19 virus infection U07.1 Bacteremia R78.81 Diabetes type 2, uncontrolled E11.65 Hypertension I10 Pneumothorax J93.9 DVT prophylaxis Z29.9
[2020-09-02] MEDS: DAPTOmycin 500 MG in SYRINGE 0 ML IV SCH (11:44)
== END 2020-09-02 14:52 | DRG 177 ==
LOC: ED 11:44 → 2S 16:36 → SUATTDRO 16:36 → 2S 19:10

== ENCOUNTER 2024-08-28 13:45 | Inpatient (IN) ==
[2024-08-28 14:30] LABS: Basophils # (auto) 0.03 K/uL (0.00-0.20); Basophils % (auto) 0.3 %; Eosinophils # (auto) 0.01 K/uL (0.00-0.50); Eosinophils % (auto) 0.1 %; Hematocrit (blood only) 50.9 % (42.0-52.0); Hemoglobin 17.1 g/dl (14.0-18.0); Immature Granulocytes # (auto) 0.07 K/uL (0.01-0.20); Immature Granulocytes % (auto) 0.6 %; Lymphocytes # (auto) 0.88 K/uL (1.20-3.40); Lymphocytes % (auto) 7.6 %; Mean Corpuscular Hgb Conc 33.6 g/dL (32.0-36.0); Mean Corpuscular Volume 89.3 fL (80.0-100.0); Mean Platelet Volume 10.4 fL (9.4-12.4); Monocytes # (auto) 0.83 K/uL (0.11-0.59); Monocytes % (auto) 7.2 %; Neutrophils # (auto) 9.69 K/uL (1.40-6.50); Neutrophils % (auto) 84.2 %; Platelet Count 179 K/uL (130-400); RDW Coefficient of Variation 12.5 % (11.5-14.5); RDW Standard Deviation 41.1 fL (36.4-46.3); White Blood Count 11.51 K/ul (4.8-10.8)
[2024-08-28 14:36] LABS: Albumin Globulin Ratio 1.4 (0.9-2); Albumin Level 4.7 gm/dl (3.4-5.0); BUN Creatinine Ratio 13.8 (10-20); Bilirubin,Total 1.1 mg/dl (0.2-1.0); Calcium 9.7 mg/dl (8.6-10.3); Creatinine Clr Calc Pharmacy 46.8 ml/min; Globulin 3.4 gm/dl (2.5-4.0); Potassium 4.7 mmol/L (3.5-5.1); Total Protein 8.1 gm/dl (6.0-8.3)
--- NOTE | 2024-08-28 14:50 | Emergency Department Note ---
Impression & Plan Pneumonia due to severe acute respiratory syndrome coronavirus 2 (SARS-CoV-2), Weakness, Acute hyperglycemia, RENAN (acute kidney injury) ED Provider Note NAME: YELENA MUNOZ AGE: 79 SEX: M : 1945 ARRIVES VIA: Walk-In INFORMANT: Patient, ED PROVIDER(S): Gage Siddiqi DO CHIEF COMPLAINT: Off-balance HPI: The patient is a 79-year-old male who presented to the emergency department because he feels off balance. The patient states he had a headache and he feels though he is not able to walk normally. The patient also noticed cough and fever. The patient has a history of COVID in the past and had pneumonia. He went to the urgent care but was not able to be seen. He was sent to the emergency department for further evaluation. The patient is been trying to drink plenty of liquids but he has not been keeping up. The patient denies having any recent trauma. He denies having any chest pain. ROS: See above HPI for pertinent positives & negatives. A total of 10 systems reviewed and were otherwise negative. PAST MEDICAL HISTORY: See Below PAST SURGICAL HISTORY: See Below FAMILY HISTORY: See Below SOCIAL HISTORY: See Below HOME MEDICATIONS: See Below ALLERGIES: See Below VITALS: See Below PHYSICAL EXAMINATION: GENERAL: Patient is awake alert in no acute distress patient is resting comfortably and showing no signs of anxiety EYES: The conjunctivae are clear. The pupils are round and reactive. EARS, NOSE, MOUTH AND THROAT: The nose is without any evidence of any deformity. NECK: The neck is nontender and supple. RESPIRATORY: Normal respiratory effort is noted there is no evidence of wheezing rhonchi or rales CARDIOVASCULAR: Regular rate and rhythm noted there no murmurs rubs or gallops normal S1 normal S2. GASTROINTESTINAL: The abdomen is soft. Abdomen is nontender. MUSCULOSKELETAL/EXTREMITIES: There is no evidence of gross deformity full range of motion is noted in the hips and shoulders. SKIN: There is no obvious evidence of any rash. There are no petechiae, pallor or cyanosis noted. NEUROLOGIC: Patient is awake alert and oriented x3. There was no nystagmus elicited. [id number] was normal. MEDICAL DECISION MAKING: The patient is a 79-year-old male who presented to the emergency department for an evaluation of difficulty breathing cough headache and URI symptoms. The patient has a history of COVID-pneumonia in the past. He also has a history of diabetes. The patient was found to have significant hyperglycemia and RENAN. He was treated with IV fluids and IV insulin. I discussed the patient's laboratory and radiographic studies with him. Given his findings I also discussed his condition with the on-call [facility] hospitalist. They have agreed to evaluate the patient in the emergency department for further management and disposition. Triage Nursing notes reviewed. Prior medical records reviewed Vital Signs: reviewed and remarkable for no significant abnormalities Differential diagnosis: Benign positional vertigo, dehydration, hypovolemia, anemia, tumor, infection, hypoglycemia, electrolyte abnormalities, cardiac sources, intracerebral event, toxicologic, neurologic, as well as other pathologies. ER treatment provided: See below Diagnostics interpreted by me: ECG: EKG was obtained in the emergency department. My interpretation is normal sinus rhythm at 94 bpm. There is no ectopy. There is no acute ST segment abnormalities noted. This was compared to a tracing from November 14, 2023. No changes were noted. Cardiac Monitoring: An order was placed for continuous cardiac monitoring. The monitor shows a rate of 89 bpm with sinus rhythm. Laboratory studies: As stated above and show below. Imaging studies: See below. Radiographic imaging was reviewed by myself Consultation(s): I discussed this case with Dr. Medina [facility]. Past Med/Surg History Problem List (Updated 08/28/24 @ 17:01 by Gage Siddiqi DO) RENAN (acute kidney injury) (Acute) Acute hyperglycemia (Acute) Weakness (Acute) Pneumonia due to severe acute respiratory syndrome coronavirus 2 (SARS-CoV-2) (Acute) BPH loc w urin obs/LUTS Dysfunctional voiding of urine Urinary dysfunction Prostate cancer screening Mixed hyperlipidemia Chronic kidney disease, stage 3a Parietoalveolar pneumopathy Tricuspid valve regurgitation Mitral valve regurgitation Allergic rhinitis Spondylolisthesis Hx of malignant neoplasm of colon Endocarditis Raised prostate specific antigen Malignant tumor of colon Aortic valve disorder Diabetes mellitus Essential (primary) hypertension Polymyalgia rheumatica Diabetes type 2, uncontrolled Atrial fibrillation with rapid ventricular response Pneumonia (Acute) Hypertension COVID-19 virus infection (Acute) Medical History 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 Pneumothorax Pneumomediastinum Acute blood loss anemia GI bleed Surgical History No pertinent past surgical history Family History Mother Diabetes Heart disease Brother Diabetes Sister Diabetes Social History Smoking Status: Never smoker Tobacco Type: Cigarettes Second Hand Exposure: No; Do You Dip or Chew Tobacco: No; Hx Alcohol Use: No Hx Substance Use: No Preferred Language: Swazi Communication Ability: Effective Space Officer Required: No Beliefs That Will Affect Care: None marital status: Current Living Situation: Spouse Feels Safe at Home: Yes Assistive Devices: None Allergies Allergies Allergy/AdvReac Type Severity Reaction Status Date / Time No Known Allergies Allergy Unverified 10/25/23 18:02 Home Meds Home Medications Medication Instructions Recorded Confirmed cholecalciferol (vitamin D3) 25 2,000 unit PO DAILY 10/25/23 08/28/24 mcg (1,000 unit) tablet metoprolol succinate 25 mg 12.5 mg PO DAILY 10/25/23 08/28/24 tablet,extended release 24 hr tamsulosin 0.4 mg capsule (Flomax) 0.4 mg PO DAILY 10/25/23 08/28/24 rosuvastatin 5 mg tablet 5 mg PO DAILY 08/28/24 08/28/24 Results & Data (ED) Vital Signs Vital Signs - 24 hr 08/28/24 13:49 08/28/24 15:30 08/28/24 15:30 Temperature 36.6 C Temperature Source Oral Pulse Rate 105 H 94 H Pulse Rate from SpO2 Sensor 93 H Respiratory Rate 20 18 Blood Pressure 180/87 H 174/101 H Blood Pressure Mean 118 140 Pulse Oximetry 96 97 Oxygen Delivery Method Room Air Sepsis Recent Fever Within 48 Hours No Sepsis New/Unexplained Change in Mental Status N/A Sepsis Action Taken by Nursing No Action Required 08/28/24 16:00 08/28/24 16:02 08/28/24 16:21 Temperature Temperature Source Pulse Rate 86 87 Pulse Rate from SpO2 Sensor Respiratory Rate 21 Blood Pressure 169/96 H Blood Pressure Mean 145 Pulse Oximetry Oxygen Delivery Method Sepsis Recent Fever Within 48 Hours Sepsis New/Unexplained Change in Mental Status Sepsis Action Taken by Nursing 08/28/24 16:30 08/28/24 17:00 08/28/24 17:03 Temperature Temperature Source Pulse Rate 83 Pulse Rate from SpO2 Sensor Respiratory Rate 18 Blood Pressure 163/90 H 144/83 H Blood Pressure Mean 124 122 Pulse Oximetry Oxygen Delivery Method Sepsis Recent Fever Within 48 Hours Sepsis New/Unexplained Change in Mental Status Sepsis Action Taken by Nursing 08/28/24 17:12 08/28/24 17:24 08/28/24 17:30 Temperature Temperature Source Pulse Rate 82 85 91 H Pulse Rate from SpO2 Sensor Respiratory Rate 12 19 12 Blood Pressure Blood Pressure Mean Pulse Oximetry Oxygen Delivery Method Sepsis Recent Fever Within 48 Hours Sepsis New/Unexplained Change in Mental Status Sepsis Action Taken by Nursing 08/28/24 17:31 08/28/24 17:51 08/28/24 17:57 Temperature Temperature Source Pulse Rate 88 86 Pulse Rate from SpO2 Sensor Respiratory Rate 22 17 Blood Pressure 169/102 H Blood Pressure Mean 127 Pulse Oximetry Oxygen Delivery Method Sepsis Recent Fever Within 48 Hours Sepsis New/Unexplained Change in Mental Status Sepsis Action Taken by Nursing 08/28/24 18:00 08/28/24 18:18 08/28/24 18:30 Temperature Temperature Source Pulse Rate 91 H Pulse Rate from SpO2 Sensor Respiratory Rate 15 Blood Pressure 132/101 H 148/87 H Blood Pressure Mean 109 116 Pulse Oximetry Oxygen Delivery Method Sepsis Recent Fever Within 48 Hours Sepsis New/Unexplained Change in Mental Status Sepsis Action Taken by Nursing 08/28/24 19:00 Temperature Temperature Source Pulse Rate 89 Pulse Rate from SpO2 Sensor 89 Respiratory Rate 16 Blood Pressure 133/86 Blood Pressure Mean 101 Pulse Oximetry 95 Oxygen Delivery Method Room Air Sepsis Recent Fever Within 48 Hours Sepsis New/Unexplained Change in Mental Status Sepsis Action Taken by Shelter Medications Current Medication List: was personally reviewed by sd Laboratory Data Attestation: I reviewed the patient's lab results. 08/28/24 13:58 08/28/24 13:58 Lab Results 08/28/24 08/28/24 08/28/24 Range/Units 13:56 13:58 16:17 WBC 11.51 H (4.8-10.8) K/ul RBC 5.70 (4.70-6.10) M/uL Hgb 17.1 (14.0-18.0) g/dl Hct 50.9 (42.0-52.0) % MCV 89.3 (80.0-100.0) fL MCH 30.0 (25.0-34.0) pg MCHC 33.6 (32.0-36.0) g/dL RDW Std Deviation 41.1 (36.4-46.3) fL RDW Coeff of [place] 12.5 (11.5-14.5) % Plt Count 179 (130-400) K/uL MPV 10.4 (9.4-12.4) fL Immature Gran % (Auto) 0.6 % Neut % (Auto) 84.2 % Lymph % (Auto) 7.6 % [place] % (Auto) 7.2 % Eos % (Auto) 0.1 % Baso % (Auto) 0.3 % Neut # (Auto) 9.69 H (1.40-6.50) K/uL Lymph # (Auto) 0.88 L (1.20-3.40) K/uL [place] # (Auto) 0.83 H (0.11-0.59) K/uL Eos # (Auto) 0.01 (0.00-0.50) K/uL Baso # (Auto) 0.03 (0.00-0.20) K/uL Immature Gran # (Auto) 0.07 (0.01-0.20) K/uL VBG pH (7.36-7.41) VBG pCO2 (38-50) mmHg VBG pO2 mmHg VBG HCO3 mmol/L VBG O2 Saturation % VBG Base Excess mEq/L Sodium 128 L (136-145) mmol/L Potassium 4.7 (3.5-5.1) mmol/L Chloride 92 L (98-107) mmol/L Carbon Dioxide 25 (21-32) mmol/L Anion Gap 11 (3-11) BUN 20 (6-23) mg/dl Creatinine 1.45 H (0.6-1.4) mg/dl Est Cr Clr Drug Dosing 46.8 ml/min eGFR 49.63 BUN/Creatinine Ratio 13.8 (10-20) Glucose 661 H* (70-99(Fasting)) mg/dl POC Glucose 368 H* (70-99) mg/dl Calcium 9.7 (8.6-10.3) mg/dl Total Bilirubin 1.1 H (0.2-1.0) mg/dl AST 14 (13-39) U/L ALT 18 (7-52) U/L Alkaline Phosphatase 100 (34-104) U/L Troponin I High Sens 11.5 (0-20) pg/ml Total Protein 8.1 (6.0-8.3) gm/dl Albumin 4.7 (3.4-5.0) gm/dl Globulin 3.4 (2.5-4.0) gm/dl Albumin/Globulin Ratio 1.4 (0.9-2) SARS-CoV-2 (PCR) POSITIVE A (Negative) Influenza Type A (PCR) Negative (Neg) Influenza Type B (PCR) Negative (Neg) RSV (RT-PCR) Negative (Neg) 08/28/24 08/28/24 Range/Units 16:25 18:38 WBC (4.8-10.8) K/ul RBC (4.70-6.10) M/uL Hgb (14.0-18.0) g/dl Hct (42.0-52.0) % MCV (80.0-100.0) fL MCH (25.0-34.0) pg MCHC (32.0-36.0) g/dL RDW Std Deviation (36.4-46.3) fL RDW Coeff of [place] (11.5-14.5) % Plt Count (130-400) K/uL MPV (9.4-12.4) fL Immature Gran % (Auto) % Neut % (Auto) % Lymph % (Auto) % [place] % (Auto) % Eos % (Auto) % Baso % (Auto) % Neut # (Auto) (1.40-6.50) K/uL Lymph # (Auto) (1.20-3.40) K/uL [place] # (Auto) (0.11-0.59) K/uL Eos # (Auto) (0.00-0.50) K/uL Baso # (Auto) (0.00-0.20) K/uL Immature Gran # (Auto) (0.01-0.20) K/uL VBG pH 7.39 (7.36-7.41) VBG pCO2 46 (38-50) mmHg VBG pO2 29 mmHg VBG HCO3 28 mmol/L VBG O2 Saturation < 60.0 % VBG Base Excess 2.1 mEq/L Sodium (136-145) mmol/L Potassium (3.5-5.1) mmol/L Chloride (98-107) mmol/L Carbon Dioxide (21-32) mmol/L Anion Gap (3-11) BUN (6-23) mg/dl Creatinine (0.6-1.4) mg/dl Est Cr Clr Drug Dosing ml/min eGFR BUN/Creatinine Ratio (10-20) Glucose (70-99(Fasting)) mg/dl POC Glucose 286 H (70-99) mg/dl Calcium (8.6-10.3) mg/dl Total Bilirubin (0.2-1.0) mg/dl AST (13-39) U/L ALT (7-52) U/L Alkaline Phosphatase (34-104) U/L Troponin I High Sens (0-20) pg/ml Total Protein (6.0-8.3) gm/dl Albumin (3.4-5.0) gm/dl Globulin (2.5-4.0) gm/dl Albumin/Globulin Ratio (0.9-2) SARS-CoV-2 (PCR) (Negative) Influenza Type A (PCR) (Neg) Influenza Type B (PCR) (Neg) RSV (RT-PCR) (Neg) Administered Medications Remdesivir 200 mg/ Sodium (Chloride) 250 mls @ 125 mls/hr IV ONE STA; Protocol Stop: 08/28/24 20:18 Last Admin: 08/28/24 19:09 Dose: 125 mls/hr Documented By: DONYA Discontinued Medications Sodium Chloride (Nss) 1,000 mls @ 999 mls/hr IV .Q1H1M ONE Stop: 08/28/24 15:47 Last Infusion: 08/28/24 16:15 Dose: Infused Documented By: Admin: 08/28/24 15:07 Dose: 999 mls/hr Documented By: PO Sodium Chloride (Nss) 1,000 mls @ 999 mls/hr IV .Q1H1M ONE Stop: 08/28/24 16:25 Last Infusion: 08/28/24 16:35 Dose: Infused Documented By: PO Admin: 08/28/24 15:34 Dose: 999 mls/hr Documented By: PO Insulin Human Regular (Novolin-R Insulin Per Unit Charge) 10 units IV NOW STA Stop: 08/28/24 15:26 Last Admin: 08/28/24 15:34 Dose: 10 units Documented By: PO Co-signed By: FERNANDA Imaging Data Attestation: I personally reviewed and interpreted this imaging study as follows: My Impression: 1 view chest x-ray was obtained in the emergency department. My interpretation is increased interstitial markings noted, final report below. Radiologist's Impression: Chest X-Ray 08/28/24 14:47 XR chest 1V portable HISTORY: 79 years-old Male cough COMPARISON: 11/14/2023 TECHNIQUE: AP view the chest FINDINGS: Cardiac silhouette is enlarged. No pneumothorax, or pleural effusion. Although the high left basilar densities. There is mild chronic interstitial coarsening. Interval changes of the shoulders and spine. IMPRESSION: Mild ill-defined left basilar opacities favor atelectasis. A mild pneumonitis considered less likely. ACT 112: Negative or not required by law. The above report was generated using voice recognition software. It may contain grammatical, syntax or spelling errors. Electronically signed by: Ferny Krishnamurthy M.D. 08/28/2024 3:[address] 08/28/24 14:47 CT head/brain wo con CLINICAL HISTORY: off balance Technique: Contiguous axial CT images of the head were acquired from the base of the skull to the vertex without intravenous contrast administration. Images were viewed in brain, subdural and bone windows. Automated dose lowering techniques and/or adjustment according to patient size were utilized for this exam. Comparison: None available at the time of this dictation. Findings: The ventricles, basal cisterns, and cerebral sulci are normal. There is no acute intracranial hemorrhage or evidence of acute territorial infarction. Neither mass effect, shift of the midline structures, nor abnormal extra-axial fluid collections are shown. Imaged portions of the paranasal sinuses and mastoid air cells are clear. The orbits appear normal. There are no acute fractures of the calvaria or scalp swelling. Impression: No acute intracranial hemorrhage, no evidence of acute territorial infarction or other acute intracranial disease process. ACT 112: Negative or not required by law. Electronically signed by: Korey Peres M.D. 08/28/2024 3:19 PM Discharge Plan Visit Data Chief Complaint: Flu Like Symptoms Stated Complaint: BODYACHES, COUGH, COVID ED Provider: Gage Siddiqi Discharge Problem: Pneumonia due to severe acute respiratory syndrome coronavirus 2 (SARS-CoV-2), Weakness, Acute hyperglycemia, RENAN (acute kidney injury) Patient Disposition: Being Evaluated by Hospitalist Forms Stand Alone Forms: [facility] Prescriptions Prescriptions: No Action cholecalciferol (vitamin D3) 25 mcg (1,000 unit) tablet 2,000 unit PO DAILY metoprolol succinate 25 mg tablet extended release 24 hr 12.5 mg PO DAILY tamsulosin [Flomax] 0.4 mg capsule 0.4 mg PO DAILY rosuvastatin 5 mg tablet 5 mg PO DAILY Referrals Referrals: Robin Reid MD [Outside Practitioners] -
[2024-08-28 15:06] LABS: Influenza A virus by PCR Negative (Neg); Influenza B virus by PCR Negative (Neg); RSV by PCR Negative (Neg); SARS CoV2 RNA(COVID-19) Ceph POSITIVE (Negative)
[2024-08-28] MEDS: SODIUM CHLORIDE 0.9% 1,000 ML IV ONE ×2 (15:07→15:34)
--- NOTE | 2024-08-28 15:20 | CT Scan Report ---
CT head/brain wo con CLINICAL HISTORY: off balance Technique: Contiguous axial CT images of the head were acquired from the base of the skull to the karoline niraj without intravenous contrast administration. Images were viewed in brain, subdural and [facility]. Automated dose lowering techniques and/or adjustment according to patient size were utilized for this exam. Comparison: None available at the time of this dictation. Findings: The ventricles, basal cisterns, and cerebral sulci are normal. There is no acute intracranial hemorrh age or evidence of acute territorial infarction. Neither mass effect, shift of the midline structures , nor abnormal extra-axial fluid collections are shown. Imaged portions of the paranasal sinuses and mastoid air cells are clear. The orbits appear normal. There are no acute fractures of the calvaria or scalp swelling. Impression: No acute intracranial hemorrhage, no evidence of acute territorial infarction or other acute intracra nial disease process. ACT 112: Negative or not required by law. Electronically signed by: Korey Peres M.D. 08/28/2024 3:19 PM
[2024-08-28 15:24] LABS: Troponin I High Sensitivity 11.5 pg/ml (0-20)
[2024-08-28] MEDS: NovoLIN-R INSULIN PER UNIT CHARGE IV STA (15:34)
--- NOTE | 2024-08-28 15:37 | XRay Report ---
XR chest 1V portable HISTORY: 79 years-old Male cough COMPARISON: 11/14/2023 TECHNIQUE: AP view the chest FINDINGS: Cardiac silhouette is enlarged. No pneumothorax, or pleural effusion. Although the high left basilar densities. There is mild chronic interstitial coarsening. Interval changes of the shoulders and spine . IMPRESSION: Mild ill-defined left basilar opacities favor atelectasis. A mild pneumonitis considered less likely. ACT 112: Negative or not required by law. The above report was generated using voice recognition software. It may contain grammatical, syntax o r spelling errors. Electronically signed by: Ferny Krishnamurthy M.D. 08/28/2024 3:35 PM
[2024-08-28 16:42] LABS: Base Excess VBG 2.1 mEq/L; HCO3 VBG 28 mmol/L; Oxygen Saturation VBG < 60.0 %; PCO2 VBG 46 mmHg (38-50); PO2 VBG 29 mmHg; pH VBG 7.39 (7.36-7.41)
--- NOTE | 2024-08-28 17:23 | Electrocardiogram Report ---
Test Reason : Blood Pressure : */* mmHG Vent. Rate : 94 BPM Atrial Rate : 94 BPM P-R Int : 170 ms QRS Dur : 94 ms QT Int : 350 ms P-R-T Axes : 38 10 51 degrees QTcB Int : 437 ms Normal sinus rhythm When compared with ECG of 14-Nov-2023 17:30, Aberrant conduction is no longer Present Borderline criteria for Inferior infarct are now Present Confirmed by Ty Elizabeth ([id number]) on 08/28/2024 5:23:15 PM Referred By: REFERRED SELF Confirmed By: Ty Elizabeth
--- NOTE | 2024-08-28 17:38 | History & Physical Report ---
Date of Service August 28, 2024 Assessment & Plan (1) Pneumonia due to severe acute respiratory syndrome coronavirus 2 ( RS-CoV-2): Plan: Patient presents with chest x-ray changes consistent with COVID-pneumonia, currently not hypoxic. Initiating dexamethasone therapy with agreement to institute remdesivir Appropriate isolation therapy, remains on zinc supplementation (2) Acute hyperglycemia: Plan: Patient's blood glucose of 600 typically taking metformin for type 2 diabetes. Obviously uncontrolled diabetes on presentation. Patient was hyponatremia present on admission this is likely because of his elevated glucose and correction to more favorable number in the low 130s Patient given regular insulin in the emergency department continues on Lantus twice daily and sliding scale insulin with an A1c pending Consideration if dexamethasone does show improvement would be to augment his diabetic control with NPH times with his dexamethasone injection Patient voiced not wanting to go back on metformin at time of discharge discussed his GI distress (3) Chronic kidney disease, stage 3a: Plan: Patient with acute on chronic kidney disease likely due to dehydration from hyperglycemia and lack of p.o. intake from COVID Patient with hydration emergency department reassess in the morning Plan Tamsulosin for BPH this will be continued History of atrial fibrillation in the context of his previous COVID admission in 2019 currently in normal sinus rhythm not on any medications consistent with atrial fibrillation History of Present Illness Primary Care Provider: NO PCP 79-year-old male presents emergency department because of weakness. Found to have positive COVID test which she says this feels like when he had COVID- pneumonia in the past. Patient has also had a nonproductive cough and fever at home. Reportedly he has been too weak to eat but has been drinking root beer or soda presents with blood glucose in the 600s a artifactually lowered sodium of 128 and chest x-ray changes consistent with COVID-pneumonia. He however thankfully is not hypoxic Emergency department the patient was given 10 units of regular insulin and volume resuscitated with 2 L of saline Allergies Allergy/AdvReac Type Severity Reaction Status Date / Time No Known Allergies Allergy Unverified 10/25/23 18:02 Home Medications Medication Instructions Recorded Confirmed Type cholecalciferol (vitamin D3) 25 2,000 unit PO DAILY 10/25/23 10/25/23 History mcg (1,000 unit) tablet metformin 500 mg tablet 0 mg PO BIDM 10/25/23 10/25/23 History metoprolol succinate 25 mg 0 mg PO DAILY 10/25/23 10/25/23 History tablet,extended release 24 hr tamsulosin 0.4 mg capsule (Flomax) 0 mg PO DAILY 10/25/23 10/25/23 History zinc 50 mg tablet 50 mg PO DAILY 10/25/23 10/25/23 History Past Med/Surg History Problem List (Updated 08/28/24 @ 17:01 by Gage Siddiqi DO) RENAN (acute kidney injury) (Acute) Acute hyperglycemia (Acute) Weakness (Acute) Pneumonia due to severe acute respiratory syndrome coronavirus 2 (SARS-CoV-2) (Acute) BPH loc w urin obs/LUTS Dysfunctional voiding of urine Urinary dysfunction Prostate cancer screening Mixed hyperlipidemia Chronic kidney disease, stage 3a Parietoalveolar pneumopathy Tricuspid valve regurgitation Mitral valve regurgitation Allergic rhinitis Spondylolisthesis Hx of malignant neoplasm of colon Endocarditis Raised prostate specific antigen Malignant tumor of colon Aortic valve disorder Diabetes mellitus Essential (primary) hypertension Polymyalgia rheumatica Diabetes type 2, uncontrolled Atrial fibrillation with rapid ventricular response Pneumonia (Acute) Hypertension COVID-19 virus infection (Acute) Medical History 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 Pneumothorax Pneumomediastinum Acute blood loss anemia GI bleed Surgical History No pertinent past surgical history Family History Mother Diabetes Heart disease Brother Diabetes Sister Diabetes Social History Smoking Status: Never smoker Tobacco Type: Cigarettes Second Hand Exposure: No; Do You Dip or Chew Tobacco: No; Hx Alcohol Use: No Hx Substance Use: No Preferred Language: Togolese Communication Ability: Effective City Marshal Required: No Beliefs That Will Affect Care: None marital status: Current Living Situation: Spouse Feels Safe at Home: Yes Assistive Devices: None Physical Exam Physical Exam: The patient appeared well nourished and normally developed. Vital signs as documented. Head exam is normocephalic atraumatic Neck is without JVD, thyromegaly, or carotid bruits. Lungs are coarse in all lung kulkarni no focal loss of mild rales at the bases Cardiac exam, Rhythm is regular.. No murmurs, rubs or gallops. Abdominal exam reveals normal bowel sounds, soft non tender, no masses Extremities are nonedematous and both pedal pulses are present Neurologic exam is alert and oriented, no focal loss of strength or sensation Skin is without bruises or rashes Psychologically is without concerns for anxiety or depression.. Results & Data Results & Data Vital Signs (Past 12 Hours) Vital Signs Temp Pulse Resp BP Pulse Ox O2 Del Method 08/28/24 17:12 82 12 08/28/24 17:03 83 18 08/28/24 17:00 144/83 H 08/28/24 16:30 163/90 H 08/28/24 16:21 87 21 08/28/24 16:02 86 08/28/24 16:00 169/96 H 08/28/24 15:30 174/101 H 08/28/24 15:30 94 H 18 97 08/28/24 13:49 97.9 F 105 H 20 180/87 H 96 Room Air Laboratory Results Reviewed CBC Reviewed chemistry Viral panel shows positive COVID testing (previous test was negative in November 2023) Code Status & VTE Plan VTE Prophylaxis Plan VTE Prophylaxis will be ordered: Yes PG Care Time/CCT Total # of Minutes Spent Total Time Spent with Patient: Total time spent is greater than 50% in coordination of care (as documented) at patient's floor/unit and/or counseling patient: Coding Level of Care Code 28482 INT INP/OBS CARE 3/75MIN Diagnoses Pneumonia due to severe acute respiratory syndrome coronavirus 2 (SARS-CoV-2) U07.1; J12.82 Acute hyperglycemia R73.9 Chronic kidney disease, stage 3a N18.31
[2024-08-28] MEDS: REMDESIVIR 200 MG in SODIUM CHLORIDE 0.9% 210 ML IV STA (19:09)
[2024-08-28] MEDS ORDERED: GLUCOSE 10 TAB/TUBE PO PRN (19:56)
[2024-08-28] MEDS ORDERED: CARBOHYDRATES FOR HYPOGLYCEMIA PO PRN (19:56)
[2024-08-28] MEDS ORDERED: GLUCOSE 40% GEL 15 GM TUBE PO PRN (19:56)
[2024-08-28] MEDS ORDERED: GLUCAGON FOR INJ 1 MG VIAL SQ PRN (19:56)
[2024-08-28] MEDS ORDERED: DEXTROSE 50% 50 ML SYRINGE IV PRN (19:56)
[2024-08-28] MEDS ORDERED: ALUMINUM/MAGNESIUM SUSP 30 ML UDC PO PRN (19:56)
[2024-08-28] MEDS: ACETAMINOPHEN 325 MG TAB PO PRN (20:44)
[2024-08-28] MEDS: INSULIN ASPART PER UNIT CHARGE SC SCH (20:44)
[2024-08-28] MEDS: LANTUS PER UNIT CHARGE SQ SCH (20:48)
[2024-08-28] MEDS: ENOXAPARIN INJ 40 MG/0.4 ML SYR SQ SCH (20:48)
[2024-08-29] MEDS: SODIUM CHLORIDE 0.65% NA SOLN 45 ML (OCEAN) PRN (00:08)
[2024-08-29 04:22] LABS: Hematocrit (blood only) 46.4 % (42.0-52.0); Hemoglobin 15.6 g/dl (14.0-18.0); Mean Corpuscular Hemoglobin 29.7 pg (25.0-34.0); Mean Corpuscular Hgb Conc 33.6 g/dL (32.0-36.0); Mean Corpuscular Volume 88.4 fL (80.0-100.0); Mean Platelet Volume 10.6 fL (9.4-12.4); Platelet Count 160 K/uL (130-400); RDW Coefficient of Variation 12.7 % (11.5-14.5); RDW Standard Deviation 41.1 fL (36.4-46.3); Red Blood Count 5.25 M/uL (4.70-6.10); White Blood Count 12.73 K/ul (4.8-10.8)
[2024-08-29 04:36] LABS: BUN Creatinine Ratio 12.4 (10-20); Calcium 8.7 mg/dl (8.6-10.3); Creatinine Clr Calc Pharmacy 56.1 ml/min; Potassium 4.1 mmol/L (3.5-5.1)
[2024-08-29 07:19] LABS: Estimated Average Glucose 335 mg/dl; Hemoglobin A1C 13.3 % (4.5-5.6)
[2024-08-29] MEDS: CHOLECALCIFEROL 25 MCG (1000 UNITS) TAB PO SCH (08:57)
[2024-08-29] MEDS: TAMSULOSIN HCL 0.4 MG CAP PO SCH (08:57)
[2024-08-29] MEDS: ZINC SULFATE 220 MG CAPSULE PO SCH (08:58)
[2024-08-29] MEDS: dexAMETHasone 6 MG in SYRINGE 0 ML IV SCH (08:58)
[2024-08-29] MEDS: METOPROLOL SUCC 25MG EXT REL TAB PO SCH (08:59)
[2024-08-29] MEDS ORDERED: DEXAMETHASONE SOD INJ 4 MG/ML VIAL IV SCH (09:00)
[2024-08-29] MEDS: LANTUS PER UNIT CHARGE SQ SCH (09:00)
[2024-08-29] MEDS: glipiZIDE 5 MG TAB PO ONE (13:47)
--- NOTE | 2024-08-29 15:26 | Hospitalist Progress Note ---
Date of Service August 29, 2024 Assessment & Plan (1) Pneumonia due to severe acute respiratory syndrome coronavirus 2 ( RS-CoV-2): Plan: Patient presents with chest x-ray changes consistent with COVID-pneumonia, remaining not hypoxic. continuing dexamethasone therapy with agreement to institute remdesivir Appropriate isolation therapy, remains on zinc supplementation (2) Acute hyperglycemia: Plan: Patient's blood glucose of 600 Obviously uncontrolled diabetes on presentation. Pt was not taking metformin as caused Gi upset, does not want insulin' needs much education Patient was hyponatremic present on admission this is likely because of his elevated glucose and correction to more favorable number in the low 130s now normal with lowering blood glucose Patient voiced not wanting to go back on metformin at time of discharge discussed his GI distress (3) Chronic kidney disease, stage 3a: Plan: Patient with acute on chronic kidney disease likely due to dehydration from hyperglycemia and lack of p.o. intake from COVID natalie resolved Plan Tamsulosin for BPH this will be continued History of atrial fibrillation in the context of his previous COVID admission in 2019 currently in normal sinus rhythm not on any medications consistent with atrial fibrillation Admission and Anticipated Discharge Date Admission Date: August 28, 2024 Subjective Patient states he feels much better. He is adamant does not want to use insulin or go back on metformin his respiratory status is improved his cough lessened weakness improved Physical Exam Physical Exam: pt is looking improved lungs are coarse but improved cardiac is regular legs less edema Results & Data Results & Data Vital Signs (Past 12 Hours) Vital Signs Pulse Resp BP Pulse Ox O2 Del Method 08/29/24 07:20 99 H 08/29/24 06:09 96 H 21 138/96 96 Room Air 08/29/24 05:06 85 21 131/65 94 Room Air Laboratory Results review cbc review chemistry aic is 13 PG Care Time/CCT Total # of Minutes Spent Total Time Spent with Patient: Total time spent is greater than 50% in coordination of care (as documented) at patient's floor/unit and/or counseling patient: Coding Level of Care Code 02291 SUB INP/OBS CARE 3/50MIN Diagnoses Pneumonia due to severe acute respiratory syndrome coronavirus 2 (SARS-CoV-2) U07.1; J12.82 Acute hyperglycemia R73.9 Chronic kidney disease, stage 3a N18.31
[2024-08-29] MEDS: REMDESIVIR 100 MG in SODIUM CHLORIDE 0.9% 230 ML IV SCH (20:55)
[2024-08-30 06:18] LABS: Calcium 8.8 mg/dl (8.6-10.3); Creatinine Clr Calc Pharmacy 48.8 ml/min; Potassium 4.4 mmol/L (3.5-5.1)
[2024-08-30] MEDS: glipiZIDE 5 MG TAB PO SCH (09:13)
[2024-08-30] MEDS: diphenhydrAMINE Capsule 25 MG CAP PO PRN (10:47)
--- NOTE | 2024-08-30 11:00 | Hospitalist Progress Note ---
<Statement entered by Lilly Lockhart MD - 08/30/24 17:19> I have reviewed vital signs, chart notes, labs and imaging. I have also discussed the management of the patient with the BENJAMIN and I agree with the exam findings documented in the history and physical examination and the documented assessment and plan unless otherwise stated below. He seems to be stable and close to discharge with respect to the COVID, we will continue remdesivir and discontinued dexamethasone since he is not hypoxic and having difficulties with hyperglycemia uncontrolled diabetes is the main barrier to discharge at this time, currently on insulins and blood glucose in the 200s last 24 hours. We will increase his glipizide from 5 mg to 10 mg daily, continuing daily dosing because of his age and CKD. I have hopeful that he can be on oral only regimen once the steroid effect has worn off since I do not think he will handle a complex insulin regimen, though once daily glargine might be an option. We have consulted the career and technology education teacher hopefully she will be able to meet with him Sunday Which is a reasonable target for discharge. Date of Service August 30, 2024 Assessment & Plan (1) Pneumonia due to severe acute respiratory syndrome coronavirus 2 (SARS-CoV-2): Plan: Patient presents with chest x-ray changes consistent with COVID-pneumonia, remaining not hypoxic. Not requiring any O2 Discontinue Dexamethasone - not requiring O2, non-hypoxic - should help with better glycemic control. Continue Remdesivir Appropriate isolation therapy Remains on zinc supplementation (2) Acute hyperglycemia: Plan: Patient's blood glucose of 600 - uncontrolled diabetes on presentation. A1c 13.3 Pt was not taking metformin as caused GI upset Diabetes Education Needed - [place] consult placed Discussed the importance of good glycemic control moving forward. He is willing to follow outpatient. He does not want Metformin due to previous GI distress. Hyponatremia present on admission likely because of his elevated glucose. (3) Chronic kidney disease, stage 3a: Plan: Patient with acute on chronic kidney disease likely due to dehydration from hyperglycemia and lack of p.o. intake from COVID RENAN resolved (4) Rash: Plan: Reports this occurs with illness - not uncommon for him - most likely viral exanthem rash - Benadryl 50mg Q8 hours PRN - Monitor for worsening Plan BPH - continue Tamsulosin History of atrial fibrillation in the context of his previous COVID admission in 2019 currently in normal sinus rhythm not on any medications consistent with atrial fibrillation VTE - Lovenox Admission and Anticipated Discharge Date Admission Date: August 28, 2024 Subjective Kofi reports that he is feeling much better today. He feels less thirsty than he has the past month. Kofi reports that over the past month he has noticed an increase in thirst, increased urination and a decrease in his appetite. He has tried Metformin for Diabetes in the past, but could not tolerate the GI side effects so he stopped. We discussed the importance of glycemic control and following up outpatient to ensure he is well managed. He states that he would like to be educated about proper control and what to avoid eating - we did discuss briefly but I also told him a career and technology education teacher would meet with him to discuss more in-depth. Kofi states that he had been feeling weak the past few days, when he would lift 80 lb equipment on to his work bench, he noted he did not feel as strong as he was previously. Dx with Covid-19. Reports he has had this in the past requiring prolonged hospitalization. Reports "hives" today - states that he gets them when he is sick. States they are never below his belt line. Reports itchiness, but this has improved since last night. States he takes 50mg Benadryl PRN at home for it, feels it helps. Review of Systems Constitutional: + weakness; no fever, no chills and no s weats Respiratory: no cough, no chest congestion, no dyspnea and no dyspnea on exertion Cardiovascular: no chest pain and no dyspnea Gastrointestinal: no abdominal pain, no nausea and no vomiting Genitourinary: + urinary frequency (With increased PO i ntake); no dysuria, no difficulty urinating or no urinary hesitancy Integumentary: no acne Physical Exam Constitutional: well developed and well nourished; no acute distress and not ill appearing Eyes: PERRL, conjunctivae normal, anicteric sclerae Respiratory: normal respiratory effort Auscultation: lungs clear to auscultation bilaterally Cardiovascular: Rate/Rhythm: regular rate and regular rhythm Extremities: no edema Gastrointestinal (Abdomen): Inspection/Auscultation: abdomen normal to inspection and normal bowel sounds Percussion/Palpation: abdomen soft; abdomen nontender Skin: + rash (Dry, splotchy, flat rash noted o n trunk, upper extremities, face, head) Results & Data Results & Data Vital Signs (Past 12 Hours) Vital Signs Temp Pulse Resp BP Pulse Ox O2 Del Method 08/30/24 08:30 Room Air 08/30/24 07:40 36.3 C L 62 17 135/78 96 Room Air Laboratory Results 08/30/24 08/30/24 08/30/24 Range/Units 11:41 07:38 05:37 Sodium 136 (136-145) mmol/L Potassium 4.4 (3.5-5.1) mmol/L Chloride 102 (98-107) mmol/L Carbon Dioxide 27 (21-32) mmol/L Anion Gap 7 (3-11) BUN 32 H (6-23) mg/dl Creatinine 1.39 (0.6-1.4) mg/dl Est Cr Clr Drug Dosing 48.8 ml/min eGFR 52.21 BUN/Creatinine Ratio 23.0 H (10-20) Glucose 245 H (70-99(Fasting)) mg/dl POC Glucose 267 H 205 H (70-99) mg/dl Calcium 8.8 (8.6-10.3) mg/dl 08/29/24 08/29/24 Range/Units 20:58 16:19 Sodium (136-145) mmol/L Potassium (3.5-5.1) mmol/L Chloride (98-107) mmol/L Carbon Dioxide (21-32) mmol/L Anion Gap (3-11) BUN (6-23) mg/dl Creatinine (0.6-1.4) mg/dl Est Cr Clr Drug Dosing ml/min eGFR BUN/Creatinine Ratio (10-20) Glucose (70-99(Fasting)) mg/dl POC Glucose 256 H 223 H (70-99) mg/dl Calcium (8.6-10.3) mg/dl PG Care Time/CCT Total # of Minutes Spent Total Time Spent with Patient: Total time spent is greater than 50% in coordination of care (as documented) at patient's floor/unit and/or counseling patient: [place] [address] SUB INP/OBS CARE 2/35MIN Patient Type Established History Expanded Problem Focused Exam Expanded Problem Focused Medical Decision Making Moderate Complexity Diagnoses Pneumonia due to severe acute respiratory syndrome coronavirus 2 (SARS-CoV-2) U07.1; J12.82 Acute hyperglycemia R73.9 Chronic kidney disease, stage 3a N18.31 Rash R21
--- NOTE | 2024-08-30 21:09 | Communication Note ---
Date of Service: August 30, 2024 Having hives/rash. Held remdesivir and robitussin/codeine scheduled cetirizine prn Benadryl had dexamethasone this am
[2024-08-30] MEDS: CETIRIZINE HCL 10 MG TABLET PO SCH (22:00)
[2024-08-31] MEDS: MELATONIN 3 MG TAB PO PRN (00:47)
[2024-08-31] MEDS: glipiZIDE 5 MG TAB PO SCH (06:08)
[2024-08-31 06:19] LABS: Hematocrit (blood only) 40.5 % (42.0-52.0); Hemoglobin 13.5 g/dl (14.0-18.0); Mean Corpuscular Hemoglobin 29.4 pg (25.0-34.0); Mean Corpuscular Hgb Conc 33.3 g/dL (32.0-36.0); Mean Corpuscular Volume 88.2 fL (80.0-100.0); Mean Platelet Volume 10.4 fL (9.4-12.4); Platelet Count 181 K/uL (130-400); RDW Coefficient of Variation 13.1 % (11.5-14.5); RDW Standard Deviation 42.2 fL (36.4-46.3); Red Blood Count 4.59 M/uL (4.70-6.10)
[2024-08-31 06:35] LABS: Calcium 8.6 mg/dl (8.6-10.3); Creatinine Clr Calc Pharmacy 54.8 ml/min; Potassium 4.3 mmol/L (3.5-5.1)
[2024-08-31] MEDS ORDERED: POLYETHYLENE (MIRALAX) 17 GM PACK PO PRN (12:40)
--- NOTE | 2024-08-31 14:40 | Hospitalist Progress Note ---
Date of Service August 31, 2024 Assessment & Plan (1) Pneumonia due to severe acute respiratory syndrome coronavirus 2 ( RS-CoV-2): Plan: Patient presents with chest x-ray changes consistent with COVID-pneumonia, remaining not hypoxic. Not requiring any O2 Discontinue Dexamethasone - not requiring O2, non-hypoxic - should help with better glycemic control. Restart Remdesivir and monitor closely Appropriate isolation therapy Remains on zinc supplementation (2) Acute hyperglycemia: Plan: Patient's blood glucose of 600 - uncontrolled diabetes on presentation. A1c 13.3 Pt was not taking metformin as caused GI upset Diabetes Education Needed - [employer] consult placed Discussed the importance of good glycemic control moving forward. He is willing to follow outpatient. He does not want Metformin due to previous GI distress. Hyponatremia present on admission likely because of his elevated glucose. Glargine changed from 10 units BID to 15 units AM and 5 units PM. Glipizide 10mg daily. (3) Chronic kidney disease, stage 3a: Plan: Patient with acute on chronic kidney disease likely due to dehydration from h yperglycemia and lack of p.o. intake from COVID RENAN resolved (4) Rash: Plan: Reports this occurs with illness - not uncommon for him - most likely viral exanthem rash - Benadryl 50mg Q8 hours PRN - Monitor for worsening - Cetirizine 10mg daily Plan BPH - continue Tamsulosin History of atrial fibrillation in the context of his previous COVID admission in 2019 currently in normal sinus rhythm not on any medications consistent with atrial fibrillation VTE - Lovenox Admission and Anticipated Discharge Date Admission Date: August 28, 2024 Subjective Kofi reports that he is feeling much better today. Had hives yesterday that worsened overnight. Was ordered Benadryl and Cetirizine. Remdesivir stopped. Reports improvement today. He states he does not think it is medicine related. Hives have improved and this is "normal" for him when he is ill. He would like to be discharged home tomorrow if possible. Review of Systems Constitutional: no fever, no chills, no sweats and no weakness Respiratory: no cough, no chest congestion, no dyspnea and no dyspnea on exertion Cardiovascular: no chest pain and no dyspnea Gastrointestinal: no abdominal pain, no nausea and no vomiting Genitourinary: no dysuria, no difficulty urinating, no urinary frequency or no urinary hesitancy Integumentary: no acne Physical Exam Constitutional: well developed and well nourished; no acute distress and not ill appearing Eyes: PERRL, conjunctivae normal, anicteric sclerae Respiratory: normal respiratory effort Auscultation: lungs clear to auscultation bilaterally Cardiovascular: Rate/Rhythm: regular rate and regular rhythm Extremities: no edema Gastrointestinal (Abdomen): Inspection/Auscultation: abdomen normal to inspection and normal bowel sounds Percussion/Palpation: abdomen soft; abdomen nontender Skin: + rash (Improved/mostly resolved) Results & Data Results & Data Vital Signs (Past 12 Hours) Vital Signs Temp Pulse Resp BP Pulse Ox O2 Del Method 08/31/24 14:10 36.6 C 60 16 144/74 H 95 Room Air 08/31/24 11:11 Room Air 08/31/24 07:47 36.5 C 53 L 16 146/76 H 96 Room Air PG Care Time/CCT Total # of Minutes Spent Total Time Spent with Patient: Total time spent is greater than 50% in coordination of care (as documented) at patient's floor/unit and/or counseling patient: [place] [address] SUB INP/OBS CARE 2/35MIN Patient Type Established Medical Decision Making Moderate Complexity Diagnoses Pneumonia due to severe acute respiratory syndrome coronavirus 2 (SARS-CoV-2) U07.1; J12.82 Acute hyperglycemia R73.9 Chronic kidney disease, stage 3a N18.31 Rash R21
[2024-08-31 19:48] VITALS: TEMP 98.2
[2024-08-31] MEDS: LANTUS PER UNIT CHARGE SQ SCH (21:44)
[2024-09-01 07:40] VITALS: BP 137/80; PULSE 60; RESP 17; O2SAT 96
[2024-09-01] MEDS: LANTUS PER UNIT CHARGE SQ SCH (08:37)
[2024-09-01 11:22] LABS: BUN Creatinine Ratio 23.1 (10-20); Calcium 8.8 mg/dl (8.6-10.3)
--- NOTE | 2024-09-01 17:41 | Discharge Summary ---
Discharge Summary Date of Service September 01, 2024 Principal Dx & Hospital Course #1 = Principal Diagnosis (1) Pneumonia due to severe acute respiratory syndrome coronavirus 2 (SARS-CoV-2): Patient presents with chest x-ray changes consistent with COVID-pneumonia, remaining not hypoxic. Not requiring any O2 Completed remdesivir no additional dexamethasone due to glycemic control Completed appropriate isolation therapy Remains on zinc supplementation (2) Acute hyperglycemia: Patient's blood glucose of 600 - uncontrolled diabetes on presentation. A1c 13.3 Pt was not taking metformin as caused GI upset Diabetes Education Needed - [place] consult placed patient agreeable to come to our endocrinology office. Discussed the importance of good glycemic control moving forward. He is willing to follow outpatient. He does not want Metformin due to previous GI distress. Hyponatremia present on admission likely because of his elevated glucose. Patient to go home on glipizide and 2 mg daily with dietary restriction and close outpatient follow-up primary care provider (3) Chronic kidney disease, stage 3a: Patient with acute on chronic kidney disease likely due to dehydration from hyperglycemia and lack of p.o. intake from COVID RENAN resolved (4) Rash: Reports this occurs with illness - not uncommon for him - most likely viral exanthem rash - Benadryl 50mg Q8 hours PRN - Monitor for worsening - Cetirizine 10mg daily Plan BPH - continue Tamsulosin History of atrial fibrillation in the context of his previous COVID admission in 2019 currently in normal sinus rhythm not on any medications consistent with atrial fibrillation I personally found the [facility] office and implored him to have a more close follow-up appointment in 14 days. We are attempting to establish him with about any provider for follow-up and eventual endocrinology Admission HPI Per Admitting Provider 79-year-old male presents emergency department because of weakness. Found to have positive COVID test which she says this feels like when he had COVID- pneumonia in the past. Patient has also had a nonproductive cough and fever at home. Reportedly he has been too weak to eat but has been drinking root beer or soda presents with blood glucose in the 600s a artifactually lowered sodium of 128 and chest x-ray changes consistent with COVID-pneumonia. He however thankfully is not hypoxic Emergency department the patient was given 10 units of regular insulin and volume resuscitated with 2 L of saline Discharge Exam Awake alert appropriate Lungs are clear No evidence of any distress at this time Discharge Plan Discharge Items Patient Disposition: Home - Self-Care Reason For Visit: UNCONTROLLED DIABETES, COVID PNEUMONIA Discharge Diagnosis: COVID-19 positive test (U07.1, COVID-19) with Acute Pneumonia (J12.89, Other viral pneumonia) (If respiratory failure or sepsis present, add as separate assessment) Uncontrolled diabetes Activity: Per Instructions section Activity Comment: Slowly improve activity Non-emergency contact: Primary Care Provider and Specialist Call non-emergency contact if: your symptoms worsen Follow-up/Referrals: Sabino Cobos MD [Physician] - Garcia Webb CRNP [Nurse Practitioner] - 09/04/24 2:00 pm (hospital follow up appointment ) Mouna Toussaint PA-C [Outside Practitioners] - 09/15/24 3:20 pm PCP,NO [Primary Care Provider] - Diet: Carb Consistent or DM2 Addtl Attending Provider Instructions: please do your best to reduce the sugar ( carbohydrates) in the food you eat and especially in the things you drink follow up with your family doctor this week You have been diagnosed with covid infection, it would be recommended that you quarantine yourself for 5 days from your first test or first symptoms, and if at the 5th day you have no symptoms the you can come off quarantine but use common sense precautions. Quarantine means attempting to stay away from people who have not had an active covid infection in the past, and if you have to be around others to wear a mask even if you are indoors, do not share a room to sleep in with others until you are out of quarantine. If you still have symptoms at the 10th day, continue to quarantine until you are symptom free for 48 hours Addtl [employer] Developer Provider Instructions: your primary care office cannot see you till 09/16/24 we will try to work on an earlier appointment for you Pending Studies at Discharge: No Stand-Alone Forms: My [employer], Smoking Cessation Medications and DC Order Prescriptions: New glipizide 10 mg tablet 10 mg PO DAILY@0700 Qty: 30 2RF Continued cholecalciferol (vitamin D3) 25 mcg (1,000 unit) tablet 2,000 unit PO DAILY metoprolol succinate 25 mg tablet extended release 24 hr 12.5 mg PO DAILY tamsulosin [Flomax] 0.4 mg capsule 0.4 mg PO DAILY rosuvastatin 5 mg tablet 5 mg PO DAILY Discharge Orders: Discharge Order (Routine); Ordered 09/01/24 Ordered By: Franklin Montana Admission Data Admit Date/Time: 09/01/24 08:35 Attending Provider: Franklin Montana Admit Provider: Franklin Montana Primary Care Provider: PCP,NO Other Providers: Franklin Montana Other Interventions: Discharge Summary Assessment (RN) Last Done: 09/01/24 11:27 Hospital Stay Data Consultations 08/28/24 16:53 ED Decision to Admit Stat Diagnostic Imagining Performed 08/28/24 14:47 CT head/brain wo con Stat Pending Results Patient Have Any Pending Studies at Discharge: No Discharge Instructions Given to Patient (Per Discharging Provider) please do your best to reduce the sugar ( carbohydrates) in the food you eat and especially in the things you drink follow up with your family doctor this week You have been diagnosed with covid infection, it would be recommended that you quarantine yourself for 5 days from your first test or first symptoms, and if at the 5th day you have no symptoms the you can come off quarantine but use common sense precautions. Quarantine means attempting to stay away from people who have not had an active covid infection in the past, and if you have to be around others to wear a mask even if you are indoors, do not share a room to sleep in with others until you are out of quarantine. If you still have symptoms at the 10th day, continue to quarantine until you are symptom free for 48 hours Total Time Total Time Spent Total Time Spent (In Minutes): It required greater than 30 minutes to prepare this patient for discharge. Coding Level of Care Code 20773 INP/OBS DISCH >30 MIN Diagnoses Pneumonia due to severe acute respiratory syndrome coronavirus 2 (SARS-CoV-2) U07.1; J12.82 Acute hyperglycemia R73.9 Chronic kidney disease, stage 3a N18.31 Rash R21
== END 2024-09-01 12:02 | disposition home or self-care (01) | DRG 177 ==
LOC: ED 13:45 → EDINP 13:45 → SUATTDRO 17:28 → OBSVTOIN 17:28 → EDINP 19:57 → 3N 08-29 19:37

== ENCOUNTER 2024-12-19 07:52 | Observation (INO) ==
--- OUTSIDE RECORDS SUMMARY | 2024-12-19 08:15 | External Medical Summary | Summary of Care ---
Author Name Unknown Organization [facility] Address [address] [place] [address] Phone [phone] Care Team Providers Care Broadcast News Producer Name Role Phone Robin Reid MD Primary Care Provider Loren vailable Reason for Referral * Evaluate & Treat - Unlimited Visits (Within 10 days (routine)) - Pending Review Specialty Diagnoses / Procedures Referred By Contben mccullough Referred To Contact Pain Management / Pain Medicine Diagnoses Spondylosis of cervical spine Arm pain Cindy Gutierrez CRNP [address] [place] [address] Phone: tel: fax: Referral ID Status Reason Start Date Expiration Date Visits Requested Visits Authorized [id number] Pending Review Specialty Services Required 12/01/[phone] Question Answer Referral Priority Within 10 days (routine) Where should this appointment be scheduled? [facility] Reason for referral? Interventional Pain Management - (Injection) What condition is the patient being referred for? Other Conditions What is the preferred location to have this test performed? [facility] Comments Patient Name: Kofi Bell Date of : 1945 Department Phone Number: MRI or CT (if unable to have a MRI) is recommended if any of the following apply: 1. Patient has neck or back pain with radiation to extremities. A previous MRI will be accepted if symptoms unchanged since prior MRI. 2. Spinal surgery since last MRI. If yes, order a MRI with and without contrast. 3. Hx or ongoing cancer treatment. Patient will need spine x-ray (Ap/Lat) for axial neck or back pain if not done previously. Fax No. [facility] [phone] or contact front desk agent [phone] Fax No. [facility] [phone] or contact front desk agent [phone] Fax No. [facility] [phone] or contact front desk agent [phone] Moderate to severe cervical spine spondylosis, arm pain Encounter Details Date Type Department Care Team (Late st Contact Info) Description 12/01/2024 Orders Only [facility] [place] [address] *DO NOT REMOVE THIS DEPARTMENT* [place]UREEN KELLY [id number] Request, External Referral Spondylosis of cervical spine*; Arm pain Allergies Active Allergy Reactions Criticality Noted Date Comments Tamsulosin Hcl Unknown 08/23/2018 documented as of this encounter (statuses as of 12/01/2024) Medications AMLODIPINE BESYLATE 5 MG PO TABS one tablet daily Active losartan (COZAAR) 50 MG Tablet Take 50 mg by mouth daily. Active folic acid 1 MG Tablet Take 1 mg by mouth daily. 1 tab mon,tues,fri,s at,sun Active Cholecalciferol (VITAMIN D3) 5000 units Tablet Take 1 Capsule by mouth in the morning. Active metFORMIN HCl 1000 MG Oral Tablet (Glucophage) TAKE 1 TABLET BY MOUTH BEFORE BREAKFAST AND 1 TABLET BY MOUTH WITH SUPPER 3 Active Metoprolol Tartrate 25 MG Oral Tablet (Lopressor) Take 1 Tablet by mouth in the morning and 1 Tablet before bedtime. 3 Active Rosuvastatin Calcium 5 MG Oral Tablet (Crestor) Take 1 Tablet by mouth at bedtime. 3 Active Multivitamin Adult Oral Tablet Chewable Take 1 Capsule by mouth in the morning. Active documented as of this encounter (statuses as of 12/01/2024) Active Problems Problem Noted Date Diagnosed Date HTN, goal below 130/80 05/31/2010 SYNCOPE 05/31/2010 GLUCOSE INTOLERANCE 05/31/2010 Dyslipidemia, goal LDL below 100 05/31/2010 BPH 05/31/2010 VENTRICULAR ECTOPY 03/29/2010 GERD 03/29/2010 OSTEOARTHRITIS 03/29/2010 TREMOR 03/29/2010 HEMORRHOIDS, EXTERNAL 03/29/2010 documented as of this encounter (statuses as of 12/01/2024) Resolved Problems Problem Noted Date Diagnosed Date Resolved Date HTN 03/29/2010 05/31/2010 documented as of this encounter (statuses as of 12/01/2024) Immunizations Name Administration Dates Next Due PPD 06/25/2006 Seasonal Influenza Vac., MDV, IM, 0.5 mL (Fluzon e) 06/28/2009 documented as of this encounter Social History Tobacco Use Types Packs/Day Years Used Date Smoking Tobacco: Never Smokeless Tobacco: Never Alcohol Use Standard Drinks/Week Comments No 0 (1 standard drink = 0.6 oz pur e alcohol) Utilities Answer Date Recorded Do you have trouble paying y our heating, water, or electric bill? (Adult - for ages 18 years and over) Not on file 02/19/2024 Is your family able to pay t he heat, water, or electric bill? (Household - for ages 0-17 years) Not on file 02/19/2024 Does your family have access to good internet? (Household - for ages 0-17 years) Not on file 02/19/2024 Social Connections Answer Date Recorded How often do you feel lonely or isolated from those around you? (Adult - for ages 18 years and over) Not on file 02/19/2024 Sex and Gender Information Value Date Recorded Sex Assigned at Not on file Legal Sex Male 6:45 AM EST Gender Identity Not on file Sexual Orientation Not on file documented as of this encounter Plan of Treatment Scheduled Referrals Name Type Priority Associated Diagnoses Orde r Schedule PAIN MEDICINE REFERRAL OP Referral Within 10 days (routine) Spondylosis of cervical spine Arm pain Ordered: 12/01/2024 Health Maintenance Due Date Last Done Comments Depression Screening 1957 Hepatitis C Screening 1965 DTap/Tdap Vaccines (1 - Tdap) 1966 Zoster Vaccines (1 of 2) 1997 GFR 12/31/2011 12/30/2010 Albumin/Creatinine Ratio 12/30/2013 12/30/2010 Pneumococcal Vaccine: 50+ Years (2 of 2 - PPSV23) 03/14/2016 01/18/2016 COVID-19 Vaccine (2023-2 5 season) 2024 Influenza Vaccine (FLU shot) (#1) 2024 06/05/2016, 06/28/2009 Colorectal Cancer Screening Discontinued Fecal Occult Blood Test Discontinued 01/18/20 11, 12/30/2010 Cologuard Discontinued Colonoscopy Discontinued HPV (Gardasil) Vaccine Aged Out No lo nger eligible based on patient's age to complete this topic Hepatitis B Vaccine Aged Out No longe r eligible based on patient's age to complete this topic MENINGOCOCCAL (MENACTRA/MENVEO) Aged Out No longer eligible based on patient's age to complete this topic Meningitis B Vaccine (Bexsero/Trumemba) Aged Out No longer eligible based on patient's age to complete this topic Sigmoidoscopy Discontinued documented as of this encounter Medical Devices Not on filedocumented as of this encounter Visit Diagnoses Diagnosis Spondylosis of cervical spine- Primary Arm pain Pain in limb documented in this encounter Care Teams Broadcast News Producer Relationship Specialty Start Date End Date Robin Reid MD PCP - General Internal Medicine 04/09/19 documented as of this encounter
--- NOTE | 2024-12-19 08:26 | XRay Report ---
XR chest 1V portable CLINICAL HISTORY: weakness COMPARISON STUDY: 08/28/2024 FINDINGS: Stable mild cardiomegaly without pulmonary vascular congestion. No effusion, consolidation, or pneumothorax. IMPRESSION: No acute findings. ACT 112: Negative or not required by law. Electronically signed by: Richard Silva M.D. 12/19/2024 8:25 AM
[2024-12-19 08:36] LABS: Basophils # (auto) 0.06 K/uL (0.00-0.20); Basophils % (auto) 0.8 %; Eosinophils # (auto) 0.17 K/uL (0.00-0.50); Eosinophils % (auto) 2.3 %; Hematocrit (blood only) 51.2 % (42.0-52.0); Hemoglobin 16.6 g/dl (14.0-18.0); Immature Granulocytes # (auto) 0.02 K/uL (0.01-0.20); Immature Granulocytes % (auto) 0.3 %; Lymphocytes # (auto) 1.63 K/uL (1.20-3.40); Lymphocytes % (auto) 22.1 %; Mean Corpuscular Hemoglobin 29.1 pg (25.0-34.0); Mean Corpuscular Hgb Conc 32.4 g/dL (32.0-36.0); Mean Corpuscular Volume 89.7 fL (80.0-100.0); Monocytes # (auto) 0.52 K/uL (0.11-0.59); Neutrophils # (auto) 4.99 K/uL (1.40-6.50); Neutrophils % (auto) 67.5 %; Platelet Count 207 K/uL (130-400); RDW Coefficient of Variation 13.1 % (11.5-14.5); Red Blood Count 5.71 M/uL (4.70-6.10); White Blood Count 7.39 K/ul (4.8-10.8)
[2024-12-19] MEDS: SODIUM CHLORIDE 0.9% 1,000 ML IV SCH (08:51)
[2024-12-19 08:56] LABS: Albumin Globulin Ratio 1.6 (0.9-2); Albumin Level 4.5 gm/dl (3.4-5.0); BUN Creatinine Ratio 22.2 (10-20); Bilirubin,Total 0.7 mg/dl (0.2-1.0); Calcium 9.5 mg/dl (8.6-10.3); Creatinine Clr Calc Pharmacy 61.1 ml/min; Globulin 2.8 gm/dl (2.5-4.0); Potassium 5.2 mmol/L (3.5-5.1); Total Protein 7.3 gm/dl (6.0-8.3)
[2024-12-19 09:01] LABS: Troponin I High Sensitivity 2.9 pg/ml (0-20)
[2024-12-19 09:11] LABS: Thyroid Stimulating Hormone 4.669 uIu/ml (0.300-4.500)
--- NOTE | 2024-12-19 09:40 | CT Scan Report ---
CT head/brain wo con CLINICAL HISTORY: 79 years-old Male with SYNCOPE. Acute syncope TECHNIQUE: Multiple axial CT images of the head were obtained without contrast. A dose lowering tech nique was utilized adhering to the principles of ALARA. CT DOSE: 703.85 mGy.cm COMPARISON: 08/28/2024 FINDINGS: No acute intracranial hemorrhage, midline shift, intracranial mass, hydrocephalus, territorial ischem ia or abnormal extra-axial collection. The calvarium is intact. Mild mucosal thickening of the paranasal sinuses. Mastoid air cells are gab ar. Unremarkable soft tissues and orbits. IMPRESSION: No acute intracranial abnormality or calvarial fracture. ACT 112: Negative or not required by law. The above report was generated using voice recognition software. It may contain grammatical, syntax o r spelling errors. Electronically signed by: Ferny Krishnamurthy M.D. 12/19/2024 9:38 AM
[2024-12-19 09:45] LABS: T4 Free Thyroxine 0.84 ng/dl (0.61-1.60)
[2024-12-19 10:06] LABS: D Dimer 250 ug/L FEU (0-500)
--- NOTE | 2024-12-19 10:34 | XRay Report ---
XR shoulder LT min 2V routine CLINICAL HISTORY: shoulder pain, syncope COMPARISON: None FINDINGS: There is mild AC joint osteoarthritis. No fracture or dislocation seen. IMPRESSION: No fracture seen. ACT 112: Negative or not required by law. Electronically signed by: Richard Silva M.D. 12/19/2024 10:33 AM
--- NOTE | 2024-12-19 11:45 | History & Physical Report ---
Date of Service December 19, 2024 Assessment & Plan (1) Syncope and collapse: Plan: LIkely vasovagal, however given his history of sweats and normal blood sugar will monitor for any arrythmias shayna consult cardiology. Given normal blood sugar, perhaps patient had a hypoglycemic event prior to waking up. Patient does take glipizide 1 mg PO bID. may consider switching this to a new medication. shayna defer to PCP (2) Essential (primary) hypertension: Plan: resume home meds (3) Diabetes type 2, uncontrolled: Plan: placed on carb ratio for short acting insulin check A!C History of Present Illness Chief Complaint: syncopal epsidoe Primary Care Provider: Maritza Ron NP 79 yo male with diabetes type 2 presents to the hospital for passing out. Patient reports this was a witnessed event. Patient is very active in his current lifestyle and continues to work. He woke up at his usual time when he noticed he was sweating and his skin was clammy. His states he looked pale, he sat in a chair. But later when he stood up to walk, he passed out. This episode last for about 1 minute. Luckily he was aware he was going to pass out and slowly hit the ground limiting any injuries. His smack him lightly on his face and woke up him. Patient did not have any urinary or fecal incontinence. Blood sugar was 176 when checked it that morning. Allergies Allergy/AdvReac Type Severity Reaction Status Date / Time No Known Allergies Allergy Unverified 12/19/24 09:45 Home Medications Medication Instructions Recorded Confirmed Type cholecalciferol (vitamin D3) 25 2,000 unit PO DAILY 10/25/23 12/19/24 History mcg (1,000 unit) tablet metoprolol succinate 25 mg 12.5 mg PO DAILY 10/25/23 12/19/24 History tablet,extended release 24 hr tamsulosin 0.4 mg capsule (Flomax) 0.4 mg PO HS 10/25/23 12/19/24 History rosuvastatin 5 mg tablet 5 mg PO HS 08/28/24 12/19/24 History blood sugar diagnostic (TapPressTouch #300 ea 10/10/24 11/10/24 Rx Verio test strips) lancets 33 gauge (OneTouch Dellivan #300 ea 10/10/24 Rx Plus Lancet) zinc acetate 50 mg (zinc) capsule 50 mg PO DAILY 10/10/24 12/19/24 History glipizide 10 mg tablet 10 mg PO BID 10/15/24 12/19/24 History Past Med/Surg History Problem List Syncope and collapse (Acute) Acute hyperglycemia (Acute) Pneumonia due to severe acute respiratory syndrome coronavirus 2 (SARS-CoV-2) (Acute) BPH loc w urin obs/LUTS Dysfunctional voiding of urine Urinary dysfunction Prostate cancer screening Mixed hyperlipidemia Chronic kidney disease, stage 3a Parietoalveolar pneumopathy Tricuspid valve regurgitation Mitral valve regurgitation Allergic rhinitis Spondylolisthesis Hx of malignant neoplasm of colon Endocarditis Raised prostate specific antigen Malignant tumor of colon Aortic valve disorder Diabetes mellitus Essential (primary) hypertension Polymyalgia rheumatica Diabetes type 2, uncontrolled Atrial fibrillation with rapid ventricular response Pneumonia (Acute) Hypertension COVID-19 virus infection (Acute) Medical History 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 Pneumothorax Pneumomediastinum Acute blood loss anemia GI bleed Surgical History No pertinent past surgical history Family History Mother Diabetes Heart disease Brother Diabetes Sister Diabetes Social History Smoking Status: Never smoker Second Hand Exposure: No; Do You Dip or Chew Tobacco: No; Hx Alcohol Use: No Hx Substance Use: No Preferred Language: Wolof Communication Ability: Effective Glass Robot Operator Required: No Beliefs That Will Affect Care: None marital status: Current Living Situation: Spouse Other Information That Helps Us Care for You: No Feels Safe at Home: Yes Safety Concerns: Feels Safe At This Time Assistive Devices: None Review of Systems Constitutional: no fever Eyes: no blind spots Ear, Nose, Mouth, Throat: no ear pain Respiratory: no cough Cardiovascular: no chest pain Gastrointestinal: no abdominal pain Genitourinary: no dysuria Musculoskeletal: no back pain Integumentary: no acne Neurologic: no gait abnormality Psychiatric: no behavioral changes Endocrine: no fatigue Hematologic / Lymphatic: no easy bleeding Allergy / Immunological: no GI upset with certain foods Physical Exam Constitutional: WD/WN, vitals as above Eyes: PERRL, conjunctivae normal, anicteric sclerae ENMT: external ear and nose normal, oropharynx normal Neck: trachea midline, no thyromegaly Respiratory: normal respiratory effort, lungs clear to auscultation Cardiovascular: RRR, no murmur, no edema Gastrointestinal (Abdomen): normal bowel sounds, soft, nontender, no hepatosplenomegaly Musculoskeletal: no cyanosis or clubbing, extremities motor strength 5/5 Skin: no rashes, warm and dry Neurologic: PERRL, EOMI, accommodation nl, no face palsy, no dysarthria Psychiatric: A+Ox3, euthymic affect Results & Data Results & Data Vital Signs (Past 12 Hours) Vital Signs Temp Pulse Resp BP Pulse Ox O2 Del Method 12/19/24 09:03 59 L 20 142/87 H 98 12/19/24 08:47 63 12/19/24 08:42 60 20 98 12/19/24 07:54 36.4 C L 59 L 17 124/80 96 Room Air 12/19/24 07:53 Room Air PG Care Time/CCT Total # of Minutes Spent Total Time Spent with Patient: Total time spent is greater than 50% in coordination of care (as documented) at patient's floor/unit and/or counseling patient: Coding Level of Care Code 87742 INT INP/OBS CARE 3/75MIN Diagnoses Syncope and collapse R55 Essential (primary) hypertension I10 Diabetes type 2, uncontrolled E11.65
[2024-12-19 12:13] LABS: Appearance Urine Clear (Clear); Bacteria Urine Automated None Seen (None Seen); Bilirubin Urine Negative (Negative); Blood Urine Negative (Negative); Cast Urine Automated 0-2 /lpf (0-2); Color Urine Yellow; Epithelial Cell Urine Auto 0-2 /hpf (0-2); Glucose Urine UA Trace (Negative); Ketones Urine Trace (Negative); Leukocyte Esterase Urine 1+ (Negative); Nitrite Urine Negative (Negative); Protein Urine Negative (Negative); RBC Urine Automated 0-2 /hpf (0-2); Specific Gravity Urine 1.023 (1.000-1.030); Urobilinogen Urine Negative (Negative); WBC Urine Automated 0-5 /hpf (0-5); pH Urine 5.5 (4.5-7.5)
[2024-12-19 14:09] LABS: Estimated Average Glucose 177 mg/dl; Hemoglobin A1C 7.8 % (4.5-5.6)
--- NOTE | 2024-12-19 14:10 | Emergency Department Note ---
Impression & Plan Syncope and collapse ED Provider Note NAME: YELENA MUNOZ AGE: 79 SEX: Male INFORMANT: Patient ED PROVIDER(S): Karlos Ortiz MD CHIEF COMPLAINT: Syncope PLAN: Disposition: Admitted Outpatient prescription management: none Referral: None MEDICAL DECISION MAKING: Patient presented after a syncopal episode. is present and describes the episode as noted below. Patient does not have a significant prodrome and has had no recent illness. Workup initiated. CT imaging of the head was negative. Chest x-ray and left shoulder x-ray negative as well. Patient had a sinus bradycardia noted on ECG. Cardiac monitoring was unremarkable. He was not orthostatic. The patient was hydrated. D-dimer and cardiac troponin were negative. Given the patient's cardiac history and the episode today he is at moderate risk via syncope decision rule. [facility] [place] Case discussed and diagnostics were reviewed. Patient was evaluated in the ER and admitted for further management. Care/management discussed with: international operations manager Level of care consideration(s): After review of the information above and other included data, I feel the patient requires escalation of care to admission Triage Nursing notes: reviewed and agree them. Vital Signs: reviewed and remarkable for no significant abnormalities Additional History obtained from: Family who was present Chronic Medical/Social Conditions affecting care: Diabetes Prior/ Outside/ External records reviewed: none Differential Diagnosis: Vasovagal event, dehydration, infection, hypoglycemia, electrolyte abnormalities, cardiac sources, intracerebral event, pulmonary embolism, seizure, toxicologic, neurologic, as well as other pathologies. Diagnostics, independently interpreted by me: ECG: Twelve-lead ECG reveals a sinus bradycardia [address] elevation or depression. Cardiac Monitoring: Cardiac monitoring ordered by me: The patient was placed on continuous cardiac monitoring and observed. It revealed a normal sinus rhythm at 60 beats per minute without ectopy or evidence of dysrhythmia. Medical decision rules: Patient is at moderate risk by [place] syncope rule. Imaging studies: Head CT: A noncontrast CT scan of the head was performed and was negative for tumor, fracture, intracranial hemorrhage, or other acute pathology. Chest x-ray. Findings: A chest x-ray was performed and revealed no pneumothorax, effusion, infiltrate, pulmonary edema, free air under the diaphragm, or wide mediastinum. Impression: No acute disease. X-ray imaging of the left shoulder reveals mild degenerative changes. HPI: 79 year old Male arrives for evaluation of sudden onset of syncope. Patient woke up and was getting ready to go to the garage, his normal routine and all of a sudden did not feel well. He checked his sugar and it was 178. notes that he quickly became clammy pale and sat down. He passed out. She notes that he was unresponsive for her and she began to slap his face. He came around. He notes having some left arm discomfort in the shoulder over the last week. Patient has had some intermittent dizziness. He denies any specific room spinning sensations or worsening with turning his head. Pt denies headache, fevers, chills, visual changes, neck pain, chest pain, breathing difficulties, nausea, vomiting, abdominal pain, back pain, melena, hematochezia, urinary symptoms, persistent numbness, focal weakness, lymphadenopathy, rash, or other complaints. PAST MEDICAL HISTORY: See Below, valvular heart disease, atrial fibrillation PAST SURGICAL HISTORY: See Below, SOCIAL HISTORY: See Below, HOME MEDICATIONS: See Below ALLERGIES: See Below VITALS: See Below PHYSICAL EXAMINATION: GENERAL: Awake, alert, [id number], in no distress HENT: Normocephalic, atraumatic. Oropharynx unremarkable. EYES: Normal conjunctiva. Sclera non-icteric. PERRLA. EOMI. No nystagmus. NECK: Inspection normal. Non-tender. Supple. No nuchal rigidity. FROM. No masses. RESPIRATORY: Clear to auscultation. No wheezes. No rales. Normal respiratory effort. CARDIAC: Normal rate. Normal rhythm. No murmurs. No rubs. Extremities warm and well perfused. Pulses equal. No JVD. GI: Soft, non-distended. No tenderness to palpation. No rebound or guarding. No masses. RECTAL: Deferred. MUSCULOSKELETAL: Atraumatic. Chest examination reveals no tenderness. The back is symmetrical on inspection without obvious abnormality. There is no CVA tenderness to palpation. No joint edema. LOWER EXTREMITIES: Calves are equal size bilaterally and non-tender. No edema. No discoloration. NEURO: Normal sensorium. No sensory or motor deficits noted. Cranial nerves II through XII intact. No drift. Normal rapid alternating movements. Normal fprh-xn-azah. SKIN: No rash or jaundice noted. PROCEDURES: none CRITICAL CARE: none OBSERVATION NOTE: none Past Med/Surg History Problem List (Updated 12/19/24 @ 14:09 by Karlos Ortiz MD) Syncope and collapse (Acute) Acute hyperglycemia (Acute) Pneumonia due to severe acute respiratory syndrome coronavirus 2 (SARS-CoV-2) (Acute) BPH loc w urin obs/LUTS Dysfunctional voiding of urine Urinary dysfunction Prostate cancer screening Mixed hyperlipidemia Chronic kidney disease, stage 3a Parietoalveolar pneumopathy Tricuspid valve regurgitation Mitral valve regurgitation Allergic rhinitis Spondylolisthesis Hx of malignant neoplasm of colon Endocarditis Raised prostate specific antigen Malignant tumor of colon Aortic valve disorder Diabetes mellitus Essential (primary) hypertension Polymyalgia rheumatica Diabetes type 2, uncontrolled Atrial fibrillation with rapid ventricular response Pneumonia (Acute) Hypertension COVID-19 virus infection (Acute) Medical History 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 Pneumothorax Pneumomediastinum Acute blood loss anemia GI bleed Surgical History No pertinent past surgical history Family History Mother Diabetes Heart disease Brother Diabetes Sister Diabetes Social History (Updated 09/04/24 @ 13:28 by Allegra Johnson) Smoking Status: Never smoker Second Hand Exposure: No; Do You Dip or Chew Tobacco: No; Hx Alcohol Use: No Hx Substance Use: No Preferred Language: Croatian Communication Ability: Effective Customs Appraiser Required: No Beliefs That Will Affect Care: None marital status: Current Living Situation: Spouse Feels Safe at Home: Yes Assistive Devices: None Allergies Allergies Allergy/AdvReac Type Severity Reaction Status Date / Time No Known Allergies Allergy Unverified 12/19/24 09:45 Home Meds Home Medications Medication Instructions Recorded Confirmed cholecalciferol (vitamin D3) 25 2,000 unit PO DAILY 10/25/23 12/19/24 mcg (1,000 unit) tablet metoprolol succinate 25 mg 12.5 mg PO DAILY 10/25/23 12/19/24 tablet,extended release 24 hr tamsulosin 0.4 mg capsule (Flomax) 0.4 mg PO HS 10/25/23 12/19/24 rosuvastatin 5 mg tablet 5 mg PO HS 08/28/24 12/19/24 zinc acetate 50 mg (zinc) capsule 50 mg PO DAILY 10/10/24 12/19/24 glipizide 10 mg tablet 10 mg PO BID 10/15/24 12/19/24 Previous Rx's Medication Instructions Recorded blood sugar diagnostic (OneTouch #300 ea 10/10/24 Verio test strips) lancets 33 gauge (OneTouch Delica #300 ea 10/10/24 Plus Lancet) Results & Data (ED) Vital Signs Vital Signs - 24 hr 12/19/24 07:53 12/19/24 07:54 12/19/24 08:05 Temperature 36.4 C L Temperature Source Temporal Artery Scan Pulse Rate - Lying 57 L Pulse Rate - Sitting 67 Pulse Rate - Standing 83 Pulse Rate 59 L Respiratory Rate 17 Respiratory Effort / Characteristics Non-Labored Spontaneous Respiratory Depth Normal Blood Pressure - Lying 145/78 H Blood Pressure - Sitting 146/83 H Blood Pressure- Standing 131/82 Blood Pressure 124/80 Blood Pressure Mean 94 Pulse Oximetry 96 Oxygen Delivery Method Room Air Room Air Sepsis Recent Fever Within 48 Hours No Sepsis New/Unexplained Change in Mental Status N/A Sepsis Action Taken by Nursing No Action Required 12/19/24 08:42 12/19/24 08:47 12/19/24 09:03 Temperature Temperature Source Pulse Rate - Lying Pulse Rate - Sitting Pulse Rate - Standing Pulse Rate 60 63 59 L Respiratory Rate 20 20 Respiratory Effort / Characteristics Respiratory Depth Blood Pressure - Lying Blood Pressure - Sitting Blood Pressure- Standing Blood Pressure 142/87 H Blood Pressure Mean 105 Pulse Oximetry 98 98 Oxygen Delivery Method Sepsis Recent Fever Within 48 Hours Sepsis New/Unexplained Change in Mental Status Sepsis Action Taken by Nursing 12/19/24 13:26 Temperature Temperature Source Pulse Rate - Lying Pulse Rate - Sitting Pulse Rate - Standing Pulse Rate Respiratory Rate Respiratory Effort / Characteristics Respiratory Depth Blood Pressure - Lying Blood Pressure - Sitting Blood Pressure- Standing Blood Pressure Blood Pressure Mean Pulse Oximetry Oxygen Delivery Method Room Air Sepsis Recent Fever Within 48 Hours Sepsis New/Unexplained Change in Mental Status Sepsis Action Taken by Nursing Laboratory Data 12/19/24 08:22 12/19/24 08:22 Lab Results 12/19/24 12/19/24 Range/Units 08:22 11:55 WBC 7.39 (4.8-10.8) K/ul RBC 5.71 (4.70-6.10) M/uL Hgb 16.6 (14.0-18.0) g/dl Hct 51.2 (42.0-52.0) % MCV 89.7 (80.0-100.0) fL MCH 29.1 (25.0-34.0) pg MCHC 32.4 (32.0-36.0) g/dL RDW Std Deviation 43.0 (36.4-46.3) fL RDW Coeff of Macrina 13.1 (11.5-14.5) % Plt Count 207 (130-400) K/uL MPV 10.0 (9.4-12.4) fL Immature Gran % (Auto) 0.3 % Neut % (Auto) 67.5 % Lymph % (Auto) 22.1 % [place] % (Auto) 7.0 % Eos % (Auto) 2.3 % Baso % (Auto) 0.8 % Neut # (Auto) 4.99 (1.40-6.50) K/uL Lymph # (Auto) 1.63 (1.20-3.40) K/uL [place] # (Auto) 0.52 (0.11-0.59) K/uL Eos # (Auto) 0.17 (0.00-0.50) K/uL Baso # (Auto) 0.06 (0.00-0.20) K/uL Immature Gran # (Auto) 0.02 (0.01-0.20) K/uL D-Dimer 250 (0-500) ug/L FEU Sodium 141 (136-145) mmol/L Potassium 5.2 H (3.5-5.1) mmol/L Chloride 105 (98-107) mmol/L Carbon Dioxide 32 (21-32) mmol/L Anion Gap 4 (3-11) BUN 26 H (6-23) mg/dl Creatinine 1.17 (0.6-1.4) mg/dl Est Cr Clr Drug Dosing 61.1 ml/min eGFR 64.21 BUN/Creatinine Ratio 22.2 H (10-20) Glucose 226 H (70-99(Fasting)) mg/dl Calcium 9.5 (8.6-10.3) mg/dl Magnesium 2.0 (1.7-2.4) mg/dl Total Bilirubin 0.7 (0.2-1.0) mg/dl AST 18 (13-39) U/L ALT 20 (7-52) U/L Alkaline Phosphatase 73 (34-104) U/L Troponin I High Sens 2.9 (0-20) pg/ml Total Protein 7.3 (6.0-8.3) gm/dl Albumin 4.5 (3.4-5.0) gm/dl Globulin 2.8 (2.5-4.0) gm/dl Albumin/Globulin Ratio 1.6 (0.9-2) TSH 4.669 H (0.300-4.500) uIu/ml Free T4 0.84 (0.61-1.60) ng/dl Urine Color Yellow Urine Appearance Clear (Clear) Urine pH 5.5 (4.5-7.5) Ur Specific [place] 1.023 (1.000-1.030) Urine Protein Negative (Negative) Urine Glucose (UA) Trace H (Negative) Urine Ketones Trace H (Negative) Urine Blood Negative (Negative) Urine Nitrite Negative (Negative) Urine Bilirubin Negative (Negative) Urine Urobilinogen Negative (Negative) Ur Leukocyte Esterase 1+ H (Negative) Urine WBC (Auto) 0-5 (0-5) /hpf Urine RBC (Auto) 0-2 (0-2) /hpf U Hyaline Cast (Auto) 0-2 (0-2) /lpf U Epithel Cells (Auto) 0-2 (0-2) /hpf Urine Bacteria (Auto) None Seen (None Seen) Administered Medications Sodium Chloride (Nss) 1,000 mls @ 125 mls/hr IV .Q8H NILAM Stop: 12/20/24 08:14 Last Admin: 12/19/24 08:51 Dose: 125 mls/hr Documented By: ARS Imaging Data Radiologist's Impression: Chest X-Ray 12/19/24 08:05 XR chest 1V portable CLINICAL HISTORY: weakness COMPARISON STUDY: 08/28/2024 FINDINGS: Stable mild cardiomegaly without pulmonary vascular congestion. No effusion, consolidation, or pneumothorax. IMPRESSION: No acute findings. ACT 112: Negative or not required by law. Electronically signed by: Richard Silva M.D. 12/19/2024 8:[address] 12/19/24 09:05 CT head/brain wo con CLINICAL HISTORY: 79 years-old Male with SYNCOPE. Acute syncope TECHNIQUE: Multiple axial CT images of the head were obtained without contrast. A dose lowering technique was utilized adhering to the principles of ALARA. CT DOSE: 703.85 mGy.cm COMPARISON: 08/28/2024 FINDINGS: No acute intracranial hemorrhage, midline shift, intracranial mass, hydrocephalus, territorial ischemia or abnormal extra-axial collection. The calvarium is intact. Mild mucosal thickening of the paranasal sinuses. Mastoid air cells are clear. Unremarkable soft tissues and orbits. IMPRESSION: No acute intracranial abnormality or calvarial fracture. ACT 112: Negative or not required by law. The above report was generated using voice recognition software. It may contain grammatical, syntax or spelling errors. Electronically signed by: Ferny Krishnamurthy M.D. 12/19/2024 9:38 AM Shoulder X-Ray 12/19/24 10:04 XR shoulder LT min 2V routine CLINICAL HISTORY: shoulder pain, syncope COMPARISON: None FINDINGS: There is mild AC joint osteoarthritis. No fracture or dislocation seen. IMPRESSION: No fracture seen. ACT 112: Negative or not required by law. Electronically signed by: Richard Silva M.D. 12/19/2024 10:33 AM Discharge Plan Visit Data Chief Complaint: Syncope (Near Syncope) Stated Complaint: FAINTING, CLAMMY, DIZZY ED Provider: Karlos Ortiz Discharge Problem: Syncope and collapse Patient Disposition: Admitted As Inpatient Discharge Instructions Interventions: ED Discharge Assessment Last Done: 12/19/24 13:26 Forms Stand Alone Forms: [facility] Prescriptions Prescriptions: No Action (DME) OneTouch Verio test strips Strip See Rx Instructions .ROUTE .MEDSUPPLY Qty: 300 3RF Rx Instructions: test blood sugar 3 times a day (DME) lancets [OneTouch Delica Plus Lancet] 33 gauge misc See Rx Instructions .ROUTE Qty: 300 3RF Rx Instructions: test blood sugar 3 times a day zinc acetate 50 mg (zinc) capsule 50 mg PO DAILY glipizide 10 mg tablet 10 mg PO BID cholecalciferol (vitamin D3) 25 mcg (1,000 unit) tablet 2,000 unit PO DAILY metoprolol succinate 25 mg tablet extended release 24 hr 12.5 mg PO DAILY tamsulosin [Flomax] 0.4 mg capsule 0.4 mg PO HS rosuvastatin 5 mg tablet 5 mg PO HS Referrals Referrals: Maritza Ron UROGYNECOLOGY PHYSICIAN [Primary Care Provider] -
[2024-12-19] MEDS ORDERED: PHARMACY GLYCEMIC MGMT CONSULT PRN (14:26)
--- NOTE | 2024-12-19 14:27 | Electrocardiogram Report ---
Test Reason : Blood Pressure : */* mmHG Vent. Rate : 53 BPM Atrial Rate : 53 BPM P-R Int : 182 ms QRS Dur : 90 ms QT Int : 472 ms P-R-T Axes : 52 26 63 degrees QTcB Int : 442 ms Sinus bradycardia Otherwise normal ECG When compared with ECG of 28-Aug-2024 15:06, Vent. rate has decreased by 41 bpm Borderline criteria for Inferior infarct are no longer Present Confirmed by Ty Elizabeth ([id number]) on 12/19/2024 2:27:10 PM Referred By: REFERRED SELF Confirmed By: Ty Elizabeth
--- NOTE | 2024-12-19 15:04 | Pharmacy Report ---
Pharmacy Glycemic Short Note 2 - Date of Service December 19, 2024 - Glycemic Short BSG Results (Last 24 hours): 12/19/24 08:22 Glucose 226 H OUTPATIENT ANTIDIABETIC REGIMEN: * glipizide 10mg po bid HbA1c: 7.8% on 12/19/24 ASSESSMENT: * 79 year old male presented to the ED today after a syncopal episode. Pharmacy has been consulted for glycemic management while he is admitted. * BSG on admit was 226mg/dL. A weight based bolus insulin regimen with a stress between 1 and 2 was ordered. A Lantus scale (0, 5, or 10 units depending on BSG) was added at HS. PLAN FOR INPATIENT GLYCEMIC CONTROL: * Hold outpatient oral diabetes medications * Basal insulin * Lantus scale at HS (hold for BSG < 180, 5 units for BSG 180-200, 10 units for BSG > 200). * Bolus insulin * NovoLog per scale ACHS or Q6hrs while NPO * Goal Range: Low 110 mg/dL - High 140 mg/dL * Correction Factor: 30 mg/dL/unit * Nutritional / Prandial insulin per carb ratio of 1 unit per 10 grams CHO consumed
--- NOTE | 2024-12-19 16:47 | XCELERA ---
[id number]
--- NOTE | 2024-12-19 17:52 | Cardiology Consultation ---
Date of Consultation December 19, 2024 Assessment & Plan (1) Syncope and collapse: Plan 1. Syncope: He describes symptoms consistent with high vagal tone. Unclear precipitant. Afterwards he had significant fatigue and this is also consistent with high vagal tone. He has a structurally normal heart. While he does have an element of mild bradycardia, no other significant conduction disease. I think this was all situational. He does not have additional symptoms which generally warrant cardiac evaluation. I did discuss outpatient monitoring with the patient and I will arrange for such monitoring. I think he is otherwise in good condition for discharge. 2. Aortic regurgitation: He has seen a lock maintenance supervisor in the past for aortic regurgitation. Very minor on his echocardiogram today. Do not think this requires routine reevaluation in the absence of new symptoms or change in exam. History of Present Illness Reason for Consultation: Syncope Requesting Physician: Genna Attending Physician: Vinicio Vail History of Present Illness The patient is a 79-year-old gentleman with a history of valvular heart disease who awoke this morning and upon getting out of bed began to have symptoms of dizziness, diaphoresis and nausea. His symptoms progressed to the point where he felt very weak and he sat down in a chair. Going to the patient he had a syncopal episode for a few seconds. Afterwards his symptoms persisted and he sought an evaluation in our emergency room. He did not vomit. He did not have any diarrhea or loose stools. He did not notice any associated palpitations or rapid heartbeats. He did check his blood sugar around that time and it was in the normal range. He states that gradually throughout the course of the morning his symptoms resolved and he is now feeling normal. He cannot recall any similar symptoms in the past. He generally does not have dizziness or lightheadedness. He is never suffered an episode of syncope before. He denies any symptoms of palpitations or rapid heartbeat. He does not monitor his vital signs at home. He is accustomed to strenuous physical activity and can chop and carry wood without symptoms. No exertional chest pain or chest pain at rest. No limiting dyspnea. He was followed previously by lock maintenance supervisor for mitral valve issue. He states this involves some "small leakage in one of the valves". No other known cardiac history. Allergies Allergy/AdvReac Type Severity Reaction Status Date / Time No Known Allergies Allergy Unverified 12/19/24 09:45 Home Medications Medication Instructions Recorded Confirmed Type cholecalciferol (vitamin D3) 25 2,000 unit PO DAILY 10/25/23 12/19/24 History mcg (1,000 unit) tablet metoprolol succinate 25 mg 12.5 mg PO DAILY 10/25/23 12/19/24 History tablet,extended release 24 hr tamsulosin 0.4 mg capsule (Flomax) 0.4 mg PO HS 10/25/23 12/19/24 History rosuvastatin 5 mg tablet 5 mg PO HS 08/28/24 12/19/24 History blood sugar diagnostic (OneTouch #300 ea 10/10/24 11/10/24 Rx Verio test strips) lancets 33 gauge (OneTouch Delica #300 ea 10/10/24 Rx Plus Lancet) zinc acetate 50 mg (zinc) capsule 50 mg PO DAILY 10/10/24 12/19/24 History glipizide 10 mg tablet 10 mg PO BID 10/15/24 12/19/24 History Patient History Medical History 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 Pneumothorax Pneumomediastinum Acute blood loss anemia GI bleed Surgical History No pertinent past surgical history Family History Mother Diabetes Heart disease Brother Diabetes Sister Diabetes Social History (Updated 09/04/24 @ 13:28 by Allegra Johnson) Smoking Status: Never smoker Second Hand Exposure: No; Do You Dip or Chew Tobacco: No; Hx Alcohol Use: No Hx Substance Use: No Preferred Language: Kenyan Communication Ability: Effective Manager Math Required: No Beliefs That Will Affect Care: None marital status: Current Living Situation: Spouse Other Information That Helps Us Care for You: No Feels Safe at Home: Yes Safety Concerns: Feels Safe At This Time Assistive Devices: None Review of Systems Review of Systems: Per HPI Physical Exam Physical Exam: The patient is alert and oriented. Mood and affect appeared normal. He answered all questions appropriately. HEENT: Pupils are equal and reactive to light and accommodation. Extraocular movements are intact. The sclerae are anicteric. Neuro: Cranial nerves intact Lungs: Clear to auscultation bilaterally. He has good air movement without use of accessory muscles. No rales wheezes or rhonchi. Cardiac: Heart demonstrates a regular rate and rhythm. Normal S1 and S2. No murmurs on examination. Pulses: The patient has palpable radial pulses bilaterally that are equal in intensity Extremities: There was no evidence of hypoperfusion. There is no cyanosis or clubbing. There is no edema. Skin: I did not appreciate any rashes on examination today. Results & Data Vital Signs (Past 12 Hours) Vital Signs Temp Pulse Pulse Resp BP BP Pulse Ox 12/19/24 17:02 36.5 C 58 L 18 167/80 H 96 12/19/24 16:26 36.7 C 66 H 165/77 H 96 12/19/24 15:51 80 12/19/24 13:26 12/19/24 09:03 59 L 20 142/87 H 98 12/19/24 08:47 63 12/19/24 08:42 60 20 98 12/19/24 07:54 36.4 C L 59 L 17 124/80 96 12/19/24 07:53 O2 Del Method 12/19/24 17:02 Room Air 12/19/24 16:26 Room Air 12/19/24 15:51 12/19/24 13:26 Room Air 12/19/24 09:03 12/19/24 08:47 12/19/24 08:42 12/19/24 07:54 Room Air 12/19/24 07:53 Room Air Laboratory Results Abnormal Lab Results 12/19/24 12/19/24 12/19/24 08:22 11:55 16:39 WBC 7.39 RBC 5.71 Hgb 16.6 Hct 51.2 MCV 89.7 MCH 29.1 MCHC 32.4 RDW Std Deviation 43.0 RDW Coeff of Macrina 13.1 Plt Count 207 MPV 10.0 Immature Gran % (Auto) 0.3 Neut % (Auto) 67.5 Lymph % (Auto) 22.1 [place] % (Auto) 7.0 Eos % (Auto) 2.3 Baso % (Auto) 0.8 Neut # (Auto) 4.99 Lymph # (Auto) 1.63 [place] # (Auto) 0.52 Eos # (Auto) 0.17 Baso # (Auto) 0.06 Immature Gran # (Auto) 0.02 D-Dimer 250 Sodium 141 Potassium 5.2 H Chloride 105 Carbon Dioxide 32 Anion Gap 4 BUN 26 H Creatinine 1.17 Est Cr Clr Drug Dosing 61.1 eGFR 64.21 BUN/Creatinine Ratio 22.2 H Glucose 226 H POC Glucose 228 H Estimat Average Glucose 177 Hemoglobin A1c 7.8 H Calcium 9.5 Magnesium 2.0 Total Bilirubin 0.7 AST 18 ALT 20 Alkaline Phosphatase 73 Troponin I High Sens 2.9 Total Protein 7.3 Albumin 4.5 Globulin 2.8 Albumin/Globulin Ratio 1.6 TSH 4.669 H Free T4 0.84 Urine Color Yellow Urine Appearance Clear Urine pH 5.5 Ur Specific [place] 1.023 Urine Protein Negative Urine Glucose (UA) Trace H Urine Ketones Trace H Urine Blood Negative Urine Nitrite Negative Urine Bilirubin Negative Urine Urobilinogen Negative Ur Leukocyte Esterase 1+ H Urine WBC (Auto) 0-5 Urine RBC (Auto) 0-2 U Hyaline Cast (Auto) 0-2 U Epithel Cells (Auto) 0-2 Urine Bacteria (Auto) None Seen Diagnostic Findings Echocardiogram 12/19/2024: Preserved LV systolic function. Trace aortic regurgitation. Otherwise unremarkable. ECG Additional Comments: Sinus bradycardia without conduction disease PG Care Time/CCT Total # of Minutes Spent Total Time Spent with Patient: Total time spent is greater than 50% in coordination of care (as documented) at patient's floor/unit and/or counseling patient: Coding Level of Care Code 35478 INT INP/OBS CARE 3/75MIN Diagnoses Syncope and collapse R55
[2024-12-19] MEDS: INSULIN ASPART PER UNIT CHARGE SC SCH (18:24)
[2024-12-19] MEDS: TAMSULOSIN HCL 0.4 MG CAP PO SCH (21:50)
[2024-12-19] MEDS: ROSUVASTATIN CALCIUM 5 MG TAB PO SCH (21:50)
[2024-12-19] MEDS: MELATONIN 3 MG TAB PO PRN (22:28)
[2024-12-19] MEDS: LANTUS PER UNIT CHARGE SC SCH (23:30)
[2024-12-20] MEDS: ACETAMINOPHEN 325 MG TAB PO PRN (03:35)
[2024-12-20] MEDS ORDERED: GLUCOSE 40% GEL 15 GM TUBE PO PRN (08:30)
[2024-12-20] MEDS ORDERED: CARBOHYDRATES FOR HYPOGLYCEMIA PO PRN (08:30)
[2024-12-20] MEDS ORDERED: GLUCAGON FOR INJ 1 MG VIAL SQ PRN (08:30)
[2024-12-20] MEDS ORDERED: DEXTROSE 50% 50 ML SYRINGE IV PRN (08:30)
[2024-12-20] MEDS ORDERED: GLUCOSE 10 TAB/TUBE PO PRN (08:30)
[2024-12-20 08:39] VITALS: BP 172/87; RESP 16; TEMP 97.9; O2SAT 96
[2024-12-20] MEDS: METOPROLOL SUCC 25MG EXT REL TAB PO SCH (08:54)
[2024-12-20] MEDS: LANTUS PER UNIT CHARGE SC SCH (08:54)
[2024-12-20 11:03] VITALS: PULSE 69
--- NOTE | 2024-12-23 10:39 | Discharge Summary ---
Discharge Summary Date of Service December 20, 2024 Principal Dx & Hospital Course #1 = Principal Diagnosis (1) Syncope and collapse: LIkely vasovagal, however given his history of sweats and normal blood sugar will monitor for any arrythmias shayna consult cardiology. Given normal blood sugar, perhaps patient had a hypoglycemic event prior to waking up. Patient does take glipizide 1 mg PO bID. may consider switching this to a new medication. shayna defer to PCP (2) Essential (primary) hypertension: resume home meds (3) Diabetes type 2, uncontrolled: placed on carb ratio for short acting insulin check A!C Admission HPI Per Admitting Provider 79 yo male with diabetes type 2 presents to the hospital for passing out. Patient reports this was a witnessed event. Patient is very active in his current lifestyle and continues to work. He woke up at his usual time when he noticed he was sweating and his skin was clammy. His states he looked pale, he sat in a chair. But later when he stood up to walk, he passed out. This episode last for about 1 minute. Luckily he was aware he was going to pass out and slowly hit the ground limiting any injuries. His smack him lightly on his face and woke up him. Patient did not have any urinary or fecal incontinence. Blood sugar was 176 when checked it that morning. Discharge Exam Constitutional WD/WN, vitals as above Eyes PERRL, conjunctivae normal, anicteric sclerae ENMT external ear and nose normal, oropharynx normal Neck trachea midline, no thyromegaly Respiratory normal respiratory effort, lungs clear to auscultation Cardiovascular RRR, no murmur, no edema Gastrointestinal (Abdomen) normal bowel sounds, soft, nontender, no hepatosplenomegaly Musculoskeletal no cyanosis or clubbing, extremities motor strength 5/5 Skin no rashes, warm and dry Neurologic PERRL, EOMI, accommodation nl, no face palsy, no dysarthria Psychiatric A+Ox3, euthymic affect Discharge Plan Discharge Items Patient Disposition: Home - Self-Care Reason For Visit: SYNCOPE Discharge Diagnosis: syncope Activity: Resume your previous activity Non-emergency contact: Primary Care Provider Call non-emergency contact if: you have any medication questions Follow-up/Referrals: Maritza Ron NP [Primary Care Provider] - Diet: Carb Consistent or DM2 Addtl Attending Provider Instructions: This could have been caused by nocturnal hypoglycemia where you blodo 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 Recommend checking you blood sugars 4 times a day with 2 days this week checking around 3 am. Will recommend discussing with your PCP in switching your glipizide to a different medication as this can cause hypoglycemia. Recommend close followup with your PCP in 1-2 weeks. Pending Studies at Discharge: No Stand-Alone Forms: My [facility], Smoking Cessation Medications and DC Order Prescriptions: Continued (DME) OneTouch Verio test strips Strip See Rx Instructions .ROUTE .MEDSUPPLY Qty: 300 3RF Rx Instructions: test blood sugar 3 times a day (DME) lancets [OneTouch Delica Plus Lancet] 33 gauge misc See Rx Instructions .ROUTE Qty: 300 3RF Rx Instructions: test blood sugar 3 times a day zinc acetate 50 mg (zinc) capsule 50 mg PO DAILY glipizide 10 mg tablet 10 mg PO BID cholecalciferol (vitamin D3) 25 mcg (1,000 unit) tablet 2,000 unit PO DAILY metoprolol succinate 25 mg tablet extended release 24 hr 12.5 mg PO DAILY tamsulosin [Flomax] 0.4 mg capsule 0.4 mg PO HS rosuvastatin 5 mg tablet 5 mg PO HS Discharge Orders: Discharge Order (Routine); Ordered 12/20/24 Ordered By: Vinicio Key/Other Patient Handouts: Managing Type 2 Diabetes, Causes of Syncope Admission Data Admit Date/Time: 12/19/24 12:15 Attending Provider: Vinicio Vail Admit Provider: Vinicio Vail Primary Care Provider: Maritza Ron Other Providers: Vinicio Vail; Mariano Townsend; Hermann Cartagena; Gage Leal; Homero Elise; Garry Bartholomew; Randy Bob Jr; Neptali Drake; Nikki Prince; Gila Saldana; Ty Cohen; Ty Elizabeth; Cris Bowers; Damion Oleary; Lanny Breaux; Damion Almaraz; Matt Pascual; Ian Skelton Other Interventions: Discharge Summary Assessment (RN) Last Done: 12/20/24 11:02 Hospital Stay Data Consultations 12/19/24 12:01 ED Decision to Admit Stat 12/19/24 12:29 Consult Cardiology Routine Diagnostic Imagining Performed 12/19/24 09:05 CT head/brain wo con Stat Pending Results Patient Have Any Pending Studies at Discharge: No Discharge Instructions Given to Patient (Per Discharging Provider) This could have been caused by nocturnal hypoglycemia where you blodo 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 Recommend checking you blood sugars 4 times a day with 2 days this week checking around 3 am. Will recommend discussing with your PCP in switching your glipizide to a different medication as this can cause hypoglycemia. Recommend close followup with your PCP in 1-2 weeks. Coding Diagnoses Syncope and collapse R55 Essential (primary) hypertension I10 Diabetes type 2, uncontrolled E11.65
== END 2024-12-20 11:53 | disposition home or self-care (01) ==
LOC: ED 07:52 → 4W 12:15 → INTOOBSV 12:15 → 4W 13:26